=== PATIENT | male | born 1955 | race Two or more races ===

== ENCOUNTER 2020-01-13 11:11 | Inpatient (IN) | payer MEDICARE, MEDICAID ==
[~2020-01-13] VITALS: Ht 165.1 cm; Wt 39.0 kg
[2020-01-13 11:18] VITALS: BP 110/84
--- NOTE | 2020-01-13 11:18 | NUR ---
ED Nurse Note: Pt wheeled in to ED c/o loss of appetite, weakness, uncontrolled urination. Per son, pt is a liver transplant pt and had a minor heart attact x2 months ago. Denies CP/ SOB. On room air, breathing even and unlabored. Pt placed on media monitor. ERMD at bedside.
--- NOTE | 2020-01-13 11:50 | NUR ---
ED Nurse Note: IV line established. Blood specimen sent to lab.
--- NOTE | 2020-01-13 12:00 | NUR ---
EMERGENCY CONTACT: Alberto (son): [phone]
--- NOTE | 2020-01-13 12:10 | NUR ---
ED Nurse Note: Urine sent to lab.
[2020-01-13 12:21] LABS: HEMATOCRIT 34.9 % (42.0-52.0); HEMOGLOBIN 11.4 G/DL (14.2-18.0); MEAN CORPUSCULAR VOLUME 103 FL (80-99); PLATELET COUNT 278 K/UL (150-450); RED BLOOD COUNT 3.37 M/UL (4.70-6.10); RED CELL DISTRIBUTION WIDTH 12.9 % (11.6-14.8); WHITE BLOOD COUNT 11.9 K/UL (4.8-10.8)
[2020-01-13 12:26] LABS: APPEARANCE,URINE CLEAR; BILIRUBIN, URINE NEGATIVE (NEGATIVE); GLUCOSE, URINE (UA) 2+ (NEGATIVE); KETONES,URINE 1+ (NEGATIVE); LEUKOCYTE ESTERASE ,URINE NEGATIVE (NEGATIVE); NITRITE,URINE NEGATIVE (NEGATIVE); PH,URINE 6.5 (4.5-8.0); PROTEIN,URINE 2+ (NEGATIVE); UROBILINOGEN,URINE NORMAL MG/DL (0.0-1.0)
[2020-01-13 12:31] LABS: INR 0.9 (0.9-1.1)
[2020-01-13 12:31] LABS: COLOR,URINE YELLOW
[2020-01-13 12:33] LABS: CALCIUM 8.6 MG/DL (8.5-10.1)
[2020-01-13 12:46] LABS: ALBUMIN 2.5 G/DL (3.4-5.0); ALBUMIN/GLOBULIN RATIO 0.7 (1.0-2.7); BILIRUBIN,TOTAL 1.2 MG/DL (0.2-1.0); CKMB 10.1 NG/ML (0.0-3.6)
[2020-01-13 13:10] VITALS: BP 117/86
[2020-01-13] MEDS ORDERED: [UNRECOGNIZED DRUG - REMARK] (14:19)
--- NOTE | 2020-01-13 14:24 | History and Physical ---
History of Present Illness General Date patient seen: Jan 13, 2020 Time patient seen: 12:30 Reason for Hospitalization: weakness Present Illness HPI 64 y/o M with PMHx of liver transplantation in 2007, chronically on Cellcept and Prograft, who reportedly had a heart attack, possibly NSTEMI 2 months ago and had medical evaluation at [facility]. He comes to the Hospital today with increasing weakness and poor appetite. His troponin was noted to be elevated at 0.395 and EKG with NSR and he denies chest pain at this time and admission is requested. He denies fever, chills, cough, sputum production. He reports living with his family and does not know the doses of his medications. COVID-19 Screening Contact w/high risk pt: No Experienced COVID-19 symptoms?: No Patient History Healthcare decision maker Resuscitation status Advanced Directive on File Review of Systems All Other Systems: negative except mentioned in HPI Physical Exam General Appearance: WD/WN Lines, tubes and drains: peripheral HEENT: normocephalic, atraumatic Neck: non-tender Respiratory/Chest: lungs clear Cardiovascular/Chest: normal peripheral pulses Abdomen: non tender Extremities: non-tender Skin Exam: warm/dry Neurologic: guest relations agent II-XII grossly normal Last 24 Hour Vital Signs Date Time Temp Pulse Resp B/P (MAP) Pulse Ox O2 Delivery O2 Flow Rate FiO2 01/13/20 11:18 91 16 01/13/20 11:18 97.7 91 17 110/84 100 01/13/20 11:14 97.7 47 17 125/80 (95) 100 Laboratory Tests Test 01/13/20 11:50 01/13/20 12:10 White Blood Count 11.9 K/UL (4.8-10.8) H Red Blood Count 3.37 M/UL (4.70-6.10) L Hemoglobin 11.4 G/DL (14.2-18.0) L Hematocrit 34.9 % (42.0-52.0) L Mean Corpuscular Volume 103 FL (80-99) H Mean Corpuscular Hemoglobin 33.9 PG (27.0-31.0) H Mean Corpuscular Hemoglobin Concent 32.8 G/DL (32.0-36.0) Red Cell Distribution Width 12.9 % (11.6-14.8) Platelet Count 278 K/UL (150-450) Mean Platelet Volume 6.9 FL (6.5-10.1) Neutrophils (%) (Auto) % (45.0-75.0) Lymphocytes (%) (Auto) % (20.0-45.0) Monocytes (%) (Auto) % (1.0-10.0) Eosinophils (%) (Auto) % (0.0-3.0) Basophils (%) (Auto) % (0.0-2.0) Differential Total Cells Counted 100 Neutrophils % (Manual) 91 % (45-75) H Lymphocytes % (Manual) 4 % (20-45) L Monocytes % (Manual) 5 % (1-10) Eosinophils % (Manual) 0 % (0-3) Basophils % (Manual) 0 % (0-2) Band Neutrophils 0 % (0-8) Platelet Estimate Adequate Platelet Morphology Normal Macrocytosis 1+ Prothrombin Time 10.5 SEC (9.30-11.50) Prothromb Time International Ratio 0.9 (0.9-1.1) Activated Partial Thromboplast Time 27 SEC (23-33) Sodium Level 135 MMOL/L (136-145) L Potassium Level 3.0 MMOL/L (3.5-5.1) L Chloride Level 97 MMOL/L (98-107) L Carbon Dioxide Level 25 MMOL/L (21-32) Anion Gap 13 mmol/L (5-15) Blood Urea Nitrogen 47 mg/dL (7-18) H Creatinine 2.0 MG/DL (0.55-1.30) H Estimat Glomerular Filtration Rate 33.6 mL/min (>60) Glucose Level 195 MG/DL (74-106) H Lactic Acid Level 1.80 mmol/L (0.4-2.0) Calcium Level 8.6 MG/DL (8.5-10.1) Magnesium Level 1.7 MG/DL (1.8-2.4) L Total Bilirubin 1.2 MG/DL (0.2-1.0) H Direct Bilirubin 1.0 MG/DL (0.0-0.3) H Aspartate Amino Transf (AST/SGOT) 73 U/L (15-37) H Alanine Aminotransferase (ALT/SGPT) 82 U/L (12-78) H Alkaline Phosphatase 420 U/L (46-116) H Total Creatine Kinase 39 U/L (26-308) Creatine Kinase MB 10.1 NG/ML (0.0-3.6) H Creatine Kinase MB Relative Index 25.8 Troponin I 0.395 ng/mL (0.000-0.056) Total Protein 6.0 G/DL (6.4-8.2) L Albumin 2.5 G/DL (3.4-5.0) L Globulin 3.5 g/dL Albumin/Globulin Ratio 0.7 (1.0-2.7) L Urine Color Yellow Urine Appearance Clear Urine pH 6.5 (4.5-8.0) Urine Specific [place] 1.010 (1.005-1.035) Urine Protein 2+ (NEGATIVE) H Urine Glucose (UA) 2+ (NEGATIVE) H Urine Ketones 1+ (NEGATIVE) H Urine Blood Negative (NEGATIVE) Urine Nitrite Negative (NEGATIVE) Urine Bilirubin Negative (NEGATIVE) Urine Urobilinogen Normal MG/DL (0.0-1.0) Urine Leukocyte Esterase Negative (NEGATIVE) Urine RBC 0 /HPF (0 - 0) Urine WBC 0-2 /HPF (0 - 0) Urine Squamous Epithelial Cells Occasional /LPF Urine Bacteria Occasional /HPF (NONE) Height (Feet): 5 Height (Inches): 8.00 Weight (Pounds): 98 Objective Narrative EKG: NSR at [address] changes or conduction defects. Assessment/Plan Status: stable Assessment/Plan: 64 y/o M admitted to the Hospital with: # Generalized weakness Etiology include failure to thrive, vs poor nutritional status vs underlying cardiac etiology based on history of recent [place] 2 months ago Weight loss 6 lbs in the past month # Elevated troponin Serial troponin Telemetry TTE to assess EF and WMA Cardiology will be consulted Dr. Villanueva Lipid panel Asa 81 mg will be started # CKD stage 3 Trend creatinine Monitor renal function # Hypokalemia Replete and monitor # Hypomagnesemia Replete and monitor # History of liver transplant Resume prograft and cellcept Monitor clinical markers as needed # Generalized weakness PT evaluation for baseline and need of therapy to be determined. DVT ppx with Enoxaparin GI ppx with PPI FULL CODE Piyush Cruz MD Jan 13, 2020 14:24
[2020-01-13] MEDS ORDERED: LORazepam 1mg tab ORAL PRN (14:30)
[2020-01-13] MEDS ORDERED: Morphine Sulfate 2mg/ml Inj(IV/IM USE ONLY) IVP PRN (14:30)
[2020-01-13] MEDS ORDERED: Nitroglycerin Subl 0.4mg tab SL PRN (14:30)
[2020-01-13] MEDS ORDERED: Morphine Sulfate 4mg/ml Inj (IV USE ONLY) IVP PRN (14:30)
--- NOTE | 2020-01-13 14:54 | Cardiac Electrophysiology PN ---
Subjective Subjective [id number] Objective Last 24 Hour Vital Signs Date Time Temp Pulse Resp B/P (MAP) Pulse Ox O2 Delivery O2 Flow Rate FiO2 01/13/20 13:10 97.7 91 16 117/86 97 01/13/20 11:18 91 16 01/13/20 11:18 97.7 91 17 110/84 100 01/13/20 11:14 97.7 47 17 125/80 (95) 100 Laboratory Tests Test 01/13/20 11:50 01/13/20 12:10 White Blood Count 11.9 K/UL (4.8-10.8) H Red Blood Count 3.37 M/UL (4.70-6.10) L Hemoglobin 11.4 G/DL (14.2-18.0) L Hematocrit 34.9 % (42.0-52.0) L Mean Corpuscular Volume 103 FL (80-99) H Mean Corpuscular Hemoglobin 33.9 PG (27.0-31.0) H Mean Corpuscular Hemoglobin Concent 32.8 G/DL (32.0-36.0) Red Cell Distribution Width 12.9 % (11.6-14.8) Platelet Count 278 K/UL (150-450) Mean Platelet Volume 6.9 FL (6.5-10.1) Neutrophils (%) (Auto) % (45.0-75.0) Lymphocytes (%) (Auto) % (20.0-45.0) Monocytes (%) (Auto) % (1.0-10.0) Eosinophils (%) (Auto) % (0.0-3.0) Basophils (%) (Auto) % (0.0-2.0) Differential Total Cells Counted 100 Neutrophils % (Manual) 91 % (45-75) H Lymphocytes % (Manual) 4 % (20-45) L Monocytes % (Manual) 5 % (1-10) Eosinophils % (Manual) 0 % (0-3) Basophils % (Manual) 0 % (0-2) Band Neutrophils 0 % (0-8) Platelet Estimate Adequate Platelet Morphology Normal Macrocytosis 1+ Prothrombin Time 10.5 SEC (9.30-11.50) Prothromb Time International Ratio 0.9 (0.9-1.1) Activated Partial Thromboplast Time 27 SEC (23-33) Sodium Level 135 MMOL/L (136-145) L Potassium Level 3.0 MMOL/L (3.5-5.1) L Chloride Level 97 MMOL/L (98-107) L Carbon Dioxide Level 25 MMOL/L (21-32) Anion Gap 13 mmol/L (5-15) Blood Urea Nitrogen 47 mg/dL (7-18) H Creatinine 2.0 MG/DL (0.55-1.30) H Estimat Glomerular Filtration Rate 33.6 mL/min (>60) Glucose Level 195 MG/DL (74-106) H Lactic Acid Level 1.80 mmol/L (0.4-2.0) Calcium Level 8.6 MG/DL (8.5-10.1) Magnesium Level 1.7 MG/DL (1.8-2.4) L Total Bilirubin 1.2 MG/DL (0.2-1.0) H Direct Bilirubin 1.0 MG/DL (0.0-0.3) H Aspartate Amino Transf (AST/SGOT) 73 U/L (15-37) H Alanine Aminotransferase (ALT/SGPT) 82 U/L (12-78) H Alkaline Phosphatase 420 U/L (46-116) H Total Creatine Kinase 39 U/L (26-308) Creatine Kinase MB 10.1 NG/ML (0.0-3.6) H Creatine Kinase MB Relative Index 25.8 Troponin I 0.395 ng/mL (0.000-0.056) Total Protein 6.0 G/DL (6.4-8.2) L Albumin 2.5 G/DL (3.4-5.0) L Globulin 3.5 g/dL Albumin/Globulin Ratio 0.7 (1.0-2.7) L Urine Color Yellow Urine Appearance Clear Urine pH 6.5 (4.5-8.0) Urine Specific [place] 1.010 (1.005-1.035) Urine Protein 2+ (NEGATIVE) H Urine Glucose (UA) 2+ (NEGATIVE) H Urine Ketones 1+ (NEGATIVE) H Urine Blood Negative (NEGATIVE) Urine Nitrite Negative (NEGATIVE) Urine Bilirubin Negative (NEGATIVE) Urine Urobilinogen Normal MG/DL (0.0-1.0) Urine Leukocyte Esterase Negative (NEGATIVE) Urine RBC 0 /HPF (0 - 0) Urine WBC 0-2 /HPF (0 - 0) Urine Squamous Epithelial Cells Occasional /LPF Urine Bacteria Occasional /HPF (NONE) Greg Villanueva MD Jan 13, 2020 14:54
--- NOTE | 2020-01-13 15:00 | NUR ---
ED Nurse Note: Dr. Cruz at bedside.
--- NOTE | 2020-01-13 15:06 | NUR ---
ED Nurse Note: 2D echo done at bedside.
[2020-01-13] MEDS ORDERED: Aspirin Baby 81mg ORAL ONE (15:15)
--- NOTE | 2020-01-13 15:25 | NUR ---
ED Nurse Note: Report given to Greta HANSEN.
--- NOTE | 2020-01-13 15:35 | NUR ---
TRANSFER TO FLOOR: Patient transferred to Telemetry. Reprot given to Greta HANSEN. Pt AAOx4, verbally responsive. Ambulatory. Iv line on right forearm 20g patent and intact. No skin issues. Med recon done. All belongings sent with the patient. Family aware of the transfer.
--- NOTE | 2020-01-13 15:41 | Emergency Room Report ---
History of Present Illness General Chief Complaint: General Complaint Source: Patient Present Illness HPI Disclaimer: Please note that this report is being documented using [employer] technology. This can lead to erroneous entry secondary to incorrect interpretation by the dictating instrument. HPI: 64-year old male presents from home due to generalized weakness and difficulty with his activities of daily living. He has a history of a liver transplant, has a history of hypertension. According to the son patient has had poor p.o. intake, generally weak with weight loss for the past couple of months. Apparently he was recently admitted to an hospital in [place] "was told I have a heart attack" but echocardiogram nd was normal. Patient denies any chest pain or shortness of breath at this time. He denies any abdominal pain. Liver transplant was completed at [facility] Allergies: Coded Allergies: No Known Allergies (Unverified , 01/13/20) COVID-19 Screening Contact w/high risk pt: No Experienced COVID-19 symptoms?: No COVID-19 Testing performed RESEARCH HOME ECONOMIST: No Patient History Reviewed Nursing Documentation: PMH: Agreed; PSxH: Agreed Nursing Documentation-PM Past Medical History: No History, Except For Hx Hypertension: Yes Review of Systems All Other Systems: negative except mentioned in HPI Physical Exam Vital Signs Date Time Temp Pulse Resp B/P (MAP) Pulse Ox O2 Delivery O2 Flow Rate FiO2 01/13/20 11:14 97.7 47 17 125/80 (95) 100 Sp02 EP Interpretation: reviewed, normal General Appearance: no apparent distress, cachetic Head: normocephalic, atraumatic Eyes: bilateral eye PERRL, bilateral eye EOMI ENT: hearing grossly normal, moist mucus membranes Neck: full range of motion, supple Respiratory: lungs clear, normal breath sounds, no rhonchi, no respiratory distress, no retraction, no wheezing Cardiovascular #1: normal peripheral pulses, regular rate, rhythm, no murmur Gastrointestinal: non tender, soft, non-distended, no guarding Neurologic: alert, oriented x3, no focal defects Skin: normal color, warm/dry Medical Decision Making Diagnostic Impression: Primary Impression: NSTEMI (non-ST elevated myocardial infarction) ER Course MDM: Differential included but not limited to failure to thrive, dehydration, deconditioning, non-ST elevation myocardial infarction to name a few Clinical course-laboratory studies were sent on the patient. EKG completed without any ischemic changes. Troponin was elevated to 0.3. It is unclear if he has baseline troponin elevation. He denied any chest pain. His vital signs were stable. Due to his troponin elevation with generalized weakness and difficulty with ADLs will admit to the hospital under Dr. Cruz. Cardiology was consulted. Aspirin was given in the ER. Labs - Laboratory Tests Test 01/13/20 11:50 01/13/20 12:10 White Blood Count 11.9 K/UL (4.8-10.8) H Red Blood Count 3.37 M/UL (4.70-6.10) L Hemoglobin 11.4 G/DL (14.2-18.0) L Hematocrit 34.9 % (42.0-52.0) L Mean Corpuscular Volume 103 FL (80-99) H Mean Corpuscular Hemoglobin 33.9 PG (27.0-31.0) H Mean Corpuscular Hemoglobin Concent 32.8 G/DL (32.0-36.0) Red Cell Distribution Width 12.9 % (11.6-14.8) Platelet Count 278 K/UL (150-450) Mean Platelet Volume 6.9 FL (6.5-10.1) Neutrophils (%) (Auto) % (45.0-75.0) Lymphocytes (%) (Auto) % (20.0-45.0) Monocytes (%) (Auto) % (1.0-10.0) Eosinophils (%) (Auto) % (0.0-3.0) Basophils (%) (Auto) % (0.0-2.0) Differential Total Cells Counted 100 Neutrophils % (Manual) 91 % (45-75) H Lymphocytes % (Manual) 4 % (20-45) L Monocytes % (Manual) 5 % (1-10) Eosinophils % (Manual) 0 % (0-3) Basophils % (Manual) 0 % (0-2) Band Neutrophils 0 % (0-8) Platelet Estimate Adequate Platelet Morphology Normal Macrocytosis 1+ Prothrombin Time 10.5 SEC (9.30-11.50) Prothrombin Time INR 0.9 (0.9-1.1) Activated Partial Thromboplast Time 27 SEC (23-33) Sodium Level 135 MMOL/L (136-145) L Potassium Level 3.0 MMOL/L (3.5-5.1) L Chloride Level 97 MMOL/L (98-107) L Carbon Dioxide Level 25 MMOL/L (21-32) Anion Gap 13 mmol/L (5-15) Blood Urea Nitrogen 47 mg/dL (7-18) H Creatinine 2.0 MG/DL (0.55-1.30) H Estimated Glomerular Filtration Rate 33.6 mL/min (>60) Glucose Level 195 MG/DL (74-106) H Lactic Acid Level 1.80 mmol/L (0.4-2.0) Calcium Level 8.6 MG/DL (8.5-10.1) Magnesium Level 1.7 MG/DL (1.8-2.4) L Total Bilirubin 1.2 MG/DL (0.2-1.0) H Direct Bilirubin 1.0 MG/DL (0.0-0.3) H Aspartate Amino Transferase (AST) 73 U/L (15-37) H Alanine Aminotransferase (ALT) 82 U/L (12-78) H Alkaline Phosphatase 420 U/L (46-116) H Total Creatine Kinase 39 U/L (26-308) Creatine Kinase MB 10.1 NG/ML (0.0-3.6) H Creatine Kinase MB Relative Index 25.8 Troponin I 0.395 ng/mL (0.000-0.056) Total Protein 6.0 G/DL (6.4-8.2) L Albumin 2.5 G/DL (3.4-5.0) L Globulin 3.5 g/dL Albumin/Globulin Ratio 0.7 (1.0-2.7) L Urine Color Yellow Urine Appearance Clear Urine pH 6.5 (4.5-8.0) Urine Specific [place] 1.010 (1.005-1.035) Urine Protein 2+ (NEGATIVE) H Urine Glucose (UA) 2+ (NEGATIVE) H Urine Ketones 1+ (NEGATIVE) H Urine Blood Negative (NEGATIVE) Urine Nitrite Negative (NEGATIVE) Urine Bilirubin Negative (NEGATIVE) Urine Urobilinogen Normal MG/DL (0.0-1.0) Urine Leukocyte Esterase Negative (NEGATIVE) Urine RBC 0 /HPF (0 - 0) Urine WBC 0-2 /HPF (0 - 0) Urine Squamous Epithelial Cells Occasional /LPF Urine Bacteria Occasional /HPF (NONE) On reevaluation: Patient in no acute distress Plan-patient to the telemetry floor under Dr. Cruz EKG Diagnostic Results Rate: normal Rhythm: NSR ST Segments: no acute changes Other Impression Right atrial enlargement, left axis deviation, nonspecific EKG ASA given to the pt in ED: Yes Chest X-Ray Diagnostic Results Chest X-Ray Diagnostic Results : Chest X-Ray Ordered: Yes # of Views/Limited/Complete: 1 View Indication: Other Interpretation: no consolidation, no effusion, no pneumothorax, other - Hyperinflation Impression: No acute disease Last Vital Signs Date Time Temp Pulse Resp B/P (MAP) Pulse Ox O2 Delivery O2 Flow Rate FiO2 01/13/20 13:10 97.7 91 16 117/86 97 Disposition: ADMITTED INPATIENT Condition: Serious Referrals: [facility],REFERR[facility] (PCP) aH Smith M.D. Jan 13, 2020 15:41
--- NOTE | 2020-01-13 15:59 | Diagnostic Imaging Report ---
Indication: Shortness of breath Technique: One view of the chest Comparison: none Findings: Multiple nodules are seen in both lungs. The largest of these is at the left lung base and measures 3 cm in diameter. At least 2 of these in the left upper lung demonstrate possible small central cavities. Lungs appear slightly hyperinflated. No focal airspace consolidation. Numerous surgical clips are seen in the epigastric region. The pleural spaces are clear. The heart size is normal Impression: Bilateral lung nodules. These are worrisome for metastatic deposits. Septic emboli also a possibility. Correlate with clinical history and findings Mild hyperinflation, likely COPD.
--- NOTE | 2020-01-13 17:43 | NUR ---
NURSE NOTES: New admission. Pt arrived to the unit at 1600, Dx NTEMI, Admitting Dr Cruz, Pt was placed on cardiac cath lab radiology technologist showing SR, VSS, pt is on room air with no sign of sob or resp distress. Skin is intact, +3 pitting edema noted on bilat foots, feet elevated on pillow. Pt has right FA 22g that is c/d/i and locked. Belongings were reviewed with ER nurse. Pt has esposito on him over $600 in esposito that he is refusing to place in safe, he insists on keeping it on him. Bed in lowest locked position, call light within reach, will continue with plan of care
[2020-01-13] MEDS: Mycophenolate 250mg cap ORAL SCH (18:06)
--- NOTE | 2020-01-13 18:20 | NUR ---
NURSE NOTES: Notified Dr Villanueva of trop 0.413
--- NOTE | 2020-01-13 18:30 | Consultation ---
DATE OF CONSULTATION: 01/13/2020 CARDIOLOGY CONSULTATION REFERRING PHYSICIAN: Piyush Cruz MD REASON FOR CONSULTATION: [id number] myocardial infarction. HISTORY OF PRESENT ILLNESS: The patient is a 64-year-old gentleman with history of liver transplantation in 2005 at [facility], who was on CellCept and Prograf, who apparently had a heart attack about a couple of months ago. He was evaluated at the [facility] and was treated medically. He never had a stent placement. The patient was brought to the emergency room for generalized weakness and poor appetite and noted to have elevated troponin of 0.395. EKG shows sinus rhythm, but no acute ST-T wave abnormality. The patient denies any chest pain. At the time of my evaluation, the patient is still in the emergency room and denies any shortness of breath, cough, or fever. REVIEW OF SYSTEMS: Negative other than what is mentioned in history of present illness. PAST MEDICAL HISTORY: As mentioned above. FAMILY HISTORY: Noncontributory. SOCIAL HISTORY: He lives at home. Does not smoke or drink alcohol. PHYSICAL EXAMINATION: VITAL SIGNS: Blood pressure of 110/84, pulse is 90, respirations 17, temperature 97.7. HEAD AND NECK: Showed no JVD. LUNGS: Clear. CARDIOVASCULAR: Shows regular S1 and S2 with no gallop. ABDOMEN: Soft and nontender and scar of liver surgery in the right upper abdomen for liver transplant. EXTREMITIES: No pitting edema. LABORATORY DATA: Labs show white count of 11.9, hemoglobin 11.4, hematocrit of 35, and platelet count of 278,000. Sodium 135, potassium 3.0, BUN of 47, creatinine of 2.0, and glucose of 195. Troponin is 0.395. ASSESSMENT AND PLAN: 1. Troponin elevation. This may be due to renal failure as his creatinine is 2. The patient does not have any chest pain. EKG does not show any acute ST-T wave abnormalities. We will repeat cardiac enzymes and get a repeat EKG and echocardiogram for further evaluation. In the meantime, I will start the patient on aspirin, beta-awa, and low-dose statin. 2. Status post liver transplant. The patient is already on Prograf and CellCept. 3. Generalized weakness. 4. Elevated white count of 12,000. 5. Hypokalemia. Potassium of 3. 6. Chronic kidney disease with BUN of 47 and creatinine of 2.0. Thank you very much, Dr. Cruz, for allowing me to participate in the care of this patient. Please do not hesitate to contact me if you have any questions regarding my evaluation. Greg Villanueva M.D. DR: AMADA JOB#: [id number] CC:
--- NOTE | 2020-01-13 19:15 | NUR ---
NURSE HAND-OFF REPORT: Important Events on Shift:no chest pain,trending troponin, dr baird aware Patient Status: stable Diet: EVANGELINA Pending Orders: Pending Results/Labs: Pending MD notification: Latest Vital Signs: Temperature 97.7 , Pulse 87 , B/P 117 /86 , Respiratory Rate 19 , O2 SAT 98 , Room Air, O2 Flow Rate . Vital Sign Comment: EKG Rhythm: SR w/ PVC Rhythm change?: N MD Notified?: - MD Response: Latest Padron Fall Score: 35 Fall Risk: Medium Risk Safety Measures: Call light Within Reach, Bed Alarm Zone 2, Side Rails Side Rails x2, Bed position . Fall Precautions: Patient Fall Education Report given to Jaja HANSEN.
[2020-01-13 20:00] VITALS: BP 138/83
--- NOTE | 2020-01-13 20:04 | NUR ---
NURSE NOTES: Received patient report from JADE Hernandes. Patient is AO x4 awake and able to make needs known. He shows no signs of distress or pain. Patient is on room air and shows no signs of respiratory distress. IV is intact and patent. There are no signs of erythema, infiltration, or bleeding. Bed is in the lowest position, call light is within reach, side rails up x2. Will continue plan of care.
[2020-01-13] MEDS: Docusate 100mg cap ORAL SCH (21:00)
[2020-01-13] MEDS: Heparin 5000 units/ml inj SUBQ SCH (21:20)
[2020-01-14] VITALS: BP 111/69
[2020-01-14 04:00] VITALS: BP 105/60
[2020-01-14 07:09] LABS: EOSINOPHILS % (AUTO) 0.4 % (0.0-3.0); HEMATOCRIT 35.4 % (42.0-52.0); HEMOGLOBIN 11.7 G/DL (14.2-18.0); LYMPHOCYTES % (AUTO) 4.5 % (20.0-45.0); MEAN CORPUSCULAR VOLUME 103 FL (80-99); MONOCYTES % (AUTO) 10.3 % (1.0-10.0); NEUTROPHILS % (AUTO) 83.8 % (45.0-75.0); PLATELET COUNT 285 K/UL (150-450); RED BLOOD COUNT 3.44 M/UL (4.70-6.10); RED CELL DISTRIBUTION WIDTH 12.7 % (11.6-14.8); WHITE BLOOD COUNT 8.3 K/UL (4.8-10.8)
--- NOTE | 2020-01-14 07:36 | NUR ---
NURSE HAND-OFF REPORT: Important Events on Shift:[NA] Patient Status: [Full code] Diet: [renal ] Pending Orders: [NA] Pending Results/Labs:NA[] Pending MD notification:[NA] Latest Vital Signs: Temperature 97.6 , Pulse 77 , B/P 105 /60 , Respiratory Rate 18 , O2 SAT 95 , Room Air, O2 Flow Rate . Vital Sign Comment: [] EKG Rhythm: SR w/ PVC Rhythm change?: N MD Notified?: - MD Response: Latest Padron Fall Score: 35 Fall Risk: Medium Risk Safety Measures: Call light Within Reach, Bed Alarm Zone 2, Side Rails Side Rails x2, Bed position Low and Locked. Fall Precautions: Patient Fall Education Report given to [JADE Erazo].
--- NOTE | 2020-01-14 07:37 | NUR ---
NURSE NOTES: Received report from Jaja/RN, Observed patient awake, eating breakfast in bed. On room air, no acute distress/SOB noted. Able to make needs known, Denies pain at this time. Bed is in lowest position and locked, Call light within reach, Encouraged to use call light when needed. Will continue plan of care.
[2020-01-14 08:00] VITALS: BP 135/90
[2020-01-14] MEDS ORDERED: Aspirin Baby 81mg ORAL SCH (09:00)
--- NOTE | 2020-01-14 09:15 | NUR ---
PT EVALUATION NOTE Patient seen for initial evaluation and treatment initiated. Patient presents with generalized weakness and decreased balance which impairs patient's ability to perform mobility tasks safely. Patient requires SBA for transfers without AD. Patient able to ambulate 50 ft with CGA, unsteady gait and limited activity tolerance due to c/o fatigue. Patient will benefit from skilled inpatient PT intervention to increase strength and postural stability for improved level of functional mobility and activity tolerance. Recommend discharge to short term SNF for continued rehab vs home with home PT follow-up. Addendum: 01/14/20 at 1257 by SABINE GOVEA PT Amended: Links added.
[2020-01-14] MEDS: Docusate 100mg cap ORAL SCH ×2 (09:21→21:00)
[2020-01-14 09:22] LABS: ANION GAP 14 mmol/L (5-15); BLOOD UREA NITROGEN 38 mg/dL (7-18); CALCIUM 8.8 MG/DL (8.5-10.1); CARBON DIOXIDE 24 MMOL/L (21-32); CHLORIDE 101 MMOL/L (98-107); CHOLESTEROL 235 MG/DL (< 200); CREATININE 1.7 MG/DL (0.55-1.30); HDL CHOLESTEROL 56 MG/DL (40-60); SODIUM 139 MMOL/L (136-145); TRIGLYCERIDES 111 MG/DL (30-150)
[2020-01-14] MEDS: Aspirin Baby 81mg ORAL SCH (09:22)
[2020-01-14 09:23] LABS: POTASSIUM 2.6 MMOL/L (3.5-5.1)
[2020-01-14] MEDS: Mycophenolate 250mg cap ORAL SCH ×2 (09:23→17:20)
[2020-01-14] MEDS: Heparin 5000 units/ml inj SUBQ SCH ×2 (09:30→21:32)
[2020-01-14] MEDS ORDERED: URSODIOL300 MG ORAL (11:04)
[2020-01-14] MEDS ORDERED: TACROLIMUS1 MG PO (11:04)
[2020-01-14] MEDS ORDERED: MEGESTROL400 MG/11 PO (11:04)
[2020-01-14 12:00] VITALS: BP 135/90
--- NOTE | 2020-01-14 12:08 | Cardiac Electrophysiology PN ---
Assessment/Plan Assessment/Plan 1. Troponin elevation. All levels are low level and similar at 0.4 Likely due to renal failure as his creatinine is 2. The patient does not have any chest pain. EKG does not show any acute ST-T wave abnormalities. Continue aspirin, beta-awa, and low-dose statin. Echo Nl EF 2. Status post liver transplant. Already on Prograf and CellCept. 3. Generalized weakness. 4. Elevated white count of 12,000. 5. Hypokalemia. Potassium of 3. 6. Chronic kidney disease with BUN of 47 and creatinine of 2.0. Subjective Subjective No CP or SOB EF 55% Objective Last 24 Hour Vital Signs Date Time Temp Pulse Resp B/P (MAP) Pulse Ox O2 Delivery O2 Flow Rate FiO2 01/14/20 09:21 87 135/90 01/14/20 08:00 98.2 87 20 135/90 (105) 96 01/14/20 04:00 97.6 70 18 105/60 (75) 95 01/14/20 04:00 77 01/14/20 00:00 73 01/14/20 00:00 97.7 75 20 111/69 (83) 100 01/13/20 21:18 82 138/83 01/13/20 21:00 Room Air 01/13/20 20:00 97.7 82 20 138/83 (101) 100 01/13/20 16:00 87 01/13/20 15:35 97.7 75 19 117/86 98 Room Air 01/13/20 13:10 97.7 91 16 117/86 97 Intake and Output 01/13/20 01/14/20 19:00 07:00 Intake Total 120 ml Balance 120 ml Intake Oral 120 ml # Voids 2 1 Laboratory Tests Test 01/13/20 12:10 01/13/20 17:40 01/14/20 00:15 01/14/20 06:15 Urine Color Yellow Urine Appearance Clear Urine pH 6.5 (4.5-8.0) Urine Specific [place] 1.010 (1.005-1.035) Urine Protein 2+ (NEGATIVE) H Urine Glucose (UA) 2+ (NEGATIVE) H Urine Ketones 1+ (NEGATIVE) H Urine Blood Negative (NEGATIVE) Urine Nitrite Negative (NEGATIVE) Urine Bilirubin Negative (NEGATIVE) Urine Urobilinogen Normal MG/DL (0.0-1.0) Urine Leukocyte Esterase Negative (NEGATIVE) Urine RBC 0 /HPF (0 - 0) Urine WBC 0-2 /HPF (0 - 0) Urine Squamous Epithelial Cells Occasional /LPF Urine Bacteria Occasional /HPF (NONE) Troponin I 0.413 ng/mL (0.000-0.056) 0.407 ng/mL (0.000-0.056) 0.384 ng/mL (0.000-0.056) White Blood Count 8.3 K/UL (4.8-10.8) Red Blood Count 3.44 M/UL (4.70-6.10) L Hemoglobin 11.7 G/DL (14.2-18.0) L Hematocrit 35.4 % (42.0-52.0) L Mean Corpuscular Volume 103 FL (80-99) H Mean Corpuscular Hemoglobin 34.0 PG (27.0-31.0) H Mean Corpuscular Hemoglobin Concent 33.0 G/DL (32.0-36.0) Red Cell Distribution Width 12.7 % (11.6-14.8) Platelet Count 285 K/UL (150-450) Mean Platelet Volume 5.8 FL (6.5-10.1) L Neutrophils (%) (Auto) 83.8 % (45.0-75.0) H Lymphocytes (%) (Auto) 4.5 % (20.0-45.0) L Monocytes (%) (Auto) 10.3 % (1.0-10.0) H Eosinophils (%) (Auto) 0.4 % (0.0-3.0) Basophils (%) (Auto) 1.0 % (0.0-2.0) Sodium Level 139 MMOL/L (136-145) Potassium Level 2.6 MMOL/L (3.5-5.1) *L Chloride Level 101 MMOL/L (98-107) Carbon Dioxide Level 24 MMOL/L (21-32) Anion Gap 14 mmol/L (5-15) Blood Urea Nitrogen 38 mg/dL (7-18) H Creatinine 1.7 MG/DL (0.55-1.30) H Estimat Glomerular Filtration Rate 40.5 mL/min (>60) Glucose Level 98 MG/DL (74-106) Hemoglobin A1c 5.5 % (4.3-6.0) Calcium Level 8.8 MG/DL (8.5-10.1) Pro-B-Type Natriuretic Peptide 45434 pg/mL (0-125) H Triglycerides Level 111 MG/DL (30-150) Cholesterol Level 235 MG/DL (< 200) H LDL Cholesterol 140 mg/dL (<100) H HDL Cholesterol 56 MG/DL (40-60) Cholesterol/HDL Ratio 4.2 (3.3-4.4) Thyroid Stimulating Hormone (TSH) 2.010 uiU/mL (0.358-3.740) Free Thyroxine 1.38 NG/DL (0.76-1.46) Objective HEAD AND NECK: Showed no JVD. LUNGS: Clear. CARDIOVASCULAR: Shows regular S1 and S2 with no gallop. ABDOMEN: Soft and nontender and scar of liver surgery in the right upper abdomen for liver transplant. EXTREMITIES: No pitting edema. Greg Villanueva MD Jan 14, 2020 12:08
--- NOTE | 2020-01-14 14:14 | General Progress Note ---
Subjective Date patient seen: Jan 14, 2020 Time patient seen: 13:00 ROS Limited/Unobtainable: No Allergies: Coded Allergies: No Known Allergies (Unverified , 01/13/20) All Systems: reviewed and negative except above Subjective Feels better today, denies chest pain or shortness of breath. Objective Last 24 Hour Vital Signs Date Time Temp Pulse Resp B/P (MAP) Pulse Ox O2 Delivery O2 Flow Rate FiO2 01/14/20 12:00 88 01/14/20 12:00 98.2 88 20 135/90 (105) 96 01/14/20 09:21 87 135/90 01/14/20 09:00 Room Air 01/14/20 08:00 91 01/14/20 08:00 98.2 87 20 135/90 (105) 96 01/14/20 04:00 97.6 70 18 105/60 (75) 95 01/14/20 04:00 77 01/14/20 00:00 73 01/14/20 00:00 97.7 75 20 111/69 (83) 100 01/13/20 21:18 82 138/83 01/13/20 21:00 Room Air 01/13/20 20:00 97.7 82 20 138/83 (101) 100 01/13/20 16:00 87 01/13/20 15:35 97.7 75 19 117/86 98 Room Air Intake and Output 01/13/20 01/14/20 19:00 07:00 Intake Total 120 ml Balance 120 ml Intake Oral 120 ml # Voids 2 1 Laboratory Tests 01/13/20 17:40: Troponin I 0.413H 01/14/20 00:15: Troponin I 0.407H 01/14/20 06:15: Troponin I 0.384H, White Blood Count 8.3, Red Blood Count 3.44L, Hemoglobin 11.7L, Hematocrit 35.4L, Mean Corpuscular Volume 103H, Mean Corpuscular Hemoglobin 34.0H, Mean Corpuscular Hemoglobin Concent 33.0, Red Cell Distribution Width 12.7, Platelet Count 285, Mean Platelet Volume 5.8L, Neutrophils (%) (Auto) 83.8H, Lymphocytes (%) (Auto) 4.5L, Monocytes (%) (Auto) 10.3H, Eosinophils (%) (Auto) 0.4, Basophils (%) (Auto) 1.0, Sodium Level 139, Potassium Level 2.6*L, Chloride Level 101, Carbon Dioxide Level 24, Anion Gap 14, Blood Urea Nitrogen 38H, Creatinine 1.7H, Estimat Glomerular Filtration Rate 40.5, Glucose Level 98, Hemoglobin A1c 5.5, Calcium Level 8.8, Pro-B-Type Natriuretic Peptide 03335O, Triglycerides Level 111, Cholesterol Level 235H, LDL Cholesterol 140H, HDL Cholesterol 56, Cholesterol/HDL Ratio 4.2, Thyroid Stimulating Hormone (TSH) 2.010, Free Thyroxine 1.38 Height (Feet): 5 Height (Inches): 5.00 Weight (Pounds): 130 General Appearance: WD/WN EENT: PERRL/EOMI Neck: supple Cardiovascular: normal rate Respiratory/Chest: lungs clear Abdomen: non tender 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 Villanueva, no new recommendations. Lipid panel Asa 81 mg daily # CKD stage 3 Trend creatinine Monitor renal function # Hypokalemia Replete and monitor # Hypomagnesemia Replete and monitor # History of liver transplant Resume prograft and cellcept Monitor clinical markers as needed # Generalized weakness PT evaluation for baseline recommends SNF for short term rehab. Request placed. DVT ppx with Enoxaparin GI ppx with PPI FULL CODE Piyush Cruz MD Jan 14, 2020 14:14
[2020-01-14 16:00] VITALS: BP 134/83
--- NOTE | 2020-01-14 16:09 | NUR ---
CASE MANAGEMENT:REVIEW 64 YR OLD MALE PRESENTED TO ER FROM HOME CC; WEAKNESS, LOSS OF APPETITE PMH: LIVER TRANSPLANT. HEART ATTACK SI: NSTEMI 97.7 47 17 125/80 100% ON RA WBC+11.9 K-3.0 TROPONIN(+) 0.395 IS: ASA PO X1 BLOOD CX CHEST XRAY : TO TELEMETRY UNIT
--- NOTE | 2020-01-14 19:11 | NUR ---
NURSE HAND-OFF REPORT: Important Events on Shift: NA Patient Status: Stable Diet: Renal Pending Orders: NA Pending Results/Labs:Morning labs Pending MD notification:NA Latest Vital Signs: Temperature 98.1 , Pulse 82 , B/P 134 /83 , Respiratory Rate 20 , O2 SAT 100 , Room Air, O2 Flow Rate . Vital Sign Comment: Stable EKG Rhythm: Sinus Rhythm Rhythm change?: N MD Notified?: Yanira Cortez MD Response: Message left await call Latest Padron Fall Score: 45 Fall Risk: High Risk Safety Measures: Call light Within Reach, Bed Alarm Zone 1, Side Rails Side Rails x2, Bed position Low and Locked. Fall Precautions: Door Sign Patient Fall Education Report given to Jaja/RN.
[2020-01-14 20:00] VITALS: BP 137/88
--- NOTE | 2020-01-14 20:21 | NUR ---
NURSE NOTES: Received patient report from JADE Erazo. Patient is AO x4 Icelandic speaking and able to make needs known. Patient shows no signs of distress or pain at the time. IV is intact and patent. There are no signs of erythema, infiltration, or bleeding. Patient able to walk but reports feeling weak. Instructed to call if he wants to get up. Bed is in the lowest position, call light is within reach, side rails up x3, bed alarm on. Will continue to monitor.
[2020-01-15] VITALS: BP 130/72
[2020-01-15 04:00] VITALS: BP 120/71
--- NOTE | 2020-01-15 04:10 | Cardiology Report ---
APPROVED REPORT EKG Measurement Heart [id number] <Conclusion> Sinus rhythm with fusion complexes Right atrial enlargement Left axis deviation Abnormal ECG
--- NOTE | 2020-01-15 04:15 | Cardiology Report ---
APPROVED REPORT EKG Measurement Heart [id number] <Conclusion> Normal sinus rhythm Right atrial enlargement Left axis deviation Pulmonary disease pattern Abnormal ECG
[2020-01-15 07:17] LABS: BASOPHILS % (AUTO) 0.9 % (0.0-2.0); EOSINOPHILS % (AUTO) 0.7 % (0.0-3.0); HEMATOCRIT 30.9 % (42.0-52.0); LYMPHOCYTES % (AUTO) 10.9 % (20.0-45.0); MEAN CORPUSCULAR VOLUME 104 FL (80-99); MONOCYTES % (AUTO) 9.2 % (1.0-10.0); NEUTROPHILS % (AUTO) 78.2 % (45.0-75.0); PLATELET COUNT 318 K/UL (150-450); RED BLOOD COUNT 2.97 M/UL (4.70-6.10); RED CELL DISTRIBUTION WIDTH 12.6 % (11.6-14.8); WHITE BLOOD COUNT 7.1 K/UL (4.8-10.8)
[2020-01-15 07:25] LABS: CALCIUM 8.2 MG/DL (8.5-10.1); CREATININE 1.7 MG/DL (0.55-1.30); POTASSIUM 2.9 MMOL/L (3.5-5.1)
--- NOTE | 2020-01-15 07:27 | NUR ---
NURSE HAND-OFF REPORT: Important Events on Shift:[NA] Patient Status: [Full code] Diet: [renal ] Pending Orders: [] Pending Results/Labs:[] Pending MD notification:[] Latest Vital Signs: Temperature 97.9 , Pulse 74 , B/P 120 /71 , Respiratory Rate 18 , O2 SAT 100 , Room Air, O2 Flow Rate . Vital Sign Comment: [] EKG Rhythm: Sinus Rhythm Rhythm change?: N MD Notified?: Yanira Cortez MD Response: Message left await call Latest Padron Fall Score: 35 Fall Risk: Medium Risk Safety Measures: Call light Within Reach, Bed Alarm Zone 2, Side Rails Side Rails x2, Bed position Low and Locked. Fall Precautions: Patient Fall Education Report given to [JADE Baca].
--- NOTE | 2020-01-15 07:30 | NUR ---
NURSE NOTES: Received pt from JADE Wilkinson, pt is awake and confused, pt is in RA, no SOB or acute respiratory distress noted. pt is on continues umana monitoring. pt has intact iv access RFA 22G SL. Pt is eating breakfast by observation, no complain of pain at this moment. All needs attended, bed is locked and is in the lowest position, call light within easy reach. will continue to monitor.
[2020-01-15 08:00] VITALS: BP 109/65
--- NOTE | 2020-01-15 08:04 | NUR ---
NURSE NOTES: Dr Cruz is aware about K 2.9, waiting to call back.
[2020-01-15] MEDS: Docusate 100mg cap ORAL SCH ×2 (09:08→21:09)
[2020-01-15] MEDS: Aspirin Baby 81mg ORAL SCH (09:08)
[2020-01-15] MEDS: Mycophenolate 250mg cap ORAL SCH ×2 (09:09→17:37)
[2020-01-15] MEDS: Heparin 5000 units/ml inj SUBQ SCH ×2 (09:10→21:09)
--- NOTE | 2020-01-15 10:18 | NUR ---
PT NOTE Afsoon RN requesting to defer PT treatment today due to low potassium, will follow.
[2020-01-15 12:00] VITALS: BP 109/72
--- NOTE | 2020-01-15 12:00 | NUR ---
NURSE NOTES: Dr Villanueva visited pt and is aware about K 2.9 and pt already took KCL 60meq, ordered KCL 40meq po once at 1700, noted and carried out. will continue to monitor.
--- NOTE | 2020-01-15 15:14 | NUR ---
*-*DISCHARGE PLANNING*-* PATIENT HAS BEEN ACCEPTED TO: [facility] P: [phone] ROOM# 107.A S/W [facility] P:[phone]
[2020-01-15 16:00] VITALS: BP 116/72
--- NOTE | 2020-01-15 16:01 | Cardiac Electrophysiology PN ---
Assessment/Plan Assessment/Plan 1. Troponin elevation. All levels are low level and similar at 0.4 due to renal failure The patient does not have any chest pain. EKG does not show any acute ST-T wave abnormalities. Continue aspirin, beta-awa, and low-dose statin. Echo Nl EF 55% Schedule for stress test in am 2. Status post liver transplant. Already on Prograf and CellCept. 3. Generalized weakness. 4. Elevated white count of 12,000. 5. Hypokalemia. Potassium of 3. 6. Chronic kidney disease with BUN of 47 and creatinine of 2.0. Subjective Subjective No CP or SOB EF 55% Objective Last 24 Hour Vital Signs Date Time Temp Pulse Resp B/P (MAP) Pulse Ox O2 Delivery O2 Flow Rate FiO2 01/15/20 12:00 97.2 82 19 109/72 (84) 97 01/15/20 11:31 73 01/15/20 09:08 79 109/65 01/15/20 09:00 Room Air 01/15/20 08:00 98.3 79 20 109/65 (80) 97 01/15/20 07:41 82 01/15/20 04:00 67 01/15/20 04:00 97.9 74 18 120/71 (87) 100 01/15/20 00:00 71 01/15/20 00:00 97.9 75 18 130/72 (91) 98 01/14/20 21:32 77 137/88 01/14/20 21:00 Room Air 01/14/20 20:00 97.9 77 18 137/88 (104) 99 01/14/20 20:00 76 01/14/20 16:00 98.1 96 20 134/83 (100) 100 01/14/20 16:00 82 Intake and Output 01/14/20 01/15/20 19:00 07:00 Intake Total 450 ml 200 ml Output Total 225 ml 50 ml Balance 225 ml 150 ml Intake Oral 450 ml 200 ml Output Urine Total 225 ml 50 ml Laboratory Tests Test 01/15/20 06:26 White Blood Count 7.1 K/UL (4.8-10.8) Red Blood Count 2.97 M/UL (4.70-6.10) L Hemoglobin 10.0 G/DL (14.2-18.0) L Hematocrit 30.9 % (42.0-52.0) L Mean Corpuscular Volume 104 FL (80-99) H Mean Corpuscular Hemoglobin 33.6 PG (27.0-31.0) H Mean Corpuscular Hemoglobin Concent 32.3 G/DL (32.0-36.0) Red Cell Distribution Width 12.6 % (11.6-14.8) Platelet Count 318 K/UL (150-450) Mean Platelet Volume 5.5 FL (6.5-10.1) L Neutrophils (%) (Auto) 78.2 % (45.0-75.0) H Lymphocytes (%) (Auto) 10.9 % (20.0-45.0) L Monocytes (%) (Auto) 9.2 % (1.0-10.0) Eosinophils (%) (Auto) 0.7 % (0.0-3.0) Basophils (%) (Auto) 0.9 % (0.0-2.0) Sodium Level 139 MMOL/L (136-145) Potassium Level 2.9 MMOL/L (3.5-5.1) L Chloride Level 103 MMOL/L (98-107) Carbon Dioxide Level 24 MMOL/L (21-32) Anion Gap 12 mmol/L (5-15) Blood Urea Nitrogen 36 mg/dL (7-18) H Creatinine 1.7 MG/DL (0.55-1.30) H Estimat Glomerular Filtration Rate 40.5 mL/min (>60) Glucose Level 84 MG/DL (74-106) Calcium Level 8.2 MG/DL (8.5-10.1) L Magnesium Level 1.8 MG/DL (1.8-2.4) Objective HEAD AND NECK: Showed no JVD. LUNGS: Clear. CARDIOVASCULAR: Shows regular S1 and S2 with no gallop. ABDOMEN: Soft and nontender and scar of liver surgery in the right upper abdomen for liver transplant. EXTREMITIES: No pitting edema. Greg Villanueva MD Jan 15, 2020 16:01
--- NOTE | 2020-01-15 16:03 | General Progress Note ---
Subjective Date patient seen: Jan 15, 2020 Time patient seen: 15:00 ROS Limited/Unobtainable: No Allergies: Coded Allergies: No Known Allergies (Unverified , 01/13/20) All Systems: reviewed and negative except above Subjective Feels better today, denies chest pain or shortness of breath. Objective Last 24 Hour Vital Signs Date Time Temp Pulse Resp B/P (MAP) Pulse Ox O2 Delivery O2 Flow Rate FiO2 01/15/20 12:00 97.2 82 19 109/72 (84) 97 01/15/20 11:31 73 01/15/20 09:08 79 109/65 01/15/20 09:00 Room Air 01/15/20 08:00 98.3 79 20 109/65 (80) 97 01/15/20 07:41 82 01/15/20 04:00 67 01/15/20 04:00 97.9 74 18 120/71 (87) 100 01/15/20 00:00 71 01/15/20 00:00 97.9 75 18 130/72 (91) 98 01/14/20 21:32 77 137/88 01/14/20 21:00 Room Air 01/14/20 20:00 97.9 77 18 137/88 (104) 99 01/14/20 20:00 76 Intake and Output 01/14/20 01/15/20 19:00 07:00 Intake Total 450 ml 200 ml Output Total 225 ml 50 ml Balance 225 ml 150 ml Intake Oral 450 ml 200 ml Output Urine Total 225 ml 50 ml Laboratory Tests 01/15/20 06:26: White Blood Count 7.1, Red Blood Count 2.97L, Hemoglobin 10.0L, Hematocrit 30.9L , Mean Corpuscular Volume 104H, Mean Corpuscular Hemoglobin 33.6H, Mean Corpuscular Hemoglobin Concent 32.3, Red Cell Distribution Width 12.6, Platelet Count 318, Mean Platelet Volume 5.5L, Neutrophils (%) (Auto) 78.2H, Lymphocytes (%) (Auto) 10.9L, Monocytes (%) (Auto) 9.2, Eosinophils (%) (Auto) 0.7, Basophils (%) (Auto) 0.9, Sodium Level 139, Potassium Level 2.9L, Chloride Level 103, Carbon Dioxide Level 24, Anion Gap 12, Blood Urea Nitrogen 36H, Creatinine 1.7H, Estimat Glomerular Filtration Rate 40.5, Glucose Level 84, Calcium Level 8.2L, Magnesium Level 1.8 Height (Feet): 5 Height (Inches): 5.00 Weight (Pounds): 130 General Appearance: WD/WN EENT: PERRL/EOMI Neck: non-tender Cardiovascular: normal rate Respiratory/Chest: lungs clear Abdomen: non tender Extremities: normal range of motion 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 RD support and monitoring. # Elevated troponin Serial troponin noted to be stable Telemetry with some bigeminy noted and is stable TTE with normal EF Cardiology consulted Dr. Villanueva, no new recommendations. Lipid panel reviewed. Asa 81 mg daily # CKD stage 3 Trend creatinine Monitor renal function # Hypokalemia Replete and monitor I asked Dr. Cintron to provide renal consultation and input. # Hypomagnesemia Replete and monitor # History of liver transplant Resume prograft and cellcept Monitor clinical markers as needed # Generalized weakness PT evaluation for baseline recommends SNF for short term rehab. Request placed. When medically stable will dc to SNF DVT ppx with Enoxaparin GI ppx with PPI FULL CODE Piyush Cruz MD Jan 15, 2020 16:03
[2020-01-15] MEDS ORDERED: Lexiscan 0.4mg/5ml syringe IV PRN (16:15)
--- NOTE | 2020-01-15 17:16 | Consultation ---
Consult Note Consult Note I am asked to evaluate the patient at the request of Dr. Cruz for persistent hypokalemia and elevated serum creatinine HPI: 64-year old male presents from home due to generalized weakness and dif ficulty with his activities of daily living. He has a history of a liver transplant, has a history of hypertension. According to the son patient has had poor p.o. intake, generally weak with weight loss for the past couple of months. Apparently he was recently admitted to an hospital in [place] "was told I have a heart attack" but echocardiogram nd was normal. Patient denies any chest pain or shortness of breath at this time. He denies any abdominal pain. 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 HEAD AND NECK: Showed no JVD. LUNGS: Clear. CARDIOVASCULAR: Shows regular S1 and S2 with no gallop. ABDOMEN: Soft and nontender and scar of liver surgery in the right upper abdomen for liver transplant. EXTREMITIES: No pitting edema. LABORATORY DATA: Labs show white count of 11.9, hemoglobin 11.4, hematocrit of 35, and platelet count of 278,000. Sodium 135, potassium 3.0, BUN of 47, creatinine of 2.0, and glucose of 195. Troponin is 0.395. . Assessment/Plan Persistent hypokalemia, etiology unclear. No report of diarrhea. Renal failure with serum creatinine of 1.7, most likely chronic Elevated troponin Anemia Hypoalbuminemia Status post liver transplant. On Prograf and CellCept Leukocytosis COPD EjFx 55% Potassium supplement p.o. and IV Urine spot sodium Urine spot potassium Kidney ultrasound 2D echocardiogram EjFx 55% Monitor renal parameters Impression: Bilateral lung nodules. These are worrisome for metastatic deposits. Septic emboli also a possibility. Mild hyperinflation, likely COPD. Marvin Martinez MD Jan 15, 2020 17:16
--- NOTE | 2020-01-15 19:32 | NUR ---
NURSE HAND-OFF REPORT: Important Events on Shift: Patient Status: Diet: Pending Orders: Pending Results/Labs: Pending MD notification: Latest Vital Signs: Temperature 97.3 , Pulse 76 , B/P 116 /72 , Respiratory Rate 20 , O2 SAT 97 , Room Air, O2 Flow Rate . Vital Sign Comment: EKG Rhythm: Sinus Rhythm Rhythm change?: N MD Notified?: Y -Dr. Diego GUERRERO Response: Message left await call Latest Padron Fall Score: 50 Fall Risk: High Risk Safety Measures: Call light Within Reach, Bed Alarm Zone 2, Side Rails Side Rails x2, Bed position Low and Locked. Fall Precautions: Patient Fall Education Report given to . Pt is awake and stable, no stress noted. Endorsed plan of care. Endorsed to keep pt NPO from mid night due to stress test. and F/U labs for K.
--- NOTE | 2020-01-15 19:42 | NUR ---
Pt received from JADE Baca. Pt is sleeping in bed and shows no signs of pain. Pt is A/Ox3 and requires assistance when ambulating to restroom for bowel movement. Pt is on cardiac monitoring SR w MD Anjel aware and pt asymptomatic. Pt is breathing unlabored on RA and asymptomatic. Pt has Bilateral Pedal Edema and denies pain. Pt is NPO after midnight for Cardiac Stress test tomorrow. Pt has RH 22G SL patent with skin dry and intact. Bed is locked in lowest position with call light within reach. Will continue to monitor.
[2020-01-15 20:00] VITALS: BP 129/87
[2020-01-16] VITALS: BP 130/88
[2020-01-16 04:00] VITALS: BP 134/85
--- NOTE | 2020-01-16 06:55 | NUR ---
NURSE HAND-OFF REPORT: Important Events on Shift:Pt prepped for cardiac stress test. NPO since midnight. Urine sodium and potassium labs resulted Patient Status: Stable Diet: Renal Diet Pending Orders: Pending Results/Labs:AM Labs Pending notification: Latest Vital Signs: Temperature 97.7 , Pulse 70 , B/P 134 /85 , Respiratory Rate 18 , O2 SAT 98 , Room Air, O2 Flow Rate . Vital Sign Comment: VSS EKG Rhythm: Sinus Rhythm Rhythm change?: N MD Notified?: Yanira Cortez MD Response: Message left await call Latest Padron Fall Score: 50 Fall Risk: High Risk Safety Measures: Call light Within Reach, Bed Alarm Zone 2, Side Rails Side Rails x2, Bed position Low and Locked. Fall Precautions: Patient Fall Education Report given to JADE Godinze.
--- NOTE | 2020-01-16 07:25 | NUR ---
NURSE NOTES: Received patient in bed. Awake, A/O x3. On room air, respirations unlabored. Patient denies pain. IV in the Right hand. Patient is a high fall risk d/t Padron fall score of 50. Patient placed close to the nurse's station for safety and close monitoring. Yellow socks on, yellow gown on, bed at the lowest position, bed locked, bed alarm on high sensitivity, side rails up x2, call light within reach with return demonstration. CN and TAX INVESTIGATOR made aware.
[2020-01-16 07:31] LABS: HEMOGLOBIN 7.4 G/DL (14.2-18.0); MEAN CORPUSCULAR VOLUME 107 FL (80-99); PLATELET COUNT 344 K/UL (150-450); RED BLOOD COUNT 2.16 M/UL (4.70-6.10); WHITE BLOOD COUNT 7.9 K/UL (4.8-10.8)
[2020-01-16 07:35] LABS: GAMMA GLUTAMYL TRANSPEPTIDASE 479 U/L (5-85)
[2020-01-16 07:39] LABS: % IRON SATURATION 41 % (15-50); IRON 71 ug/dL (50-175); TOTAL IRON BINDING CAPACITY 175 ug/dL (250-450)
[2020-01-16 07:47] LABS: ALBUMIN 2.1 G/DL (3.4-5.0); ALBUMIN/GLOBULIN RATIO 0.7 (1.0-2.7); BILIRUBIN,TOTAL 0.9 MG/DL (0.2-1.0); CALCIUM 8.3 MG/DL (8.5-10.1); CREATININE 1.6 MG/DL (0.55-1.30); PHOSPHORUS 2.1 MG/DL (2.5-4.9); POTASSIUM 4.3 MMOL/L (3.5-5.1)
[2020-01-16 08:00] VITALS: BP 122/83
[2020-01-16] MEDS: Docusate 100mg cap ORAL SCH ×2 (09:10→21:30)
[2020-01-16] MEDS: Mycophenolate 250mg cap ORAL SCH ×2 (09:10→17:07)
[2020-01-16] MEDS: Aspirin Baby 81mg ORAL SCH (09:10)
[2020-01-16] MEDS: Heparin 5000 units/ml inj SUBQ SCH ×2 (09:15→21:34)
[2020-01-16] MEDS ORDERED: Sodium Phosphate 15 MM in NS 275 ML IVPB ONE (09:30)
--- NOTE | 2020-01-16 09:44 | NUR ---
NURSE NOTES: PO metoprolol held d/t stress test today.
--- NOTE | 2020-01-16 10:40 | NUR ---
NURSE NOTES: STAT CBC order received from Dr. Martinez for recheck of hemoglobin level.
[2020-01-16 11:23] LABS: BASOPHILS % (AUTO) 0.9 % (0.0-2.0); EOSINOPHILS % (AUTO) 0.8 % (0.0-3.0); HEMATOCRIT 32.5 % (42.0-52.0); HEMOGLOBIN 10.6 G/DL (14.2-18.0); LYMPHOCYTES % (AUTO) 8.6 % (20.0-45.0); MEAN CORPUSCULAR VOLUME 105 FL (80-99); MONOCYTES % (AUTO) 9.4 % (1.0-10.0); NEUTROPHILS % (AUTO) 80.3 % (45.0-75.0); PLATELET COUNT 263 K/UL (150-450); RED BLOOD COUNT 3.09 M/UL (4.70-6.10); WHITE BLOOD COUNT 5.9 K/UL (4.8-10.8)
[2020-01-16 12:00] VITALS: BP 129/80
--- NOTE | 2020-01-16 12:50 | Nephrology Progress Note ---
Assessment/Plan Problem List: (1) Hypokalemia (2) Renal failure (ARF), acute on chronic (3) Elevated troponin (4) Anemia Assessment Persistent hypokalemia, etiology unclear. No report of diarrhea. Renal failure with serum creatinine of 1.7, most likely chronic Elevated troponin Anemia Hypoalbuminemia Status post liver transplant. On Prograf and CellCept Leukocytosis COPD EjFx 55% Plan Potassium supplement p.o. and IV Urine spot sodium Urine spot potassium Kidney ultrasound, pending 2D echocardiogram EjFx 55% Monitor renal parameters Will order CT of the chest with no contrast Chest x-ray impression: Bilateral lung nodules. These are worrisome for metastatic deposits. Septic emboli also a possibility. Mild hyperinflation, likely COPD. Objective Objective Last 24 Hour Vital Signs Date Time Temp Pulse Resp B/P (MAP) Pulse Ox O2 Delivery O2 Flow Rate FiO2 01/16/20 09:00 Room Air 01/16/20 08:00 96.7 67 21 122/83 (96) 98 01/16/20 08:00 67 01/16/20 04:00 97.7 65 18 134/85 (101) 98 01/16/20 04:00 70 01/16/20 00:00 73 01/16/20 00:00 97.9 80 18 130/88 (102) 100 01/15/20 21:00 73 129/87 01/15/20 21:00 Room Air 01/15/20 20:00 69 01/15/20 20:00 98.2 73 18 129/87 (101) 99 01/15/20 16:00 97.3 76 20 116/72 (87) 97 01/15/20 15:13 69 Intake and Output 01/15/20 01/16/20 19:00 07:00 Intake Total 580 ml Output Total 100 ml Balance 580 ml -100 ml Intake Oral 480 ml IV Total 100 ml Output Urine Total 100 ml # Voids 3 Laboratory Tests 01/16/20 03:00: Urine Random Sodium 26, Urine Potassium Timed 75H 01/16/20 06:49: White Blood Count 7.9, Red Blood Count 2.16L, Hemoglobin 7.4L, Hematocrit 23.0L, Mean Corpuscular Volume 107H, Mean Corpuscular Hemoglobin 34.3H, Mean Corpuscular Hemoglobin Concent 32.2, Red Cell Distribution Width 13.0, Platelet Count 344, Mean Platelet Volume 5.4L, Neutrophils (%) (Auto) , Lymphocytes (%) (Auto) , Monocytes (%) (Auto) , Eosinophils (%) (Auto) , Basophils (%) (Auto) , Differential Total Cells Counted 100, Neutrophils % (Manual) 83H, Lymphocytes % (Manual) 10L, Monocytes % (Manual) 6, Eosinophils % (Manual) 1, Basophils % (Manual) 0, Band Neutrophils 0, Platelet Estimate Adequate, Platelet Morphology Normal, Macrocytosis 1+, Sodium Level 138, Potassium Level 4.3, Chloride Level 106, Carbon Dioxide Level 25, Anion Gap 7, Blood Urea Nitrogen 34H, Creatinine 1.6H, Estimat Glomerular Filtration Rate 43.5, Glucose Level 99, Uric Acid 6.0, Calcium Level 8.3L, Phosphorus Level 2.1L, Magnesium Level 1.7L, Iron Level 71, Total Iron Binding Capacity 175L, Percent Iron Saturation 41, Unsaturated Iron Binding 104L, Ferritin 933H, Total Bilirubin 0.9, Gamma Glutamyl Transpeptidase 479H, Aspartate Amino Transf (AST/SGOT) 53H, Alanine Aminotransferase (ALT/SGPT) 57, Alkaline Phosphatase 396H, Total Protein 4.9L, Albumin 2.1L, Globulin 2.8, Albumin/Globulin Ratio 0.7L, Vitamin B12 Level 1013H, Folate 10.6 01/16/20 10:55: White Blood Count 5.9, Red Blood Count 3.09L, Hemoglobin 10.6#L, Hematocrit 32.5#L, Mean Corpuscular Volume 105H, Mean Corpuscular Hemoglobin 34.3H, Mean Corpuscular Hemoglobin Concent 32.6, Red Cell Distribution Width 13.0, Platelet Count 263, Mean Platelet Volume 5.7L, Neutrophils (%) (Auto) 80.3H, Lymphocytes (%) (Auto) 8.6L, Monocytes (%) (Auto) 9.4, Eosinophils (%) (Auto) 0.8, Basophils (%) (Auto) 0.9 Height (Feet): 5 Height (Inches): 5.00 Weight (Pounds): 130 Marvin Martinez MD Jan 16, 2020 12:50
--- NOTE | 2020-01-16 15:04 | General Progress Note ---
Subjective Date patient seen: Jan 16, 2020 Time patient seen: 14:50 Allergies: Coded Allergies: No Known Allergies (Unverified , 01/13/20) All Systems: reviewed and negative except above Subjective Feels better today, denies chest pain or shortness of breath. He is feeling depressed and tired. Reports good PO intake and good sleep. He is willing to keep on fighting by my discussion today. CT chest and stress test were done. Objective Last 24 Hour Vital Signs Date Time Temp Pulse Resp B/P (MAP) Pulse Ox O2 Delivery O2 Flow Rate FiO2 01/16/20 12:00 98.2 66 18 129/80 (96) 97 01/16/20 12:00 86 01/16/20 09:00 Room Air 01/16/20 08:00 96.7 67 21 122/83 (96) 98 01/16/20 08:00 67 01/16/20 04:00 97.7 65 18 134/85 (101) 98 01/16/20 04:00 70 01/16/20 00:00 73 01/16/20 00:00 97.9 80 18 130/88 (102) 100 01/15/20 21:00 73 129/87 01/15/20 21:00 Room Air 01/15/20 20:00 69 01/15/20 20:00 98.2 73 18 129/87 (101) 99 01/15/20 16:00 97.3 76 20 116/72 (87) 97 01/15/20 15:13 69 Intake and Output 0 01/15/20 01/16/20 19:00 07:00 Intake Total 580 ml Output Total 100 ml Balance 580 ml -100 ml Intake Oral 480 ml IV Total 100 ml Output Urine Total 100 ml # Voids 3 Laboratory Tests 01/16/20 03:00: Urine Random Sodium 26, Urine Potassium Timed 75H 01/16/20 06:49: White Blood Count 7.9, Red Blood Count 2.16L, Hemoglobin 7.4L, Hematocrit 23.0L, Mean Corpuscular Volume 107H, Mean Corpuscular Hemoglobin 34.3H, Mean Corpuscular Hemoglobin Concent 32.2, Red Cell Distribution Width 13.0, Platelet Count 344, Mean Platelet Volume 5.4L, Neutrophils (%) (Auto) , Lymphocytes (%) (Auto) , Monocytes (%) (Auto) , Eosinophils (%) (Auto) , Basophils (%) (Auto) , Differential Total Cells Counted 100, Neutrophils % (Manual) 83H, Lymphocytes % (Manual) 10L, Monocytes % (Manual) 6, Eosinophils % (Manual) 1, Basophils % (Manual) 0, Band Neutrophils 0, Platelet Estimate Adequate, Platelet Morphology Normal, Macrocytosis 1+, Sodium Level 138, Potassium Level 4.3, Chloride Level 106, Carbon Dioxide Level 25, Anion Gap 7, Blood Urea Nitrogen 34H, Creatinine 1.6H, Estimat Glomerular Filtration Rate 43.5, Glucose Level 99, Uric Acid 6.0, Calcium Level 8.3L, Phosphorus Level 2.1L, Magnesium Level 1.7L, Iron Level 71, Total Iron Binding Capacity 175L, Percent Iron Saturation 41, Unsaturated Iron Binding 104L, Ferritin 933H, Total Bilirubin 0.9, Gamma Glutamyl Transpeptidase 479H, Aspartate Amino Transf (AST/SGOT) 53H, Alanine Aminotransferase (ALT/SGPT) 57, Alkaline Phosphatase 396H, Total Protein 4.9L, Albumin 2.1L, Globulin 2.8, Albumin/Globulin Ratio 0.7L, Vitamin B12 Level 1013H, Folate 10.6 01/16/20 10:55: White Blood Count 5.9, Red Blood Count 3.09L, Hemoglobin 10.6#L, Hematocrit 32.5#L, Mean Corpuscular Volume 105H, Mean Corpuscular Hemoglobin 34.3H, Mean Corpuscular Hemoglobin Concent 32.6, Red Cell Distribution Width 13.0, Platelet Count 263, Mean Platelet Volume 5.7L, Neutrophils (%) (Auto) 80.3H, Lymphocytes (%) (Auto) 8.6L, Monocytes (%) (Auto) 9.4, Eosinophils (%) (Auto) 0.8, Basophils (%) (Auto) 0.9 Height (Feet): 5 Height (Inches): 5.00 Weight (Pounds): 130 General Appearance: WD/WN EENT: PERRL/EOMI Neck: non-tender Cardiovascular: normal rate Respiratory/Chest: lungs clear Abdomen: non tender Extremities: non-tender 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 RD support and monitoring. # Elevated troponin Serial troponin noted to be stable Telemetry with some bigeminy noted and is stable TTE with normal EF Cardiology consulted Dr. Villanueva. Stress test Nuclear pending result. Lipid panel reviewed. Asa 81 mg daily # CKD stage 3 Trend creatinine Monitor renal function # Hypokalemia Replete and monitor I asked Dr. Cintron to provide renal consultation appreciated. # Hypomagnesemia Replete and monitor # History of liver transplant Resume prograft and cellcept Monitor clinical markers as needed # Abnormal CXR with nodularity seen. CT Chest today. Patient is Ex- smoker. No hypoxia noted at this time. # Generalized weakness PT evaluation for baseline recommends SNF for short term rehab. Request placed. When medically stable will dc to SNF when medically stable. DVT ppx with Enoxaparin GI ppx with PPI FULL CODE Piyush Cruz MD Jan 16, 2020 15:04
[2020-01-16 16:00] VITALS: BP 116/80
--- NOTE | 2020-01-16 16:06 | Diagnostic Imaging Report ---
Indications: Chest pain, elevated troponin Technique: Single day single isotope protocol utilized. Initially, resting images obtained using IV administration 10.8 millicuries 99M technetium Myoview. Subsequently, patient underwent lexiscan stress testing. See cardiology report for details. During Lexiscan infusion, IV administration 31.4 mCi 99 M technetium Myoview. SPECT and planar images obtained. SPECT images gated to 8 phases of the cardiac cycle were also obtained, and reformatted into cine images for evaluation of ejection fraction. Comparison: none Findings: Per cardiology report, patient experienced no symptoms during infusion. Per cardiology report, resting EKG demonstrates normal sinus rhythm with left axis deviation. No ST changes during infusion. . Imaging demonstrates a post stress perfusion defect in the anteroseptal wall which is slightly smaller on the resting images. Calculated post stress ejection fraction 47%. There is slightly decreased wall motion in the septum Impression: Nonischemic clinical response to pharmacologic stress, per cardiology report Nonischemic electrocardiographic response to pharmacologic stress, per cardiology report Partially fixed partially reversible anteroseptal perfusion defect, likely infarct with femi-infarct ischemia Calculated post stress ejection fraction 47%
--- NOTE | 2020-01-16 16:26 | Diagnostic Imaging Report ---
Clinical Indication: Cough, evaluation of abnormalities on recent chest radiograph Technique: Spiral acquisitions obtained through the chest. No IV contrast utilized, reason not stated. Multiplanar reconstructions generated. Total dose length product 116 mGycm. CTDIvol(s) 2 mGy. Dose reduction achieved using automated exposure control Comparison: none Findings: Multiple masses are seen in the left upper lobe. The largest of these is complex in shape, abuts the anterior mediastinum and anterior chest wall, measures 4.5 x 3.2 cm orthogonal axial dimensions, by 4.6 cm craniocaudad. This demonstrates multiple central cavities, and extends posteromedially along the bronchovascular bundle. At least 5 other lesions are seen in the left upper lobe, largest of which contain central cavities. No left lower lobe lesions are demonstrated. A 12 mm mass is seen in the right upper lobe, and several subcentimeter lesions are noted. An irregular 3.3 x 1.9 cm mass is seen in the right lower lobe, and at least one other is seen at the right lung base. No definite infiltrates. There is equivocally trace pleural fluid on the left. There is generalized mild hyperinflation, and a bulla is seen in the anteromedial right upper lobe. Azygos lobe and fissure are incidentally noted. The heart size is normal. There is no pericardial effusion. No mediastinal or hilar mass or adenopathy. The ascending thoracic aorta is mildly ectatic but not aneurysmal. There is mild edema of the mediastinal fat. The thyroid is unremarkable. No axillary or chest wall mass or adenopathy demonstrated. Numerous surgical clips are seen in the right upper quadrant. Pattern of the clips suggests liver transplant. The stomach is mildly distended with food. The bones are unremarkable. Impression: Multiple bilateral pulmonary masses/nodules the largest of these demonstrate central cavitation. Main differential considerations are infectious inflammatory lesions such as septic emboli, tuberculosis, other mycobacterial infections; noninfectious processes such as rheumatoid, granulomatosis with polyangiitis; metastatic carcinoma, most likely squamous cell carcinoma, gastrointestinal adenocarcinoma, transitional cell bladder carcinoma Mild hyperinflation. Single right upper lobe bulla Postsurgical changes of the liver suggests prior liver transplant. Correlate with surgical history The CT scanner at [facility] is accredited by the [employer] and the scans are performed using protocols designed to limit radiation exposure to as low as reasonably achievable to attain images of sufficient resolution adequate for diagnostic evaluation.
--- NOTE | 2020-01-16 16:31 | Diagnostic Imaging Report ---
Indication: Chronic renal failure, abnormal liver function tests Technique: Grayscale and duplex images of the kidneys, retroperitoneum, and bladder were obtained. Comparison: none Findings: Right kidney measures 8.4 cm in length. Left kidney measures 9.3 cm in length. Both kidneys demonstrate normal echogenicity. No hydronephrosis. There are bilateral cysts. There is trace perinephric fluid on the left. Normal inferior vena cava. Bladder is normal. Impression: Trace left perinephric fluid, nonspecific Bilateral renal cysts. Negative for hydronephrosis.
--- NOTE | 2020-01-16 18:30 | Cardiac Electrophysiology PN ---
Assessment/Plan Assessment/Plan 1. Troponin elevation. All levels are low level and similar at 0.4 due to renal failure The patient does not have any chest pain. EKG does not show any acute ST-T wave abnormalities. Continue aspirin, beta-awa, and low-dose statin. Echo Nl EF 55% Stress test showed "Partially fixed partially reversible anteroseptal perfusion defect, likely infarct with femi-infarct ischemia". Treat medically specially no chest pain and renal failure and cardiac cath put him at risk of HD 2. Status post liver transplant. Already on Prograf and CellCept. 3. Generalized weakness. 4. Elevated white count of 12,000. 5. Hypokalemia. Potassium of 3. 6. Chronic kidney disease with BUN of 47 and creatinine of 2.0. Subjective Subjective No CP or SOB EF 55%. Stress test today showed "Partially fixed partially reversible anteroseptal perfusion defect, likely infarct with femi-infarct ischemia " Objective Last 24 Hour Vital Signs Date Time Temp Pulse Resp B/P (MAP) Pulse Ox O2 Delivery O2 Flow Rate FiO2 01/16/20 16:00 70 01/16/20 16:00 97.9 77 21 116/80 (92) 96 01/16/20 12:00 98.2 66 18 129/80 (96) 97 01/16/20 12:00 86 01/16/20 09:00 Room Air 01/16/20 08:00 96.7 67 21 122/83 (96) 98 01/16/20 08:00 67 01/16/20 04:00 97.7 65 18 134/85 (101) 98 01/16/20 04:00 70 01/16/20 00:00 73 01/16/20 00:00 97.9 80 18 130/88 (102) 100 01/15/20 21:00 73 129/87 01/15/20 21:00 Room Air 01/15/20 20:00 69 01/15/20 20:00 98.2 73 18 129/87 (101) 99 Intake and Output 01/15/20 01/16/20 19:00 07:00 Intake Total 580 ml Output Total 100 ml Balance 580 ml -100 ml Intake Oral 480 ml IV Total 100 ml Output Urine Total 100 ml # Voids 3 Laboratory Tests Test 01/16/20 03:00 01/16/20 06:49 01/16/20 10:55 Urine Random Sodium 26 mmol/L (20-110) Urine Potassium Timed 75 mmol/L (12-62) H White Blood Count 7.9 K/UL (4.8-10.8) 5.9 K/UL (4.8-10.8) Red Blood Count 2.16 M/UL (4.70-6.10) L 3.09 M/UL (4.70-6.10) L Hemoglobin 7.4 G/DL (14.2-18.0) L 10.6 G/DL (14.2-18.0) #L Hematocrit 23.0 % (42.0-52.0) L 32.5 % (42.0-52.0) #L Mean Corpuscular Volume 107 FL (80-99) H 105 FL (80-99) H Mean Corpuscular Hemoglobin 34.3 PG (27.0-31.0) H 34.3 PG (27.0-31.0) H Mean Corpuscular Hemoglobin Concent 32.2 G/DL (32.0-36.0) 32.6 G/DL (32.0-36.0) Red Cell Distribution Width 13.0 % (11.6-14.8) 13.0 % (11.6-14.8) Platelet Count 344 K/UL (150-450) 263 K/UL (150-450) Mean Platelet Volume 5.4 FL (6.5-10.1) L 5.7 FL (6.5-10.1) L Neutrophils (%) (Auto) % (45.0-75.0) 80.3 % (45.0-75.0) H Lymphocytes (%) (Auto) % (20.0-45.0) 8.6 % (20.0-45.0) L Monocytes (%) (Auto) % (1.0-10.0) 9.4 % (1.0-10.0) Eosinophils (%) (Auto) % (0.0-3.0) 0.8 % (0.0-3.0) Basophils (%) (Auto) % (0.0-2.0) 0.9 % (0.0-2.0) Differential Total Cells Counted 100 Neutrophils % (Manual) 83 % (45-75) H Lymphocytes % (Manual) 10 % (20-45) L Monocytes % (Manual) 6 % (1-10) Eosinophils % (Manual) 1 % (0-3) Basophils % (Manual) 0 % (0-2) Band Neutrophils 0 % (0-8) Platelet Estimate Adequate Platelet Morphology Normal Macrocytosis 1+ Sodium Level 138 MMOL/L (136-145) Potassium Level 4.3 MMOL/L (3.5-5.1) Chloride Level 106 MMOL/L (98-107) Carbon Dioxide Level 25 MMOL/L (21-32) Anion Gap 7 mmol/L (5-15) Blood Urea Nitrogen 34 mg/dL (7-18) H Creatinine 1.6 MG/DL (0.55-1.30) H Estimat Glomerular Filtration Rate 43.5 mL/min (>60) Glucose Level 99 MG/DL (74-106) Uric Acid 6.0 MG/DL (2.6-7.2) Calcium Level 8.3 MG/DL (8.5-10.1) L Phosphorus Level 2.1 MG/DL (2.5-4.9) L Magnesium Level 1.7 MG/DL (1.8-2.4) L Iron Level 71 ug/dL (50-175) Total Iron Binding Capacity 175 ug/dL (250-450) L Percent Iron Saturation 41 % (15-50) Unsaturated Iron Binding 104 ug/dL (112-346) L Ferritin 933 NG/ML (8-388) H Total Bilirubin 0.9 MG/DL (0.2-1.0) Gamma Glutamyl Transpeptidase 479 U/L (5-85) H Aspartate Amino Transf (AST/SGOT) 53 U/L (15-37) H Alanine Aminotransferase (ALT/SGPT) 57 U/L (12-78) Alkaline Phosphatase 396 U/L (46-116) H Total Protein 4.9 G/DL (6.4-8.2) L Albumin 2.1 G/DL (3.4-5.0) L Globulin 2.8 g/dL Albumin/Globulin Ratio 0.7 (1.0-2.7) L Vitamin B12 Level 1013 PG/ML (193-986) H Folate 10.6 NG/ML (8.6-58.9) Objective HEAD AND NECK: Showed no JVD. LUNGS: Clear. CARDIOVASCULAR: Shows regular S1 and S2 with no gallop. ABDOMEN: Soft and nontender and scar of liver surgery in the right upper abdomen for liver transplant. EXTREMITIES: No pitting edema. Greg Villanueva MD Jan 16, 2020 18:30
--- NOTE | 2020-01-16 19:14 | NUR ---
NURSE HAND-OFF REPORT: Important Events on Shift:[stress test, CT chest, renal US, Mag x2 bags, sodium phos x1 bag] Patient Status: [FULL CODE] Diet: [renal] Pending Orders: [] Pending Results/Labs:[] Pending MD notification:[] Latest Vital Signs: Temperature 97.9 , Pulse 70 , B/P 116 /80 , Respiratory Rate 21 , O2 SAT 96 , Room Air, O2 Flow Rate . Vital Sign Comment: [] EKG Rhythm: Sinus Rhythm Rhythm change?: N MD Notified?: Yanira -Dr. Diego GUERRERO Response: Message left await call Latest Padron Fall Score: 50 Fall Risk: High Risk Safety Measures: Call light Within Reach, Bed Alarm Zone 1, Side Rails Side Rails x2, Bed position Low and Locked. Fall Precautions: Patient Fall Education Report given to [Peter RN].
--- NOTE | 2020-01-16 19:20 | NUR ---
NURSE NOTES: The patient is alert and oriented x3 and was calm and cooperative with his care with Resp even and unlabored. The patient is on bedrest but can ambulate to the bathroom with minimal assistance needed. The is no evidence of SOB or acute distress noted at this time. He has a Right hand 22g that is patent and asymptomatic. The patient refused to acknowledge feeling any pain at this time. The bed in low and locked level and the call light within easy reach, siderails up x2.Will continue to monitor as indicated.
[2020-01-16 20:00] VITALS: BP 128/86
[2020-01-17] VITALS (8 sets, daily range): BP systolic 116–141; BP diastolic 61–92
[2020-01-17 06:26] LABS: EOSINOPHILS % (AUTO) 1.5 % (0.0-3.0); HEMATOCRIT 35.8 % (42.0-52.0); HEMOGLOBIN 11.5 G/DL (14.2-18.0); LYMPHOCYTES % (AUTO) 6.5 % (20.0-45.0); MEAN CORPUSCULAR VOLUME 105 FL (80-99); MONOCYTES % (AUTO) 7.3 % (1.0-10.0); NEUTROPHILS % (AUTO) 83.7 % (45.0-75.0); PLATELET COUNT 291 K/UL (150-450); RED CELL DISTRIBUTION WIDTH 13.2 % (11.6-14.8); WHITE BLOOD COUNT 7.2 K/UL (4.8-10.8)
[2020-01-17 06:45] LABS: CALCIUM 8.8 MG/DL (8.5-10.1); CREATININE 1.5 MG/DL (0.55-1.30); POTASSIUM 4.2 MMOL/L (3.5-5.1)
--- NOTE | 2020-01-17 07:10 | NUR ---
NURSE HAND-OFF REPORT: Important Events on Shift:Slept all night was able to ambulate to bathroom Patient Status: Diet: Pending Orders: Pending Results/Labs: Pending MD notification: Latest Vital Signs: Temperature 97.4 , Pulse 68 , B/P 119 /73 , Respiratory Rate 17 , O2 SAT 100 , Room Air, O2 Flow Rate . Vital Sign Comment: EKG Rhythm: PSVT Rhythm change?: N MD Notified?: Yanira Hayes MD Response: Message left await call Latest Padron Fall Score: 50 Fall Risk: High Risk Safety Measures: Call light Within Reach, Bed Alarm Zone 2, Side Rails Side Rails x2, Bed position Low and Locked. Fall Precautions: Yellow Socks Yellow Gown Door Sign Patient Fall Education Report given to .
--- NOTE | 2020-01-17 07:23 | NUR ---
NURSE NOTES: Received patient in bed. Awake, A/O x3. On room air, respirations unlabored. Patient denies pain. IV in the Right hand, site intact. Patient is a high fall risk d/t Padron fall score of 50. Patient placed close to the nurse's station for safety and close monitoring. Yellow socks on, yellow gown on, bed at the lowest position, bed locked, bed alarm on high sensitivity, side rails up x2, call light within reach with return demonstration. CN and FIRE BOAT ENGINEER made aware.
[2020-01-17] MEDS: Mycophenolate 250mg cap ORAL SCH ×2 (09:14→17:36)
[2020-01-17] MEDS: Docusate 100mg cap ORAL SCH ×2 (09:14→20:39)
[2020-01-17] MEDS: Aspirin Baby 81mg ORAL SCH (09:14)
[2020-01-17] MEDS: Heparin 5000 units/ml inj SUBQ SCH ×2 (09:22→20:40)
[2020-01-17 09:27] LABS: PHOSPHORUS 3.2 MG/DL (2.5-4.9)
--- NOTE | 2020-01-17 11:44 | Nephrology Progress Note ---
Assessment/Plan Problem List: (1) Hypokalemia (2) Renal failure (ARF), acute on chronic (3) Elevated troponin (4) Anemia Assessment Persistent hypokalemia, etiology unclear. No report of diarrhea. Renal failure with serum creatinine of 1.7, most likely chronic Elevated troponin Anemia Hypoalbuminemia Status post liver transplant. On Prograf and CellCept Leukocytosis COPD EjFx 55% Plan January 16: Serum creatinine lowering from 2 on admission to 1.[address] scan of the chest noted. Will discuss with Dr. Cruz regarding the pulmonary evaluation. Continue current management. Previously: Potassium supplement p.o. and IV Urine spot sodium Urine spot potassium Kidney ultrasound, pending 2D echocardiogram EjFx 55% Monitor renal parameters Will order CT of the chest with no contrast Chest x-ray impression: Bilateral lung nodules. These are worrisome for metastatic deposits. Septic emboli also a possibility. Mild hyperinflation, likely COPD. Subjective ROS Limited/Unobtainable: No Constitutional: Reports: malaise Objective Objective Last 24 Hour Vital Signs Date Time Temp Pulse Resp B/P (MAP) Pulse Ox O2 Delivery O2 Flow Rate FiO2 01/17/20 09:14 70 116/76 01/17/20 08:20 Room Air 01/17/20 08:00 97.9 70 17 116/76 (89) 99 01/17/20 08:00 68 01/17/20 06:00 97.4 68 17 119/73 (88) 100 01/17/20 04:00 97.4 73 17 119/73 (88) 100 01/17/20 04:00 75 01/17/20 00:00 97.4 73 18 121/61 (81) 97 01/17/20 00:00 74 01/16/20 21:35 124 01/16/20 21:31 75 124/79 01/16/20 21:00 Room Air 01/16/20 20:00 97.6 78 22 128/86 (100) 97 01/16/20 20:00 76 01/16/20 16:00 70 01/16/20 16:00 97.9 77 21 116/80 (92) 96 01/16/20 12:00 98.2 66 18 129/80 (96) 97 01/16/20 12:00 86 Intake and Output 01/16/20 01/17/20 19:00 07:00 Intake Total 140 ml 220 ml Output Total 1200 ml 800 ml Balance -1060 ml -580 ml Intake Oral 140 ml 220 ml Output Urine Total 1200 ml 800 ml # Voids 3 Current Medications Medications (Trade) Dose Ordered Sig/Quynh Route PRN Reason Start Time Stop Time Status Last Admin Dose Admin Acetaminophen (Tylenol) 650 mg Q4H PRN ORAL Mild Pain (Pain Scale 1-3) 01/13/20 14:30 02/12/20 14:29 Aspirin (ASA) 81 mg DAILY ORAL 01/14/20 09:00 02/28/20 08:59 01/17/20 09:14 Dextrose (Dextrose 50%) 25 ml Q30M PRN IV Hypoglycemia 01/13/20 14:30 04/12/20 14:29 Dextrose (Dextrose 50%) 50 ml Q30M PRN IV Hypoglycemia 01/13/20 14:30 04/12/20 14:29 Docusate Sodium (Colace) 100 mg EVERY 12 HOURS ORAL 01/13/20 21:00 02/12/20 20:59 01/17/20 09:14 Heparin Sodium (Porcine) (Heparin 5000 units/ml) 5,000 units EVERY 12 HOURS SUBQ 01/13/20 21:00 02/27/20 20:59 01/17/20 09:22 Lorazepam (Ativan) 1 mg Q4H PRN ORAL For Anxiety 01/13/20 14:30 01/20/20 14:29 Metoprolol Tartrate (Lopressor) 25 mg EVERY 12 HOURS ORAL 01/13/20 21:00 04/12/20 20:59 01/17/20 09:14 Morphine Sulfate (Morphine Sulfate) 2 mg Q3H PRN IVP Moderate Pain (Pain Scale 4-6) 01/13/20 14:30 01/20/20 14:29 Morphine Sulfate (Morphine Sulfate) 4 mg Q3H PRN IVP Severe Pain (Pain Scale 7-10) 01/13/20 14:30 01/20/20 14:29 Mycophenolate Mofetil (Cellcept) 1,000 mg TWICE A DAY ORAL 01/13/20 18:00 04/12/20 17:59 01/17/20 09:14 Nitroglycerin (Ntg) 0.4 mg Q5M PRN SL Prn Chest Pain 01/13/20 14:30 02/12/20 14:29 Ondansetron HCl (Zofran) 4 mg Q6H PRN IVP Nausea & Vomiting 01/13/20 14:30 02/12/20 14:29 Pantoprazole (Protonix) 40 mg BID ORAL 01/15/20 18:00 02/13/20 08:59 01/17/20 09:14 Regadenoson (Lexiscan) 0.4 mg ONCE PRN IV spinneret person to cardiology 01/15/20 16:15 01/17/20 16:14 01/16/20 11:39 Tacrolimus (Prograf) 1 mg EVERY 12 HOURS ORAL 01/13/20 21:00 04/12/20 20:59 01/17/20 09:14 Laboratory Tests 01/17/20 06:13: White Blood Count 7.2, Red Blood Count 3.40L, Hemoglobin 11.5L, Hematocrit 35.8L , Mean Corpuscular Volume 105H, Mean Corpuscular Hemoglobin 33.8H, Mean Corpuscular Hemoglobin Concent 32.1, Red Cell Distribution Width 13.2, Platelet Count 291, Mean Platelet Volume 5.7L, Neutrophils (%) (Auto) 83.7H, Lymphocytes (%) (Auto) 6.5L, Monocytes (%) (Auto) 7.3, Eosinophils (%) (Auto) 1.5, Basophils (%) (Auto) 1.0, Sodium Level 140, Potassium Level 4.2, Chloride Level 106, Carbon Dioxide Level 24, Anion Gap 10, Blood Urea Nitrogen 27H, Creatinine 1.5H, Estimat Glomerular Filtration Rate 46.8, Glucose Level 96, Calcium Level 8.8, Phosphorus Level 3.2, Magnesium Level 2.0 Height (Feet): 5 Height (Inches): 5.00 Weight (Pounds): 130 General Appearance: no apparent distress Cardiovascular: normal rate Respiratory/Chest: decreased breath sounds Abdomen: soft Marvin Martinez MD Jan 17, 2020 11:44
--- NOTE | 2020-01-17 12:51 | Cardiac Electrophysiology PN ---
Assessment/Plan Assessment/Plan 1. Troponin elevation. All levels are low level and similar at 0.4 due to renal failure The patient does not have any chest pain. EKG does not show any acute ST-T wave abnormalities. Continue aspirin, beta-awa, and low-dose statin. Echo Nl EF 55% Stress test showed "Partially fixed partially reversible anteroseptal perfusion defect, likely infarct with femi-infarct ischemia". Treat medically specially no chest pain and renal failure and cardiac cath put him at risk of HD 2. Status post liver transplant. Already on Prograf and CellCept. 3. Generalized weakness. 4. Elevated white count of 12,000. 5. Hypokalemia. Potassium of 3. 6. Chronic kidney disease with BUN of 47 and creatinine of 2.0. DW RN Subjective Subjective No CP or SOB EF 55%. Stress test showed "Partially fixed partially reversible anteroseptal perfusion defect, likely infarct with femi-infarct ischemia Objective Last 24 Hour Vital Signs Date Time Temp Pulse Resp B/P (MAP) Pulse Ox O2 Delivery O2 Flow Rate FiO2 01/17/20 12:00 96.6 71 16 141/92 (108) 100 01/17/20 09:14 70 116/76 01/17/20 08:20 Room Air 01/17/20 08:00 97.9 70 17 116/76 (89) 99 01/17/20 08:00 68 01/17/20 06:00 97.4 68 17 119/73 (88) 100 01/17/20 04:00 97.4 73 17 119/73 (88) 100 01/17/20 04:00 75 01/17/20 00:00 97.4 73 18 121/61 (81) 97 01/17/20 00:00 74 01/16/20 21:35 124 01/16/20 21:31 75 124/79 01/16/20 21:00 Room Air 01/16/20 20:00 97.6 78 22 128/86 (100) 97 01/16/20 20:00 76 01/16/20 16:00 70 01/16/20 16:00 97.9 77 21 116/80 (92) 96 Intake and Output 01/16/20 01/17/20 19:00 07:00 Intake Total 140 ml 220 ml Output Total 1200 ml 800 ml Balance -1060 ml -580 ml Intake Oral 140 ml 220 ml Output Urine Total 1200 ml 800 ml # Voids 3 Laboratory Tests Test 01/17/20 06:13 White Blood Count 7.2 K/UL (4.8-10.8) Red Blood Count 3.40 M/UL (4.70-6.10) L Hemoglobin 11.5 G/DL (14.2-18.0) L Hematocrit 35.8 % (42.0-52.0) L Mean Corpuscular Volume 105 FL (80-99) H Mean Corpuscular Hemoglobin 33.8 PG (27.0-31.0) H Mean Corpuscular Hemoglobin Concent 32.1 G/DL (32.0-36.0) Red Cell Distribution Width 13.2 % (11.6-14.8) Platelet Count 291 K/UL (150-450) Mean Platelet Volume 5.7 FL (6.5-10.1) L Neutrophils (%) (Auto) 83.7 % (45.0-75.0) H Lymphocytes (%) (Auto) 6.5 % (20.0-45.0) L Monocytes (%) (Auto) 7.3 % (1.0-10.0) Eosinophils (%) (Auto) 1.5 % (0.0-3.0) Basophils (%) (Auto) 1.0 % (0.0-2.0) Sodium Level 140 MMOL/L (136-145) Potassium Level 4.2 MMOL/L (3.5-5.1) Chloride Level 106 MMOL/L (98-107) Carbon Dioxide Level 24 MMOL/L (21-32) Anion Gap 10 mmol/L (5-15) Blood Urea Nitrogen 27 mg/dL (7-18) H Creatinine 1.5 MG/DL (0.55-1.30) H Estimat Glomerular Filtration Rate 46.8 mL/min (>60) Glucose Level 96 MG/DL (74-106) Calcium Level 8.8 MG/DL (8.5-10.1) Phosphorus Level 3.2 MG/DL (2.5-4.9) Magnesium Level 2.0 MG/DL (1.8-2.4) Objective HEAD AND NECK: Showed no JVD. LUNGS: Clear. CARDIOVASCULAR: Shows regular S1 and S2 with no gallop. ABDOMEN: Soft and nontender and scar of liver surgery in the right upper abdomen for liver transplant. EXTREMITIES: No pitting edema. Greg Villanueva MD Jan 17, 2020 12:51
--- NOTE | 2020-01-17 12:57 | NUR ---
RD ASSESSMENT & RECOMMENDATIONS SEE CARE ACTIVITY FOR COMPLETE ASSESSMENT DAILY ESTIMATED NEEDS: Needs based on Underweight/ 45.5kg 30-35 kcals/kg 6027-1058 total kcals 1-1.5 g protein/kg 46-68 g total protein 25-30 mL/kg 1517-2495 total fluid mLs NUTRITION DIAGNOSIS: Increased kcal/prot needs R/T underweight status w/ suspected wt loss as evidenced by pt @ 70% IBW w/ low BMI per guidelines, wt loss of 6lbs (possibly >5.7%, significant) in the past month per MD. CURRENT DIET:RENAL PO DIET RECOMMENDATIONS: LOW NA/ texture as tolerated + Ensure Enlive BID w/ meals ADDITIONAL RECOMMENDATIONS: * Daily standing wt as able * Rec liberalized diet of LOW NA as above- renal diet unnecessary creat improving (2.0 -> 1.5), many episodes of low K, phos, mag * MVI x 1 * Snacks BID in b/w meals * Ensure BID w/ meals (350kcal/20g prot each) * Monitor for continued fair-good PO intake
--- NOTE | 2020-01-17 14:53 | General Progress Note ---
Subjective Date patient seen: Jan 17, 2020 Time patient seen: 14:00 ROS Limited/Unobtainable: No Allergies: Coded Allergies: No Known Allergies (Unverified , 01/13/20) Subjective Feels better today, denies chest pain or shortness of breath. He is feeling de pressed and tired. Reports good PO intake and good sleep. He is willing to keep on fighting by my discussion today. CT chest and stress test were done. Objective Last 24 Hour Vital Signs Date Time Temp Pulse Resp B/P (MAP) Pulse Ox O2 Delivery O2 Flow Rate FiO2 01/17/20 12:00 66 01/17/20 12:00 96.6 71 16 141/92 (108) 100 01/17/20 09:14 70 116/76 01/17/20 08:20 Room Air 01/17/20 08:00 97.9 70 17 116/76 (89) 99 01/17/20 08:00 68 01/17/20 06:00 97.4 68 17 119/73 (88) 100 01/17/20 04:00 97.4 73 17 119/73 (88) 100 01/17/20 04:00 75 01/17/20 00:00 97.4 73 18 121/61 (81) 97 01/17/20 00:00 74 01/16/20 21:35 124 01/16/20 21:31 75 124/79 01/16/20 21:00 Room Air 01/16/20 20:00 97.6 78 22 128/86 (100) 97 01/16/20 20:00 76 01/16/20 16:00 70 01/16/20 16:00 97.9 77 21 116/80 (92) 96 Intake and Output 01/16/20 01/17/20 19:00 07:00 Intake Total 140 ml 220 ml Output Total 1200 ml 800 ml Balance -1060 ml -580 ml Intake Oral 140 ml 220 ml Output Urine Total 1200 ml 800 ml # Voids 3 Laboratory Tests 01/17/20 06:13: White Blood Count 7.2, Red Blood Count 3.40L, Hemoglobin 11.5L, Hematocrit 35.8L , Mean Corpuscular Volume 105H, Mean Corpuscular Hemoglobin 33.8H, Mean Corpuscular Hemoglobin Concent 32.1, Red Cell Distribution Width 13.2, Platelet Count 291, Mean Platelet Volume 5.7L, Neutrophils (%) (Auto) 83.7H, Lymphocytes (%) (Auto) 6.5L, Monocytes (%) (Auto) 7.3, Eosinophils (%) (Auto) 1.5, Basophils (%) (Auto) 1.0, Sodium Level 140, Potassium Level 4.2, Chloride Level 106, Carbon Dioxide Level 24, Anion Gap 10, Blood Urea Nitrogen 27H, Creatinine 1.5H, Estimat Glomerular Filtration Rate 46.8, Glucose Level 96, Calcium Level 8.8, Phosphorus Level 3.2, Magnesium Level 2.0 Height (Feet): 5 Height (Inches): 5.00 Weight (Pounds): 130 General Appearance: WD/WN EENT: PERRL/EOMI Neck: non-tender Cardiovascular: normal rate Respiratory/Chest: lungs clear Abdomen: non tender Extremities: normal range of motion 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 Initially, resting images obtained using IV administration 10.8 millicuries 99M technetium Myoview. Subsequently, patient underwent lexiscan stress testing. See cardiology report for details. During Lexiscan infusion, IV administration 31.4 mCi 99 M technetium Myoview. SPECT and planar images obtained. SPECT images gated to 8 phases of the cardiac cycle were also obtained, and reformatted into cine images for evaluation of ejection fraction. Comparison: none Findings: Per cardiology report, patient experienced no symptoms during infusion. Per cardiology report, resting EKG demonstrates normal sinus rhythm with left axis deviation. No ST changes during infusion. . Imaging demonstrates a post stress perfusion defect in the anteroseptal wall which is slightly smaller on the resting images. Calculated post stress ejection fraction 47%. There is slightly decreased wall motion in the septum Impression: Nonischemic clinical response to pharmacologic stress, per cardiology report Nonischemic electrocardiographic response to pharmacologic stress, per cardiology report Partially fixed partially reversible anteroseptal perfusion defect, likely infarct with femi-infarct ischemia Calculated post stress ejection fraction 47% Procedure: CT Chest no Contrast Clinical Indication: Cough, evaluation of abnormalities on recent chest radiograph Technique: Spiral acquisitions obtained through the chest. No IV contrast utilized, reason not stated. Multiplanar reconstructions generated. Total dose length product 116 mGycm. CTDIvol(s) 2 mGy. Dose reduction achieved using automated exposure control Comparison: none Findings: Multiple masses are seen in the left upper lobe. The largest of these is complex in shape, abuts the anterior mediastinum and anterior chest wall, measures 4.5 x 3.2 cm orthogonal axial dimensions, by 4.6 cm craniocaudad. This demonstrates multiple central cavities, and extends posteromedially along the bronchovascular bundle. At least 5 other lesions are seen in the left upper lobe, largest of which contain central cavities. No left lower lobe lesions are demonstrated. A 12 mm mass is seen in the right upper lobe, and several subcentimeter lesions are noted. An irregular 3.3 x 1.9 cm mass is seen in the right lower lobe, and at least one other is seen at the right lung base. No definite infiltrates. There is equivocally trace pleural fluid on the left. There is generalized mild hyperinflation, and a bulla is seen in the anteromedial right upper lobe. Azygos lobe and fissure are incidentally noted. The heart size is normal. There is no pericardial effusion. No mediastinal or hilar mass or adenopathy. The ascending thoracic aorta is mildly ectatic but not aneurysmal. There is mild edema of the mediastinal fat. The thyroid is unremarkable. No axillary or chest wall mass or adenopathy demonstrated. Numerous surgical clips are seen in the right upper quadrant. Pattern of the clips suggests liver transplant. The stomach is mildly distended with food. The bones are unremarkable. Impression: Multiple bilateral pulmonary masses/nodules the largest of these demonstrate central cavitation. Main differential considerations are infectious inflammatory lesions such as septic emboli, tuberculosis, other mycobacterial infections; noninfectious processes such as rheumatoid, granulomatosis with polyangiitis; metastatic carcinoma, most likely squamous cell carcinoma, gastrointestinal adenocarcinoma, transitional cell bladder carcinoma Mild hyperinflation. Single right upper lobe bulla Postsurgical changes of the liver suggests prior liver transplant. Correlate with surgical history The CT scanner at [facility] is accredited by the [employer] and the scans are performed using protocols designed to limit radiation exposure to as low as reasonably achievable to attain images of sufficient resolution adequate for diagnostic evaluation. Assessment/Plan Status: stable Assessment/Plan: 64 y/o M admitted to the Hospital with: # Generalized weakness Etiology include failure to thrive, vs poor nutritional status vs underlying cardiac etiology based on history of recent IN 2 months ago Weight loss 6 lbs in the past month # Moderate protein caloric malnutrition. RD support and monitoring. # Elevated troponin Serial troponin noted to be stable Telemetry with some bigeminy noted and is stable TTE with normal EF Cardiology consulted Dr. Villanueva. Stress test Nuclear without ischemia noted. Lipid panel reviewed. Asa 81 mg daily # CKD stage 3 Trend creatinine Monitor renal function # Hypokalemia Replete and monitor I asked Dr. Cintron to provide renal consultation appreciated. # Hypomagnesemia Replete and monitor # History of liver transplant Resume prograft and cellcept Monitor clinical markers as needed # Abnormal CXR with nodularity seen. Patient is Ex- smoker. No hypoxia noted at this time. CT CHEST WITH Multiple bilateral pulmonary masses/nodules the largest of these demonstrate central cavitation. Main differential considerations are infectious inflammatory lesions such as septic emboli, tuberculosis, other mycobacterial infections; noninfectious processes such as rheumatoid, granulomatosis with polyangiitis; metastatic carcinoma, most likely squamous cell carcinoma, gastrointestinal adenocarcinoma, transitional cell bladder carcinoma Pulmonary consultation and infectious disease consultation requested today with Dr. Hill and Greta Add tumor markers, PSA, AFP, CEA # Generalized weakness PT evaluation for baseline recommends SNF for short term rehab. Request placed. When medically stable will dc to SNF when medically stable. DVT ppx with Enoxaparin GI ppx with PPI FULL CODE Son Alberto was updated by me today. Piyush Cruz MD Jan 17, 2020 14:53
--- NOTE | 2020-01-17 15:38 | NUR ---
CASE MANAGEMENT:REVIEW 01/17/20 SI: NSTEMI. COPD. EFFIE LUNG NODULES CT(+) MULTIPLE MASSES IN [place]. 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
--- NOTE | 2020-01-17 16:04 | Consultation ---
History of Present Illness General Date patient seen: Jan 17, 2020 Chief Complaint: General Complaint Present Illness HPI 64 y/o M with hx of HTN, COPD, CKD, ?recent NSTEMI, Liver transplant (at [facility]) 2005 on prograf and cellcept presented to ED on 01/13/20 with generalized weakness, poor PO intake, and wt loss for the past couple of months. Denied CP, SOB, abd pain Allergies: Coded Allergies: No Known Allergies (Unverified , 01/13/20) Medication History Scheduled Megestrol Acetate (Megestrol Acetate), 400 MG PO DAILY, (Reported) Tacrolimus (Tacrolimus), 1 MG PO TID, (Reported) Ursodiol (Ursodiol*), 300 MG ORAL THREE TIMES A DAY, (Reported) Miscellaneous Medications [Liver Transplan], (Reported) Patient History Healthcare decision maker Resuscitation status Advanced Directive on File Patient History Narrative Pmhx: as above Shx: He lives at home. Does not smoke or drink alcohol. Fhx: no contributory Review of Systems All Other Systems: negative except mentioned in HPI Physical Exam Physical Exam Narrative General Appearance: WD/WN Lines, tubes and drains: peripheral HEENT: normocephalic, atraumatic Neck: non-tender Respiratory/Chest: lungs clear Cardiovascular/Chest: normal peripheral pulses Abdomen: non tender Extremities: non-tender Skin Exam: warm/dry Neurologic: acting section chief II-XII grossly normal Last 24 Hour Vital Signs Date Time Temp Pulse Resp B/P (MAP) Pulse Ox O2 Delivery O2 Flow Rate FiO2 01/17/20 12:00 66 01/17/20 12:00 96.6 71 16 141/92 (108) 100 01/17/20 09:14 70 116/76 01/17/20 08:20 Room Air 01/17/20 08:00 97.9 70 17 116/76 (89) 99 01/17/20 08:00 68 01/17/20 06:00 97.4 68 17 119/73 (88) 100 01/17/20 04:00 97.4 73 17 119/73 (88) 100 01/17/20 04:00 75 01/17/20 00:00 97.4 73 18 121/61 (81) 97 01/17/20 00:00 74 01/16/20 21:35 124 01/16/20 21:31 75 124/79 11/5/20 21:00 Room Air 01/16/20 20:00 97.6 78 22 128/86 (100) 97 01/16/20 20:00 76 01/16/20 16:00 70 01/16/20 16:00 97.9 77 21 116/80 (92) 96 Intake and Output 01/16/20 01/17/20 19:00 07:00 Intake Total 140 ml 220 ml Output Total 1200 ml 800 ml Balance -1060 ml -580 ml Intake Oral 140 ml 220 ml Output Urine Total 1200 ml 800 ml # Voids 3 Laboratory Tests Test 01/17/20 06:13 01/17/20 06:30 White Blood Count 7.2 K/UL (4.8-10.8) Red Blood Count 3.40 M/UL (4.70-6.10) L Hemoglobin 11.5 G/DL (14.2-18.0) L Hematocrit 35.8 % (42.0-52.0) L Mean Corpuscular Volume 105 FL (80-99) H Mean Corpuscular Hemoglobin 33.8 PG (27.0-31.0) H Mean Corpuscular Hemoglobin Concent 32.1 G/DL (32.0-36.0) Red Cell Distribution Width 13.2 % (11.6-14.8) Platelet Count 291 K/UL (150-450) Mean Platelet Volume 5.7 FL (6.5-10.1) L Neutrophils (%) (Auto) 83.7 % (45.0-75.0) H Lymphocytes (%) (Auto) 6.5 % (20.0-45.0) L Monocytes (%) (Auto) 7.3 % (1.0-10.0) Eosinophils (%) (Auto) 1.5 % (0.0-3.0) Basophils (%) (Auto) 1.0 % (0.0-2.0) Sodium Level 140 MMOL/L (136-145) Potassium Level 4.2 MMOL/L (3.5-5.1) Chloride Level 106 MMOL/L (98-107) Carbon Dioxide Level 24 MMOL/L (21-32) Anion Gap 10 mmol/L (5-15) Blood Urea Nitrogen 27 mg/dL (7-18) H Creatinine 1.5 MG/DL (0.55-1.30) H Estimat Glomerular Filtration Rate 46.8 mL/min (>60) Glucose Level 96 MG/DL (74-106) Calcium Level 8.8 MG/DL (8.5-10.1) Phosphorus Level 3.2 MG/DL (2.5-4.9) Magnesium Level 2.0 MG/DL (1.8-2.4) Alpha Fetoprotein Pending Carcinoembryonic Antigen Pending Prostate Specific Antigen Pending Free Prostate Specific Antigen Pending Percent Free Prostate Specific Ag Pending Prostate Specific Antigen Total Pending Height (Feet): 5 Height (Inches): 5.00 Weight (Pounds): 130 Medications Current Medications Medications (Trade) Dose Ordered Sig/Quynh Route PRN Reason Start Time Stop Time Status Last Admin Dose Admin Acetaminophen (Tylenol) 650 mg Q4H PRN ORAL Mild Pain (Pain Scale 1-3) 01/13/20 14:30 02/12/20 14:29 Aspirin (ASA) 81 mg DAILY ORAL 01/14/20 09:00 02/28/20 08:59 01/17/20 09:14 Dextrose (Dextrose 50%) 25 ml Q30M PRN IV Hypoglycemia 01/13/20 14:30 04/12/20 14:29 Dextrose (Dextrose 50%) 50 ml Q30M PRN IV Hypoglycemia 01/13/20 14:30 04/12/20 14:29 Docusate Sodium (Colace) 100 mg EVERY 12 HOURS ORAL 01/13/20 21:00 02/12/20 20:59 01/17/20 09:14 Heparin Sodium (Porcine) (Heparin 5000 units/ml) 5,000 units EVERY 12 HOURS SUBQ 01/13/20 21:00 02/27/20 20:59 01/17/20 09:22 Lorazepam (Ativan) 1 mg Q4H PRN ORAL For Anxiety 01/13/20 14:30 01/20/20 14:29 Metoprolol Tartrate (Lopressor) 25 mg EVERY 12 HOURS ORAL 01/13/20 21:00 04/12/20 20:59 01/17/20 09:14 Morphine Sulfate (Morphine Sulfate) 2 mg Q3H PRN IVP Moderate Pain (Pain Scale 4-6) 01/13/20 14:30 01/20/20 14:29 Morphine Sulfate (Morphine Sulfate) 4 mg Q3H PRN IVP Severe Pain (Pain Scale 7-10) 01/13/20 14:30 01/20/20 14:29 Mycophenolate Mofetil (Cellcept) 1,000 mg TWICE A DAY ORAL 01/13/20 18:00 04/12/20 17:59 01/17/20 09:14 Nitroglycerin (Ntg) 0.4 mg Q5M PRN SL Prn Chest Pain 01/13/20 14:30 02/12/20 14:29 Ondansetron HCl (Zofran) 4 mg Q6H PRN IVP Nausea & Vomiting 01/13/20 14:30 02/12/20 14:29 Pantoprazole (Protonix) 40 mg BID ORAL 01/15/20 18:00 02/13/20 08:59 01/17/20 09:14 Regadenoson (Lexiscan) 0.4 mg ONCE PRN IV allied health professional to cardiology 01/15/20 16:15 01/17/20 16:14 01/16/20 11:39 Tacrolimus (Prograf) 1 mg EVERY 12 HOURS ORAL 01/13/20 21:00 04/12/20 20:59 01/17/20 09:14 Assessment/Plan Assessment/Plan: Abx: None Assessment: Pulmonary nodules- r/o malignancy vs infectious (TB, fungal), septic emboli -CT chest wo: Multiple bilateral pulmonary masses/nodules the largest of these demonstrate central cavitation. Main differential considerations are infectious inflammatory lesions such as septic emboli, tuberculosis, other mycobacterial infections; noninfectious processes such as rheumatoid, granulomatosis with polyangiitis; metastatic carcinoma, most likely squamous cell carcinoma, gastrointestinal adenocarcinoma, transitional cell bladder carcinoma. Mild hyperinflation. Single right upper lobe bulla, Postsurgical changes of the liver suggests prior liver transplant. Correlate with surgical history -CXR: Bilateral lung nodules. These are worrisome for metastatic deposits. Septic emboli also a possibility. Correlate with clinical history and findings. Mild hyperinflation, likely COPD. -2d echo: no vegetations Afebrile No leukocytosis -u/a neg -Bcx NTD JOAN on CKD, improving -Renal US: Trace left perinephric fluid, nonspecific. Bilateral renal cysts. Negative for hydronephrosis. Liver transplant (at [facility]) 2006 on prograf and cellcept HTN COPD ?recent NSTEMI Plan: -Start empiric ZYvox, Cefepime and Azithromycin -f/u cx -Monitor CBC/C MP, temperatures -airborne isolation: AFB sp cx x3, MTB PCR -COVID PCR, histo, blasto, cocci, CrAg, legionella ag urine, sp cx -May need bronch if not able to expectorate sputum - if bacteremic, may need LORENA Thank you for consulting [facility]. Will continue to follow along with you. Discussed with RN and Alie Thompson M.D. Jan 17, 2020 16:04
[2020-01-17] MEDS: Azithromycin 250mg tab ORAL SCH (16:26)
--- NOTE | 2020-01-17 16:54 | NUR ---
NURSE NOTES: Sputum sample, urine sample, and COVID swab collected and sent down to lab.
[2020-01-17] MEDS: Cefepime HCl 1 GM in D5W 55 ML IVPB SCH (17:37)
--- NOTE | 2020-01-17 19:06 | NUR ---
NURSE NOTES: Patient transferred to [facility]/[address] room 417-2. Report given to Audi HANSEN. Belongings list verified.
--- NOTE | 2020-01-17 19:10 | NUR ---
NURSE NOTES: Patient received from telemetry. Belongings verified with $360 esposito, per patient, son took the other $300-will confirm. All other belongings accounted for. Patient refuses to wear hospital gown, despite education. Oriented to room and unit, call light and urinal provided at bedside. Instructed to call for assistance, verbalized understanding. Bed alarm on. Will continue with plan of care.
--- NOTE | 2020-01-17 19:24 | NUR ---
NURSE NOTES: Spoke to son Alberto regarding $300 missing, Alberto states he took it with him. Gabriela currently has $360 on person. Alberto notified of transfer to [facility].
--- NOTE | 2020-01-17 20:30 | Consultation ---
DATE OF CONSULTATION: 01/17/2020 CONSULTING PHYSICIAN: Corona Hernandez MD. REFERRING PHYSICIAN: Piyush Cruz MD. REASON FOR CONSULTATION: Evaluation of elevated PSA. HISTORY OF PRESENT ILLNESS: This is a 64-year-old male. He was admitted to the hospital because of weakness. There is also a history of questionable AL with elevated troponins. The patient was noted to have elevation of his creatinine and he was also noted to have elevation of his serum PSA. Urology evaluation is requested. There is no known history of prostate cancer. The patient denies previous prostate biopsy. He is voiding fair. He has some mild lower urinary tract symptoms. PAST MEDICAL HISTORY: Significant for history of liver transplantation, history of hypertension, and COPD. There is a chronic kidney disease. PAST SURGICAL HISTORY: He has a liver transplant. MEDICATIONS: Current medication list was reviewed. The patient is on cefepime, Zithromax, Zyvox, Protonix, aspirin, Lopressor, Prograf, Colace, Ativan, morphine, nitroglycerin. ALLERGIES: No known drug allergies. SOCIAL HISTORY: The patient is currently a nonsmoker. REVIEW OF SYSTEMS: As above. The patient has had some weight loss. FAMILY HISTORY: Noncontributory. PHYSICAL EXAMINATION: GENERAL: An elderly male, very cachectic. VITAL SIGNS: Temperature is 98.6, blood pressure 120/89, pulse 66, respirations 18. HEENT: Normocephalic. NECK: Supple. ABDOMEN: Soft. GENITOURINARY: Reveals smooth prostate about 40 to 50 g. No palpable nodules. LABORATORY DATA: UA showed 2+ protein, otherwise negative. White count is 7.2, hemoglobin 11.5, and platelets 291,000. BUN is 27, creatinine 1.5. He did have a creatinine of 2.0 on admission. His INR is 0.9. His serum PSA is 7.05. DIAGNOSTIC IMAGING STUDIES: The patient had a renal ultrasound, which showed bilateral renal cysts. No hydronephrosis. IMPRESSION: 1. Elevated serum PSA. 2. BPH. 3. Mild lower urinary tract symptoms. 4. Rule out neurogenic bladder. 5. Renal insufficiency, acute on chronic. 6. Proteinuria. 7. Renal cyst. PLAN AND DISCUSSION: Again, the patient does have some elevation of the serum PSA. This could be secondary to prostatitis or BPH, but also prostatic carcinoma needs to be ruled out. At some point, the patient may need to have a prostate biopsy. He did have pulmonary metastases noted on chest CT and probably nodule. I am not sure if this would be related to his prostate as the prostate cancer does not metastasize to the lung. I will follow him and his renal function will be monitored. We will consider adding Flomax. Thank you, Dr. Cruz for asking me to see this patient in consultation. Corona Hernandez M.D. DR: CODI JOB#: [id number] CC:
[2020-01-18 04:00] VITALS: BP 117/61
--- NOTE | 2020-01-18 07:30 | NUR ---
NURSE HAND-OFF: Important Events on Shift:[forgetful about not getting out of bed, bed alarm activated] Patient Status: [stable] Diet: [Renal] Pending Orders: [] Pending Results/Labs:[multiple AM labs; AFB and sputum culture; urine legionella] Pending MD notification:[] Latest Vital Signs: Temperature 97.3 , Pulse 72 , B/P 117 /61 , Respiratory Rate 18 , O2 SAT 94 , Room Air, O2 Flow Rate . Vital Sign Comment: [] Latest Padron Fall Score: 50 Fall Risk: High Risk Safety Measures: Call light Within Reach, Bed Alarm Zone 1, Side Rails Side Rails x2, Bed position Low and Locked. Fall Precautions: Yellow Socks Yellow Gown Door Sign Patient Fall Education Report given to [Alan Martinez RN].
[2020-01-18 08:00] VITALS: BP 129/88
[2020-01-18 08:14] LABS: BASOPHILS % (AUTO) 0.5 % (0.0-2.0); EOSINOPHILS % (AUTO) 1.1 % (0.0-3.0); HEMATOCRIT 34.3 % (42.0-52.0); HEMOGLOBIN 11.3 G/DL (14.2-18.0); LYMPHOCYTES % (AUTO) 9.4 % (20.0-45.0); MEAN CORPUSCULAR VOLUME 106 FL (80-99); MONOCYTES % (AUTO) 7.4 % (1.0-10.0); NEUTROPHILS % (AUTO) 81.6 % (45.0-75.0); PLATELET COUNT 256 K/UL (150-450); RED BLOOD COUNT 3.25 M/UL (4.70-6.10); RED CELL DISTRIBUTION WIDTH 12.7 % (11.6-14.8); WHITE BLOOD COUNT 5.3 K/UL (4.8-10.8)
[2020-01-18 08:31] LABS: CALCIUM 8.7 MG/DL (8.5-10.1); CREATININE 1.5 MG/DL (0.55-1.30); POTASSIUM 3.9 MMOL/L (3.5-5.1)
[2020-01-18] MEDS: Docusate 100mg cap ORAL SCH ×2 (08:59→20:31)
[2020-01-18] MEDS: Azithromycin 250mg tab ORAL SCH (08:59)
[2020-01-18] MEDS: Aspirin Baby 81mg ORAL SCH (08:59)
[2020-01-18] MEDS: Mycophenolate 250mg cap ORAL SCH ×2 (09:00→17:23)
[2020-01-18] MEDS: Heparin 5000 units/ml inj SUBQ SCH ×2 (09:04→20:30)
--- NOTE | 2020-01-18 10:16 | Urology Progress Note ---
Assessment/Plan Status: stable Assessment/Plan: 1. Elevated serum PSA. 2. BPH. 3. Mild lower urinary tract symptoms. 4. Rule out neurogenic bladder. 5. Renal insufficiency, acute on chronic. 6. Proteinuria. 7. Renal cyst. monitor clinically consider adding flomax check PVR prostate MRI and/or biopsy at some point f/u on blood cx on abx lung mets, will need w/u monitor renal fxn Subjective Allergies: Coded Allergies: No Known Allergies (Unverified , 01/13/20) Subjective all noted, feels fair Objective Last 24 Hour Vital Signs Date Time Temp Pulse Resp B/P (MAP) Pulse Ox O2 Delivery O2 Flow Rate FiO2 01/18/20 09:00 Room Air 01/18/20 09:00 72 129/88 01/18/20 08:00 97.1 72 20 129/88 (102) 99 01/18/20 04:00 97.3 72 18 117/61 (79) 94 01/17/20 23:42 98.7 81 18 130/78 (95) 94 01/17/20 21:00 Room Air 01/17/20 20:39 78 125/76 01/17/20 20:00 98.6 76 20 125/81 (96) 94 01/17/20 16:00 98.6 66 18 120/89 (99) 98 01/17/20 16:00 66 01/17/20 12:00 66 01/17/20 12:00 96.6 71 16 141/92 (108) 100 Intake and Output 01/17/20 01/18/20 19:00 07:00 Intake Total 500 ml 300 ml Output Total 500 ml Balance 500 ml -200 ml Intake Oral 500 ml 300 ml Output Urine Total 500 ml # Voids 3 5 Microbiology Date/Time Source Procedure Growth Status 01/17/20 16:30 Nasopharynx SARS-CoV-2 RdRp Gene Assay - Final Complete 01/13/20 11:50 Blood Blood Culture - Preliminary NO GROWTH AFTER 4 DAYS Resulted Current Medications Medications (Trade) Dose Ordered Sig/Quynh Route PRN Reason Start Time Stop Time Status Last Admin Dose Admin Acetaminophen (Tylenol) 650 mg Q4H PRN ORAL Mild Pain (Pain Scale 1-3) 01/13/20 14:30 02/12/20 14:29 Aspirin (ASA) 81 mg DAILY ORAL 01/14/20 09:00 02/28/20 08:59 01/18/20 08:59 Azithromycin (Zithromax) 500 mg DAILY ORAL 01/17/20 16:00 01/24/20 15:59 01/18/20 08:59 Cefepime HCl 1 gm/ Dextrose 55 ml @ 110 mls/hr Q24H IVPB 01/17/20 18:00 01/24/20 17:59 01/17/20 17:37 Dextrose (Dextrose 50%) 25 ml Q30M PRN IV Hypoglycemia 01/13/20 14:30 04/12/20 14:29 Dextrose (Dextrose 50%) 50 ml Q30M PRN IV Hypoglycemia 01/13/20 14:30 04/12/20 14:29 Docusate Sodium (Colace) 100 mg EVERY 12 HOURS ORAL 01/13/20 21:00 02/12/20 20:59 01/18/20 08:59 Heparin Sodium (Porcine) (Heparin 5000 units/ml) 5,000 units EVERY 12 HOURS SUBQ 01/13/20 21:00 02/27/20 20:59 01/18/20 09:04 Linezolid (Zyvox) 600 mg EVERY 12 HOURS ORAL 01/17/20 16:00 01/22/20 15:59 01/18/20 09:00 Lorazepam (Ativan) 1 mg Q4H PRN ORAL For Anxiety 01/13/20 14:30 01/20/20 14:29 Metoprolol Tartrate (Lopressor) 25 mg EVERY 12 HOURS ORAL 01/13/20 21:00 04/12/20 20:59 01/18/20 09:00 Morphine Sulfate (Morphine Sulfate) 2 mg Q3H PRN IVP Moderate Pain (Pain Scale 4-6) 01/13/20 14:30 01/20/20 14:29 Morphine Sulfate (Morphine Sulfate) 4 mg Q3H PRN IVP Severe Pain (Pain Scale 7-10) 01/13/20 14:30 01/20/20 14:29 Mycophenolate Mofetil (Cellcept) 1,000 mg TWICE A DAY ORAL 01/13/20 18:00 04/12/20 17:59 01/18/20 09:00 Nitroglycerin (Ntg) 0.4 mg Q5M PRN SL Prn Chest Pain 01/13/20 14:30 02/12/20 14:29 Ondansetron HCl (Zofran) 4 mg Q6H PRN IVP Nausea & Vomiting 01/13/20 14:30 02/12/20 14:29 Pantoprazole (Protonix) 40 mg BID ORAL 01/15/20 18:00 02/13/20 08:59 01/18/20 08:59 Tacrolimus (Prograf) 1 mg EVERY 12 HOURS ORAL 01/13/20 21:00 04/12/20 20:59 01/18/20 08:59 Laboratory Tests 01/17/20 16:30: Histoplasma Antigen [Pending], Urine Legionella Antigen [Pending], M. tuberculosis Complex DNA (PCR) [Pending] 01/18/20 07:30: White Blood Count 5.3, Red Blood Count 3.25L, Hemoglobin 11.3L, Hematocrit 34.3L , Mean Corpuscular Volume 106H, Mean Corpuscular Hemoglobin 34.8H, Mean Corpuscular Hemoglobin Concent 33.0, Red Cell Distribution Width 12.7, Platelet Count 256, Mean Platelet Volume 5.7L, Neutrophils (%) (Auto) 81.6H, Lymphocytes (%) (Auto) 9.4L, Monocytes (%) (Auto) 7.4, Eosinophils (%) (Auto) 1.1, Basophils (%) (Auto) 0.5, Erythrocyte Sedimentation Rate 78H, Sodium Level 136, Potassium Level 3.9, Chloride Level 105, Carbon Dioxide Level 23, Anion Gap 8, Blood Urea Nitrogen 30H, Creatinine 1.5H, Estimat Glomerular Filtration Rate 46.8, Glucose Level 138H, Calcium Level 8.7, C-Reactive Protein, Quantitative 4.1H, Anti- Nuclear Antibody Screen [Pending], c-ANCA Titer [Pending], p-ANCA Titer [Pending], Anti-Double Strand DNA Antibody [Pending], Blastomyces Ab Immunodiffusion [Pending], Coccidioides Antibody (Comp Fix) [Pending], Cryptococcus Antigen [Pending], Histoplasma Mycelial Antibody [Pending], Histoplasma Antibody w Mycelial Ag [Pending], Histoplasma Antibody with Yeast Ag [Pending], HIV (1&2) Antibody Rapid Negative, Mycoplasma pneumoniae IgM Ab Titer [Pending] Height (Feet): 5 Height (Inches): 5.00 Weight (Pounds): 130 Objective exam stable Corona Hernandez MD Jan 18, 2020 10:16
[2020-01-18] MEDS ORDERED: Lidocaine 1% Plain 30 ml INJ SCH (10:30)
--- NOTE | 2020-01-18 10:31 | General Progress Note ---
Subjective Date patient seen: Jan 18, 2020 Time patient seen: 10:00 ROS Limited/Unobtainable: No Allergies: Coded Allergies: No Known Allergies (Unverified , 01/13/20) All Systems: reviewed and negative except above Subjective Feels the same today, denies chest pain or shortness of breath. He is feeling depressed and tired. Reports good PO intake and good sleep. He was seen by urology, ID, pulmonary consultants. Objective Last 24 Hour Vital Signs Date Time Temp Pulse Resp B/P (MAP) Pulse Ox O2 Delivery O2 Flow Rate FiO2 01/18/20 09:00 Room Air 01/18/20 09:00 72 129/88 01/18/20 08:00 97.1 72 20 129/88 (102) 99 01/18/20 04:00 97.3 72 18 117/61 (79) 94 01/17/20 23:42 98.7 81 18 130/78 (95) 94 01/17/20 21:00 Room Air 01/17/20 20:39 78 125/76 01/17/20 20:00 98.6 76 20 125/81 (96) 94 01/17/20 16:00 98.6 66 18 120/89 (99) 98 01/17/20 16:00 66 01/17/20 12:00 66 01/17/20 12:00 96.6 71 16 141/92 (108) 100 Intake and Output 01/17/20 01/18/20 19:00 07:00 Intake Total 500 ml 300 ml Output Total 500 ml Balance 500 ml -200 ml Intake Oral 500 ml 300 ml Output Urine Total 500 ml # Voids 3 5 Laboratory Tests 01/17/20 16:30: Histoplasma Antigen [Pending], Urine Legionella Antigen [Pending], M. tuberculosis Complex DNA (PCR) [Pending] 01/18/20 07:30: White Blood Count 5.3, Red Blood Count 3.25L, Hemoglobin 11.3L, Hematocrit 34.3L , Mean Corpuscular Volume 106H, Mean Corpuscular Hemoglobin 34.8H, Mean Corpuscular Hemoglobin Concent 33.0, Red Cell Distribution Width 12.7, Platelet Count 256, Mean Platelet Volume 5.7L, Neutrophils (%) (Auto) 81.6H, Lymphocytes (%) (Auto) 9.4L, Monocytes (%) (Auto) 7.4, Eosinophils (%) (Auto) 1.1, Basophils (%) (Auto) 0.5, Erythrocyte Sedimentation Rate 78H, Sodium Level 136, Potassium Level 3.9, Chloride Level 105, Carbon Dioxide Level 23, Anion Gap 8, Blood Urea Nitrogen 30H, Creatinine 1.5H, Estimat Glomerular Filtration Rate 46.8, Glucose Level 138H, Calcium Level 8.7, C-Reactive Protein, Quantitative 4.1H, Anti- Nuclear Antibody Screen [Pending], c-ANCA Titer [Pending], p-ANCA Titer [Pending], Anti-Double Strand DNA Antibody [Pending], Blastomyces Ab Immunodiffusion [Pending], Coccidioides Antibody (Comp Fix) [Pending], Cry ptococcus Antigen [Pending], Histoplasma Mycelial Antibody [Pending], Histoplasma Antibody w Mycelial Ag [Pending], Histoplasma Antibody with Yeast Ag [Pending], HIV (1&2) Antibody Rapid Negative, Mycoplasma pneumoniae IgM Ab Titer [Pending] Height (Feet): 5 Height (Inches): 5.00 Weight (Pounds): 130 General Appearance: WD/WN EENT: PERRL/EOMI Neck: non-tender Cardiovascular: normal rate Respiratory/Chest: lungs clear Abdomen: non tender Extremities: normal range of motion 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 Initially, resting images obtained using IV administration 10.8 millicuries 99M technetium Myoview. Subsequently, patient underwent lexiscan stress testing. See cardiology report for details. During Lexiscan infusion, IV administration 31.4 mCi 99 M technetium Myoview. SPECT and planar images obtained. SPECT images gated to 8 phases of the cardiac cycle were also obtained, and reformatted into cine images for evaluation of ejection fraction. Comparison: none Findings: Per cardiology report, patient experienced no symptoms during infusion. Per cardiology report, resting EKG demonstrates normal sinus rhythm with left axis deviation. No ST changes during infusion. . Imaging demonstrates a post stress perfusion defect in the anteroseptal wall which is slightly smaller on the resting images. Calculated post stress ejection fraction 47%. There is slightly decreased wall motion in the septum Impression: Nonischemic clinical response to pharmacologic stress, per cardiology report Nonischemic electrocardiographic response to pharmacologic stress, per cardiology report Partially fixed partially reversible anteroseptal perfusion defect, likely infarct with femi-infarct ischemia Calculated post stress ejection fraction 47% Procedure: CT Chest no Contrast Clinical Indication: Cough, evaluation of abnormalities on recent chest radiograph Technique: Spiral acquisitions obtained through the chest. No IV contrast utilized, reason not stated. Multiplanar reconstructions generated. Total dose length product 116 mGycm. CTDIvol(s) 2 mGy. Dose reduction achieved using automated exposure control Comparison: none Findings: Multiple masses are seen in the left upper lobe. The largest of these is complex in shape, abuts the anterior mediastinum and anterior chest wall, measures 4.5 x 3.2 cm orthogonal axial dimensions, by 4.6 cm craniocaudad. This demonstrates multiple central cavities, and extends posteromedially along the bronchovascular bundle. At least 5 other lesions are seen in the left upper lobe, largest of which contain central cavities. No left lower lobe lesions are demonstrated. A 12 mm mass is seen in the right upper lobe, and several subcentimeter lesions are noted. An irregular 3.3 x 1.9 cm mass is seen in the right lower lobe, and at least one other is seen at the right lung base. No definite infiltrates. There is equivocally trace pleural fluid on the left. There is generalized mild hyperinflation, and a bulla is seen in the anteromedial right upper lobe. Azygos lobe and fissure are incidentally noted. The heart size is normal. There is no pericardial effusion. No mediastinal or hilar mass or adenopathy. The ascending thoracic aorta is mildly ectatic but not aneurysmal. There is mild edema of the mediastinal fat. The thyroid is unremarkable. No axillary or chest wall mass or adenopathy demonstrated. Numerous surgical clips are seen in the right upper quadrant. Pattern of the clips suggests liver transplant. The stomach is mildly distended with food. The bones are unremarkable. Impression: Multiple bilateral pulmonary masses/nodules the largest of these demonstrate central cavitation. Main differential considerations are infectious inflammatory lesions such as septic emboli, tuberculosis, other mycobacterial infections; noninfectious processes such as rheumatoid, granulomatosis with polyangiitis; metastatic carcinoma, most likely squamous cell carcinoma, gastrointestinal adenocarcinoma, transitional cell bladder carcinoma Mild hyperinflation. Single right upper lobe bulla Postsurgical changes of the liver suggests prior liver transplant. Correlate with surgical history The CT scanner at [facility] is accredited by the [employer] and the scans are performed using protocols designed to limit radiation exposure to as low as reasonably achievable to attain images of sufficient resolution adequate for diagnostic evaluation. Assessment/Plan Status: stable Assessment/Plan: 64 y/o M admitted to the Hospital with: # Generalized weakness Etiology include failure to thrive, vs poor nutritional status vs underlying cardiac etiology based on history of recent OR 2 months ago Weight loss 6 lbs in the past month # Moderate protein caloric malnutrition. RD support and monitoring. # Elevated troponin Serial troponin noted to be stable Telemetry with some bigeminy noted and is stable TTE with normal EF Cardiology consulted Dr. Villanueva. Stress test Nuclear without ischemia noted. Lipid panel reviewed. Asa 81 mg daily # CKD stage 3 Trend creatinine Monitor renal function # Hypokalemia Replete and monitor I asked Dr. Cintron to provide renal consultation appreciated. # Hypomagnesemia Replete and monitor # History of liver transplant Resume prograft and cellcept Monitor clinical markers as needed # Abnormal CXR with nodularity seen. Patient is Ex- smoker. No hypoxia noted at this time. CT CHEST WITH Multiple bilateral pulmonary masses/nodules the largest of these demonstrate central cavitation. Main differential considerations are infectious inflammatory lesions such as septic emboli, tuberculosis, other mycobacterial infections; noninfectious processes such as rheumatoid, granulomatosis with polyangiitis; metastatic carcinoma, most likely squamous cell carcinoma, gastrointestinal adenocarcinoma, transitional cell bladder carcinoma Pulmonary consultation and infectious disease consultation requested today with Dr. Hill and Greta Add tumor markers, PSA, AFP, CEA Per Dr. Hernandes empiric ZYvox, Cefepime and Azithromycin started 01/17/20 -f/u cx -Monitor CBC/C MP, temperatures -airborne isolation: AFB sp cx x3, MTB PCR -COVID PCR, histo, blasto, cocci, CrAg, legionella ag urine, sp cx -May need bronch if not able to expectorate sputum - if bacteremic, may need LORENA I spoke with Dr. Hill and CT guided BIOPSY will be coordinated for Monday. Patient was updated in his curyung language. # Generalized weakness PT evaluation for baseline recommends SNF for short term rehab. Request placed. When medically stable will dc to SNF when medically stable. DVT ppx with Enoxaparin GI ppx with PPI FULL CODE Thee Dominguez was updated by me today. Piyush Cruz MD Jan 18, 2020 10:31
[2020-01-18 12:00] VITALS: BP 119/72
--- NOTE | 2020-01-18 12:02 | Nephrology Progress Note ---
Assessment/Plan Problem List: (1) Hypokalemia (2) Renal failure (ARF), acute on chronic (3) Elevated troponin (4) Anemia Assessment Persistent hypokalemia, etiology unclear. No report of diarrhea. Renal failure with serum creatinine of 1.7, most likely chronic Elevated troponin Anemia Hypoalbuminemia Status post liver transplant. On Prograf and CellCept Leukocytosis COPD EjFx 55% Plan January 17: Renal parameters stable. Continue per current management. Work-up of bilateral cavitary pulmonary nodules in process January 16: Serum creatinine lowering from 2 on admission to 1.[address] scan of the chest noted. Will discuss with Dr. Cruz regarding the pulmonary evaluation. Continue current management. Previously: Potassium supplement p.o. and IV Urine spot sodium Urine spot potassium Kidney ultrasound, pending 2D echocardiogram EjFx 55% Monitor renal parameters Will order CT of the chest with no contrast Chest x-ray impression: Bilateral lung nodules. These are worrisome for metastatic deposits. Septic emboli also a possibility. Mild hyperinflation, likely COPD. Subjective ROS Limited/Unobtainable: No Constitutional: Reports: malaise Objective Objective Last 24 Hour Vital Signs Date Time Temp Pulse Resp B/P (MAP) Pulse Ox O2 Delivery O2 Flow Rate FiO2 01/18/20 09:00 Room Air 01/18/20 09:00 72 129/88 01/18/20 08:00 97.1 72 20 129/88 (102) 99 01/18/20 04:00 97.3 72 18 117/61 (79) 94 01/17/20 23:42 98.7 81 18 130/78 (95) 94 01/17/20 21:00 Room Air 01/17/20 20:39 78 125/76 01/17/20 20:00 98.6 76 20 125/81 (96) 94 01/17/20 16:00 98.6 66 18 120/89 (99) 98 01/17/20 16:00 66 Intake and Output 01/17/20 01/18/20 19:00 07:00 Intake Total 500 ml 300 ml Output Total 500 ml Balance 500 ml -200 ml Intake Oral 500 ml 300 ml Output Urine Total 500 ml # Voids 3 5 Current Medications Medications (Trade) Dose Ordered Sig/Quynh Route PRN Reason Start Time Stop Time Status Last Admin Dose Admin Acetaminophen (Tylenol) 650 mg Q4H PRN ORAL Mild Pain (Pain Scale 1-3) 01/13/20 14:30 02/12/20 14:29 Aspirin (ASA) 81 mg DAILY ORAL 01/14/20 09:00 02/28/20 08:59 01/18/20 08:59 Azithromycin (Zithromax) 500 mg DAILY ORAL 01/17/20 16:00 01/24/20 15:59 01/18/20 08:59 Cefepime HCl 1 gm/ Dextrose 55 ml @ 110 mls/hr Q24H IVPB 01/17/20 18:00 01/24/20 17:59 01/17/20 17:37 Dextrose (Dextrose 50%) 25 ml Q30M PRN IV Hypoglycemia 01/13/20 14:30 04/12/20 14:29 Dextrose (Dextrose 50%) 50 ml Q30M PRN IV Hypoglycemia 01/13/20 14:30 04/12/20 14:29 Docusate Sodium (Colace) 100 mg EVERY 12 HOURS ORAL 01/13/20 21:00 02/12/20 20:59 01/18/20 08:59 Heparin Sodium (Porcine) (Heparin 5000 units/ml) 5,000 units EVERY 12 HOURS SUBQ 01/13/20 21:00 02/27/20 20:59 01/18/20 09:04 Linezolid (Zyvox) 600 mg EVERY 12 HOURS ORAL 01/17/20 16:00 01/22/20 15:59 01/18/20 09:00 Lorazepam (Ativan) 1 mg Q4H PRN ORAL For Anxiety 01/13/20 14:30 01/20/20 14:29 Metoprolol Tartrate (Lopressor) 25 mg EVERY 12 HOURS ORAL 01/13/20 21:00 04/12/20 20:59 01/18/20 09:00 Morphine Sulfate (Morphine Sulfate) 2 mg Q3H PRN IVP Moderate Pain (Pain Scale 4-6) 01/13/20 14:30 01/20/20 14:29 Morphine Sulfate (Morphine Sulfate) 4 mg Q3H PRN IVP Severe Pain (Pain Scale 7-10) 01/13/20 14:30 01/20/20 14:29 Mycophenolate Mofetil (Cellcept) 1,000 mg TWICE A DAY ORAL 01/13/20 18:00 04/12/20 17:59 01/18/20 09:00 Nitroglycerin (Ntg) 0.4 mg Q5M PRN SL Prn Chest Pain 01/13/20 14:30 02/12/20 14:29 Ondansetron HCl (Zofran) 4 mg Q6H PRN IVP Nausea & Vomiting 01/13/20 14:30 02/12/20 14:29 Pantoprazole (Protonix) 40 mg BID ORAL 01/15/20 18:00 02/13/20 08:59 01/18/20 08:59 Tacrolimus (Prograf) 1 mg EVERY 12 HOURS ORAL 01/13/20 21:00 04/12/20 20:59 01/18/20 08:59 Laboratory Tests 01/17/20 16:30: Histoplasma Antigen [Pending], Urine Legionella Antigen [Pending], M. tuberculosis Complex DNA (PCR) [Pending] 01/18/20 07:30: White Blood Count 5.3, Red Blood Count 3.25L, Hemoglobin 11.3L, Hematocrit 34.3L , Mean Corpuscular Volume 106H, Mean Corpuscular Hemoglobin 34.8H, Mean Corpuscular Hemoglobin Concent 33.0, Red Cell Distribution Width 12.7, Platelet Count 256, Mean Platelet Volume 5.7L, Neutrophils (%) (Auto) 81.6H, Lymphocytes (%) (Auto) 9.4L, Monocytes (%) (Auto) 7.4, Eosinophils (%) (Auto) 1.1, Basophils (%) (Auto) 0.5, Erythrocyte Sedimentation Rate 78H, Sodium Level 136, Potassium Level 3.9, Chloride Level 105, Carbon Dioxide Level 23, Anion Gap 8, Blood Urea Nitrogen 30H, Creatinine 1.5H, Estimat Glomerular Filtration Rate 46.8, Glucose Level 138H, Calcium Level 8.7, C-Reactive Protein, Quantitative 4.1H, Anti- Nuclear Antibody Screen [Pending], c-ANCA Titer [Pending], p-ANCA Titer [Pending], Anti-Double Strand DNA Antibody [Pending], Blastomyces Ab Immunodiffusion [Pending], Coccidioides Antibody (Comp Fix) [Pending], Cryptococcus Antigen [Pending], Histoplasma Mycelial Antibody [Pending], Histoplasma Antibody w Mycelial Ag [Pending], Histoplasma Antibody with Yeast Ag [Pending], HIV (1&2) Antibody Rapid Negative, Mycoplasma pneumoniae IgM Ab Titer [Pending] Height (Feet): 5 Height (Inches): 5.00 Weight (Pounds): 130 General Appearance: no apparent distress Cardiovascular: normal rate Respiratory/Chest: decreased breath sounds Abdomen: soft Objective No change Marvin Martinez MD Jan 18, 2020 12:02
--- NOTE | 2020-01-18 12:40 | NUR ---
NURSE NOTES: patient Mamie placed an order for patient to get bladder scanned once a day for six days. first one today 01/17
--- NOTE | 2020-01-18 14:11 | Cardiac Electrophysiology PN ---
Assessment/Plan Assessment/Plan 1. Troponin elevation. All levels are low level and similar at 0.4 due to renal failure The patient does not have any chest pain. EKG does not show any acute ST-T wave abnormalities. Continue aspirin, beta-awa, and low-dose statin. Echo Nl EF 55% Stress test showed "Partially fixed partially reversible anteroseptal perfusion defect, likely infarct with femi-infarct ischemia". Treat medically specially no chest pain and renal failure and cardiac cath put him at risk of HD 2. Status post liver transplant. Already on Prograf and CellCept. 3. Generalized weakness. 4. Elevated white count of 12,000. 5. Hypokalemia. Potassium of 3. 6. Chronic kidney disease with BUN of 47 and creatinine of 2.0. DW RN Subjective Subjective No CP or SOB EF 55%. Stress test showed "Partially fixed partially reversible anteroseptal perfusion defect, likely infarct with femi-infarct ischemia DC pending Objective Last 24 Hour Vital Signs Date Time Temp Pulse Resp B/P (MAP) Pulse Ox O2 Delivery O2 Flow Rate FiO2 01/18/20 12:00 98.0 70 20 119/72 (88) 99 01/18/20 09:00 Room Air 01/18/20 09:00 72 129/88 01/18/20 08:00 97.1 72 20 129/88 (102) 99 01/18/20 04:00 97.3 72 18 117/61 (79) 94 01/17/20 23:42 98.7 81 18 130/78 (95) 94 01/17/20 21:00 Room Air 01/17/20 20:39 78 125/76 01/17/20 20:00 98.6 76 20 125/81 (96) 94 01/17/20 16:00 98.6 66 18 120/89 (99) 98 01/17/20 16:00 66 Intake and Output 01/17/20 01/18/20 19:00 07:00 Intake Total 500 ml 300 ml Output Total 500 ml Balance 500 ml -200 ml Intake Oral 500 ml 300 ml Output Urine Total 500 ml # Voids 3 5 Laboratory Tests Test 01/17/20 16:30 01/18/20 07:30 Histoplasma Antigen Pending Urine Legionella Antigen Pending M. tuberculosis Complex DNA (PCR) Pending White Blood Count 5.3 K/UL (4.8-10.8) Red Blood Count 3.25 M/UL (4.70-6.10) L Hemoglobin 11.3 G/DL (14.2-18.0) L Hematocrit 34.3 % (42.0-52.0) L Mean Corpuscular Volume 106 FL (80-99) H Mean Corpuscular Hemoglobin 34.8 PG (27.0-31.0) H Mean Corpuscular Hemoglobin Concent 33.0 G/DL (32.0-36.0) Red Cell Distribution Width 12.7 % (11.6-14.8) Platelet Count 256 K/UL (150-450) Mean Platelet Volume 5.7 FL (6.5-10.1) L Neutrophils (%) (Auto) 81.6 % (45.0-75.0) H Lymphocytes (%) (Auto) 9.4 % (20.0-45.0) L Monocytes (%) (Auto) 7.4 % (1.0-10.0) Eosinophils (%) (Auto) 1.1 % (0.0-3.0) Basophils (%) (Auto) 0.5 % (0.0-2.0) Erythrocyte Sedimentation Rate 78 MM/HR (0-20) H Sodium Level 136 MMOL/L (136-145) Potassium Level 3.9 MMOL/L (3.5-5.1) Chloride Level 105 MMOL/L (98-107) Carbon Dioxide Level 23 MMOL/L (21-32) Anion Gap 8 mmol/L (5-15) Blood Urea Nitrogen 30 mg/dL (7-18) H Creatinine 1.5 MG/DL (0.55-1.30) H Estimat Glomerular Filtration Rate 46.8 mL/min (>60) Glucose Level 138 MG/DL (74-106) H Calcium Level 8.7 MG/DL (8.5-10.1) C-Reactive Protein, Quantitative 4.1 mg/dL (0.00-0.90) H Anti-Nuclear Antibody Screen Pending c-ANCA Titer Pending p-ANCA Titer Pending Anti-Double Strand DNA Antibody Pending Blastomyces Ab Immunodiffusion Pending Coccidioides Antibody (Comp Fix) Pending Cryptococcus Antigen Pending Histoplasma Mycelial Antibody Pending Histoplasma Antibody w Mycelial Ag Pending Histoplasma Antibody with Yeast Ag Pending HIV (1&2) Antibody Rapid Negative (NEGATIVE) Mycoplasma pneumoniae IgM Ab Titer Pending Microbiology Date/Time Source Procedure Growth Status 01/17/20 16:30 Nasopharynx SARS-CoV-2 RdRp Gene Assay - Final Complete Objective HEAD AND NECK: Showed no JVD. LUNGS: Clear. CARDIOVASCULAR: Shows regular S1 and S2 with no gallop. ABDOMEN: Soft and nontender and scar of liver surgery in the right upper abdomen for liver transplant. EXTREMITIES: No pitting edema. Greg Villanueva MD Jan 18, 2020 14:11
[2020-01-18 16:00] VITALS: BP 116/70
--- NOTE | 2020-01-18 16:15 | Consultation ---
DATE OF CONSULTATION: 01/18/2020 PULMONARY CONSULTATION CONSULTING PHYSICIAN: Bong Hill M.D. HISTORY OF PRESENT ILLNESS: This is a 64-year-old male with a history of liver transplantation in 2007, chronically on anticoagulation. He is also known to have CAD. He came into the hospital with generalized weakness and poor appetite. He reports weight loss. He was found to have elevated troponin. He was seen and worked up and a full evaluation performed. Imaging studies have shown a fixed partially reversible anteroseptal defect with normal EF on myocardial stress test. A chest CT has been obtained, which shows bilateral pulmonary nodules, most notably in the retrosternal area at the level of brittaney as well as left mid lung area. There appeared to be central cavitation. Remainder of his workup has been negative so far with negative HIV test. At this time, he states he is feeling well. Denies any cough or shortness of breath. Denies weight loss. REVIEW OF SYSTEMS: Denies any headache, hematemesis, melena, hematochezia, or weight loss. Blood culture negative. COVID test negative. PAST MEDICAL HISTORY: Liver transplant, CAD. CURRENT MEDICATIONS: Broad-spectrum antibiotics with azithromycin and cefepime. He is also on subcu DVT prophylaxis, Zyvox, Lopressor, morphine, CellCept, Protonix, and Prograf. PHYSICAL EXAMINATION: GENERAL: A thin-appearing male. VITAL SIGNS: Blood pressure at this time is 120/80, heart rate 74, respirations 18, O2 sat is 99% on room air. CHEST: Clear breath sounds bilaterally. There is an appreciable chest wall tenderness. ABDOMEN: Unremarkable. There is a midline laparotomy scar. EXTREMITIES: There is no edema. LABORATORY DATA: Lab testing discussed above. Imaging discussed above. IMPRESSION: 1. Bilateral cavitary pulmonary nodules. 2. History of liver transplant, on immunosuppressives. 3. CAD. DISCUSSION: Discussed with Dr. Cruz. He will benefit from a CT-guided lung biopsy. Consider bronchoscopy. Await cultures and serology. We will follow. Bong Hill M.D. DR: JAQUELINE/HORTENCIA JOB#: [id number] CC:
--- NOTE | 2020-01-18 16:32 | Infectious Diseases Prog Note ---
Assessment/Plan Assessment: Pulmonary nodules- r/o malignancy vs infectious (TB, fungal), septic emboli -CT chest wo: Multiple bilateral pulmonary masses/nodules the largest of these demonstrate central cavitation. Main differential considerations are infectious inflammatory lesions such as septic emboli, tuberculosis, other mycobacterial infections; noninfectious processes such as rheumatoid, granulomatosis with polyangiitis; metastatic carcinoma, most likely squamous cell carcinoma, gastrointestinal adenocarcinoma, transitional cell bladder carcinoma. Mild hyperinflation. Single right upper lobe bulla, Postsurgical changes of the liver suggests prior liver transplant. Correlate with surgical history -CXR: Bilateral lung nodules. These are worrisome for metastatic deposits. Septic emboli also a possibility. Correlate with clinical history and findings. Mild hyperinflation, likely COPD. -2d echo: no vegetations -HIV ab screen neg, rapid COVID PCR neg Afebrile No leukocytosis -u/a neg -Bcx NTD JOAN on CKD, improving -Renal US: Trace left perinephric fluid, nonspecific. Bilateral renal cysts. Negative for hydronephrosis. Liver transplant (at [facility]) 2006 on prograf and cellcept HTN COPD ?recent NSTEMI Plan: -Cont empiric ZYvox, Cefepime and Azithromycin #2 -f/u cx -Monitor CBC/C MP, temperatures -airborne isolation: AFB sp cx x3, MTB PCR -f/u histo, blasto, cocci, CrAg, legionella ag urine, sp cx -May need bronch if not able to expectorate sputum - if bacteremic, may need LORENA Thank you for consulting [facility]. Will continue to follow along with you. Discussed with RN and Dr Cruz Subjective Allergies: Coded Allergies: No Known Allergies (Unverified , 01/13/20) afebrile at RA no leukocytosis cr improving Objective Last 24 Hour Vital Signs Date Time Temp Pulse Resp B/P (MAP) Pulse Ox O2 Delivery O2 Flow Rate FiO2 01/18/20 12:00 98.0 70 20 119/72 (88) 99 01/18/20 09:00 Room Air 01/18/20 09:00 72 129/88 01/18/20 08:00 97.1 72 20 129/88 (102) 99 01/18/20 04:00 97.3 72 18 117/61 (79) 94 01/17/20 23:42 98.7 81 18 130/78 (95) 94 01/17/20 21:00 Room Air 01/17/20 20:39 78 125/76 01/17/20 20:00 98.6 76 20 125/81 (96) 94 Height (Feet): 5 Height (Inches): 5.00 Weight (Pounds): 130 Musculoskeletal: no effusion General Appearance: WD/WN Lines, tubes and drains: peripheral HEENT: normocephalic, atraumatic Neck: non-tender Respiratory/Chest: lungs clear Cardiovascular/Chest: normal peripheral pulses Abdomen: non tender Microbiology Date/Time Source Procedure Growth Status 01/17/20 16:30 Nasopharynx SARS-CoV-2 RdRp Gene Assay - Final Complete Laboratory Tests Test 01/17/20 16:30 01/18/20 07:30 Histoplasma Antigen Pending Urine Legionella Antigen Pending M. tuberculosis Complex DNA (PCR) Pending White Blood Count 5.3 K/UL (4.8-10.8) Red Blood Count 3.25 M/UL (4.70-6.10) L Hemoglobin 11.3 G/DL (14.2-18.0) L Hematocrit 34.3 % (42.0-52.0) L Mean Corpuscular Volume 106 FL (80-99) H Mean Corpuscular Hemoglobin 34.8 PG (27.0-31.0) H Mean Corpuscular Hemoglobin Concent 33.0 G/DL (32.0-36.0) Red Cell Distribution Width 12.7 % (11.6-14.8) Platelet Count 256 K/UL (150-450) Mean Platelet Volume 5.7 FL (6.5-10.1) L Neutrophils (%) (Auto) 81.6 % (45.0-75.0) H Lymphocytes (%) (Auto) 9.4 % (20.0-45.0) L Monocytes (%) (Auto) 7.4 % (1.0-10.0) Eosinophils (%) (Auto) 1.1 % (0.0-3.0) Basophils (%) (Auto) 0.5 % (0.0-2.0) Erythrocyte Sedimentation Rate 78 MM/HR (0-20) H Sodium Level 136 MMOL/L (136-145) Potassium Level 3.9 MMOL/L (3.5-5.1) Chloride Level 105 MMOL/L (98-107) Carbon Dioxide Level 23 MMOL/L (21-32) Anion Gap 8 mmol/L (5-15) Blood Urea Nitrogen 30 mg/dL (7-18) H Creatinine 1.5 MG/DL (0.55-1.30) H Estimat Glomerular Filtration Rate 46.8 mL/min (>60) Glucose Level 138 MG/DL (74-106) H Calcium Level 8.7 MG/DL (8.5-10.1) C-Reactive Protein, Quantitative 4.1 mg/dL (0.00-0.90) H Anti-Nuclear Antibody Screen Pending c-ANCA Titer Pending p-ANCA Titer Pending Anti-Double Strand DNA Antibody Pending Blastomyces Ab Immunodiffusion Pending Coccidioides Antibody (Comp Fix) Pending Cryptococcus Antigen Pending Histoplasma Mycelial Antibody Pending Histoplasma Antibody w Mycelial Ag Pending Histoplasma Antibody with Yeast Ag Pending HIV (1&2) Antibody Rapid Negative (NEGATIVE) Mycoplasma pneumoniae IgM Ab Titer Pending Current Medications Medications (Trade) Dose Ordered Sig/Quynh Route PRN Reason Start Time Stop Time Status Last Admin Dose Admin Acetaminophen (Tylenol) 650 mg Q4H PRN ORAL Mild Pain (Pain Scale 1-3) 01/13/20 14:30 02/12/20 14:29 Aspirin (ASA) 81 mg DAILY ORAL 01/14/20 09:00 02/28/20 08:59 01/18/20 08:59 Azithromycin (Zithromax) 500 mg DAILY ORAL 01/17/20 16:00 01/24/20 15:59 01/18/20 08:59 Cefepime HCl 1 gm/ Dextrose 55 ml @ 110 mls/hr Q24H IVPB 01/17/20 18:00 01/24/20 17:59 01/17/20 17:37 Dextrose (Dextrose 50%) 25 ml Q30M PRN IV Hypoglycemia 01/13/20 14:30 04/12/20 14:29 Dextrose (Dextrose 50%) 50 ml Q30M PRN IV Hypoglycemia 01/13/20 14:30 04/12/20 14:29 Docusate Sodium (Colace) 100 mg EVERY 12 HOURS ORAL 01/13/20 21:00 02/12/20 20:59 01/18/20 08:59 Heparin Sodium (Porcine) (Heparin 5000 units/ml) 5,000 units EVERY 12 HOURS SUBQ 01/13/20 21:00 02/27/20 20:59 01/18/20 09:04 Linezolid (Zyvox) 600 mg EVERY 12 HOURS ORAL 01/17/20 16:00 01/22/20 15:59 01/18/20 09:00 Lorazepam (Ativan) 1 mg Q4H PRN ORAL For Anxiety 01/13/20 14:30 01/20/20 14:29 Metoprolol Tartrate (Lopressor) 25 mg EVERY 12 HOURS ORAL 01/13/20 21:00 04/12/20 20:59 01/18/20 09:00 Morphine Sulfate (Morphine Sulfate) 2 mg Q3H PRN IVP Moderate Pain (Pain Scale 4-6) 01/13/20 14:30 01/20/20 14:29 Morphine Sulfate (Morphine Sulfate) 4 mg Q3H PRN IVP Severe Pain (Pain Scale 7-10) 01/13/20 14:30 01/20/20 14:29 Mycophenolate Mofetil (Cellcept) 1,000 mg TWICE A DAY ORAL 01/13/20 18:00 04/12/20 17:59 01/18/20 09:00 Nitroglycerin (Ntg) 0.4 mg Q5M PRN SL Prn Chest Pain 01/13/20 14:30 02/12/20 14:29 Ondansetron HCl (Zofran) 4 mg Q6H PRN IVP Nausea & Vomiting 01/13/20 14:30 02/12/20 14:29 Pantoprazole (Protonix) 40 mg BID ORAL 01/15/20 18:00 02/13/20 08:59 01/18/20 08:59 Tacrolimus (Prograf) 1 mg EVERY 12 HOURS ORAL 01/13/20 21:00 04/12/20 20:59 01/18/20 08:59 Alie Hernandes M.D. Jan 18, 2020 16:32
[2020-01-18] MEDS: Cefepime HCl 1 GM in D5W 55 ML IVPB SCH (17:23)
--- NOTE | 2020-01-18 19:20 | NUR ---
NURSE NOTES: Received report from jalen duran. patient on bed,awake and verbally responsive. on room air. no sob. denies any pain or discomfort. with iv line on the RFA, saline lock. uses urinal. . per roger, " he has pending ct biopsy lung procedure that will be done on monday, signed consent".reiterated to call and ask for assistance to prevent fall or injury. call light and light button within easy reach. bed locked and in lowest position. will strictly follow isolation as ordered. will continue plan of care.
--- NOTE | 2020-01-18 19:35 | NUR ---
NURSE HAND-OFF: Important Events on Shift:n/a Patient Status: stable Diet: renal Pending Orders: Pending Results/Labs: Pending MD notification: Latest Vital Signs: Temperature 97.1 , Pulse 69 , B/P 116 /70 , Respiratory Rate 19 , O2 SAT 97 , Room Air, O2 Flow Rate . Vital Sign Comment: Latest Padron Fall Score: 50 Fall Risk: High Risk Safety Measures: Call light Within Reach, Bed Alarm Zone 1, Side Rails Side Rails x2, Bed position Low and Locked. Fall Precautions: Yellow Socks Yellow Gown Door Sign Patient Fall Education Report given to JADE adams.
[2020-01-18 20:00] VITALS: BP 128/80
[2020-01-19] VITALS: BP 130/78
[2020-01-19 04:00] VITALS: BP 126/78
--- NOTE | 2020-01-19 06:44 | NUR ---
NURSE HAND-OFF: Important Events on Shift: NONE Patient Status: STABLE Diet: RENAl diet Pending Orders: ct biopsy lung 01/19 Pending Results/Labs:pending mtb pcr and histoplasma antigen results Pending MD notification: Latest Vital Signs: Temperature 97.2 , Pulse 66 , B/P 126 /78 , Respiratory Rate 19 , O2 SAT 98 , Room Air, O2 Flow Rate . Vital Sign Comment: Latest Padron Fall Score: 50 Fall Risk: High Risk Safety Measures: Call light Within Reach, Bed Alarm Zone 1, Side Rails Side Rails x2, Bed position Low and Locked. Fall Precautions: Yellow Socks Yellow Gown Door Sign Patient Fall Education
--- NOTE | 2020-01-19 07:47 | NUR ---
NURSE NOTES: Received report from JADE Maldonado. Patient seen in bed, AAOx4, on room air and saturating well with no SOB noted at this time. Patient denies any pain at this time. Patient noted to have bilateral foot pitting edema. RN instructed patient to elevate feet to help with swelling. RN instructed patient to use call light for assistance and to not ambulate without RN. Bed is locked and placed in lowest position with bed alarm on. WIll continue to monitor
--- NOTE | 2020-01-19 07:50 | NUR ---
HAND-OFF: Report given to jalen byrnes.
[2020-01-19 08:00] VITALS: BP 110/70
[2020-01-19] MEDS: Heparin 5000 units/ml inj SUBQ SCH ×2 (08:45→22:00)
[2020-01-19] MEDS: Azithromycin 250mg tab ORAL SCH (08:47)
[2020-01-19] MEDS: Aspirin Baby 81mg ORAL SCH (08:47)
[2020-01-19] MEDS: Docusate 100mg cap ORAL SCH (08:47)
--- NOTE | 2020-01-19 09:02 | Urology Progress Note ---
Assessment/Plan Status: stable Assessment/Plan: 1. Elevated serum PSA. 2. BPH. 3. Mild lower urinary tract symptoms. 4. Rule out neurogenic bladder. 5. Renal insufficiency, acute on chronic. 6. Proteinuria. 7. Renal cyst. monitor clinically consider adding flomax f/u on PVR prostate MRI and/or biopsy at some point on abx lung mets, will need w/u, plan for CT-guided bx monitor renal fxn Subjective Allergies: Coded Allergies: No Known Allergies (Unverified , 01/13/20) Subjective all noted, feels fair voiding, PVR ? Objective Last 24 Hour Vital Signs Date Time Temp Pulse Resp B/P (MAP) Pulse Ox O2 Delivery O2 Flow Rate FiO2 01/19/20 08:47 72 110/70 01/19/20 08:00 97.1 72 19 110/70 (83) 98 01/19/20 04:00 97.2 66 19 126/78 (94) 98 01/19/20 00:00 97.0 66 19 130/78 (95) 99 01/18/20 21:00 Room Air 01/18/20 20:30 69 128/80 01/18/20 20:00 97.7 69 19 128/80 (96) 100 01/18/20 16:00 97.1 69 19 116/70 (85) 97 69 01/18/20 12:00 98.0 70 20 119/72 (88) 99 Intake and Output 01/18/20 01/19/20 19:00 07:00 Intake Total 960 ml Output Total 0 ml 100 ml Balance 960 ml -100 ml Intake Oral 960 ml Output Urine Total 100 ml Post Void Residual 0 ml Bladder Scan Volume Amount <10 ml # Voids 1 Microbiology Date/Time Source Procedure Growth Status 01/17/20 16:30 Nasopharynx SARS-CoV-2 RdRp Gene Assay - Final Complete 01/13/20 11:50 Blood Blood Culture - Final NO GROWTH AFTER 5 DAYS Complete Current Medications Medications (Trade) Dose Ordered Sig/Quynh Route PRN Reason Start Time Stop Time Status Last Admin Dose Admin Acetaminophen (Tylenol) 650 mg Q4H PRN ORAL Mild Pain (Pain Scale 1-3) 01/13/20 14:30 02/12/20 14:29 Aspirin (ASA) 81 mg DAILY ORAL 01/14/20 09:00 02/28/20 08:59 01/19/20 08:47 Azithromycin (Zithromax) 500 mg DAILY ORAL 01/17/20 16:00 01/24/20 15:59 01/19/20 08:47 Cefepime HCl 1 gm/ Dextrose 55 ml @ 110 mls/hr Q24H IVPB 01/17/20 18:00 01/24/20 17:59 01/18/20 17:23 Dextrose (Dextrose 50%) 25 ml Q30M PRN IV Hypoglycemia 01/13/20 14:30 04/12/20 14:29 Dextrose (Dextrose 50%) 50 ml Q30M PRN IV Hypoglycemia 01/13/20 14:30 04/12/20 14:29 Docusate Sodium (Colace) 100 mg EVERY 12 HOURS ORAL 01/13/20 21:00 02/12/20 20:59 01/19/20 08:47 Heparin Sodium (Porcine) (Heparin 5000 units/ml) 5,000 units EVERY 12 HOURS SUBQ 01/13/20 21:00 02/27/20 20:59 01/19/20 08:45 Linezolid (Zyvox) 600 mg EVERY 12 HOURS ORAL 01/17/20 16:00 01/22/20 15:59 01/19/20 08:47 Lorazepam (Ativan) 1 mg Q4H PRN ORAL For Anxiety 01/13/20 14:30 01/20/20 14:29 Metoprolol Tartrate (Lopressor) 25 mg EVERY 12 HOURS ORAL 01/13/20 21:00 04/12/20 20:59 01/19/20 08:47 Morphine Sulfate (Morphine Sulfate) 2 mg Q3H PRN IVP Moderate Pain (Pain Scale 4-6) 01/13/20 14:30 01/20/20 14:29 Morphine Sulfate (Morphine Sulfate) 4 mg Q3H PRN IVP Severe Pain (Pain Scale 7-10) 01/13/20 14:30 01/20/20 14:29 Mycophenolate Mofetil (Cellcept) 1,000 mg TWICE A DAY ORAL 01/13/20 18:00 04/12/20 17:59 01/18/20 17:23 Nitroglycerin (Ntg) 0.4 mg Q5M PRN SL Prn Chest Pain 01/13/20 14:30 02/12/20 14:29 Ondansetron HCl (Zofran) 4 mg Q6H PRN IVP Nausea & Vomiting 01/13/20 14:30 02/12/20 14:29 Pantoprazole (Protonix) 40 mg BID ORAL 01/15/20 18:00 02/13/20 08:59 01/19/20 08:47 Tacrolimus (Prograf) 1 mg EVERY 12 HOURS ORAL 01/13/20 21:00 04/12/20 20:59 01/19/20 08:47 Height (Feet): 5 Height (Inches): 5.00 Weight (Pounds): 130 Objective exam stable Corona Hernandez MD Jan 19, 2020 09:02
--- NOTE | 2020-01-19 09:06 | General Progress Note ---
Subjective Date patient seen: Jan 19, 2020 Time patient seen: 09:00 ROS Limited/Unobtainable: Yes Allergies: Coded Allergies: No Known Allergies (Unverified , 01/13/20) All Systems: reviewed and negative except above Subjective Feels the same today, denies chest pain or shortness of breath. He is feeling depressed and tired. Reports good PO intake and good sleep. Objective Last 24 Hour Vital Signs Date Time Temp Pulse Resp B/P (MAP) Pulse Ox O2 Delivery O2 Flow Rate FiO2 01/19/20 08:47 72 110/70 01/19/20 08:00 97.1 72 19 110/70 (83) 98 01/19/20 04:00 97.2 66 19 126/78 (94) 98 01/19/20 00:00 97.0 66 19 130/78 (95) 99 01/18/20 21:00 Room Air 01/18/20 20:30 69 128/80 01/18/20 20:00 97.7 69 19 128/80 (96) 100 01/18/20 16:00 97.1 69 19 116/70 (85) 97 69 01/18/20 12:00 98.0 70 20 119/72 (88) 99 Intake and Output 01/18/20 01/19/20 19:00 07:00 Intake Total 960 ml Output Total 0 ml 100 ml Balance 960 ml -100 ml Intake Oral 960 ml Output Urine Total 100 ml Post Void Residual 0 ml Bladder Scan Volume Amount <10 ml # Voids 1 Height (Feet): 5 Height (Inches): 5.00 Weight (Pounds): 130 General Appearance: WD/WN, thin EENT: PERRL/EOMI Neck: non-tender Cardiovascular: normal rate Respiratory/Chest: lungs clear Abdomen: non tender Neurologic: practice coordinator II-XII grossly normal Objective Procedure: NM Myocard Perf w/ Eject Frac Indications: Chest pain, elevated troponin Technique: Single day single isotope protocol utilized. Initially, resting images obtained using IV administration 10.8 millicuries 99M technetium Myoview. Subsequently, patient underwent lexiscan stress testing. See cardiology report for details. During Lexiscan infusion, IV administration 31.4 mCi 99 M technetium Myoview. SPECT and planar images obtained. SPECT images gated to 8 phases of the cardiac cycle were also obtained, and reformatted into cine images for evaluation of ejection fraction. Comparison: none Findings: Per cardiology report, patient experienced no symptoms during infusion. Per cardiology report, resting EKG demonstrates normal sinus rhythm with left axis deviation. No ST changes during infusion. . Imaging demonstrates a post stress perfusion defect in the anteroseptal wall which is slightly smaller on the resting images. Calculated post stress ejection fraction 47%. There is slightly decreased wall motion in the septum Impression: Nonischemic clinical response to pharmacologic stress, per cardiology report Nonischemic electrocardiographic response to pharmacologic stress, per car diology report Partially fixed partially reversible anteroseptal perfusion defect, likely infarct with femi-infarct ischemia Calculated post stress ejection fraction 47% Procedure: CT Chest no Contrast Clinical Indication: Cough, evaluation of abnormalities on recent chest radiograph Technique: Spiral acquisitions obtained through the chest. No IV contrast utilized, reason not stated. Multiplanar reconstructions generated. Total dose length product 116 mGycm. CTDIvol(s) 2 mGy. Dose reduction achieved using automated exposure control Comparison: none Findings: Multiple masses are seen in the left upper lobe. The largest of these is complex in shape, abuts the anterior mediastinum and anterior chest wall, measures 4.5 x 3.2 cm orthogonal axial dimensions, by 4.6 cm craniocaudad. This demonstrates multiple central cavities, and extends posteromedially along the bronchovascular bundle. At least 5 other lesions are seen in the left upper lobe, largest of which contain central cavities. No left lower lobe lesions are demonstrated. A 12 mm mass is seen in the right upper lobe, and several subcentimeter lesions are noted. An irregular 3.3 x 1.9 cm mass is seen in the right lower lobe, and at least one other is seen at the right lung base. No definite infiltrates. There is equivocally trace pleural fluid on the left. There is generalized mild hyperinflation, and a bulla is seen in the anteromedial right upper lobe. Azygos lobe and fissure are incidentally noted. The heart size is normal. There is no pericardial effusion. No mediastinal or hilar mass or adenopathy. The ascending thoracic aorta is mildly ectatic but not aneurysmal. There is mild edema of the mediastinal fat. The thyroid is unremarkable. No axillary or chest wall mass or adenopathy demonstrated. Numerous surgical clips are seen in the right upper quadrant. Pattern of the clips suggests liver transplant. The stomach is mildly distended with food. The bones are unremarkable. Impression: Multiple bilateral pulmonary masses/nodules the largest of these demonstrate central cavitation. Main differential considerations are infectious inflammatory lesions such as septic emboli, tuberculosis, other mycobacterial infections; noninfectious processes such as rheumatoid, granulomatosis with polyangiitis; metastatic carcinoma, most likely squamous cell carcinoma, gastrointestinal adenocarcinoma, transitional cell bladder carcinoma Mild hyperinflation. Single right upper lobe bulla Postsurgical changes of the liver suggests prior liver transplant. Correlate with surgical history The CT scanner at [facility] is accredited by the [employer] and the scans are performed using protocols designed to limit radiation exposure to as low as reasonably achievable to attain images of sufficient resolution adequate for diagnostic evaluation. Assessment/Plan Status: stable Assessment/Plan: 64 y/o M admitted to the Hospital with: # Generalized weakness Etiology include failure to thrive, vs poor nutritional status vs underlying cardiac etiology based on history of recent [place] 2 months ago Weight loss 6 lbs in the past month # Moderate protein caloric malnutrition. RD support and monitoring. # Elevated troponin Serial troponin noted to be stable Telemetry with some bigeminy noted and is stable TTE with normal EF Cardiology consulted Dr. Villanueva. Stress test Nuclear without ischemia noted. Lipid panel reviewed. Asa 81 mg daily # CKD stage 3 Trend creatinine Monitor renal function # Hypokalemia Replete and monitor I asked Dr. Cintron to provide renal consultation appreciated. # Hypomagnesemia Replete and monitor # History of liver transplant Resume prograft and cellcept Monitor clinical markers as needed # Abnormal CXR with nodularity seen. Patient is Ex- smoker. No hypoxia noted at this time. CT CHEST WITH Multiple bilateral pulmonary masses/nodules the largest of these demonstrate central cavitation. Main differential considerations are infectious inflammatory lesions such as septic emboli, tuberculosis, other mycobacterial infections; noninfectious processes such as rheumatoid, granulomatosis with polyangiitis; metastatic carcinoma, most likely squamous cell carcinoma, gastrointestinal adenocarcinoma, transitional cell bladder carcinoma Pulmonary consultation and infectious disease consultation requested today with Dr. Hill and Greta Add tumor markers, PSA, AFP, CEA Per Dr. Hernandes empiric ZYvox, Cefepime and Azithromycin started 01/17/20 DAY 3 -f/u cx -Monitor CBC/C MP, temperatures -airborne isolation: AFB sp cx x3, MTB PCR -COVID PCR, histo, blasto, cocci, CrAg, legionella ag urine, sp cx -May need bronch if not able to expectorate sputum - if bacteremic, may need LORENA I spoke with Dr. Hill and CT guided BIOPSY will be coordinated for Friday 01/19. Patient was updated in his augustine language. # Generalized weakness PT evaluation for baseline recommends SNF for short term rehab. Request placed. When medically stable will dc to SNF when medically stable. DVT ppx with Enoxaparin GI ppx with PPI FULL CODE Son Alberto was updated by me today. Piyush Cruz MD Jan 19, 2020 09:06
[2020-01-19] MEDS: Mycophenolate 250mg cap ORAL SCH ×2 (09:11→17:18)
[2020-01-19 10:01] LABS: BASOPHILS % (AUTO) 0.9 % (0.0-2.0); EOSINOPHILS % (AUTO) 0.9 % (0.0-3.0); HEMATOCRIT 34.3 % (42.0-52.0); HEMOGLOBIN 10.9 G/DL (14.2-18.0); LYMPHOCYTES % (AUTO) 9.7 % (20.0-45.0); MEAN CORPUSCULAR VOLUME 105 FL (80-99); MONOCYTES % (AUTO) 7.7 % (1.0-10.0); NEUTROPHILS % (AUTO) 80.8 % (45.0-75.0); PLATELET COUNT 224 K/UL (150-450); RED BLOOD COUNT 3.26 M/UL (4.70-6.10); RED CELL DISTRIBUTION WIDTH 13.2 % (11.6-14.8); WHITE BLOOD COUNT 5.9 K/UL (4.8-10.8)
[2020-01-19 10:09] LABS: CALCIUM 8.5 MG/DL (8.5-10.1); CREATININE 1.6 MG/DL (0.55-1.30); POTASSIUM 3.3 MMOL/L (3.5-5.1)
--- NOTE | 2020-01-19 11:30 | Pulmonology Progress Note ---
Subjective ROS Limited/Unobtainable: Yes Interval Events: Awaiting CT chest/biopsy Constitutional: Reports: no symptoms HEENT: Repors: no symptoms Respiratory: Reports: no symptoms Cardiovascular: Reports: no symptoms Gastrointestinal/Abdominal: Reports: no symptoms Allergies: Coded Allergies: No Known Allergies (Unverified , 01/13/20) All Systems: reviewed and negative except above Objective Last 24 Hour Vital Signs Date Time Temp Pulse Resp B/P (MAP) Pulse Ox O2 Delivery O2 Flow Rate FiO2 01/19/20 09:00 Room Air 01/19/20 08:47 72 110/70 01/19/20 08:00 97.1 72 19 110/70 (83) 98 01/19/20 04:00 97.2 66 19 126/78 (94) 98 01/19/20 00:00 97.0 66 19 130/78 (95) 99 01/18/20 21:00 Room Air 01/18/20 20:30 69 128/80 01/18/20 20:00 97.7 69 19 128/80 (96) 100 01/18/20 16:00 97.1 69 19 116/70 (85) 97 69 01/18/20 12:00 98.0 70 20 119/72 (88) 99 Intake and Output 01/18/20 01/19/20 19:00 07:00 Intake Total 960 ml Output Total 0 ml 100 ml Balance 960 ml -100 ml Intake Oral 960 ml Output Urine Total 100 ml Post Void Residual 0 ml Bladder Scan Volume Amount <10 ml # Voids 1 General Appearance: no acute distress HEENT: normocephalic Respiratory: chest wall non-tender, lungs clear Cardiovascular: normal peripheral pulses, normal rate Abdomen: normal bowel sounds Microbiology Date/Time Source Procedure Growth Status 01/17/20 16:30 Nasopharynx SARS-CoV-2 RdRp Gene Assay - Final Complete Laboratory Tests 01/19/20 09:35: White Blood Count 5.9, Red Blood Count 3.26L, Hemoglobin 10.9L, Hematocrit 34.3L , Mean Corpuscular Volume 105H, Mean Corpuscular Hemoglobin 33.3H, Mean Corpuscular Hemoglobin Concent 31.7L, Red Cell Distribution Width 13.2, Platelet Count 224, Mean Platelet Volume 5.5L, Neutrophils (%) (Auto) 80.8H, Lymphocytes (%) (Auto) 9.7L, Monocytes (%) (Auto) 7.7, Eosinophils (%) (Auto) 0.9, Basophils (%) (Auto) 0.9, Sodium Level 135L, Potassium Level 3.3L, Chloride Level 105, Carbon Dioxide Level 23, Anion Gap 7, Blood Urea Nitrogen 26H, Creatinine 1.6H, Estimat Glomerular Filtration Rate 43.5, Glucose Level 118H, Calcium Level 8.5 Current Medications Medications (Trade) Dose Ordered Sig/Uqynh Route PRN Reason Start Time Stop Time Status Last Admin Dose Admin Acetaminophen (Tylenol) 650 mg Q4H PRN ORAL Mild Pain (Pain Scale 1-3) 01/13/20 14:30 02/12/20 14:29 Aspirin (ASA) 81 mg DAILY ORAL 01/14/20 09:00 02/28/20 08:59 01/19/20 08:47 Azithromycin (Zithromax) 500 mg DAILY ORAL 01/17/20 16:00 01/24/20 15:59 01/19/20 08:47 Cefepime HCl 1 gm/ Dextrose 55 ml @ 110 mls/hr Q24H IVPB 01/17/20 18:00 01/24/20 17:59 01/18/20 17:23 Dextrose (Dextrose 50%) 25 ml Q30M PRN IV Hypoglycemia 01/13/20 14:30 04/12/20 14:29 Dextrose (Dextrose 50%) 50 ml Q30M PRN IV Hypoglycemia 01/13/20 14:30 04/12/20 14:29 Docusate Sodium (Colace) 100 mg EVERY 12 HOURS ORAL 01/13/20 21:00 02/12/20 20:59 01/19/20 08:47 Heparin Sodium (Porcine) (Heparin 5000 units/ml) 5,000 units EVERY 12 HOURS SUBQ 01/13/20 21:00 02/27/20 20:59 01/19/20 08:45 Linezolid (Zyvox) 600 mg EVERY 12 HOURS ORAL 01/17/20 16:00 01/22/20 15:59 01/19/20 08:47 Lorazepam (Ativan) 1 mg Q4H PRN ORAL For Anxiety 01/13/20 14:30 01/20/20 14:29 Metoprolol Tartrate (Lopressor) 25 mg EVERY 12 HOURS ORAL 01/13/20 21:00 04/12/20 20:59 01/19/20 08:47 Morphine Sulfate (Morphine Sulfate) 2 mg Q3H PRN IVP Moderate Pain (Pain Scale 4-6) 01/13/20 14:30 01/20/20 14:29 Morphine Sulfate (Morphine Sulfate) 4 mg Q3H PRN IVP Severe Pain (Pain Scale 7-10) 01/13/20 14:30 01/20/20 14:29 Mycophenolate Mofetil (Cellcept) 1,000 mg TWICE A DAY ORAL 01/13/20 18:00 04/12/20 17:59 01/19/20 09:11 Nitroglycerin (Ntg) 0.4 mg Q5M PRN SL Prn Chest Pain 01/13/20 14:30 02/12/20 14:29 Ondansetron HCl (Zofran) 4 mg Q6H PRN IVP Nausea & Vomiting 01/13/20 14:30 02/12/20 14:29 Pantoprazole (Protonix) 40 mg BID ORAL 01/15/20 18:00 02/13/20 08:59 01/19/20 08:47 Tacrolimus (Prograf) 1 mg EVERY 12 HOURS ORAL 01/13/20 21:00 04/12/20 20:59 01/19/20 08:47 Assessment/Plan Assessment/Plan IMPRESSION: 1. Bilateral cavitary pulmonary nodules. 2. History of liver transplant, on immunosuppressives. 3. CAD. DISCUSSION: Discussed with Dr. Cruz. Await CT-guided lung biopsy. Consider bronchoscopy. Await cultures and serology. I will follow. Reinier Leo Omar Syed MD Jan 19, 2020 11:30
[2020-01-19 12:00] VITALS: BP 103/57
--- NOTE | 2020-01-19 12:17 | Nephrology Progress Note ---
Assessment/Plan Problem List: (1) Hypokalemia (2) Renal failure (ARF), acute on chronic (3) Elevated troponin (4) Anemia Assessment Persistent hypokalemia, etiology unclear. No report of diarrhea. Renal failure with serum creatinine of 1.7, most likely chronic Elevated troponin Anemia Hypoalbuminemia Status post liver transplant. On Prograf and CellCept Leukocytosis COPD EjFx 55% Plan January 18: Labs reviewed. Low potassium replaced. Continue to monitor electrolytes and renal parameters. Serum creatinine 1.6. January 17: Renal parameters stable. Continue per current management. Work-up of bilateral cavitary pulmonary nodules in process January 16: Serum creatinine lowering from 2 on admission to 1.[address] scan of the chest noted. Will discuss with Dr. Cruz regarding the pulmonary evaluation. Continue current management. Previously: Potassium supplement p.o. and IV Urine spot sodium Urine spot potassium Kidney ultrasound, pending 2D echocardiogram EjFx 55% Monitor renal parameters Will order CT of the chest with no contrast Chest x-ray impression: Bilateral lung nodules. These are worrisome for metastatic deposits. Septic emboli also a possibility. Mild hyperinflation, likely COPD. Subjective ROS Limited/Unobtainable: No Objective Objective Last 24 Hour Vital Signs Date Time Temp Pulse Resp B/P (MAP) Pulse Ox O2 Delivery O2 Flow Rate FiO2 01/19/20 12:00 98.1 60 20 103/57 (72) 95 01/19/20 09:00 Room Air 01/19/20 08:47 72 110/70 01/19/20 08:00 97.1 72 19 110/70 (83) 98 01/19/20 04:00 97.2 66 19 126/78 (94) 98 01/19/20 00:00 97.0 66 19 130/78 (95) 99 01/18/20 21:00 Room Air 01/18/20 20:30 69 128/80 01/18/20 20:00 97.7 69 19 128/80 (96) 100 01/18/20 16:00 97.1 69 19 116/70 (85) 97 69 Intake and Output 01/18/20 01/19/20 19:00 07:00 Intake Total 960 ml Output Total 0 ml 100 ml Balance 960 ml -100 ml Intake Oral 960 ml Output Urine Total 100 ml Post Void Residual 0 ml Bladder Scan Volume Amount <10 ml # Voids 1 Current Medications Medications (Trade) Dose Ordered Sig/Quynh Route PRN Reason Start Time Stop Time Status Last Admin Dose Admin Acetaminophen (Tylenol) 650 mg Q4H PRN ORAL Mild Pain (Pain Scale 1-3) 01/13/20 14:30 02/12/20 14:29 Aspirin (ASA) 81 mg DAILY ORAL 01/14/20 09:00 02/28/20 08:59 01/19/20 08:47 Azithromycin (Zithromax) 500 mg DAILY ORAL 01/17/20 16:00 01/24/20 15:59 01/19/20 08:47 Cefepime HCl 1 gm/ Dextrose 55 ml @ 110 mls/hr Q24H IVPB 01/17/20 18:00 01/24/20 17:59 01/18/20 17:23 Dextrose (Dextrose 50%) 25 ml Q30M PRN IV Hypoglycemia 01/13/20 14:30 04/12/20 14:29 Dextrose (Dextrose 50%) 50 ml Q30M PRN IV Hypoglycemia 01/13/20 14:30 04/12/20 14:29 Docusate Sodium (Colace) 100 mg EVERY 12 HOURS ORAL 01/13/20 21:00 02/12/20 20:59 01/19/20 08:47 Heparin Sodium (Porcine) (Heparin 5000 units/ml) 5,000 units EVERY 12 HOURS SUBQ 01/13/20 21:00 02/27/20 20:59 01/19/20 08:45 Linezolid (Zyvox) 600 mg EVERY 12 HOURS ORAL 01/17/20 16:00 01/22/20 15:59 01/19/20 08:47 Lorazepam (Ativan) 1 mg Q4H PRN ORAL For Anxiety 01/13/20 14:30 01/20/20 14:29 Metoprolol Tartrate (Lopressor) 25 mg EVERY 12 HOURS ORAL 01/13/20 21:00 04/12/20 20:59 01/19/20 08:47 Morphine Sulfate (Morphine Sulfate) 2 mg Q3H PRN IVP Moderate Pain (Pain Scale 4-6) 01/13/20 14:30 01/20/20 14:29 Morphine Sulfate (Morphine Sulfate) 4 mg Q3H PRN IVP Severe Pain (Pain Scale 7-10) 01/13/20 14:30 01/20/20 14:29 Mycophenolate Mofetil (Cellcept) 1,000 mg TWICE A DAY ORAL 01/13/20 18:00 04/12/20 17:59 01/19/20 09:11 Nitroglycerin (Ntg) 0.4 mg Q5M PRN SL Prn Chest Pain 01/13/20 14:30 02/12/20 14:29 Ondansetron HCl (Zofran) 4 mg Q6H PRN IVP Nausea & Vomiting 01/13/20 14:30 02/12/20 14:29 Pantoprazole (Protonix) 40 mg BID ORAL 01/15/20 18:00 02/13/20 08:59 01/19/20 08:47 Potassium Chloride 100 ml @ 50 mls/hr ONCE ONCE IVPB 01/19/20 12:15 01/19/20 14:14 UNV Tacrolimus (Prograf) 1 mg EVERY 12 HOURS ORAL 01/13/20 21:00 04/12/20 20:59 01/19/20 08:47 Laboratory Tests 01/19/20 09:35: White Blood Count 5.9, Red Blood Count 3.26L, Hemoglobin 10.9L, Hematocrit 34.3L , Mean Corpuscular Volume 105H, Mean Corpuscular Hemoglobin 33.3H, Mean Corpuscular Hemoglobin Concent 31.7L, Red Cell Distribution Width 13.2, Platelet Count 224, Mean Platelet Volume 5.5L, Neutrophils (%) (Auto) 80.8H, Lymphocytes (%) (Auto) 9.7L, Monocytes (%) (Auto) 7.7, Eosinophils (%) (Auto) 0.9, Basophils (%) (Auto) 0.9, Sodium Level 135L, Potassium Level 3.3L, Chloride Level 105, Carbon Dioxide Level 23, Anion Gap 7, Blood Urea Nitrogen 26H, Creatinine 1.6H, Estimat Glomerular Filtration Rate 43.5, Glucose Level 118H, Calcium Level 8.5 Height (Feet): 5 Height (Inches): 5.00 Weight (Pounds): 130 General Appearance: no apparent distress Cardiovascular: normal rate Respiratory/Chest: decreased breath sounds Abdomen: soft Objective No change Marvin Martinez MD Jan 19, 2020 12:17
[2020-01-19 16:00] VITALS: BP 109/71
--- NOTE | 2020-01-19 17:03 | Cardiac Electrophysiology PN ---
Assessment/Plan Assessment/Plan 1. Troponin elevation. All levels are low level and similar at 0.4 due to renal failure The patient does not have any chest pain. EKG does not show any acute ST-T wave abnormalities. Continue aspirin, beta-awa, and low-dose statin. Echo Nl EF 55% Stress test showed "Partially fixed partially reversible anteroseptal perfusion defect, likely infarct with femi-infarct ischemia". Treat medically specially no chest pain and renal failure and cardiac cath put him at risk of HD 2. Status post liver transplant. Already on Prograf and CellCept. 3. Generalized weakness. 4. Elevated white count of 12,000. 5. Hypokalemia. Potassium of 3. 6. Chronic kidney disease with BUN of 47 and creatinine of 2.0. 7. Bilateral cavitary pulmonary nodules. Await CT-guided lung biopsy. Consider bronchoscopy. FU Dr Liz LIN RN Subjective Subjective No CP or SOB EF 55%. Stress test showed "Partially fixed partially reversible anteroseptal perfusion defect, likely infarct with femi-infarct ischemia Scheduled for lung biopsy Objective Last 24 Hour Vital Signs Date Time Temp Pulse Resp B/P (MAP) Pulse Ox O2 Delivery O2 Flow Rate FiO2 01/19/20 16:00 98.2 72 20 109/71 (84) 99 01/19/20 12:00 98.1 60 20 103/57 (72) 95 01/19/20 09:00 Room Air 01/19/20 08:47 72 110/70 01/19/20 08:00 97.1 72 19 110/70 (83) 98 01/19/20 04:00 97.2 66 19 126/78 (94) 98 01/19/20 00:00 97.0 66 19 130/78 (95) 99 01/18/20 21:00 Room Air 01/18/20 20:30 69 128/80 01/18/20 20:00 97.7 69 19 128/80 (96) 100 Intake and Output 01/18/20 01/19/20 19:00 07:00 Intake Total 960 ml Output Total 0 ml 100 ml Balance 960 ml -100 ml Intake Oral 960 ml Output Urine Total 100 ml Post Void Residual 0 ml Bladder Scan Volume Amount <10 ml # Voids 1 Laboratory Tests Test 01/19/20 09:35 White Blood Count 5.9 K/UL (4.8-10.8) Red Blood Count 3.26 M/UL (4.70-6.10) L Hemoglobin 10.9 G/DL (14.2-18.0) L Hematocrit 34.3 % (42.0-52.0) L Mean Corpuscular Volume 105 FL (80-99) H Mean Corpuscular Hemoglobin 33.3 PG (27.0-31.0) H Mean Corpuscular Hemoglobin Concent 31.7 G/DL (32.0-36.0) L Red Cell Distribution Width 13.2 % (11.6-14.8) Platelet Count 224 K/UL (150-450) Mean Platelet Volume 5.5 FL (6.5-10.1) L Neutrophils (%) (Auto) 80.8 % (45.0-75.0) H Lymphocytes (%) (Auto) 9.7 % (20.0-45.0) L Monocytes (%) (Auto) 7.7 % (1.0-10.0) Eosinophils (%) (Auto) 0.9 % (0.0-3.0) Basophils (%) (Auto) 0.9 % (0.0-2.0) Sodium Level 135 MMOL/L (136-145) L Potassium Level 3.3 MMOL/L (3.5-5.1) L Chloride Level 105 MMOL/L (98-107) Carbon Dioxide Level 23 MMOL/L (21-32) Anion Gap 7 mmol/L (5-15) Blood Urea Nitrogen 26 mg/dL (7-18) H Creatinine 1.6 MG/DL (0.55-1.30) H Estimat Glomerular Filtration Rate 43.5 mL/min (>60) Glucose Level 118 MG/DL (74-106) H Calcium Level 8.5 MG/DL (8.5-10.1) Microbiology Date/Time Source Procedure Growth Status 01/17/20 16:30 Nasopharynx SARS-CoV-2 RdRp Gene Assay - Final Complete Objective HEAD AND NECK: Showed no JVD. LUNGS: Clear. CARDIOVASCULAR: Shows regular S1 and S2 with no gallop. ABDOMEN: Soft and nontender and scar of liver surgery in the right upper abdomen for liver transplant. EXTREMITIES: No pitting edema. Greg Villanueva MD Jan 19, 2020 17:03
[2020-01-19] MEDS: Cefepime HCl 1 GM in D5W 55 ML IVPB SCH (17:18)
--- NOTE | 2020-01-19 19:39 | NUR ---
NURSE HAND-OFF: Important Events on Shift:NPO @ midnight , CT biopsy for tomorrow Patient Status: stable Diet: renal Pending Orders: n/a Pending Results/Labs:n/a Pending MD notification:n/a Latest Vital Signs: Temperature 98.2 , Pulse 72 , B/P 109 /71 , Respiratory Rate 20 , O2 SAT 99 , Room Air, O2 Flow Rate . Vital Sign Comment: stable Latest Padron Fall Score: 35 Fall Risk: Medium Risk Safety Measures: Call light Within Reach, Bed Alarm Zone 1, Side Rails Side Rails x2, Bed position Low and Locked. Fall Precautions: Yellow Socks Yellow Gown Door Sign Patient Fall Education Report given to JADE Yusuf.
--- NOTE | 2020-01-19 19:40 | NUR ---
NURSE NOTES: Received report from JADE Chang. Patient seen lying in bed, AAOx4, on room air and saturating well. Patient denies any pain at this time. Patient noted to have marked bilateral pitting pedal edema. RN instructed patient to elevate feet to reduce swelling, will reinforce. RN instructed patient to use call light for assistance and to not ambulate without RN. Bed is locked and placed in lowest position with bed alarm on. Will continue to monitor
[2020-01-19 20:00] VITALS: BP 103/58
[2020-01-20] VITALS (12 sets, daily range): BP systolic 110–144; BP diastolic 68–90
[2020-01-20] MEDS: Docusate 100mg cap ORAL SCH ×3 (00:55→22:04)
[2020-01-20 07:30] LABS: BASOPHILS % (AUTO) 0.8 % (0.0-2.0); EOSINOPHILS % (AUTO) 1.4 % (0.0-3.0); HEMATOCRIT 31.9 % (42.0-52.0); HEMOGLOBIN 10.3 G/DL (14.2-18.0); LYMPHOCYTES % (AUTO) 10.5 % (20.0-45.0); MEAN CORPUSCULAR VOLUME 103 FL (80-99); MONOCYTES % (AUTO) 7.3 % (1.0-10.0); NEUTROPHILS % (AUTO) 79.9 % (45.0-75.0); PLATELET COUNT 223 K/UL (150-450); RED CELL DISTRIBUTION WIDTH 13.3 % (11.6-14.8); WHITE BLOOD COUNT 5.3 K/UL (4.8-10.8)
[2020-01-20 07:51] LABS: ALBUMIN 2.1 G/DL (3.4-5.0); ALBUMIN/GLOBULIN RATIO 0.7 (1.0-2.7); BILIRUBIN,TOTAL 0.9 MG/DL (0.2-1.0); CALCIUM 8.2 MG/DL (8.5-10.1); CREATININE 1.5 MG/DL (0.55-1.30); PHOSPHORUS 2.8 MG/DL (2.5-4.9); POTASSIUM 4.1 MMOL/L (3.5-5.1)
--- NOTE | 2020-01-20 08:05 | NUR ---
NURSE HAND-OFF: Important Events on Shift: NONE Patient Status: STABLE Diet: Is NPO now till procedure to take place after 1 pm, to be NPO until then for lung biopsy, verified with radiology Pending Orders: ct biopsy lung 01/19 afternoon Pending Results/Labs:pending mtb pcr and histoplasma antigen results Pending MD notification: Latest Vital Signs: Temperature 97.2 , Pulse 66 , B/P 126 /78 , Respiratory Rate 19 , O2 SAT 98 , Room Air, O2 Flow Rate . Vital Sign Comment: Latest Padron Fall Score: 50 Fall Risk: High Risk Safety Measures: Call light Within Reach, Bed Alarm Zone 1, Side Rails Side Rails x2, Bed position Low and Locked. Fall Precautions: Yellow Socks Yellow Gown Door Sign Patient Fall Education Report given to Bernardo
--- NOTE | 2020-01-20 08:09 | NUR ---
NURSE NOTES: Received report from JADE Yusuf. Patient seen in bed, AAOx4, on room air and saturating well with no SOB noted at this time. Patient denies any pain at this time. Patient noted to have bilateral foot pitting edema. RN instructed patient to elevate feet to help with swelling. patient is scheduled for a lung biopsy today after 1300, patient has been put on NPO for procedure. Patient currently has no IV site, will try to gain IV access later. RN instructed patient to use call light for assistance and to not ambulate without RN. Bed is locked and placed in lowest position with bed alarm on. WIll continue to monitor
--- NOTE | 2020-01-20 08:43 | Urology Progress Note ---
Assessment/Plan Status: stable Assessment/Plan: 1. Elevated serum PSA. 2. BPH. 3. Mild lower urinary tract symptoms. 4. Rule out neurogenic bladder. 5. Renal insufficiency, acute on chronic. 6. Proteinuria. 7. Renal cyst. monitor clinically consider adding flomax f/u on PVR prostate MRI and/or biopsy at some point on abx lung mets, will need w/u, plan for CT-guided bx monitor renal fxn Subjective Allergies: Coded Allergies: No Known Allergies (Unverified , 01/13/20) Subjective all noted, feels fair voiding, PVR ? for lung bx today Objective Last 24 Hour Vital Signs Date Time Temp Pulse Resp B/P (MAP) Pulse Ox O2 Delivery O2 Flow Rate FiO2 01/20/20 08:00 97.9 75 18 144/90 (108) 100 01/20/20 04:00 96.8 72 19 110/71 (84) 95 01/20/20 00:00 96.4 60 18 136/80 (98) 96 01/19/20 21:01 Room Air 01/19/20 21:00 Room Air 01/19/20 21:00 60 105/53 01/19/20 20:00 96.8 62 18 103/58 (73) 95 01/19/20 16:00 98.2 72 20 109/71 (84) 99 01/19/20 12:00 98.1 60 20 103/57 (72) 95 01/19/20 09:00 Room Air 01/19/20 08:47 72 110/70 Intake and Output 01/19/20 01/20/20 19:00 07:00 Intake Total 960 ml Output Total 0 ml 600 ml Balance 960 ml -600 ml Intake Oral 960 ml Output Urine Total 600 ml Post Void Residual 0 ml Bladder Scan Volume Amount <10 ml # Voids 1 Microbiology Date/Time Source Procedure Growth Status 01/17/20 16:30 Nasopharynx SARS-CoV-2 RdRp Gene Assay - Final Complete 01/13/20 11:50 Blood Blood Culture - Final NO GROWTH AFTER 5 DAYS Complete Current Medications Medications (Trade) Dose Ordered Sig/Quynh Route PRN Reason Start Time Stop Time Status Last Admin Dose Admin Acetaminophen (Tylenol) 650 mg Q4H PRN ORAL Mild Pain (Pain Scale 1-3) 01/13/20 14:30 02/12/20 14:29 Aspirin (ASA) 81 mg DAILY ORAL 01/14/20 09:00 02/28/20 08:59 01/19/20 08:47 Azithromycin (Zithromax) 500 mg DAILY ORAL 01/17/20 16:00 01/24/20 15:59 01/19/20 08:47 Cefepime HCl 1 gm/ Dextrose 55 ml @ 110 mls/hr Q24H IVPB 01/17/20 18:00 01/24/20 17:59 01/19/20 17:18 Dextrose (Dextrose 50%) 25 ml Q30M PRN IV Hypoglycemia 01/13/20 14:30 04/12/20 14:29 Dextrose (Dextrose 50%) 50 ml Q30M PRN IV Hypoglycemia 01/13/20 14:30 04/12/20 14:29 Docusate Sodium (Colace) 100 mg EVERY 12 HOURS ORAL 01/13/20 21:00 02/12/20 20:59 01/20/20 00:55 Heparin Sodium (Porcine) (Heparin 5000 units/ml) 5,000 units EVERY 12 HOURS SUBQ 01/13/20 21:00 02/27/20 20:59 01/19/20 22:00 Linezolid (Zyvox) 600 mg EVERY 12 HOURS ORAL 01/17/20 16:00 01/22/20 15:59 01/20/20 00:55 Lorazepam (Ativan) 1 mg Q4H PRN ORAL For Anxiety 01/13/20 14:30 01/20/20 14:29 Metoprolol Tartrate (Lopressor) 25 mg EVERY 12 HOURS ORAL 01/13/20 21:00 04/12/20 20:59 01/19/20 08:47 Morphine Sulfate (Morphine Sulfate) 2 mg Q3H PRN IVP Moderate Pain (Pain Scale 4-6) 01/13/20 14:30 01/20/20 14:29 Morphine Sulfate (Morphine Sulfate) 4 mg Q3H PRN IVP Severe Pain (Pain Scale 7-10) 01/13/20 14:30 01/20/20 14:29 Mycophenolate Mofetil (Cellcept) 1,000 mg TWICE A DAY ORAL 01/13/20 18:00 04/12/20 17:59 01/19/20 17:18 Nitroglycerin (Ntg) 0.4 mg Q5M PRN SL Prn Chest Pain 01/13/20 14:30 02/12/20 14:29 Ondansetron HCl (Zofran) 4 mg Q6H PRN IVP Nausea & Vomiting 01/13/20 14:30 02/12/20 14:29 Pantoprazole (Protonix) 40 mg BID ORAL 01/15/20 18:00 02/13/20 08:59 01/19/20 17:18 Potassium Chloride (K-Dur) 40 meq DAILY ORAL 01/20/20 09:00 04/19/20 08:59 Tacrolimus (Prograf) 1 mg EVERY 12 HOURS ORAL 01/13/20 21:00 04/12/20 20:59 01/20/20 00:55 Laboratory Tests 01/19/20 09:35: White Blood Count 5.9, Red Blood Count 3.26L, Hemoglobin 10.9L, Hematocrit 34.3L , Mean Corpuscular Volume 105H, Mean Corpuscular Hemoglobin 33.3H, Mean Corpuscular Hemoglobin Concent 31.7L, Red Cell Distribution Width 13.2, Platelet Count 224, Mean Platelet Volume 5.5L, Neutrophils (%) (Auto) 80.8H, Lymphocytes (%) (Auto) 9.7L, Monocytes (%) (Auto) 7.7, Eosinophils (%) (Auto) 0.9, Basophils (%) (Auto) 0.9, Sodium Level 135L, Potassium Level 3.3L, Chloride Level 105, Carbon Dioxide Level 23, Anion Gap 7, Blood Urea Nitrogen 26H, Creatinine 1.6H, Estimat Glomerular Filtration Rate 43.5, Glucose Level 118H, Calcium Level 8.5 01/20/20 06:45: White Blood Count 5.3, Red Blood Count 3.10L, Hemoglobin 10.3L, Hematocrit 31.9L , Mean Corpuscular Volume 103H, Mean Corpuscular Hemoglobin 33.2H, Mean Corpuscular Hemoglobin Concent 32.3, Red Cell Distribution Width 13.3, Platelet Count 223, Mean Platelet Volume 5.3L, Neutrophils (%) (Auto) 79.9H, Lymphocytes (%) (Auto) 10.5L, Monocytes (%) (Auto) 7.3, Eosinophils (%) (Auto) 1.4, Basophils (%) (Auto) 0.8, Sodium Level 137, Potassium Level 4.1, Chloride Level 108H, Carbon Dioxide Level 18L, Anion Gap 11, Blood Urea Nitrogen 24H, Creatinine 1.5H, Estimat Glomerular Filtration Rate 46.8, Glucose Level 103, Calcium Level 8.2L, Uric Acid 6.1, Phosphorus Level 2.8, Magnesium Level 1.6L, Total Bilirubin 0.9, Aspartate Amino Transf (AST/SGOT) 50H, Alanine Aminotransferase (ALT/SGPT) 47, Alkaline Phosphatase 399H, C-Reactive Protein, Quantitative 2.7H, Total Protein 5.2L, Albumin 2.1L, Globulin 3.1, Albumin/Globulin Ratio 0.7L, TB Test (T-Spot) [Pending], TB Test Nil Control (T- Spot) [Pending], TB Test Panel A (T-Spot) [Pending], TB Test Panel B (T-Spot) [Pending], TB Test Positive Control (T-Spot) [Pending] Height (Feet): 5 Height (Inches): 5.00 Weight (Pounds): 85 Objective exam stable Corona Hernandez MD Jan 20, 2020 08:43
[2020-01-20] MEDS: Azithromycin 250mg tab ORAL SCH (08:45)
[2020-01-20] MEDS: Mycophenolate 250mg cap ORAL SCH ×2 (08:45→17:40)
[2020-01-20] MEDS: Aspirin Baby 81mg ORAL SCH (08:46)
[2020-01-20] MEDS: Heparin 5000 units/ml inj SUBQ SCH ×2 (08:46→22:09)
--- NOTE | 2020-01-20 09:19 | General Progress Note ---
Subjective Date patient seen: Jan 20, 2020 ROS Limited/Unobtainable: No Allergies: Coded Allergies: No Known Allergies (Unverified , 01/13/20) All Systems: reviewed and negative except above Subjective Feels the same today, denies chest pain or shortness of breath. Reports good PO intake and good sleep. Objective Last 24 Hour Vital Signs Date Time Temp Pulse Resp B/P (MAP) Pulse Ox O2 Delivery O2 Flow Rate FiO2 01/20/20 08:46 75 144/90 01/20/20 08:00 97.9 75 18 144/90 (108) 100 01/20/20 04:00 96.8 72 19 110/71 (84) 95 01/20/20 00:00 96.4 60 18 136/80 (98) 96 01/19/20 21:01 Room Air 01/19/20 21:00 Room Air 01/19/20 21:00 60 105/53 01/19/20 20:00 96.8 62 18 103/58 (73) 95 01/19/20 16:00 98.2 72 20 109/71 (84) 99 01/19/20 12:00 98.1 60 20 103/57 (72) 95 Intake and Output 01/19/20 01/20/20 19:00 07:00 Intake Total 960 ml Output Total 0 ml 600 ml Balance 960 ml -600 ml Intake Oral 960 ml Output Urine Total 600 ml Post Void Residual 0 ml Bladder Scan Volume Amount <10 ml # Voids 1 Laboratory Tests 01/19/20 09:35: White Blood Count 5.9, Red Blood Count 3.26L, Hemoglobin 10.9L, Hematocrit 34.3L , Mean Corpuscular Volume 105H, Mean Corpuscular Hemoglobin 33.3H, Mean Corpuscular Hemoglobin Concent 31.7L, Red Cell Distribution Width 13.2, Platelet Count 224, Mean Platelet Volume 5.5L, Neutrophils (%) (Auto) 80.8H, Lymphocytes (%) (Auto) 9.7L, Monocytes (%) (Auto) 7.7, Eosinophils (%) (Auto) 0.9, Basophils (%) (Auto) 0.9, Sodium Level 135L, Potassium Level 3.3L, Chloride Level 105, Carbon Dioxide Level 23, Anion Gap 7, Blood Urea Nitrogen 26H, Creatinine 1.6H, Estimat Glomerular Filtration Rate 43.5, Glucose Level 118H, Calcium Level 8.5 01/20/20 06:45: White Blood Count 5.3, Red Blood Count 3.10L, Hemoglobin 10.3L, Hematocrit 31.9L , Mean Corpuscular Volume 103H, Mean Corpuscular Hemoglobin 33.2H, Mean C orpuscular Hemoglobin Concent 32.3, Red Cell Distribution Width 13.3, Platelet Count 223, Mean Platelet Volume 5.3L, Neutrophils (%) (Auto) 79.9H, Lymphocytes (%) (Auto) 10.5L, Monocytes (%) (Auto) 7.3, Eosinophils (%) (Auto) 1.4, Basophils (%) (Auto) 0.8, Sodium Level 137, Potassium Level 4.1, Chloride Level 108H, Carbon Dioxide Level 18L, Anion Gap 11, Blood Urea Nitrogen 24H, Creatinine 1.5H, Estimat Glomerular Filtration Rate 46.8, Glucose Level 103, Calcium Level 8.2L, Uric Acid 6.1, Phosphorus Level 2.8, Magnesium Level 1.6L, Total Bilirubin 0.9, Aspartate Amino Transf (AST/SGOT) 50H, Alanine Aminotransferase (ALT/SGPT) 47, Alkaline Phosphatase 399H, C-Reactive Protein, Quantitative 2.7H, Total Protein 5.2L, Albumin 2.1L, Globulin 3.1, Albumin/Globulin Ratio 0.7L, TB Test (T-Spot) [Pending], TB Test Nil Control (T-Spot) [Pending], TB Test Panel A (T-Spot) [Pending], TB Test Panel B (T-Spot) [Pending], TB Test Positive Control (T-Spot) [Pending] Height (Feet): 5 Height (Inches): 5.00 Weight (Pounds): 85 General Appearance: WD/WN EENT: PERRL/EOMI Neck: normal alignment Cardiovascular: normal rate Respiratory/Chest: lungs clear Abdomen: non tender Edema: trace edema 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 Initially, resting images obtained using IV administration 10.8 millicuries 99M technetium Myoview. Subsequently, patient underwent lexiscan stress testing. See cardiology report for details. During Lexiscan infusion, IV administration 31.4 mCi 99 M technetium Myoview. SPECT and planar images obtained. SPECT images gated to 8 phases of the cardiac cycle were also obtained, and reformatted into cine images for evaluation of ejection fraction. Comparison: none Findings: Per cardiology report, patient experienced no symptoms during infusion. Per cardiology report, resting EKG demonstrates normal sinus rhythm with left axis deviation. No ST changes during infusion. . Imaging demonstrates a post stress perfusion defect in the anteroseptal wall which is slightly smaller on the resting images. Calculated post stress ejection fraction 47%. There is slightly decreased wall motion in the septum Impression: Nonischemic clinical response to pharmacologic stress, per cardiology report Nonischemic electrocardiographic response to pharmacologic stress, per cardiology report Partially fixed partially reversible anteroseptal perfusion defect, likely infarct with femi-infarct ischemia Calculated post stress ejection fraction 47% Procedure: CT Chest no Contrast Clinical Indication: Cough, evaluation of abnormalities on recent chest radiograph Technique: Spiral acquisitions obtained through the chest. No IV contrast utilized, reason not stated. Multiplanar reconstructions generated. Total dose length product 116 mGycm. CTDIvol(s) 2 mGy. Dose reduction achieved using automated exposure control Comparison: none Findings: Multiple masses are seen in the left upper lobe. The largest of these is complex in shape, abuts the anterior mediastinum and anterior chest wall, measures 4.5 x 3.2 cm orthogonal axial dimensions, by 4.6 cm craniocaudad. This demonstrates multiple central cavities, and extends posteromedially along the bronchovascular bundle. At least 5 other lesions are seen in the left upper lobe, largest of which contain central cavities. No left lower lobe lesions are demonstrated. A 12 mm mass is seen in the right upper lobe, and several subcentimeter lesions are noted. An irregular 3.3 x 1.9 cm mass is seen in the right lower lobe, and at least one other is seen at the right lung base. No definite infiltrates. There is equivocally trace pleural fluid on the left. There is generalized mild hyperinflation, and a bulla is seen in the anteromedial right upper lobe. Azygos lobe and fissure are incidentally noted. The heart size is normal. There is no pericardial effusion. No mediastinal or hilar mass or adenopathy. The ascending thoracic aorta is mildly ectatic but not aneurysmal. There is mild edema of the mediastinal fat. The thyroid is unremarkable. No axillary or chest wall mass or adenopathy demonstrated. Numerous surgical clips are seen in the right upper quadrant. Pattern of the clips suggests liver transplant. The stomach is mildly distended with food. The bones are unremarkable. Impression: Multiple bilateral pulmonary masses/nodules the largest of these demonstrate central cavitation. Main differential considerations are infectious inflammatory lesions such as septic emboli, tuberculosis, other mycobacterial infections; noninfectious processes such as rheumatoid, granulomatosis with polyangiitis; metastatic carcinoma, most likely squamous cell carcinoma, gastrointestinal adenocarcinoma, transitional cell bladder carcinoma Mild hyperinflation. Single right upper lobe bulla Postsurgical changes of the liver suggests prior liver transplant. Correlate with surgical history The CT scanner at [facility] is accredited by the [employer] and the scans are performed using protocols designed to limit radiation exposure to as low as reasonably achievable to attain images of sufficient resolution adequate for diagnostic evaluation. Assessment/Plan Status: stable Assessment/Plan: 64 y/o M admitted to the Hospital with: # Generalized weakness Etiology include failure to thrive, vs poor nutritional status vs underlying cardiac etiology based on history of recent [place] 2 months ago Weight loss 6 lbs in the past month # Moderate protein caloric malnutrition. RD support and monitoring. # Elevated troponin Serial troponin noted to be stable Telemetry with some bigeminy noted and is stable TTE with normal EF Cardiology consulted Dr. Villanueva. Stress test Nuclear without active ischemia noted. Old infarct area noted. No intervention recommended at this time. Lipid panel reviewed. Asa 81 mg daily # CKD stage 3 Trend creatinine Monitor renal function # Hypokalemia Replete and monitor Dr. Cintron renal consultation appreciated. # Hypomagnesemia Replete and monitor # History of liver transplant Resume prograft and cellcept Monitor clinical markers as needed # Abnormal CXR with nodularity seen. Patient is Ex- smoker. No hypoxia noted at this time. CT CHEST WITH Multiple bilateral pulmonary masses/nodules the largest of these demonstrate central cavitation. Main differential considerations are infectious inflammatory lesions such as septic emboli, tuberculosis, other mycobacterial infections; noninfectious processes such as rheumatoid, granulomatosis with polyangiitis; metastatic carcinoma, most likely squamous cell carcinoma, gastrointestinal adenocarcinoma, transitional cell bladder carcinoma Pulmonary consultation and infectious disease consultation requested today with Dr. Hill and Greta Add tumor markers, PSA, AFP, CEA Per Dr. Hernandes empiric ZYvox, Cefepime and Azithromycin started 01/17/20 DAY 4 -f/u cx -Monitor CBC/C MP, temperatures -airborne isolation: AFB sp cx x3, MTB PCR -COVID PCR, histo, blasto, cocci, CrAg, legionella ag urine, sp cx I spoke with Dr. Hill and CT guided BIOPSY today by IR. Follow up pathology. # Generalized weakness PT evaluation for baseline recommends SNF for short term rehab. Request placed. When medically stable will dc to SNF when medically stable. DVT ppx with Enoxaparin GI ppx with PPI FULL CODE Piyush Cruz MD Jan 20, 2020 09:19
--- NOTE | 2020-01-20 10:00 | Pulmonology Progress Note ---
Subjective ROS Limited/Unobtainable: No Interval Events: Awaiting CT chest/biopsy Constitutional: Reports: no symptoms HEENT: Repors: no symptoms Respiratory: Reports: no symptoms Cardiovascular: Reports: no symptoms Gastrointestinal/Abdominal: Reports: no symptoms Allergies: Coded Allergies: No Known Allergies (Unverified , 01/13/20) All Systems: reviewed and negative except above Objective Last 24 Hour Vital Signs Date Time Temp Pulse Resp B/P (MAP) Pulse Ox O2 Delivery O2 Flow Rate FiO2 01/20/20 09:00 Room Air 01/20/20 08:46 75 144/90 01/20/20 08:00 97.9 75 18 144/90 (108) 100 01/20/20 04:00 96.8 72 19 110/71 (84) 95 01/20/20 00:00 96.4 60 18 136/80 (98) 96 01/19/20 21:01 Room Air 01/19/20 21:00 Room Air 01/19/20 21:00 60 105/53 01/19/20 20:00 96.8 62 18 103/58 (73) 95 01/19/20 16:00 98.2 72 20 109/71 (84) 99 01/19/20 12:00 98.1 60 20 103/57 (72) 95 Intake and Output 01/19/20 01/20/20 19:00 07:00 Intake Total 960 ml Output Total 0 ml 600 ml Balance 960 ml -600 ml Intake Oral 960 ml Output Urine Total 600 ml Post Void Residual 0 ml Bladder Scan Volume Amount <10 ml # Voids 1 General Appearance: no acute distress HEENT: normocephalic Respiratory: chest wall non-tender, lungs clear Cardiovascular: normal peripheral pulses, normal rate Abdomen: normal bowel sounds Microbiology Date/Time Source Procedure Growth Status 01/17/20 16:30 Nasopharynx SARS-CoV-2 RdRp Gene Assay - Final Complete Laboratory Tests 01/20/20 06:45: White Blood Count 5.3, Red Blood Count 3.10L, Hemoglobin 10.3L, Hematocrit 31.9L , Mean Corpuscular Volume 103H, Mean Corpuscular Hemoglobin 33.2H, Mean Corpuscular Hemoglobin Concent 32.3, Red Cell Distribution Width 13.3, Platelet Count 223, Mean Platelet Volume 5.3L, Neutrophils (%) (Auto) 79.9H, Lymphocytes (%) (Auto) 10.5L, Monocytes (%) (Auto) 7.3, Eosinophils (%) (Auto) 1.4, Basophils (%) (Auto) 0.8, Sodium Level 137, Potassium Level 4.1, Chloride Level 108H, Carbon Dioxide Level 18L, Anion Gap 11, Blood Urea Nitrogen 24H, Creatinine 1.5H, Estimat Glomerular Filtration Rate 46.8, Glucose Level 103, Uric Acid 6.1, Calcium Level 8.2L, Phosphorus Level 2.8, Magnesium Level 1.6L, Total Bilirubin 0.9, Aspartate Amino Transf (AST/SGOT) 50H, Alanine Aminotransferase (ALT/SGPT) 47, Alkaline Phosphatase 399H, C-Reactive Protein, Quantitative 2.7H, Total Protein 5.2L, Albumin 2.1L, Globulin 3.1, Albumin/Globulin Ratio 0.7L, TB Test (T-Spot) [Pending], TB Test Nil Control (T- Spot) [Pending], TB Test Panel A (T-Spot) [Pending], TB Test Panel B (T-Spot) [Pending], TB Test Positive Control (T-Spot) [Pending] Current Medications Medications (Trade) Dose Ordered Sig/Quynh Route PRN Reason Start Time Stop Time Status Last Admin Dose Admin Acetaminophen (Tylenol) 650 mg Q4H PRN ORAL Mild Pain (Pain Scale 1-3) 01/13/20 14:30 02/12/20 14:29 Aspirin (ASA) 81 mg DAILY ORAL 01/14/20 09:00 02/28/20 08:59 01/19/20 08:47 Azithromycin (Zithromax) 500 mg DAILY ORAL 01/17/20 16:00 01/24/20 15:59 01/20/20 08:45 Cefepime HCl 1 gm/ Dextrose 55 ml @ 110 mls/hr Q24H IVPB 01/17/20 18:00 01/24/20 17:59 01/19/20 17:18 Dextrose (Dextrose 50%) 25 ml Q30M PRN IV Hypoglycemia 01/13/20 14:30 04/12/20 14:29 Dextrose (Dextrose 50%) 50 ml Q30M PRN IV Hypoglycemia 01/13/20 14:30 04/12/20 14:29 Docusate Sodium (Colace) 100 mg EVERY 12 HOURS ORAL 01/13/20 21:00 02/12/20 20:59 01/20/20 08:45 Heparin Sodium (Porcine) (Heparin 5000 units/ml) 5,000 units EVERY 12 HOURS SUBQ 01/13/20 21:00 02/27/20 20:59 01/19/20 22:00 Linezolid (Zyvox) 600 mg EVERY 12 HOURS ORAL 01/17/20 16:00 01/22/20 15:59 01/20/20 08:45 Lorazepam (Ativan) 1 mg Q4H PRN ORAL For Anxiety 01/13/20 14:30 01/20/20 14:29 Metoprolol Tartrate (Lopressor) 25 mg EVERY 12 HOURS ORAL 01/13/20 21:00 04/12/20 20:59 01/20/20 08:46 Morphine Sulfate (Morphine Sulfate) 2 mg Q3H PRN IVP Moderate Pain (Pain Scale 4-6) 01/13/20 14:30 01/20/20 14:29 Morphine Sulfate (Morphine Sulfate) 4 mg Q3H PRN IVP Severe Pain (Pain Scale 7-10) 01/13/20 14:30 01/20/20 14:29 Mycophenolate Mofetil (Cellcept) 1,000 mg TWICE A DAY ORAL 01/13/20 18:00 04/12/20 17:59 01/20/20 08:45 Nitroglycerin (Ntg) 0.4 mg Q5M PRN SL Prn Chest Pain 01/13/20 14:30 02/12/20 14:29 Ondansetron HCl (Zofran) 4 mg Q6H PRN IVP Nausea & Vomiting 01/13/20 14:30 02/12/20 14:29 Pantoprazole (Protonix) 40 mg BID ORAL 01/15/20 18:00 02/13/20 08:59 01/20/20 08:45 Potassium Chloride (K-Dur) 40 meq DAILY ORAL 01/20/20 09:00 04/19/20 08:59 01/20/20 08:46 Tacrolimus (Prograf) 1 mg EVERY 12 HOURS ORAL 01/13/20 21:00 04/12/20 20:59 01/20/20 08:45 Assessment/Plan Assessment/Plan IMPRESSION: 1. Bilateral cavitary pulmonary nodules. 2. History of liver transplant, on immunosuppressives. 3. CAD. DISCUSSION: Discussed with Dr. Cruz. Await CT-guided lung biopsy. Consider bronchoscopy. Await cultures and serology. I will follow. Reinier Leo Omar Syed MD Jan 20, 2020 10:00
--- NOTE | 2020-01-20 10:23 | Nephrology Progress Note ---
Assessment/Plan Problem List: (1) Hypokalemia (2) Renal failure (ARF), acute on chronic (3) Elevated troponin (4) Anemia Assessment Persistent hypokalemia, etiology unclear. No report of diarrhea. Renal failure with serum creatinine of 1.7, most likely chronic Elevated troponin Anemia Hypoalbuminemia Status post liver transplant. On Prograf and CellCept Leukocytosis COPD EjFx 55% Plan January 19: Labs reviewed. Magnesium replaced. Other electrolyte abnormalities addressed. Serum creatinine down to 1.5. January 18: Labs reviewed. Low potassium replaced. Continue to monitor electrolytes and renal parameters. Serum creatinine 1.6. January 17: Renal parameters stable. Continue per current management. Work-up of bilateral cavitary pulmonary nodules in process January 16: Serum creatinine lowering from 2 on admission to 1.[address] scan of the chest noted. Will discuss with Dr. Cruz regarding the pulmonary evaluation. Continue current management. Previously: Potassium supplement p.o. and IV Urine spot sodium Urine spot potassium Kidney ultrasound, pending 2D echocardiogram EjFx 55% Monitor renal parameters Will order CT of the chest with no contrast Chest x-ray impression: Bilateral lung nodules. These are worrisome for metastatic deposits. Septic emboli also a possibility. Mild hyperinflation, likely COPD. Subjective ROS Limited/Unobtainable: No Constitutional: Reports: malaise Objective Objective Last 24 Hour Vital Signs Date Time Temp Pulse Resp B/P (MAP) Pulse Ox O2 Delivery O2 Flow Rate FiO2 01/20/20 09:00 Room Air 01/20/20 08:46 75 144/90 01/20/20 08:00 97.9 75 18 144/90 (108) 100 01/20/20 04:00 96.8 72 19 110/71 (84) 95 01/20/20 00:00 96.4 60 18 136/80 (98) 96 01/19/20 21:01 Room Air 01/19/20 21:00 Room Air 01/19/20 21:00 60 105/53 01/19/20 20:00 96.8 62 18 103/58 (73) 95 01/19/20 16:00 98.2 72 20 109/71 (84) 99 01/19/20 12:00 98.1 60 20 103/57 (72) 95 Intake and Output 01/19/20 01/20/20 19:00 07:00 Intake Total 960 ml Output Total 0 ml 600 ml Balance 960 ml -600 ml Intake Oral 960 ml Output Urine Total 600 ml Post Void Residual 0 ml Bladder Scan Volume Amount <10 ml # Voids 1 Current Medications Medications (Trade) Dose Ordered Sig/Quynh Route PRN Reason Start Time Stop Time Status Last Admin Dose Admin Acetaminophen (Tylenol) 650 mg Q4H PRN ORAL Mild Pain (Pain Scale 1-3) 01/13/20 14:30 02/12/20 14:29 Aspirin (ASA) 81 mg DAILY ORAL 01/14/20 09:00 02/28/20 08:59 01/19/20 08:47 Azithromycin (Zithromax) 500 mg DAILY ORAL 01/17/20 16:00 01/24/20 15:59 01/20/20 08:45 Cefepime HCl 1 gm/ Dextrose 55 ml @ 110 mls/hr Q24H IVPB 01/17/20 18:00 01/24/20 17:59 01/19/20 17:18 Dextrose (Dextrose 50%) 25 ml Q30M PRN IV Hypoglycemia 01/13/20 14:30 04/12/20 14:29 Dextrose (Dextrose 50%) 50 ml Q30M PRN IV Hypoglycemia 01/13/20 14:30 04/12/20 14:29 Docusate Sodium (Colace) 100 mg EVERY 12 HOURS ORAL 01/13/20 21:00 02/12/20 20:59 01/20/20 08:45 Heparin Sodium (Porcine) (Heparin 5000 units/ml) 5,000 units EVERY 12 HOURS SUBQ 01/13/20 21:00 02/27/20 20:59 01/19/20 22:00 Linezolid (Zyvox) 600 mg EVERY 12 HOURS ORAL 01/17/20 16:00 01/22/20 15:59 01/20/20 08:45 Lorazepam (Ativan) 1 mg Q4H PRN ORAL For Anxiety 01/13/20 14:30 01/20/20 14:29 Metoprolol Tartrate (Lopressor) 25 mg EVERY 12 HOURS ORAL 01/13/20 21:00 04/12/20 20:59 01/20/20 08:46 Morphine Sulfate (Morphine Sulfate) 2 mg Q3H PRN IVP Moderate Pain (Pain Scale 4-6) 01/13/20 14:30 01/20/20 14:29 Morphine Sulfate (Morphine Sulfate) 4 mg Q3H PRN IVP Severe Pain (Pain Scale 7-10) 01/13/20 14:30 01/20/20 14:29 Mycophenolate Mofetil (Cellcept) 1,000 mg TWICE A DAY ORAL 01/13/20 18:00 04/12/20 17:59 01/20/20 08:45 Nitroglycerin (Ntg) 0.4 mg Q5M PRN SL Prn Chest Pain 01/13/20 14:30 02/12/20 14:29 Ondansetron HCl (Zofran) 4 mg Q6H PRN IVP Nausea & Vomiting 01/13/20 14:30 02/12/20 14:29 Pantoprazole (Protonix) 40 mg BID ORAL 01/15/20 18:00 02/13/20 08:59 01/20/20 08:45 Potassium Chloride (K-Dur) 40 meq DAILY ORAL 01/20/20 09:00 04/19/20 08:59 01/20/20 08:46 Tacrolimus (Prograf) 1 mg EVERY 12 HOURS ORAL 01/13/20 21:00 04/12/20 20:59 01/20/20 08:45 Laboratory Tests 01/20/20 06:45: White Blood Count 5.3, Red Blood Count 3.10L, Hemoglobin 10.3L, Hematocrit 31.9L , Mean Corpuscular Volume 103H, Mean Corpuscular Hemoglobin 33.2H, Mean Corpuscular Hemoglobin Concent 32.3, Red Cell Distribution Width 13.3, Platelet Count 223, Mean Platelet Volume 5.3L, Neutrophils (%) (Auto) 79.9H, Lymphocytes (%) (Auto) 10.5L, Monocytes (%) (Auto) 7.3, Eosinophils (%) (Auto) 1.4, Basophils (%) (Auto) 0.8, Sodium Level 137, Potassium Level 4.1, Chloride Level 108H, Carbon Dioxide Level 18L, Anion Gap 11, Blood Urea Nitrogen 24H, Crea tinine 1.5H, Estimat Glomerular Filtration Rate 46.8, Glucose Level 103, Uric Acid 6.1, Calcium Level 8.2L, Phosphorus Level 2.8, Magnesium Level 1.6L, Total Bilirubin 0.9, Aspartate Amino Transf (AST/SGOT) 50H, Alanine Aminotransferase (ALT/SGPT) 47, Alkaline Phosphatase 399H, C-Reactive Protein, Quantitative 2.7H, Total Protein 5.2L, Albumin 2.1L, Globulin 3.1, Albumin/Globulin Ratio 0.7L, TB Test (T-Spot) [Pending], TB Test Nil Control (T-Spot) [Pending], TB Test Panel A (T-Spot) [Pending], TB Test Panel B (T-Spot) [Pending], TB Test Positive Control (T-Spot) [Pending] Height (Feet): 5 Height (Inches): 5.00 Weight (Pounds): 85 General Appearance: no apparent distress Objective No change Marvin Martinez MD Jan 20, 2020 10:23
--- NOTE | 2020-01-20 11:00 | NUR ---
PT NOTE Attempted to see patient for PT treatment. Patient declining to participate with PT, is scheduled for lung biopsy later today, states that he has been performing LE exercises in bed. Bernardo HANSEN notified, will follow.
--- NOTE | 2020-01-20 11:29 | Infectious Diseases Prog Note ---
Assessment/Plan Assessment: Pulmonary nodules- r/o malignancy vs infectious (TB, fungal), septic emboli -CT chest wo: Multiple bilateral pulmonary masses/nodules the largest of these demonstrate central cavitation. Main differential considerations are infectious inflammatory lesions such as septic emboli, tuberculosis, other mycobacterial infections; noninfectious processes such as rheumatoid, granulomatosis with polyangiitis; metastatic carcinoma, most likely squamous cell carcinoma, gastrointestinal adenocarcinoma, transitional cell bladder carcinoma. Mild hyperinflation. Single right upper lobe bulla, Postsurgical changes of the liver suggests prior liver transplant. Correlate with surgical history -CXR: Bilateral lung nodules. These are worrisome for metastatic deposits. Septic emboli also a possibility. Correlate with clinical history and findings. Mild hyperinflation, likely COPD. -2d echo: no vegetations -HIV ab screen neg, rapid COVID PCR neg Afebrile No leukocytosis -u/a neg -Bcx NTD JOAN on CKD, improving -Renal US: Trace left perinephric fluid, nonspecific. Bilateral renal cysts. Negative for hydronephrosis. Liver transplant (at [facility]) 2006 on prograf and cellcept HTN COPD ?recent NSTEMI Plan: -Cont empiric ZYvox, Cefepime and Azithromycin #4 -f/u cx -Monitor CBC/C MP, temperatures -airborne isolation: AFB sp cx x3, MTB PCR -f/u histo, blasto, cocci, CrAg, legionella ag urine, sp cx -May need bronch if not able to expectorate sputum - if bacteremic, may need LORENA -for CT guided lung biopsy today Thank you for consulting [facility]. Will continue to follow along with you. Discussed with RN and Dr Cruz Subjective Allergies: Coded Allergies: No Known Allergies (Unverified , 01/13/20) afebrile at RA no leukocytosis cr improving for CT guided biopsy today Objective Last 24 Hour Vital Signs Date Time Temp Pulse Resp B/P (MAP) Pulse Ox O2 Delivery O2 Flow Rate FiO2 01/20/20 09:00 Room Air 01/20/20 08:46 75 144/90 01/20/20 08:00 97.9 75 18 144/90 (108) 100 01/20/20 04:00 96.8 72 19 110/71 (84) 95 01/20/20 00:00 96.4 60 18 136/80 (98) 96 01/19/20 21:01 Room Air 01/19/20 21:00 Room Air 01/19/20 21:00 60 105/53 01/19/20 20:00 96.8 62 18 103/58 (73) 95 01/19/20 16:00 98.2 72 20 109/71 (84) 99 01/19/20 12:00 98.1 60 20 103/57 (72) 95 Height (Feet): 5 Height (Inches): 5.00 Weight (Pounds): 85 General Appearance: WD/WN Lines, tubes and drains: peripheral HEENT: normocephalic, atraumatic Neck: non-tender Respiratory/Chest: lungs clear Cardiovascular/Chest: normal peripheral pulses Abdomen: non tender Microbiology Date/Time Source Procedure Growth Status 01/17/20 16:30 Nasopharynx SARS-CoV-2 RdRp Gene Assay - Final Complete Laboratory Tests Test 01/20/20 06:45 White Blood Count 5.3 K/UL (4.8-10.8) Red Blood Count 3.10 M/UL (4.70-6.10) L Hemoglobin 10.3 G/DL (14.2-18.0) L Hematocrit 31.9 % (42.0-52.0) L Mean Corpuscular Volume 103 FL (80-99) H Mean Corpuscular Hemoglobin 33.2 PG (27.0-31.0) H Mean Corpuscular Hemoglobin Concent 32.3 G/DL (32.0-36.0) Red Cell Distribution Width 13.3 % (11.6-14.8) Platelet Count 223 K/UL (150-450) Mean Platelet Volume 5.3 FL (6.5-10.1) L Neutrophils (%) (Auto) 79.9 % (45.0-75.0) H Lymphocytes (%) (Auto) 10.5 % (20.0-45.0) L Monocytes (%) (Auto) 7.3 % (1.0-10.0) Eosinophils (%) (Auto) 1.4 % (0.0-3.0) Basophils (%) (Auto) 0.8 % (0.0-2.0) Sodium Level 137 MMOL/L (136-145) Potassium Level 4.1 MMOL/L (3.5-5.1) Chloride Level 108 MMOL/L (98-107) H Carbon Dioxide Level 18 MMOL/L (21-32) L Anion Gap 11 mmol/L (5-15) Blood Urea Nitrogen 24 mg/dL (7-18) H Creatinine 1.5 MG/DL (0.55-1.30) H Estimat Glomerular Filtration Rate 46.8 mL/min (>60) Glucose Level 103 MG/DL (74-106) Uric Acid 6.1 MG/DL (2.6-7.2) Calcium Level 8.2 MG/DL (8.5-10.1) L Phosphorus Level 2.8 MG/DL (2.5-4.9) Magnesium Level 1.6 MG/DL (1.8-2.4) L Total Bilirubin 0.9 MG/DL (0.2-1.0) Aspartate Amino Transf (AST/SGOT) 50 U/L (15-37) H Alanine Aminotransferase (ALT/SGPT) 47 U/L (12-78) Alkaline Phosphatase 399 U/L (46-116) H C-Reactive Protein, Quantitative 2.7 mg/dL (0.00-0.90) H Total Protein 5.2 G/DL (6.4-8.2) L Albumin 2.1 G/DL (3.4-5.0) L Globulin 3.1 g/dL Albumin/Globulin Ratio 0.7 (1.0-2.7) L TB Test (T-Spot) Pending TB Test Nil Control (T-Spot) Pending TB Test Panel A (T-Spot) Pending TB Test Panel B (T-Spot) Pending TB Test Positive Control (T-Spot) Pending Current Medications Medications (Trade) Dose Ordered Sig/Quynh Route PRN Reason Start Time Stop Time Status Last Admin Dose Admin Acetaminophen (Tylenol) 650 mg Q4H PRN ORAL Mild Pain (Pain Scale 1-3) 01/13/20 14:30 02/12/20 14:29 Aspirin (ASA) 81 mg DAILY ORAL 01/14/20 09:00 02/28/20 08:59 01/19/20 08:47 Azithromycin (Zithromax) 500 mg DAILY ORAL 01/17/20 16:00 01/24/20 15:59 01/20/20 08:45 Cefepime HCl 1 gm/ Dextrose 55 ml @ 110 mls/hr Q24H IVPB 01/17/20 18:00 01/24/20 17:59 01/19/20 17:18 Dextrose (Dextrose 50%) 25 ml Q30M PRN IV Hypoglycemia 01/13/20 14:30 04/12/20 14:29 Dextrose (Dextrose 50%) 50 ml Q30M PRN IV Hypoglycemia 01/13/20 14:30 04/12/20 14:29 Docusate Sodium (Colace) 100 mg EVERY 12 HOURS ORAL 01/13/20 21:00 02/12/20 20:59 01/20/20 08:45 Heparin Sodium (Porcine) (Heparin 5000 units/ml) 5,000 units EVERY 12 HOURS SUBQ 01/13/20 21:00 02/27/20 20:59 01/19/20 22:00 Linezolid (Zyvox) 600 mg EVERY 12 HOURS ORAL 01/17/20 16:00 01/22/20 15:59 01/20/20 08:45 Lorazepam (Ativan) 1 mg Q4H PRN ORAL For Anxiety 01/13/20 14:30 01/20/20 14:29 Magnesium Sulfate 100 ml @ 100 mls/hr Q1H IVPB 01/20/20 11:00 01/20/20 12:59 01/20/20 10:53 Metoprolol Tartrate (Lopressor) 25 mg EVERY 12 HOURS ORAL 01/13/20 21:00 04/12/20 20:59 01/20/20 08:46 Morphine Sulfate (Morphine Sulfate) 2 mg Q3H PRN IVP Moderate Pain (Pain Scale 4-6) 01/13/20 14:30 01/20/20 14:29 Morphine Sulfate (Morphine Sulfate) 4 mg Q3H PRN IVP Severe Pain (Pain Scale 7-10) 01/13/20 14:30 01/20/20 14:29 Mycophenolate Mofetil (Cellcept) 1,000 mg TWICE A DAY ORAL 01/13/20 18:00 04/12/20 17:59 01/20/20 08:45 Nitroglycerin (Ntg) 0.4 mg Q5M PRN SL Prn Chest Pain 01/13/20 14:30 02/12/20 14:29 Ondansetron HCl (Zofran) 4 mg Q6H PRN IVP Nausea & Vomiting 01/13/20 14:30 02/12/20 14:29 Pantoprazole (Protonix) 40 mg BID ORAL 01/15/20 18:00 02/13/20 08:59 01/20/20 08:45 Tacrolimus (Prograf) 1 mg EVERY 12 HOURS ORAL 01/13/20 21:00 04/12/20 20:59 01/20/20 08:45 Alie Hernandes M.D. Jan 20, 2020 11:29
--- NOTE | 2020-01-20 13:30 | NUR ---
NURSE NOTES: RN called Yonatan from radiology regarding patient scheduled for left lung biopsy. Radiology was not able to give a specific time, but confirmed that patient is in their schedule today
--- NOTE | 2020-01-20 15:10 | Cardiac Electrophysiology PN ---
Assessment/Plan Assessment/Plan 1. Troponin elevation. All levels are low level and similar at 0.4 due to renal failure The patient does not have any chest pain. EKG does not show any acute ST-T wave abnormalities. Continue aspirin, beta-awa, and low-dose statin. Echo Nl EF 55% Stress test showed "Partially fixed partially reversible anteroseptal perfusion defect, likely infarct with femi-infarct ischemia". Treat medically specially no chest pain and renal failure and cardiac cath put him at risk of HD 2. Status post liver transplant. Already on Prograf and CellCept. 3. Generalized weakness. 4. Elevated white count of 12,000. 5. Hypokalemia. Potassium of 3. 6. Chronic kidney disease with BUN of 47 and creatinine of 2.0. 7. Bilateral cavitary pulmonary nodules. Await CT-guided lung biopsy. Consider bronchoscopy. FU Dr Liz LIN RN Subjective Subjective No CP or SOB EF 55%. Stress test showed "Partially fixed partially reversible anteroseptal perfusion defect, likely infarct with femi-infarct ischemia Lung biopsy pending Objective Last 24 Hour Vital Signs Date Time Temp Pulse Resp B/P (MAP) Pulse Ox O2 Delivery O2 Flow Rate FiO2 01/20/20 12:00 98.4 73 17 131/80 (97) 100 01/20/20 09:00 Room Air 01/20/20 08:46 75 144/90 01/20/20 08:00 97.9 75 18 144/90 (108) 100 01/20/20 04:00 96.8 72 19 110/71 (84) 95 01/20/20 00:00 96.4 60 18 136/80 (98) 96 01/19/20 21:01 Room Air 01/19/20 21:00 Room Air 01/19/20 21:00 60 105/53 01/19/20 20:00 96.8 62 18 103/58 (73) 95 01/19/20 16:00 98.2 72 20 109/71 (84) 99 Intake and Output 01/19/20 01/20/20 19:00 07:00 Intake Total 960 ml Output Total 0 ml 600 ml Balance 960 ml -600 ml Intake Oral 960 ml Output Urine Total 600 ml Post Void Residual 0 ml Bladder Scan Volume Amount <10 ml # Voids 1 Laboratory Tests Test 01/20/20 06:45 White Blood Count 5.3 K/UL (4.8-10.8) Red Blood Count 3.10 M/UL (4.70-6.10) L Hemoglobin 10.3 G/DL (14.2-18.0) L Hematocrit 31.9 % (42.0-52.0) L Mean Corpuscular Volume 103 FL (80-99) H Mean Corpuscular Hemoglobin 33.2 PG (27.0-31.0) H Mean Corpuscular Hemoglobin Concent 32.3 G/DL (32.0-36.0) Red Cell Distribution Width 13.3 % (11.6-14.8) Platelet Count 223 K/UL (150-450) Mean Platelet Volume 5.3 FL (6.5-10.1) L Neutrophils (%) (Auto) 79.9 % (45.0-75.0) H Lymphocytes (%) (Auto) 10.5 % (20.0-45.0) L Monocytes (%) (Auto) 7.3 % (1.0-10.0) Eosinophils (%) (Auto) 1.4 % (0.0-3.0) Basophils (%) (Auto) 0.8 % (0.0-2.0) Sodium Level 137 MMOL/L (136-145) Potassium Level 4.1 MMOL/L (3.5-5.1) Chloride Level 108 MMOL/L (98-107) H Carbon Dioxide Level 18 MMOL/L (21-32) L Anion Gap 11 mmol/L (5-15) Blood Urea Nitrogen 24 mg/dL (7-18) H Creatinine 1.5 MG/DL (0.55-1.30) H Estimat Glomerular Filtration Rate 46.8 mL/min (>60) Glucose Level 103 MG/DL (74-106) Uric Acid 6.1 MG/DL (2.6-7.2) Calcium Level 8.2 MG/DL (8.5-10.1) L Phosphorus Level 2.8 MG/DL (2.5-4.9) Magnesium Level 1.6 MG/DL (1.8-2.4) L Total Bilirubin 0.9 MG/DL (0.2-1.0) Aspartate Amino Transf (AST/SGOT) 50 U/L (15-37) H Alanine Aminotransferase (ALT/SGPT) 47 U/L (12-78) Alkaline Phosphatase 399 U/L (46-116) H C-Reactive Protein, Quantitative 2.7 mg/dL (0.00-0.90) H Total Protein 5.2 G/DL (6.4-8.2) L Albumin 2.1 G/DL (3.4-5.0) L Globulin 3.1 g/dL Albumin/Globulin Ratio 0.7 (1.0-2.7) L TB Test (T-Spot) Pending TB Test Nil Control (T-Spot) Pending TB Test Panel A (T-Spot) Pending TB Test Panel B (T-Spot) Pending TB Test Positive Control (T-Spot) Pending Microbiology Date/Time Source Procedure Growth Status 01/17/20 16:30 Nasopharynx SARS-CoV-2 RdRp Gene Assay - Final Complete Objective HEAD AND NECK: Showed no JVD. LUNGS: Clear. CARDIOVASCULAR: Shows regular S1 and S2 with no gallop. ABDOMEN: Soft and nontender and scar of liver surgery in the right upper abdomen for liver transplant. EXTREMITIES: No pitting edema. Greg Villanueva MD Jan 20, 2020 15:10
--- NOTE | 2020-01-20 15:28 | Pre-Procedure Note/Attestation ---
Pre-Procedure Note/Attestation Complete Prior to Procedure Planned Procedure: not applicable Procedure Narrative: lung biopsy Indications for Procedure Pre-Operative Diagnosis: lung mass Attestation I attest that I discussed the nature of the procedure; its benefits; risks and complications; and alternatives (and the risks and benefits of such alternatives), prior to the procedure, with the patient (or the patient's legal paper sales representative). I attest that, if there was a reasonable possibility of needing a blood tra nsfusion, the patient (or the patient's legal paper sales representative) was given the [facility] standardized written summary, pursuant to the [place] Blood Safety Act ([place] Health and Safety Code # 1645, as amended). I attest that I re-evaluated the patient just prior to the surgery and that there has been no change in the patient's H&P, except as documented below: Raymundo Carrizales MD Jan 20, 2020 15:28
--- NOTE | 2020-01-20 15:29 | Brief Operative Note ---
Immediate Post Operative Note Operative Note Pre-op Diagnosis: lung mass Procedure: lung biopsy Post-op Diagnosis: same as pre-op Surgeon: Shari Pate Anesthesia: local Specimen: yes - 4 18-G cores Complications: none Condition: stable Fluids: none Implant(s) used?: No Raymundo Pate MD Jan 20, 2020 15:28
--- NOTE | 2020-01-20 16:48 | Diagnostic Imaging Report ---
Indication: Reason For Exam: S/P LUNG BX Technique: One view of the chest Comparison: 01/13/2012 Findings: Multiple lung masses are again demonstrated. No pneumothorax is visible. No infiltrates or effusions. The heart size is normal. Impression: No evidence of postbiopsy pneumothorax
--- NOTE | 2020-01-20 17:00 | NUR ---
CASE MANAGEMENT:REVIEW SI: NSTEMI. COPD. EFFIE LUNG NODULES CT(+) MULTIPLE MASSES IN [place]. H/O LIVER TRANSPLANT 96.9 57 19 136/80 98% ON RA BUN 24 CR 1.5 MAG 1.6 AST 50 ALP 399 CRP 2.7 ALB 2.1 IS;CEFEPIME IV Q24 ZYVOX PO Q12 ZITHROMAX PO QD ASA PO QS PROGRAF PO Q12 HEPARIN SUBQ Q12 CELLCEPT PO BID MED SURG STATUS DCP;[facility]
[2020-01-20] MEDS: Cefepime HCl 1 GM in D5W 55 ML IVPB SCH (17:41)
--- NOTE | 2020-01-20 17:54 | Diagnostic Imaging Report ---
Indication: Multiple lung masses Technique: Prior imaging studies reviewed. Informed consent obtained prior to commencement of the procedure. Sagittal timeout performed. Localizing CT slices obtained. It was decided to biopsy an anterior medial left lung mass. Intended puncture site sterilely prepped and draped. Local anesthesia with 1% lidocaine. Under CT guidance, a 17-gauge guide needle was directed into the anterior periphery of the target lesion. Total of 4 needle passes were then made using automated biopsy gun. 2 specimens were sent for histological analysis, and 2 specimen sent for microbial analysis. Follow-up CT scan performed, demonstrating a very tiny local pneumothorax and a very small amount of parenchymal opacity, presumed blood, adjacent to the biopsied lesion. Patient otherwise tolerated procedure well, without immediate complication. Comparison: Reference made to chest CT 01/16/2020 Findings: Intraprocedural images document by needle at the periphery of the target mass. Impression: Biopsy of the largest multiple left lung masses, as described. Pathology and microbial analysis pending
[2020-01-20] MEDS ORDERED: PPD Tuberculin Skin Test 5TU IDERMAL ONE (18:00)
--- NOTE | 2020-01-20 19:35 | NUR ---
NURSE HAND-OFF: Important Events on Shift:PPD done, CT biopsy of lung Patient Status: stable Diet: renal Pending Orders: n/a Pending Results/Labs:multiple TB labs Pending MD notification:n/a Latest Vital Signs: Temperature 96.9 , Pulse 70 , B/P 133 /73 , Respiratory Rate 18 , O2 SAT 98 , Room Air, O2 Flow Rate . Vital Sign Comment: stable Latest Padron Fall Score: 35 Fall Risk: Medium Risk Safety Measures: Call light Within Reach, Bed Alarm Zone 1, Side Rails Side Rails x2, Bed position Low and Locked. Fall Precautions: Yellow Socks Yellow Gown Door Sign Patient Fall Education Report given to JADE Everett.
--- NOTE | 2020-01-20 19:36 | NUR ---
NURSE NOTES: Received a pt on the bed awake,A&ox4, and verbal. Pt has no sob,fever,cough and pain at the moment. Pt iv is intact and asymptomatic. pt is on airborne isolation to r/o TB. Bed is in the lowest position,locked, and call light within reach. We will keep monitoring the pt.
[2020-01-21] VITALS: BP 129/72
[2020-01-21 04:00] VITALS: BP 132/74
--- NOTE | 2020-01-21 08:54 | Urology Progress Note ---
Assessment/Plan Status: stable Assessment/Plan: 1. Elevated serum PSA. 2. BPH. 3. Mild lower urinary tract symptoms. 4. Rule out neurogenic bladder. 5. Renal insufficiency, acute on chronic. 6. Proteinuria. 7. Renal cyst. monitor clinically consider adding flomax f/u on PVR prostate MRI and/or biopsy at some point on abx lung mets, s/p bx, f/u on path monitor renal fxn Subjective Allergies: Coded Allergies: No Known Allergies (Unverified , 01/13/20) Subjective all noted, feels fair voiding, PVR ? s/p lung bx 01/19 Objective Last 24 Hour Vital Signs Date Time Temp Pulse Resp B/P (MAP) Pulse Ox O2 Delivery O2 Flow Rate FiO2 01/21/20 04:00 97.5 72 18 132/74 (93) 96 01/21/20 00:00 98.2 69 18 129/72 (91) 98 01/20/20 22:03 73 135/75 01/20/20 21:30 Room Air 01/20/20 20:00 97.8 68 19 135/78 (97) 97 01/20/20 16:00 96.9 70 18 133/73 (93) 98 01/20/20 15:45 97.4 66 17 126/78 (94) 99 01/20/20 15:30 97.8 72 18 134/70 (91) 98 01/20/20 15:15 97.3 68 19 128/68 (88) 100 01/20/20 15:10 57 18 130/70 (90) 100 01/20/20 15:05 58 18 136/80 (98) 100 01/20/20 14:46 58 18 01/20/20 12:00 98.4 73 17 131/80 (97) 100 01/20/20 09:00 Room Air Intake and Output 01/20/20 01/21/20 19:00 07:00 Intake Total 700 ml Output Total 10 ml 500 ml Balance 690 ml -500 ml Other 700 ml Output Urine Total 500 ml Post Void Residual 10 ml Bladder Scan Volume Amount 11-30 ml Microbiology Date/Time Source Procedure Growth Status 01/17/20 16:30 Nasopharynx SARS-CoV-2 RdRp Gene Assay - Final Complete 01/13/20 11:50 Blood Blood Culture - Final NO GROWTH AFTER 5 DAYS Complete Current Medications Medications (Trade) Dose Ordered Sig/Quynh Route PRN Reason Start Time Stop Time Status Last Admin Dose Admin Acetaminophen (Tylenol) 650 mg Q4H PRN ORAL Mild Pain (Pain Scale 1-3) 01/13/20 14:30 02/12/20 14:29 Aspirin (ASA) 81 mg DAILY ORAL 01/14/20 09:00 02/28/20 08:59 01/19/20 08:47 Azithromycin (Zithromax) 500 mg DAILY ORAL 01/17/20 16:00 01/24/20 15:59 01/20/20 08:45 Cefepime HCl 1 gm/ Dextrose 55 ml @ 110 mls/hr Q24H IVPB 01/17/20 18:00 01/24/20 17:59 01/20/20 17:41 Dextrose (Dextrose 50%) 25 ml Q30M PRN IV Hypoglycemia 01/13/20 14:30 04/12/20 14:29 Dextrose (Dextrose 50%) 50 ml Q30M PRN IV Hypoglycemia 01/13/20 14:30 04/12/20 14:29 Docusate Sodium (Colace) 100 mg EVERY 12 HOURS ORAL 01/13/20 21:00 02/12/20 20:59 01/20/20 22:04 Heparin Sodium (Porcine) (Heparin 5000 units/ml) 5,000 units EVERY 12 HOURS SUBQ 01/13/20 21:00 02/27/20 20:59 01/20/20 22:09 Linezolid (Zyvox) 600 mg EVERY 12 HOURS ORAL 01/17/20 16:00 01/22/20 15:59 01/20/20 22:04 Metoprolol Tartrate (Lopressor) 25 mg EVERY 12 HOURS ORAL 01/13/20 21:00 04/12/20 20:59 01/20/20 22:03 Mycophenolate Mofetil (Cellcept) 1,000 mg TWICE A DAY ORAL 01/13/20 18:00 04/12/20 17:59 01/20/20 17:40 Nitroglycerin (Ntg) 0.4 mg Q5M PRN SL Prn Chest Pain 01/13/20 14:30 02/12/20 14:29 Ondansetron HCl (Zofran) 4 mg Q6H PRN IVP Nausea & Vomiting 01/13/20 14:30 02/12/20 14:29 Pantoprazole (Protonix) 40 mg BID ORAL 01/15/20 18:00 02/13/20 08:59 01/20/20 17:40 Tacrolimus (Prograf) 1 mg EVERY 12 HOURS ORAL 01/13/20 21:00 04/12/20 20:59 01/20/20 22:03 Height (Feet): 5 Height (Inches): 5.00 Weight (Pounds): 85 Objective exam stable Corona Hernandez MD Jan 21, 2020 08:54
[2020-01-21 09:00] VITALS: BP 121/88
[2020-01-21] MEDS: Azithromycin 250mg tab ORAL SCH (09:10)
[2020-01-21] MEDS: Mycophenolate 250mg cap ORAL SCH ×2 (09:10→17:34)
[2020-01-21] MEDS: Docusate 100mg cap ORAL SCH ×2 (09:10→20:45)
[2020-01-21] MEDS: Aspirin Baby 81mg ORAL SCH (09:10)
[2020-01-21] MEDS: Heparin 5000 units/ml inj SUBQ SCH ×2 (09:12→20:46)
--- NOTE | 2020-01-21 09:40 | Pulmonology Progress Note ---
Subjective ROS Limited/Unobtainable: No Interval Events: S/p CT chest/biopsy Constitutional: Reports: no symptoms HEENT: Repors: no symptoms Respiratory: Reports: no symptoms Cardiovascular: Reports: no symptoms Gastrointestinal/Abdominal: Reports: no symptoms Allergies: Coded Allergies: No Known Allergies (Unverified , 01/13/20) All Systems: reviewed and negative except above Objective Last 24 Hour Vital Signs Date Time Temp Pulse Resp B/P (MAP) Pulse Ox O2 Delivery O2 Flow Rate FiO2 01/21/20 09:11 91 121/88 01/21/20 04:00 97.5 72 18 132/74 (93) 96 01/21/20 00:00 98.2 69 18 129/72 (91) 98 01/20/20 22:03 73 135/75 01/20/20 21:30 Room Air 01/20/20 20:00 97.8 68 19 135/78 (97) 97 01/20/20 16:00 96.9 70 18 133/73 (93) 98 01/20/20 15:45 97.4 66 17 126/78 (94) 99 01/20/20 15:30 97.8 72 18 134/70 (91) 98 01/20/20 15:15 97.3 68 19 128/68 (88) 100 01/20/20 15:10 57 18 130/70 (90) 100 01/20/20 15:05 58 18 136/80 (98) 100 01/20/20 14:46 58 18 01/20/20 12:00 98.4 73 17 131/80 (97) 100 Intake and Output 01/20/20 01/21/20 18:59 06:59 Intake Total 700 ml Output Total 610 ml 500 ml Balance 90 ml -500 ml Other 700 ml Output Urine Total 600 ml 500 ml Post Void Residual 10 ml Bladder Scan Volume Amount 11-30 ml # Voids 1 General Appearance: no acute distress HEENT: normocephalic Respiratory: chest wall non-tender, lungs clear Cardiovascular: normal peripheral pulses, normal rate Abdomen: normal bowel sounds Current Medications Medications (Trade) Dose Ordered Sig/Quynh Route PRN Reason Start Time Stop Time Status Last Admin Dose Admin Acetaminophen (Tylenol) 650 mg Q4H PRN ORAL Mild Pain (Pain Scale 1-3) 01/13/20 14:30 02/12/20 14:29 Aspirin (ASA) 81 mg DAILY ORAL 01/14/20 09:00 02/28/20 08:59 01/21/20 09:10 Azithromycin (Zithromax) 500 mg DAILY ORAL 01/17/20 16:00 01/24/20 15:59 01/21/20 09:10 Cefepime HCl 1 gm/ Dextrose 55 ml @ 110 mls/hr Q24H IVPB 01/17/20 18:00 01/24/20 17:59 01/20/20 17:41 Dextrose (Dextrose 50%) 25 ml Q30M PRN IV Hypoglycemia 01/13/20 14:30 04/12/20 14:29 Dextrose (Dextrose 50%) 50 ml Q30M PRN IV Hypoglycemia 01/13/20 14:30 04/12/20 14:29 Docusate Sodium (Colace) 100 mg EVERY 12 HOURS ORAL 01/13/20 21:00 02/12/20 20:59 01/21/20 09:10 Heparin Sodium (Porcine) (Heparin 5000 units/ml) 5,000 units EVERY 12 HOURS SUBQ 01/13/20 21:00 02/27/20 20:59 01/21/20 09:12 Linezolid (Zyvox) 600 mg EVERY 12 HOURS ORAL 01/17/20 16:00 01/22/20 15:59 01/21/20 09:10 Metoprolol Tartrate (Lopressor) 25 mg EVERY 12 HOURS ORAL 01/13/20 21:00 04/12/20 20:59 01/21/20 09:11 Mycophenolate Mofetil (Cellcept) 1,000 mg TWICE A DAY ORAL 01/13/20 18:00 04/12/20 17:59 01/21/20 09:10 Nitroglycerin (Ntg) 0.4 mg Q5M PRN SL Prn Chest Pain 01/13/20 14:30 02/12/20 14:29 Ondansetron HCl (Zofran) 4 mg Q6H PRN IVP Nausea & Vomiting 01/13/20 14:30 02/12/20 14:29 Pantoprazole (Protonix) 40 mg BID ORAL 01/15/20 18:00 02/13/20 08:59 01/21/20 09:10 Tacrolimus (Prograf) 1 mg EVERY 12 HOURS ORAL 01/13/20:00 04/12/20 20:59 01/21/20 09:10 Assessment/Plan Assessment/Plan IMPRESSION: 1. Bilateral cavitary pulmonary nodules. 2. History of liver transplant, on immunosuppressives. 3. CAD. DISCUSSION: Discussed with Dr. Cruz. S/p CT-guided lung biopsy. May need bronchoscopy if CT biopsy is non-diagnostic OK to dc home/SNF . Await cultures and serology. I will follow. Reinier Leo Omar Syed MD Jan 21, 2020 09:40
--- NOTE | 2020-01-21 10:23 | Nephrology Progress Note ---
Assessment/Plan Problem List: (1) Hypokalemia (2) Renal failure (ARF), acute on chronic (3) Elevated troponin (4) Anemia Assessment Persistent hypokalemia, etiology unclear. No report of diarrhea. Renal failure with serum creatinine of 1.7, most likely chronic Elevated troponin Anemia Hypoalbuminemia Status post liver transplant. On Prograf and CellCept Leukocytosis COPD EjFx 55% Plan January 20: No blood drawn today. Continue per consultants. Check labs tomorrow. January 19: Labs reviewed. Magnesium replaced. Other electrolyte abnormalities addressed. Serum creatinine down to 1.5. January 18: Labs reviewed. Low potassium replaced. Continue to monitor electrolytes and renal parameters. Serum creatinine 1.6. January 17: Renal parameters stable. Continue per current management. Work-up of bilateral cavitary pulmonary nodules in process January 16: Serum creatinine lowering from 2 on admission to 1.[address] scan of the chest noted. Will discuss with Dr. Cruz regarding the pulmonary evaluation. Continue current management. Previously: Potassium supplement p.o. and IV Urine spot sodium Urine spot potassium Kidney ultrasound, pending 2D echocardiogram EjFx 55% Monitor renal parameters Will order CT of the chest with no contrast Chest x-ray impression: Bilateral lung nodules. These are worrisome for metastatic deposits. Septic emboli also a possibility. Mild hyperinflation, likely COPD. Subjective ROS Limited/Unobtainable: No Objective Objective Last 24 Hour Vital Signs Date Time Temp Pulse Resp B/P (MAP) Pulse Ox O2 Delivery O2 Flow Rate FiO2 01/21/20 09:11 91 121/88 01/21/20 09:00 Room Air 01/21/20 09:00 97.9 72 18 121/88 (99) 96 01/21/20 04:00 97.5 72 18 132/74 (93) 96 01/21/20 00:00 98.2 69 18 129/72 (91) 98 01/20/20 22:03 73 135/75 01/20/20 21:30 Room Air 01/20/20 20:00 97.8 68 19 135/78 (97) 97 01/20/20 16:00 96.9 70 18 133/73 (93) 98 01/20/20 15:45 97.4 66 17 126/78 (94) 99 01/20/20 15:30 97.8 72 18 134/70 (91) 98 01/20/20 15:15 97.3 68 19 128/68 (88) 100 01/20/20 15:10 57 18 130/70 (90) 100 01/20/20 15:05 58 18 136/80 (98) 100 01/20/20 14:46 58 18 01/20/20 12:00 98.4 73 17 131/80 (97) 100 Intake and Output 01/20/20 01/21/20 19:00 07:00 Intake Total 700 ml Output Total 10 ml 500 ml Balance 690 ml -500 ml Other 700 ml Output Urine Total 500 ml Post Void Residual 10 ml Bladder Scan Volume Amount 11-30 ml No blood drawn today Height (Feet): 5 Height (Inches): 5.00 Weight (Pounds): 85 General Appearance: no apparent distress Objective No change Marvin Martinez MD Jan 21, 2020 10:23
--- NOTE | 2020-01-21 11:24 | NUR ---
RD ASSESSMENT & RECOMMENDATIONS SEE CARE ACTIVITY FOR COMPLETE ASSESSMENT DAILY ESTIMATED NEEDS: Needs based on Underweight/ 45.5kg 30-35 kcals/kg 8733-8977 total kcals 1-1.5 g protein/kg 46-68 g total protein 25-30 mL/kg 9756-3484 total fluid mLs NUTRITION DIAGNOSIS: Increased kcal/prot needs R/T underweight status w/ suspected wt loss, wound healing as evidenced by pt @ 70% IBW w/ low BMI per guidelines, wt loss of 6lbs (possibly >5.7%, significant) in the past month per MD, pt w/ possible DTI @ R buttock pending eval. CURRENT DIET:RENAL PO DIET RECOMMENDATIONS: LOW NA/ texture as tolerated + Ensure Enlive BID w/ meals ADDITIONAL RECOMMENDATIONS: * Daily standing wt as able * Rec liberalized diet of LOW NA as above- renal diet unncessary creat improving (2.0 -> 1.5), many episodes of low K, phos, mag * Skin integrity: add MVI x 1, Vit C 250mg QD/ f/up w/ WC eval * Snacks BID in b/w meals * Ensure BID w/ meals (350kcal/20g prot each) * Monitor for continued good PO intake
--- NOTE | 2020-01-21 11:26 | General Progress Note ---
Subjective Date patient seen: Jan 21, 2020 Time patient seen: 11:00 Allergies: Coded Allergies: No Known Allergies (Unverified , 01/13/20) All Systems: reviewed and negative except above Subjective Feels the same today, denies chest pain or shortness of breath. Good PO intake and good sleep. Objective Last 24 Hour Vital Signs Date Time Temp Pulse Resp B/P (MAP) Pulse Ox O2 Delivery O2 Flow Rate FiO2 01/21/20 09:11 91 121/88 01/21/20 09:00 Room Air 01/21/20 09:00 97.9 72 18 121/88 (99) 96 01/21/20 04:00 97.5 72 18 132/74 (93) 96 01/21/20 00:00 98.2 69 18 129/72 (91) 98 01/20/20 22:03 73 135/75 01/20/20 21:30 Room Air 01/20/20 20:00 97.8 68 19 135/78 (97) 97 01/20/20 16:00 96.9 70 18 133/73 (93) 98 01/20/20 15:45 97.4 66 17 126/78 (94) 99 01/20/20 15:30 97.8 72 18 134/70 (91) 98 01/20/20 15:15 97.3 68 19 128/68 (88) 100 01/20/20 15:10 57 18 130/70 (90) 100 01/20/20 15:05 58 18 136/80 (98) 100 01/20/20 14:46 58 18 01/20/20 12:00 98.4 73 17 131/80 (97) 100 Intake and Output 01/20/20 01/21/20 19:00 07:00 Intake Total 700 ml Output Total 10 ml 500 ml Balance 690 ml -500 ml Other 700 ml Output Urine Total 500 ml Post Void Residual 10 ml Bladder Scan Volume Amount 11-30 ml Height (Feet): 5 Height (Inches): 5.00 Weight (Pounds): 85 General Appearance: WD/WN EENT: PERRL/EOMI Cardiovascular: normal rate Respiratory/Chest: lungs clear 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 Initially, resting images obtained using IV administration 10.8 millicuries 99M technetium Myoview. Subsequently, patient underwent lexiscan stress testing. See cardiology report for details. During Lexiscan infusion, IV administration 31.4 mCi 99 M technetium Myoview. SPECT and planar images obtained. SPECT images gated to 8 phases of the cardiac cycle were also obtained, and reformatted into cine images for evaluation of ejection fraction. Comparison: none Findings: Per cardiology report, patient experienced no symptoms during infusion. Per cardiology report, resting EKG demonstrates normal sinus rhythm with left axis deviation. No ST changes during infusion. . Imaging demonstrates a post stress perfusion defect in the anteroseptal wall which is slightly smaller on the resting images. Calculated post stress ejection fraction 47%. There is slightly decreased wall motion in the septum Impression: Nonischemic clinical response to pharmacologic stress, per cardiology report Nonischemic electrocardiographic response to pharmacologic stress, per cardiology report Partially fixed partially reversible anteroseptal perfusion defect, likely infarct with femi-infarct ischemia Calculated post stress ejection fraction 47% Procedure: CT Chest no Contrast Clinical Indication: Cough, evaluation of abnormalities on recent chest ra diograph Technique: Spiral acquisitions obtained through the chest. No IV contrast utilized, reason not stated. Multiplanar reconstructions generated. Total dose length product 116 mGycm. CTDIvol(s) 2 mGy. Dose reduction achieved using automated exposure control Comparison: none Findings: Multiple masses are seen in the left upper lobe. The largest of these is complex in shape, abuts the anterior mediastinum and anterior chest wall, measures 4.5 x 3.2 cm orthogonal axial dimensions, by 4.6 cm craniocaudad. This demonstrates multiple central cavities, and extends posteromedially along the bronchovascular bundle. At least 5 other lesions are seen in the left upper lobe, largest of which contain central cavities. No left lower lobe lesions are demonstrated. A 12 mm mass is seen in the right upper lobe, and several subcentimeter lesions are noted. An irregular 3.3 x 1.9 cm mass is seen in the right lower lobe, and at least one other is seen at the right lung base. No definite infiltrates. There is equivocally trace pleural fluid on the left. There is generalized mild hyperinflation, and a bulla is seen in the anteromedial right upper lobe. Azygos lobe and fissure are incidentally noted. The heart size is normal. There is no pericardial effusion. No mediastinal or hilar mass or adenopathy. The ascending thoracic aorta is mildly ectatic but not aneurysmal. There is mild edema of the mediastinal fat. The thyroid is unremarkable. No axillary or chest wall mass or adenopathy demonstrated. Numerous surgical clips are seen in the right upper quadrant. Pattern of the clips suggests liver transplant. The stomach is mildly distended with food. The bones are unremarkable. Impression: Multiple bilateral pulmonary masses/nodules the largest of these demonstrate central cavitation. Main differential considerations are infectious inflammatory lesions such as septic emboli, tuberculosis, other mycobacterial infections; noninfectious processes such as rheumatoid, granulomatosis with polyangiitis; metastatic carcinoma, most likely squamous cell carcinoma, gastrointestinal adenocarcinoma, transitional cell bladder carcinoma Mild hyperinflation. Single right upper lobe bulla Postsurgical changes of the liver suggests prior liver transplant. Correlate with surgical history The CT scanner at [facility] is accredited by the [employer] and the scans are performed using protocols designed to limit radiation exposure to as low as reasonably achievable to attain images of sufficient resolution adequate for diagnostic evaluation. Assessment/Plan Status: stable Assessment/Plan: 64 y/o M admitted to the Hospital with: # Generalized weakness Etiology include failure to thrive, vs poor nutritional status vs underlying cardiac etiology based on history of recent NM 2 months ago vs underlying infection vs malignancy. Weight loss 6 lbs in the past month # Moderate protein caloric malnutrition. RD support and monitoring. # Elevated troponin Serial troponin noted to be stable Telemetry with some bigeminy noted and is stable TTE with normal EF Cardiology consulted Dr. Villanueva. Stress test Nuclear without active ischemia noted. Old infarct area noted. No intervention recommended at this time. Lipid panel reviewed. Asa 81 mg daily # CKD stage 3 Trend creatinine Monitor renal function # Hypokalemia Replete and monitor Dr. Cintron renal consultation appreciated. # Hypomagnesemia Replete and monitor # History of liver transplant Resume prograft and cellcept Monitor clinical markers as needed # Abnormal CXR with MULTIPLE NODULES. Patient is Ex- smoker. No hypoxia noted at this time. CT CHEST WITH Multiple bilateral pulmonary masses/nodules the largest of these demonstrate central cavitation. Main differential considerations are infectious inflammatory lesions such as septic emboli, tuberculosis, other mycobacterial infections; noninfectious processes such as rheumatoid, granulomatosis with polyangiitis; metastatic carcinoma, most likely squamous cell carcinoma, gastrointestinal adenocarcinoma, transitional cell bladder carcinoma Pulmonary consultation and infectious disease consultation with Dr. Hill and Greta tumor markers, PSA, AFP, CEA Per Dr. Hernandes empiric ZYvox, Cefepime and Azithromycin started 01/17/20 DAY 4 -f/u cx -Monitor CBC/C MP, temperatures -airborne isolation: AFB sp cx x3, MTB PCR -COVID PCR, histo, blasto, cocci, CrAg, legionella ag urine, sp cx IR CT GUIDED LUNG BIOPSY 01/19 Follow up pathology. PENDING. # Generalized weakness PT evaluation for baseline recommends SNF for short term rehab. Request placed. When medically stable will dc to SNF when medically stable. DVT ppx with Enoxaparin GI ppx with PPI FULL CODE Piyush Cruz MD Jan 21, 2020 11:25
--- NOTE | 2020-01-21 11:55 | Cardiac Electrophysiology PN ---
Assessment/Plan Assessment/Plan 1. Troponin elevation. All levels are low level and similar at 0.4 due to renal failure The patient does not have any chest pain. EKG does not show any acute ST-T wave abnormalities. Continue aspirin, beta-awa, and low-dose statin. Echo Nl EF 55% Stress test showed "Partially fixed partially reversible anteroseptal perfusion defect, likely infarct with femi-infarct ischemia". Treat medically specially no chest pain and renal failure and cardiac cath put him at risk of HD 2. Status post liver transplant. Already on Prograf and CellCept. 3. Generalized weakness. 4. Elevated white count of 12,000. 5. Hypokalemia. Potassium of 3. 6. Chronic kidney disease with BUN of 47 and creatinine of 2.0. 7. Bilateral cavitary pulmonary nodules. S/P CT-guided lung biopsy. Results pending. May need bronchoscopy. FU Dr Liz LIN RN and Dr Cruz Subjective Subjective No CP or SOB EF 55%. Stress test showed "Partially fixed partially reversible anteroseptal perfusion defect, likely infarct with femi-infarct ischemia S/P Lung biopsy yesterday. Results pending Objective Last 24 Hour Vital Signs Date Time Temp Pulse Resp B/P (MAP) Pulse Ox O2 Delivery O2 Flow Rate FiO2 01/21/20 09:11 91 121/88 01/21/20 09:00 Room Air 01/21/20 09:00 97.9 72 18 121/88 (99) 96 01/21/20 04:00 97.5 72 18 132/74 (93) 96 01/21/20 00:00 98.2 69 18 129/72 (91) 98 01/20/20 22:03 73 135/75 01/20/20 21:30 Room Air 01/20/20 20:00 97.8 68 19 135/78 (97) 97 01/20/20 16:00 96.9 70 18 133/73 (93) 98 01/20/20 15:45 97.4 66 17 126/78 (94) 99 01/20/20 15:30 97.8 72 18 134/70 (91) 98 01/20/20 15:15 97.3 68 19 128/68 (88) 100 01/20/20 15:10 57 18 130/70 (90) 100 01/20/20 15:05 58 18 136/80 (98) 100 01/20/20 14:46 58 18 01/20/20 12:00 98.4 73 17 131/80 (97) 100 Intake and Output 01/20/20 01/21/20 19:00 07:00 Intake Total 700 ml Output Total 10 ml 500 ml Balance 690 ml -500 ml Other 700 ml Output Urine Total 500 ml Post Void Residual 10 ml Bladder Scan Volume Amount 11-30 ml Objective HEAD AND NECK: Showed no JVD. LUNGS: Clear. CARDIOVASCULAR: Shows regular S1 and S2 with no gallop. ABDOMEN: Soft and nontender and scar of liver surgery in the right upper abdomen for liver transplant. EXTREMITIES: No pitting edema. Greg Villanueva MD Jan 21, 2020 11:55
[2020-01-21 12:00] VITALS: BP 130/70
--- NOTE | 2020-01-21 12:02 | Infectious Diseases Prog Note ---
Assessment/Plan Assessment: Pulmonary nodules- r/o malignancy vs infectious (TB, fungal), septic emboli -01/[address] guided biopsy -CT chest wo: Multiple bilateral pulmonary masses/nodules the largest of these demonstrate central cavitation. Main differential considerations are infectious inflammatory lesions such as septic emboli, tuberculosis, other mycobacterial infections; noninfectious processes such as rheumatoid, granulomatosis with polyangiitis; metastatic carcinoma, most likely squamous cell carcinoma, gastrointestinal adenocarcinoma, transitional cell bladder carcinoma. Mild hyperinflation. Single right upper lobe bulla, Postsurgical changes of the liver suggests prior liver transplant. Correlate with surgical history -CXR: Bilateral lung nodules. These are worrisome for metastatic deposits. Septic emboli also a possibility. Correlate with clinical history and findings. Mild hyperinflation, likely COPD. -2d echo: no vegetations -HIV ab screen neg, rapid COVID PCR, urine legionella ag, M. pna IgM neg Afebrile No leukocytosis -u/a neg -Bcx NTD JOAN on CKD, improving -Renal US: Trace left perinephric fluid, nonspecific. Bilateral renal cysts. Negative for hydronephrosis. Liver transplant (at [facility]) 2006 on prograf and cellcept HTN COPD ?recent NSTEMI Plan: -Cont empiric ZYvox, Cefepime and Azithromycin #5 -f/u cx -Monitor CBC/C MP, temperatures -airborne isolation: AFB sp cx x3, MTB PCR -f/u histo, blasto, cocci, CrAg, sp cx -May need bronch if not able to expectorate sputum - if bacteremic, may need LORENA -f/u biopsy results Thank you for consulting [facility]. Will continue to follow along with you. Discussed with RN and infection control Subjective Allergies: Coded Allergies: No Known Allergies (Unverified , 01/13/20) afebrile at [facility] no leukocytosis sp CT guided lung biopsy yesterday Objective Last 24 Hour Vital Signs Date Time Temp Pulse Resp B/P (MAP) Pulse Ox O2 Delivery O2 Flow Rate FiO2 01/21/20 09:11 91 121/88 01/21/20 09:00 Room Air 01/21/20 09:00 97.9 72 18 121/88 (99) 96 01/21/20 04:00 97.5 72 18 132/74 (93) 96 11/10/20 00:00 98.2 69 18 129/72 (91) 98 01/20/20 22:03 73 135/75 01/20/20 21:30 Room Air 01/20/20 20:00 97.8 68 19 135/78 (97) 97 01/20/20 16:00 96.9 70 18 133/73 (93) 98 01/20/20 15:45 97.4 66 17 126/78 (94) 99 01/20/20 15:30 97.8 72 18 134/70 (91) 98 01/20/20 15:15 97.3 68 19 128/68 (88) 100 01/20/20 15:10 57 18 130/70 (90) 100 01/20/20 15:05 58 18 136/80 (98) 100 01/20/20 14:46 58 18 01/20/20 12:00 98.4 73 17 131/80 (97) 100 Height (Feet): 5 Height (Inches): 5.00 Weight (Pounds): 85 General Appearance: WD/WN Lines, tubes and drains: peripheral HEENT: normocephalic, atraumatic Neck: non-tender Respiratory/Chest: lungs clear Cardiovascular/Chest: normal peripheral pulses Abdomen: non tender Current Medications Medications (Trade) Dose Ordered Sig/Quynh Route PRN Reason Start Time Stop Time Status Last Admin Dose Admin Acetaminophen (Tylenol) 650 mg Q4H PRN ORAL Mild Pain (Pain Scale 1-3) 01/13/20 14:30 02/12/20 14:29 Aspirin (ASA) 81 mg DAILY ORAL 01/14/20 09:00 02/28/20 08:59 01/21/20 09:10 Azithromycin (Zithromax) 500 mg DAILY ORAL 01/17/20 16:00 01/24/20 15:59 01/21/20 09:10 Cefepime HCl 1 gm/ Dextrose 55 ml @ 110 mls/hr Q24H IVPB 01/17/20 18:00 01/24/20 17:59 01/20/20 17:41 Dextrose (Dextrose 50%) 25 ml Q30M PRN IV Hypoglycemia 01/13/20 14:30 04/12/20 14:29 Dextrose (Dextrose 50%) 50 ml Q30M PRN IV Hypoglycemia 01/13/20 14:30 04/12/20 14:29 Docusate Sodium (Colace) 100 mg EVERY 12 HOURS ORAL 01/13/20 21:00 02/12/20 20:59 01/21/20 09:10 Heparin Sodium (Porcine) (Heparin 5000 units/ml) 5,000 units EVERY 12 HOURS SUBQ 01/13/20 21:00 02/27/20 20:59 01/21/20 09:12 Linezolid (Zyvox) 600 mg EVERY 12 HOURS ORAL 01/17/20 16:00 01/22/20 15:59 01/21/20 09:10 Metoprolol Tartrate (Lopressor) 25 mg EVERY 12 HOURS ORAL 01/13/20 21:00 04/12/20 20:59 01/21/20 09:11 Mycophenolate Mofetil (Cellcept) 1,000 mg TWICE A DAY ORAL 01/13/20 18:00 04/12/20 17:59 01/21/20 09:10 Nitroglycerin (Ntg) 0.4 mg Q5M PRN SL Prn Chest Pain 01/13/20 14:30 02/12/20 14:29 Ondansetron HCl (Zofran) 4 mg Q6H PRN IVP Nausea & Vomiting 01/13/20 14:30 02/12/20 14:29 Pantoprazole (Protonix) 40 mg BID ORAL 01/15/20 18:00 02/13/20 08:59 01/21/20 09:10 Tacrolimus (Prograf) 1 mg EVERY 12 HOURS ORAL 01/13/20 21:00 04/12/20 20:59 01/21/20 09:10 Alie Hernandes M.D. Jan 21, 2020 12:02
--- NOTE | 2020-01-21 14:02 | NUR ---
PT WEEKLY PROGRESS NOTE Patient being seen by PT for therapeutic exercises, bed mobility and transfer training and gait training. Patient able to perform bed mobility with supervision and to transfer with supervision/SBA and no assistive device. Patient able to ambulate 100 ft with SBA, no assistive device. Patient will benefit from continued skilled inpatient PT intervention to increase strength and postural stability for improved level of functional mobility and for safety.
[2020-01-21 16:00] VITALS: BP 126/78
[2020-01-21] MEDS: Cefepime HCl 1 GM in D5W 55 ML IVPB SCH (17:34)
--- NOTE | 2020-01-21 19:20 | NUR ---
NURSE NOTES: received report from jalen combs. patient on bed awake and verbally responsive. on room air. no sob. ambulates. denies any pain or discomfort. per garret, " still needs to collect specimen for acid fast smear and for culture". went to the room with garret. patient has collected specimen on the cup. per patient, "i have no phlegm but i tried to collect it.", will send to the lab. reiterated to call and ask for assistance. call light and light button within easy reach. will continue plan of care.
--- NOTE | 2020-01-21 19:28 | NUR ---
HAND-OFF: Report given to JADE Maldonado.
[2020-01-21 20:00] VITALS: BP 126/80
--- NOTE | 2020-01-21 21:00 | NUR ---
NURSE NOTES: specimen sent to the lab. charge nurse made aware
[2020-01-22] VITALS: BP 125/75
[2020-01-22 04:00] VITALS: BP 130/82
[2020-01-22 05:43] LABS: EOSINOPHILS % (AUTO) 1.7 % (0.0-3.0); HEMATOCRIT 32.7 % (42.0-52.0); HEMOGLOBIN 10.4 G/DL (14.2-18.0); LYMPHOCYTES % (AUTO) 12.4 % (20.0-45.0); MEAN CORPUSCULAR VOLUME 106 FL (80-99); MONOCYTES % (AUTO) 6.7 % (1.0-10.0); NEUTROPHILS % (AUTO) 78.1 % (45.0-75.0); PLATELET COUNT 227 K/UL (150-450); RED BLOOD COUNT 3.09 M/UL (4.70-6.10); WHITE BLOOD COUNT 5.4 K/UL (4.8-10.8)
--- NOTE | 2020-01-22 06:25 | NUR ---
NURSE HAND-OFF: Important Events on Shift: SPUTUM SPECIMEN COLLECTED X 1; SAFETY Patient Status: STABLE Diet: REGULAR Pending Orders: ACID FAST SMEAR; CX CSF Pending Results/Labs: Pending MD notification: Latest Vital Signs: Temperature 97.5 , Pulse 69 , B/P 130 /82 , Respiratory Rate 19 , O2 SAT 97 , Room Air, O2 Flow Rate . Vital Sign Comment: Latest Padron Fall Score: 35 Fall Risk: Medium Risk Safety Measures: Call light Within Reach, Bed Alarm Zone 1, Side Rails Side Rails x2, Bed position Low and Locked. Fall Precautions: Yellow Socks Yellow Gown Door Sign Patient Fall Education
[2020-01-22 06:26] LABS: ALBUMIN 2.3 G/DL (3.4-5.0); ALBUMIN/GLOBULIN RATIO 0.7 (1.0-2.7); BILIRUBIN,TOTAL 0.8 MG/DL (0.2-1.0); CALCIUM 8.6 MG/DL (8.5-10.1); CREATININE 1.7 MG/DL (0.55-1.30); PHOSPHORUS 3.1 MG/DL (2.5-4.9); POTASSIUM 3.9 MMOL/L (3.5-5.1)
--- NOTE | 2020-01-22 07:20 | NUR ---
NURSE NOTES: Report received from JADE Maldonado. Patient awake in bed, alert and oriented x 4, no SOB, bed in lowest position with breaks engaged and alarm on, denies any pain or discomfort at this time, IV line on left FA noted. On airborne precautions. Will continue to monitor and proceed with plan of care. Call light within reach.
--- NOTE | 2020-01-22 07:20 | NUR ---
HAND-OFF: Report given to jalen combs.
[2020-01-22 08:00] VITALS: BP 112/65
[2020-01-22] MEDS: Mycophenolate 250mg cap ORAL SCH ×2 (08:10→17:16)
[2020-01-22] MEDS: Aspirin Baby 81mg ORAL SCH (08:10)
[2020-01-22] MEDS: Docusate 100mg cap ORAL SCH ×2 (08:10→20:50)
[2020-01-22] MEDS: Azithromycin 250mg tab ORAL SCH (08:11)
[2020-01-22] MEDS: Heparin 5000 units/ml inj SUBQ SCH ×2 (08:12→20:52)
--- NOTE | 2020-01-22 08:52 | Urology Progress Note ---
Assessment/Plan Status: stable Assessment/Plan: 1. Elevated serum PSA. 2. BPH. 3. Mild lower urinary tract symptoms. 4. Rule out neurogenic bladder. 5. Renal insufficiency, acute on chronic. 6. Proteinuria. 7. Renal cyst. monitor clinically consider adding flomax f/u on PVR prostate MRI and/or biopsy at some point on abx lung mets, s/p bx, f/u on path monitor renal fxn Subjective Allergies: Coded Allergies: No Known Allergies (Unverified , 01/13/20) Subjective all noted, feels fair voiding, PVR ? s/p lung bx 01/19 Objective Last 24 Hour Vital Signs Date Time Temp Pulse Resp B/P (MAP) Pulse Ox O2 Delivery O2 Flow Rate FiO2 01/22/20 08:10 69 130/82 01/22/20 04:00 97.5 69 19 130/82 (98) 97 01/22/20 00:00 96.8 66 18 125/75 (92) 98 01/21/20 21:00 Room Air 01/21/20 20:45 66 126/80 01/21/20 20:00 97.5 66 18 126/80 (95) 96 01/21/20 16:00 97.4 75 17 126/78 (94) 99 01/21/20 12:00 98.8 60 19 130/70 (90) 100 01/21/20 09:11 91 121/88 01/21/20 09:00 Room Air 01/21/20 09:00 97.9 72 18 121/88 (99) 96 Intake and Output 01/21/20 01/22/20 19:00 07:00 Intake Total 500 ml 180 ml Balance 500 ml 180 ml Intake Oral 180 ml Other 500 ml Bladder Scan Volume Amount <10 ml # Voids 3 Microbiology Date/Time Source Procedure Growth Status 01/17/20 16:30 Nasopharynx SARS-CoV-2 RdRp Gene Assay - Final Complete 01/13/20 11:50 Blood Blood Culture - Final NO GROWTH AFTER 5 DAYS Complete Current Medications Medications (Trade) Dose Ordered Sig/Quynh Route PRN Reason Start Time Stop Time Status Last Admin Dose Admin Acetaminophen (Tylenol) 650 mg Q4H PRN ORAL Mild Pain (Pain Scale 1-3) 01/13/20 14:30 02/12/20 14:29 Aspirin (ASA) 81 mg DAILY ORAL 01/14/20 09:00 02/28/20 08:59 01/22/20 08:10 Azithromycin (Zithromax) 500 mg DAILY ORAL 01/17/20 16:00 01/24/20 15:59 01/22/20 08:11 Cefepime HCl 1 gm/ Dextrose 55 ml @ 110 mls/hr Q24H IVPB 01/17/20 18:00 01/24/20 17:59 01/21/20 17:34 Dextrose (Dextrose 50%) 25 ml Q30M PRN IV Hypoglycemia 01/13/20 14:30 04/12/20 14:29 Dextrose (Dextrose 50%) 50 ml Q30M PRN IV Hypoglycemia 01/13/20 14:30 04/12/20 14:29 Docusate Sodium (Colace) 100 mg EVERY 12 HOURS ORAL 01/13/20 21:00 02/12/20 20:59 01/22/20 08:10 Heparin Sodium (Porcine) (Heparin 5000 units/ml) 5,000 units EVERY 12 HOURS SUBQ 01/13/20 21:00 02/27/20 20:59 01/22/20 08:12 Linezolid (Zyvox) 600 mg EVERY 12 HOURS ORAL 01/17/20 16:00 01/26/20 23:59 01/22/20 08:10 Metoprolol Tartrate (Lopressor) 25 mg EVERY 12 HOURS ORAL 01/13/20 21:00 04/12/20 20:59 01/22/20 08:10 Mycophenolate Mofetil (Cellcept) 1,000 mg TWICE A DAY ORAL 01/13/20 18:00 04/12/20 17:59 01/22/20 08:10 Nitroglycerin (Ntg) 0.4 mg Q5M PRN SL Prn Chest Pain 01/13/20 14:30 02/12/20 14:29 Ondansetron HCl (Zofran) 4 mg Q6H PRN IVP Nausea & Vomiting 01/13/20 14:30 02/12/20 14:29 Pantoprazole (Protonix) 40 mg BID ORAL 01/15/20 18:00 02/13/20 08:59 01/22/20 08:10 Tacrolimus (Prograf) 1 mg EVERY 12 HOURS ORAL 01/13/20 21:00 04/12/20 20:59 01/22/20 08:11 Laboratory Tests 01/22/20 04:54: White Blood Count 5.4, Red Blood Count 3.09L, Hemoglobin 10.4L, Hematocrit 32.7L , Mean Corpuscular Volume 106H, Mean Corpuscular Hemoglobin 33.5H, Mean Corpuscular Hemoglobin Concent 31.6L, Red Cell Distribution Width 14.0, Platelet Count 227, Mean Platelet Volume 6.1L, Neutrophils (%) (Auto) 78.1H, Lymphocytes (%) (Auto) 12.4L, Monocytes (%) (Auto) 6.7, Eosinophils (%) (Auto) 1.7, Basophils (%) (Auto) 1.0, Sodium Level 137, Potassium Level 3.9, Chloride Level 106, Carbon Dioxide Level 23, Anion Gap 8, Blood Urea Nitrogen 26H, Creatinine 1.7H, Estimat Glomerular Filtration Rate 40.5, Glucose Level 83, Uric Acid 6.2, Calcium Level 8.6, Phosphorus Level 3.1, Magnesium Level 2.0, Total Bilirubin 0.8, Aspartate Amino Transf (AST/SGOT) 70H, Alanine Aminotransferase (ALT/SGPT) 60, Alkaline Phosphatase 499H, C-Reactive Protein, Quantitative 2.0H, Total Protein 5.5L, Albumin 2.3L, Globulin 3.2, Albumin/Globulin Ratio 0.7L Height (Feet): 5 Height (Inches): 5.00 Weight (Pounds): 85 Objective exam stable Corona Hernandez MD Jan 22, 2020 08:52
--- NOTE | 2020-01-22 09:43 | Pulmonology Progress Note ---
Subjective ROS Limited/Unobtainable: No Interval Events: S/p CT chest/biopsy Constitutional: Reports: no symptoms HEENT: Repors: no symptoms Respiratory: Reports: no symptoms Cardiovascular: Reports: no symptoms Gastrointestinal/Abdominal: Reports: no symptoms Allergies: Coded Allergies: No Known Allergies (Unverified , 01/13/20) All Systems: reviewed and negative except above Objective Last 24 Hour Vital Signs Date Time Temp Pulse Resp B/P (MAP) Pulse Ox O2 Delivery O2 Flow Rate FiO2 01/22/20 08:10 69 130/82 01/22/20 04:00 97.5 69 19 130/82 (98) 97 01/22/20 00:00 96.8 66 18 125/75 (92) 98 01/21/20 21:00 Room Air 01/21/20 20:45 66 126/80 01/21/20 20:00 97.5 66 18 126/80 (95) 96 01/21/20 16:00 97.4 75 17 126/78 (94) 99 01/21/20 12:00 98.8 60 19 130/70 (90) 100 Intake and Output 01/21/20 01/22/20 19:00 07:00 Intake Total 500 ml 180 ml Balance 500 ml 180 ml Intake Oral 180 ml Other 500 ml Bladder Scan Volume Amount <10 ml # Voids 3 General Appearance: no acute distress HEENT: normocephalic Respiratory: chest wall non-tender, lungs clear Cardiovascular: normal peripheral pulses, normal rate Abdomen: normal bowel sounds Laboratory Tests 01/22/20 04:54: White Blood Count 5.4, Red Blood Count 3.09L, Hemoglobin 10.4L, Hematocrit 32.7L , Mean Corpuscular Volume 106H, Mean Corpuscular Hemoglobin 33.5H, Mean Corpuscular Hemoglobin Concent 31.6L, Red Cell Distribution Width 14.0, Platelet Count 227, Mean Platelet Volume 6.1L, Neutrophils (%) (Auto) 78.1H, Lymphocytes (%) (Auto) 12.4L, Monocytes (%) (Auto) 6.7, Eosinophils (%) (Auto) 1.7, Basophils (%) (Auto) 1.0, Sodium Level 137, Potassium Level 3.9, Chloride Level 106, Carbon Dioxide Level 23, Anion Gap 8, Blood Urea Nitrogen 26H, Creatinine 1.7H, Estimat Glomerular Filtration Rate 40.5, Glucose Level 83, Uric Acid 6.2, Calcium Level 8.6, Phosphorus Level 3.1, Magnesium Level 2.0, Total Bilirubin 0.8, Aspartate Amino Transf (AST/SGOT) 70H, Alanine Aminotransferase (ALT/SGPT) 60, Alkaline Phosphatase 499H, C-Reactive Protein, Quantitative 2.0H, Total Protein 5.5L, Albumin 2.3L, Globulin 3.2, Albumin/Globulin Ratio 0.7L Current Medications Medications (Trade) Dose Ordered Sig/Quynh Route PRN Reason Start Time Stop Time Status Last Admin Dose Admin Acetaminophen (Tylenol) 650 mg Q4H PRN ORAL Mild Pain (Pain Scale 1-3) 01/13/20 14:30 02/12/20 14:29 Aspirin (ASA) 81 mg DAILY ORAL 01/14/20 09:00 02/28/20 08:59 01/22/20 08:10 Azithromycin (Zithromax) 500 mg DAILY ORAL 01/17/20 16:00 01/24/20 15:59 01/22/20 08:11 Cefepime HCl 1 gm/ Dextrose 55 ml @ 110 mls/hr Q24H IVPB 01/17/20 18:00 01/24/20 17:59 01/21/20 17:34 Dextrose (Dextrose 50%) 25 ml Q30M PRN IV Hypoglycemia 01/13/20 14:30 04/12/20 14:29 Dextrose (Dextrose 50%) 50 ml Q30M PRN IV Hypoglycemia 01/13/20 14:30 04/12/20 14:29 Docusate Sodium (Colace) 100 mg EVERY 12 HOURS ORAL 01/13/20 21:00 02/12/20 20:59 01/22/20 08:10 Heparin Sodium (Porcine) (Heparin 5000 units/ml) 5,000 units EVERY 12 HOURS SUBQ 01/13/20 21:00 02/27/20 20:59 01/22/20 08:12 Linezolid (Zyvox) 600 mg EVERY 12 HOURS ORAL 01/17/20 16:00 01/26/20 23:59 01/22/20 08:10 Metoprolol Tartrate (Lopressor) 25 mg EVERY 12 HOURS ORAL 01/13/20 21:00 04/12/20 20:59 01/22/20 08:10 Mycophenolate Mofetil (Cellcept) 1,000 mg TWICE A DAY ORAL 01/13/20 18:00 04/12/20 17:59 01/22/20 08:10 Nitroglycerin (Ntg) 0.4 mg Q5M PRN SL Prn Chest Pain 01/13/20 14:30 02/12/20 14:29 Ondansetron HCl (Zofran) 4 mg Q6H PRN IVP Nausea & Vomiting 01/13/20 14:30 02/12/20 14:29 Pantoprazole (Protonix) 40 mg BID ORAL 01/15/20 18:00 02/13/20 08:59 01/22/20 08:10 Tacrolimus (Prograf) 1 mg EVERY 12 HOURS ORAL 01/13/20 21:00 04/12/20 20:59 01/22/20 08:11 Assessment/Plan Assessment/Plan IMPRESSION: 1. Bilateral cavitary pulmonary nodules. 2. History of liver transplant, on immunosuppressives. 3. CAD. DISCUSSION: Discussed with Dr. Cruz. S/p CT-guided lung biopsy. May need bronchoscopy if CT biopsy is non-diagnostic OK to dc home/SNF . Await cultures and serology. I will follow. Reinier Leo Omar Syed MD Jan 22, 2020 09:43
--- NOTE | 2020-01-22 10:50 | Nephrology Progress Note ---
Assessment/Plan Problem List: (1) Hypokalemia (2) Renal failure (ARF), acute on chronic (3) Elevated troponin (4) Anemia Assessment Persistent hypokalemia, etiology unclear. No report of diarrhea. Renal failure with serum creatinine of 1.7, most likely chronic Elevated troponin Anemia Hypoalbuminemia Status post liver transplant. On Prograf and CellCept Leukocytosis COPD EjFx 55% Plan January 21: Serum creatinine up to 1.7. Continue per consultants. Continue to monitor renal parameters. January 20: No blood drawn today. Continue per consultants. Check labs tomorrow. January 19: Labs reviewed. Magnesium replaced. Other electrolyte abnormalities addressed. Serum creatinine down to 1.5. January 18: Labs reviewed. Low potassium replaced. Continue to monitor electrolytes and renal parameters. Serum creatinine 1.6. January 17: Renal parameters stable. Continue per current management. Work-up of bilateral cavitary pulmonary nodules in process January 16: Serum creatinine lowering from 2 on admission to 1.[address] scan of the chest noted. Will discuss with Dr. Cruz regarding the pulmonary evaluation. Continue current management. Previously: Potassium supplement p.o. and IV Urine spot sodium Urine spot potassium Kidney ultrasound, pending 2D echocardiogram EjFx 55% Monitor renal parameters Will order CT of the chest with no contrast Chest x-ray impression: Bilateral lung nodules. These are worrisome for metastatic deposits. Septic emboli also a possibility. Mild hyperinflation, likely COPD. Subjective ROS Limited/Unobtainable: No Constitutional: Reports: malaise Objective Objective Last 24 Hour Vital Signs Date Time Temp Pulse Resp B/P (MAP) Pulse Ox O2 Delivery O2 Flow Rate FiO2 01/22/20 09:00 Room Air 01/22/20 08:10 69 130/82 01/22/20 08:00 96.4 60 19 112/65 (81) 100 01/22/20 04:00 97.5 69 19 130/82 (98) 97 01/22/20 00:00 96.8 66 18 125/75 (92) 98 01/21/20 21:00 Room Air 01/21/20 20:45 66 126/80 01/21/20 20:00 97.5 66 18 126/80 (95) 96 01/21/20 16:00 97.4 75 17 126/78 (94) 99 01/21/20 12:00 98.8 60 19 130/70 (90) 100 Intake and Output 01/21/20 01/22/20 19:00 07:00 Intake Total 500 ml 180 ml Balance 500 ml 180 ml Intake Oral 180 ml Other 500 ml Bladder Scan Volume Amount <10 ml # Voids 3 Current Medications Medications (Trade) Dose Ordered Sig/Quynh Route PRN Reason Start Time Stop Time Status Last Admin Dose Admin Acetaminophen (Tylenol) 650 mg Q4H PRN ORAL Mild Pain (Pain Scale 1-3) 01/13/20 14:30 02/12/20 14:29 Aspirin (ASA) 81 mg DAILY ORAL 01/14/20 09:00 02/28/20 08:59 01/22/20 08:10 Azithromycin (Zithromax) 500 mg DAILY ORAL 01/17/20 16:00 01/24/20 15:59 01/22/20 08:11 Cefepime HCl 1 gm/ Dextrose 55 ml @ 110 mls/hr Q24H IVPB 01/17/20 18:00 01/24/20 17:59 01/21/20 17:34 Dextrose (Dextrose 50%) 25 ml Q30M PRN IV Hypoglycemia 01/13/20 14:30 04/12/20 14:29 Dextrose (Dextrose 50%) 50 ml Q30M PRN IV Hypoglycemia 01/13/20 14:30 04/12/20 14:29 Docusate Sodium (Colace) 100 mg EVERY 12 HOURS ORAL 01/13/20 21:00 02/12/20 20:59 01/22/20 08:10 Heparin Sodium (Porcine) (Heparin 5000 units/ml) 5,000 units EVERY 12 HOURS SUBQ 01/13/20 21:00 02/27/20 20:59 01/22/20 08:12 Linezolid (Zyvox) 600 mg EVERY 12 HOURS ORAL 01/17/20 16:00 01/26/20 23:59 01/22/20 08:10 Metoprolol Tartrate (Lopressor) 25 mg EVERY 12 HOURS ORAL 01/13/20 21:00 04/12/20 20:59 01/22/20 08:10 Mycophenolate Mofetil (Cellcept) 1,000 mg TWICE A DAY ORAL 01/13/20 18:00 04/12/20 17:59 01/22/20 08:10 Nitroglycerin (Ntg) 0.4 mg Q5M PRN SL Prn Chest Pain 01/13/20 14:30 02/12/20 14:29 Ondansetron HCl (Zofran) 4 mg Q6H PRN IVP Nausea & Vomiting 01/13/20 14:30 02/12/20 14:29 Pantoprazole (Protonix) 40 mg BID ORAL 01/15/20 18:00 02/13/20 08:59 01/22/20 08:10 Tacrolimus (Prograf) 1 mg EVERY 12 HOURS ORAL 01/13/20 21:00 04/12/20 20:59 01/22/20 08:11 Laboratory Tests 01/22/20 04:54: White Blood Count 5.4, Red Blood Count 3.09L, Hemoglobin 10.4L, Hematocrit 32.7L , Mean Corpuscular Volume 106H, Mean Corpuscular Hemoglobin 33.5H, Mean Corpuscular Hemoglobin Concent 31.6L, Red Cell Distribution Width 14.0, Platelet Count 227, Mean Platelet Volume 6.1L, Neutrophils (%) (Auto) 78.1H, Lymphocytes (%) (Auto) 12.4L, Monocytes (%) (Auto) 6.7, Eosinophils (%) (Auto) 1.7, Basophils (%) (Auto) 1.0, Sodium Level 137, Potassium Level 3.9, Chloride Level 106, Carbon Dioxide Level 23, Anion Gap 8, Blood Urea Nitrogen 26H, Creatinine 1.7H, Estimat Glomerular Filtration Rate 40.5, Glucose Level 83, Uric Acid 6.2, Calcium Level 8.6, Phosphorus Level 3.1, Magnesium Level 2.0, Total Bilirubin 0.8, Aspartate Amino Transf (AST/SGOT) 70H, Alanine Aminotransferase (ALT/SGPT) 60, Alkaline Phosphatase 499H, C-Reactive Protein, Quantitative 2.0H, Total Protein 5.5L, Albumin 2.3L, Globulin 3.2, Albumin/Globulin Ratio 0.7L Height (Feet): 5 Height (Inches): 5.00 Weight (Pounds): 85 General Appearance: no apparent distress Respiratory/Chest: decreased breath sounds Objective No change Marvin Martinez MD Jan 22, 2020 10:50
--- NOTE | 2020-01-22 11:30 | NUR ---
NURSE NOTES: Sputum sent to lab for AFB #3. Patient expectorated.
--- NOTE | 2020-01-22 11:35 | Infectious Diseases Prog Note ---
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 Main differential considerations are infectious inflammatory lesions such as septic emboli, tuberculosis, other mycobacterial infections; noninfectious processes such as rheumatoid, granulomatosis with polyangiitis; metastatic carcinoma, most likely squamous cell carcinoma, gastrointestinal adenocarcinoma, transitional cell bladder carcinoma. Mild hyperinflation. Single right upper lobe bulla, Postsurgical changes of the liver suggests prior liver transplant. Correlate with surgical history -CXR: Bilateral lung nodules. These are worrisome for metastatic deposits. Septic emboli also a possibility. Correlate with clinical history and findings. Mild hyperinflation, likely COPD. -2d echo: no vegetations -HIV ab screen neg, rapid COVID PCR, urine legionella ag, M. 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 Bilateral renal cysts. Negative for hydronephrosis. 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 Patient had his transplant in [facility]. I discussed with Dr Cruz and Michell from medical case worker to initiate request for transfer -await final path- fungal and AFB stains -f/u cx -Monitor CBC/C MP, temperatures -airborne isolation: AFB sp cx x3, MTB PCR -f/u histo ag urine, cocci, CrAg, sp cx -May need bronch if not able to expectorate sputum - if bacteremic, may need LORENA -f/u biopsy results Thank you for consulting [facility]. Will continue to follow along with bebeto lopze. Discussed with RN, Dr Cruz, pathologist, medical case worker and lab staff. Subjective Allergies: Coded Allergies: No Known Allergies (Unverified , 01/13/20) afebrile prelim lung biopsy necrosis Objective Last 24 Hour Vital Signs Date Time Temp Pulse Resp B/P (MAP) Pulse Ox O2 Delivery O2 Flow Rate FiO2 01/22/20 09:00 Room Air 01/22/20 08:10 69 130/82 01/22/20 08:00 96.4 60 19 112/65 (81) 100 01/22/20 04:00 97.5 69 19 130/82 (98) 97 01/22/20 00:00 96.8 66 18 125/75 (92) 98 01/21/20 21:00 Room Air 01/21/20 20:45 66 126/80 01/21/20 20:00 97.5 66 18 126/80 (95) 96 01/21/20 16:00 97.4 75 17 126/78 (94) 99 01/21/20 12:00 98.8 60 19 130/70 (90) 100 Height (Feet): 5 Height (Inches): 5.00 Weight (Pounds): 85 General Appearance: WD/WN Lines, tubes and drains: peripheral HEENT: normocephalic, atraumatic Neck: non-tender Respiratory/Chest: lungs clear Cardiovascular/Chest: normal peripheral pulses Abdomen: non tender Laboratory Tests Test 01/22/20 04:54 White Blood Count 5.4 K/UL (4.8-10.8) Red Blood Count 3.09 M/UL (4.70-6.10) L Hemoglobin 10.4 G/DL (14.2-18.0) L Hematocrit 32.7 % (42.0-52.0) L Mean Corpuscular Volume 106 FL (80-99) H Mean Corpuscular Hemoglobin 33.5 PG (27.0-31.0) H Mean Corpuscular Hemoglobin Concent 31.6 G/DL (32.0-36.0) L Red Cell Distribution Width 14.0 % (11.6-14.8) Platelet Count 227 K/UL (150-450) Mean Platelet Volume 6.1 FL (6.5-10.1) L Neutrophils (%) (Auto) 78.1 % (45.0-75.0) H Lymphocytes (%) (Auto) 12.4 % (20.0-45.0) L Monocytes (%) (Auto) 6.7 % (1.0-10.0) Eosinophils (%) (Auto) 1.7 % (0.0-3.0) Basophils (%) (Auto) 1.0 % (0.0-2.0) Sodium Level 137 MMOL/L (136-145) Potassium Level 3.9 MMOL/L (3.5-5.1) Chloride Level 106 MMOL/L (98-107) Carbon Dioxide Level 23 MMOL/L (21-32) Anion Gap 8 mmol/L (5-15) Blood Urea Nitrogen 26 mg/dL (7-18) H Creatinine 1.7 MG/DL (0.55-1.30) H Estimat Glomerular Filtration Rate 40.5 mL/min (>60) Glucose Level 83 MG/DL (74-106) Uric Acid 6.2 MG/DL (2.6-7.2) Calcium Level 8.6 MG/DL (8.5-10.1) Phosphorus Level 3.1 MG/DL (2.5-4.9) Magnesium Level 2.0 MG/DL (1.8-2.4) Total Bilirubin 0.8 MG/DL (0.2-1.0) Aspartate Amino Transf (AST/SGOT) 70 U/L (15-37) H Alanine Aminotransferase (ALT/SGPT) 60 U/L (12-78) Alkaline Phosphatase 499 U/L (46-116) H C-Reactive Protein, Quantitative 2.0 mg/dL (0.00-0.90) H Total Protein 5.5 G/DL (6.4-8.2) L Albumin 2.3 G/DL (3.4-5.0) L Globulin 3.2 g/dL Albumin/Globulin Ratio 0.7 (1.0-2.7) L Current Medications Medications (Trade) Dose Ordered Sig/Quynh Route PRN Reason Start Time Stop Time Status Last Admin Dose Admin Acetaminophen (Tylenol) 650 mg Q4H PRN ORAL Mild Pain (Pain Scale 1-3) 01/13/20 14:30 02/12/20 14:29 Aspirin (ASA) 81 mg DAILY ORAL 01/14/20 09:00 02/28/20 08:59 01/22/20 08:10 Azithromycin (Zithromax) 500 mg DAILY ORAL 01/17/20 16:00 01/24/20 15:59 01/22/20 08:11 Cefepime HCl 1 gm/ Dextrose 55 ml @ 110 mls/hr Q24H IVPB 01/17/20 18:00 01/24/20 17:59 01/21/20 17:34 Dextrose (Dextrose 50%) 25 ml Q30M PRN IV Hypoglycemia 01/13/20 14:30 04/12/20 14:29 Dextrose (Dextrose 50%) 50 ml Q30M PRN IV Hypoglycemia 01/13/20 14:30 04/12/20 14:29 Docusate Sodium (Colace) 100 mg EVERY 12 HOURS ORAL 01/13/20 21:00 02/12/20 20:59 01/22/20 08:10 Heparin Sodium (Porcine) (Heparin 5000 units/ml) 5,000 units EVERY 12 HOURS SUBQ 01/13/20 21:00 02/27/20 20:59 01/22/20 08:12 Linezolid (Zyvox) 600 mg EVERY 12 HOURS ORAL 01/17/20 16:00 01/26/20 23:59 01/22/20 08:10 Metoprolol Tartrate (Lopressor) 25 mg EVERY 12 HOURS ORAL 01/13/20 21:00 04/12/20 20:59 01/22/20 08:10 Mycophenolate Mofetil (Cellcept) 1,000 mg TWICE A DAY ORAL 01/13/20 18:00 04/12/20 17:59 01/22/20 08:10 Nitroglycerin (Ntg) 0.4 mg Q5M PRN SL Prn Chest Pain 01/13/20 14:30 02/12/20 14:29 Ondansetron HCl (Zofran) 4 mg Q6H PRN IVP Nausea & Vomiting 01/13/20 14:30 02/12/20 14:29 Pantoprazole (Protonix) 40 mg BID ORAL 01/15/20 18:00 02/13/20 08:59 01/22/20 08:10 Tacrolimus (Prograf) 1 mg EVERY 12 HOURS ORAL 01/13/20 21:00 04/12/20 20:59 01/22/20 08:11 Alie Hernandes M.D. Jan 22, 2020 11:35
[2020-01-22 12:00] VITALS: BP 126/68
--- NOTE | 2020-01-22 12:59 | Cardiac Electrophysiology PN ---
Assessment/Plan Assessment/Plan 1. Troponin elevation. All levels are low level and similar at 0.4 due to renal failure The patient does not have any chest pain. EKG does not show any acute ST-T wave abnormalities. Continue aspirin, beta-awa, and low-dose statin. Echo Nl EF 55% Stress test showed "Partially fixed partially reversible anteroseptal perfusion defect, likely infarct with femi-infarct ischemia". Treat medically specially no chest pain and renal failure and cardiac cath put him at risk of HD 2. Status post liver transplant. Already on Prograf and CellCept. 3. Generalized weakness. 4. Elevated white count of 12,000. 5. Hypokalemia. Potassium of 3. 6. Chronic kidney disease with BUN of 47 and creatinine of 2.0. 7. Bilateral cavitary pulmonary nodules. S/P CT-guided lung biopsy. Results pending. 3rd AFB pending. FU Dr Liz LIN RN and Dr Cruz Subjective Subjective No CP or SOB EF 55%. Stress test showed "Partially fixed partially reversible anteroseptal perfusion defect, likely infarct with femi-infarct ischemia S/P Lung biopsy. Results pending. 3rd AFB pending Objective Last 24 Hour Vital Signs Date Time Temp Pulse Resp B/P (MAP) Pulse Ox O2 Delivery O2 Flow Rate FiO2 01/22/20 09:00 Room Air 01/22/20 08:10 69 130/82 01/22/20 08:00 96.4 60 19 112/65 (81) 100 01/22/20 04:00 97.5 69 19 130/82 (98) 97 01/22/20 00:00 96.8 66 18 125/75 (92) 98 01/21/20 21:00 Room Air 01/21/20 20:45 66 126/80 01/21/20 20:00 97.5 66 18 126/80 (95) 96 01/21/20 16:00 97.4 75 17 126/78 (94) 99 Intake and Output 01/21/20 01/22/20 19:00 07:00 Intake Total 500 ml 180 ml Balance 500 ml 180 ml Intake Oral 180 ml Other 500 ml Bladder Scan Volume Amount <10 ml # Voids 3 Laboratory Tests Test 01/22/20 04:54 White Blood Count 5.4 K/UL (4.8-10.8) Red Blood Count 3.09 M/UL (4.70-6.10) L Hemoglobin 10.4 G/DL (14.2-18.0) L Hematocrit 32.7 % (42.0-52.0) L Mean Corpuscular Volume 106 FL (80-99) H Mean Corpuscular Hemoglobin 33.5 PG (27.0-31.0) H Mean Corpuscular Hemoglobin Concent 31.6 G/DL (32.0-36.0) L Red Cell Distribution Width 14.0 % (11.6-14.8) Platelet Count 227 K/UL (150-450) Mean Platelet Volume 6.1 FL (6.5-10.1) L Neutrophils (%) (Auto) 78.1 % (45.0-75.0) H Lymphocytes (%) (Auto) 12.4 % (20.0-45.0) L Monocytes (%) (Auto) 6.7 % (1.0-10.0) Eosinophils (%) (Auto) 1.7 % (0.0-3.0) Basophils (%) (Auto) 1.0 % (0.0-2.0) Sodium Level 137 MMOL/L (136-145) Potassium Level 3.9 MMOL/L (3.5-5.1) Chloride Level 106 MMOL/L (98-107) Carbon Dioxide Level 23 MMOL/L (21-32) Anion Gap 8 mmol/L (5-15) Blood Urea Nitrogen 26 mg/dL (7-18) H Creatinine 1.7 MG/DL (0.55-1.30) H Estimat Glomerular Filtration Rate 40.5 mL/min (>60) Glucose Level 83 MG/DL (74-106) Uric Acid 6.2 MG/DL (2.6-7.2) Calcium Level 8.6 MG/DL (8.5-10.1) Phosphorus Level 3.1 MG/DL (2.5-4.9) Magnesium Level 2.0 MG/DL (1.8-2.4) Total Bilirubin 0.8 MG/DL (0.2-1.0) Aspartate Amino Transf (AST/SGOT) 70 U/L (15-37) H Alanine Aminotransferase (ALT/SGPT) 60 U/L (12-78) Alkaline Phosphatase 499 U/L (46-116) H C-Reactive Protein, Quantitative 2.0 mg/dL (0.00-0.90) H Total Protein 5.5 G/DL (6.4-8.2) L Albumin 2.3 G/DL (3.4-5.0) L Globulin 3.2 g/dL Albumin/Globulin Ratio 0.7 (1.0-2.7) L Objective HEAD AND NECK: Showed no JVD. LUNGS: Clear. CARDIOVASCULAR: Shows regular S1 and S2 with no gallop. ABDOMEN: Soft and nontender and scar of liver surgery in the right upper abdomen for liver transplant. EXTREMITIES: No pitting edema. Greg Villanueva MD Jan 22, 2020 12:59
--- NOTE | 2020-01-22 13:31 | NUR ---
NURSE NOTES:Skin/Wound assessment All bony prominences skin intact .Patient very thin sacral area Optifoam applied for protection.Patient is alert and oriented and walks around in room.Patient educated on moving side to side when in bed to prevent skin breakdown.
--- NOTE | 2020-01-22 14:18 | General Progress Note ---
Subjective Date patient seen: Jan 22, 2020 Time patient seen: 13:00 ROS Limited/Unobtainable: No Allergies: Coded Allergies: No Known Allergies (Unverified , 01/13/20) Subjective Feels the same today, denies chest pain or shortness of breath. Good PO intake and good sleep. Objective Last 24 Hour Vital Signs Date Time Temp Pulse Resp B/P (MAP) Pulse Ox O2 Delivery O2 Flow Rate FiO2 01/22/20 12:00 97.2 69 18 126/68 (87) 98 01/22/20 09:00 Room Air 01/22/20 08:10 69 130/82 01/22/20 08:00 96.4 60 19 112/65 (81) 100 01/22/20 04:00 97.5 69 19 130/82 (98) 97 01/22/20 00:00 96.8 66 18 125/75 (92) 98 01/21/20 21:00 Room Air 01/21/20 20:45 66 126/80 01/21/20 20:00 97.5 66 18 126/80 (95) 96 01/21/20 16:00 97.4 75 17 126/78 (94) 99 Intake and Output 01/21/20 01/22/20 19:00 07:00 Intake Total 500 ml 180 ml Balance 500 ml 180 ml Intake Oral 180 ml Other 500 ml Bladder Scan Volume Amount <10 ml # Voids 3 Laboratory Tests 01/22/20 04:54: White Blood Count 5.4, Red Blood Count 3.09L, Hemoglobin 10.4L, Hematocrit 32.7L , Mean Corpuscular Volume 106H, Mean Corpuscular Hemoglobin 33.5H, Mean Corpusc ular Hemoglobin Concent 31.6L, Red Cell Distribution Width 14.0, Platelet Count 227, Mean Platelet Volume 6.1L, Neutrophils (%) (Auto) 78.1H, Lymphocytes (%) (Auto) 12.4L, Monocytes (%) (Auto) 6.7, Eosinophils (%) (Auto) 1.7, Basophils (%) (Auto) 1.0, Sodium Level 137, Potassium Level 3.9, Chloride Level 106, Carbon Dioxide Level 23, Anion Gap 8, Blood Urea Nitrogen 26H, Creatinine 1.7H, Estimat Glomerular Filtration Rate 40.5, Glucose Level 83, Uric Acid 6.2, Calcium Level 8.6, Phosphorus Level 3.1, Magnesium Level 2.0, Total Bilirubin 0.8, Aspartate Amino Transf (AST/SGOT) 70H, Alanine Aminotransferase (ALT/SGPT) 60, Alkaline Phosphatase 499H, C-Reactive Protein, Quantitative 2.0H, Total Protein 5.5L, Albumin 2.3L, Globulin 3.2, Albumin/Globulin Ratio 0.7L Height (Feet): 5 Height (Inches): 5.00 Weight (Pounds): 85 General Appearance: WD/WN EENT: PERRL/EOMI Neck: non-tender Cardiovascular: normal rate Respiratory/Chest: lungs clear Abdomen: non tender Neurologic: it field technician II-XII grossly normal Objective Procedure: NM Myocard Perf w/ Eject Frac Indications: Chest pain, elevated troponin Technique: Single day single isotope protocol utilized. Initially, resting images obtained using IV administration 10.8 millicuries 99M technetium Myoview. Subsequently, patient underwent lexiscan stress testing. See cardiology report for details. During Lexiscan infusion, IV administration 31.4 mCi 99 M technetium Myoview. SPECT and planar images obtained. SPECT images gated to 8 phases of the cardiac cycle were also obtained, and reformatted into cine images for evaluation of ejection fraction. Comparison: none Findings: Per cardiology report, patient experienced no symptoms during in fusion. Per cardiology report, resting EKG demonstrates normal sinus rhythm with left axis deviation. No ST changes during infusion. . Imaging demonstrates a post stress perfusion defect in the anteroseptal wall which is slightly smaller on the resting images. Calculated post stress ejection fraction 47%. There is slightly decreased wall motion in the septum Impression: Nonischemic clinical response to pharmacologic stress, per cardiology report Nonischemic electrocardiographic response to pharmacologic stress, per cardiology report Partially fixed partially reversible anteroseptal perfusion defect, likely infarct with femi-infarct ischemia Calculated post stress ejection fraction 47% Procedure: CT Chest no Contrast Clinical Indication: Cough, evaluation of abnormalities on recent chest radiograph Technique: Spiral acquisitions obtained through the chest. No IV contrast utilized, reason not stated. Multiplanar reconstructions generated. Total dose length product 116 mGycm. CTDIvol(s) 2 mGy. Dose reduction achieved using automated exposure control Comparison: none Findings: Multiple masses are seen in the left upper lobe. The largest of these is complex in shape, abuts the anterior mediastinum and anterior chest wall, measures 4.5 x 3.2 cm orthogonal axial dimensions, by 4.6 cm craniocaudad. This demonstrates multiple central cavities, and extends posteromedially along the bronchovascular bundle. At least 5 other lesions are seen in the left upper lobe, largest of whi ch contain central cavities. No left lower lobe lesions are demonstrated. A 12 mm mass is seen in the right upper lobe, and several subcentimeter lesions are noted. An irregular 3.3 x 1.9 cm mass is seen in the right lower lobe, and at least one other is seen at the right lung base. No definite infiltrates. There is equivocally trace pleural fluid on the left. There is generalized mild hyperinflation, and a bulla is seen in the anteromedial right upper lobe. Azygos lobe and fissure are incidentally noted. The heart size is normal. There is no pericardial effusion. No mediastinal or hilar mass or adenopathy. The ascending thoracic aorta is mildly ectatic but not aneurysmal. There is mild edema of the mediastinal fat. The thyroid is unremarkable. No axillary or chest wall mass or adenopathy demonstrated. Numerous surgical clips are seen in the right upper quadrant. Pattern of the c lips suggests liver transplant. The stomach is mildly distended with food. The bones are unremarkable. Impression: Multiple bilateral pulmonary masses/nodules the largest of these demonstrate central cavitation. Main differential considerations are infectious inflammatory lesions such as septic emboli, tuberculosis, other mycobacterial infections; noninfectious processes such as rheumatoid, granulomatosis with polyangiitis; metastatic carcinoma, most likely squamous cell carcinoma, gastrointestinal adenocarcinoma, transitional cell bladder carcinoma Mild hyperinflation. Single right upper lobe bulla Postsurgical changes of the liver suggests prior liver transplant. Correlate with surgical history The CT scanner at [facility] is accredited by the [employer] and the scans are performed using protocols designed to limit radiation exposure to as low as reasonably achievable to attain images of sufficient resolution adequate for diagnostic evaluation. Assessment/Plan Status: stable Assessment/Plan: 64 y/o M admitted to the Hospital with: # Generalized weakness Etiology include failure to thrive, vs poor nutritional status vs underlying cardiac etiology based on history of recent [place] 2 months ago vs underlying infection vs malignancy. Weight loss 6 lbs in the past month # Moderate protein caloric malnutrition. RD support and monitoring. # Elevated troponin Serial troponin noted to be stable Telemetry with some bigeminy noted and is stable TTE with normal EF Cardiology consulted Dr. Villanueva. Stress test Nuclear without active ischemia noted. Old infarct area noted. No intervention recommended at this time. Lipid panel reviewed. Asa 81 mg daily # CKD stage 3 Trend creatinine Monitor renal function # Hypokalemia Replete and monitor Dr. Cintron renal consultation appreciated. # Hypomagnesemia Replete and monitor # History of liver transplant at [facility] Resume prograft and cellcept Monitor clinical markers as needed # Abnormal CXR with MULTIPLE NODULES. Patient is Ex- smoker. No hypoxia noted at this time. CT CHEST WITH Multiple bilateral pulmonary masses/nodules the largest of these demonstrate central cavitation. Main differential considerations are infectious inflammatory lesions such as septic emboli, tuberculosis, other mycobacterial infections; noninfectious processes such as rheumatoid, granulomatosis with polyangiitis; metastatic carcinoma, most likely squamous cell carcinoma, gastrointestinal adenocarcinoma, transitional cell bladder carcinoma Pulmonary consultation and infectious disease consultation with Dr. Hill and Greta tumor markers, PSA, AFP, CEA Per Dr. Hernandes empiric ZYvox, Cefepime and Azithromycin started 01/17/20 DAY 5 -f/u cx -Monitor CBC/C MP, temperatures -airborne isolation: AFB sp cx x3, MTB PCR -COVID PCR, histo, blasto, cocci, CrAg, legionella ag urine, sp cx HISTOPLASMA 1:16 POSITIVE PATIENT WILL BENEFIT FROM ITRACONAZOLE TREATMENT WHICH INTERACTS WITH PROGRAF BEING USED FOR LIVER TRANSPLANT. HE WILL REQUIRE A HIGHER LEVEL OF CARE, IDEALLY, [facility] WHERE HIS TRANSPLANT WAS DONE. IR CT GUIDED LUNG BIOPSY 01/19 Follow up pathology. PENDING. # Generalized weakness PT evaluation for baseline recommends SNF for short term rehab. NEEDS HIGHER LEVEL OF CARE, TRANSPLANT CENTER AND ID MANAGEMENT. DVT ppx with Enoxaparin GI ppx with PPI FULL CODE Piyush Cruz MD Jan 22, 2020 14:18
--- NOTE | 2020-01-22 15:17 | NUR ---
SLOT FLOOR ATTENDANT NOTE CALL MADE TO [facility] [phone]. NO ANSWER AT TIME OF CALL. RECORDED MESSAGE INDICATING TO LEAVE WITH NAME OF PATIENT BEING REFERRED. LEFT WITH CALL BACK NUMBER.
[2020-01-22 16:00] VITALS: BP 121/71
--- NOTE | 2020-01-22 16:57 | NUR ---
CASE MANAGEMENT:REVIEW SI;NSTEMI. COPD. EFFIE LUNG NODULES CT(+) MULTIPLE MASSES IN [place]. H/O LIVER TRANSPLANT. PULMONARY HISTOPLASMOSIS 96.4 69 19 130/82 97% ON RA BUN 26 CR 1.7 AST 70 ALP 499 CRP 2.0 ALB 2.3 IS;CEFEPIME IV ZYVOX O Q12 ASA PO QD LOPRESSOR PO Q12 PROGRAF PO Q12 HEPARIN SUBQ Q12 CELLCEPT PO BID MED SURG STATUS DCP;FROM HOME PLAN; TRANSFER TO [facility] FOR HIGHER LEVEL OF CARE TRANSFER REQUEST INITIATED TO [facility] TRANSFER [place]
[2020-01-22] MEDS: Cefepime HCl 1 GM in D5W 55 ML IVPB SCH (17:18)
--- NOTE | 2020-01-22 19:10 | NUR ---
NURSE NOTES: Received report from Kaitlin HANSEN. Pt. is in bed, awake, alert and verbally responsive. Breathing even and unlabored. No sob noted. Denies any pain at this time. Noted to have clear colored urine in the urinal, moderate in amount. With bed in it's lowest position, with alarm on and locked. Will continue with plan of care.
--- NOTE | 2020-01-22 19:38 | NUR ---
NURSE HAND-OFF: Important Events on Shift:[AFB third swab collected and pending, PPD reading 9 mm, IV ATB, safety and comfort] Patient Status: [stable] Diet: [renal diet] Pending Orders: [] Pending Results/Labs:[] Pending MD notification:[] Latest Vital Signs: Temperature 97.5 , Pulse 63 , B/P 121 /71 , Respiratory Rate 18 , O2 SAT 98 , Room Air, O2 Flow Rate . Vital Sign Comment: [] Latest Padron Fall Score: 35 Fall Risk: Medium Risk Safety Measures: Call light Within Reach, Bed Alarm Zone 1, Side Rails Side Rails x2, Bed position Low and Locked. Fall Precautions: Yellow Socks Yellow Gown Door Sign Patient Fall Education Report given to [Bebo, RN].
[2020-01-22 20:00] VITALS: BP 110/73
[2020-01-23] VITALS: BP 133/73
[2020-01-23 04:00] VITALS: BP 142/82
--- NOTE | 2020-01-23 04:30 | NUR ---
NURSE NOTES: All due meds given. On continued isolation, observed at all times. Vital signs within stable.Slept @ long intervals. Able to ambulate in a slow steady pace. Voiding freely. Will continue with plan of care.
[2020-01-23 06:43] LABS: BASOPHILS % (AUTO) 0.8 % (0.0-2.0); EOSINOPHILS % (AUTO) 1.5 % (0.0-3.0); HEMATOCRIT 35.6 % (42.0-52.0); HEMOGLOBIN 11.3 G/DL (14.2-18.0); LYMPHOCYTES % (AUTO) 13.3 % (20.0-45.0); MEAN CORPUSCULAR VOLUME 106 FL (80-99); MONOCYTES % (AUTO) 5.6 % (1.0-10.0); NEUTROPHILS % (AUTO) 78.8 % (45.0-75.0); PLATELET COUNT 239 K/UL (150-450); RED BLOOD COUNT 3.35 M/UL (4.70-6.10); RED CELL DISTRIBUTION WIDTH 13.5 % (11.6-14.8); WHITE BLOOD COUNT 6.1 K/UL (4.8-10.8)
[2020-01-23 07:08] LABS: CALCIUM 8.9 MG/DL (8.5-10.1); CREATININE 1.6 MG/DL (0.55-1.30); POTASSIUM 3.6 MMOL/L (3.5-5.1)
--- NOTE | 2020-01-23 07:39 | Urology Progress Note ---
Assessment/Plan Status: stable Assessment/Plan: 1. Elevated serum PSA. 2. BPH. 3. Mild lower urinary tract symptoms. 4. Rule out neurogenic bladder. 5. Renal insufficiency, acute on chronic. 6. Proteinuria. 7. Renal cyst. monitor clinically consider adding flomax f/u on PVR prostate MRI and/or biopsy at some point on abx lung mets, s/p bx, f/u on path monitor renal fxn f/u on blood cx Subjective Allergies: Coded Allergies: No Known Allergies (Unverified , 01/13/20) Subjective all noted, feels fair voiding, PVR ? s/p lung bx 01/19 Objective Last 24 Hour Vital Signs Date Time Temp Pulse Resp B/P (MAP) Pulse Ox O2 Delivery O2 Flow Rate FiO2 01/23/20 04:00 97.8 74 19 142/82 (102) 96 01/23/20 00:00 96.9 63 19 133/73 (93) 100 01/22/20 21:00 83 110/73 01/22/20 21:00 Room Air 01/22/20 20:00 97.2 83 19 110/73 (85) 100 01/22/20 16:00 97.5 63 18 121/71 (88) 98 01/22/20 12:00 97.2 69 18 126/68 (87) 98 01/22/20 09:00 Room Air 01/22/20 08:10 69 130/82 01/22/20 08:00 96.4 60 19 112/65 (81) 100 Intake and Output 01/22/20 01/23/20 19:00 07:00 Intake Total 400 ml 500 ml Output Total 100 ml 600 ml Balance 300 ml -100 ml Intake Oral 400 ml 500 ml Output Urine Total 100 ml 600 ml Bladder Scan Volume Amount <10 ml # Voids 4 Microbiology Date/Time Source Procedure Growth Status 01/18/20 07:30 Blood Blood Culture - Preliminary NO GROWTH AFTER 4 DAYS Resulted 01/17/20 16:30 Nasopharynx SARS-CoV-2 RdRp Gene Assay - Final Complete Current Medications Medications (Trade) Dose Ordered Sig/Quynh Route PRN Reason Start Time Stop Time Status Last Admin Dose Admin Acetaminophen (Tylenol) 650 mg Q4H PRN ORAL Mild Pain (Pain Scale 1-3) 01/13/20 14:30 02/12/20 14:29 Aspirin (ASA) 81 mg DAILY ORAL 01/14/20 09:00 02/28/20 08:59 01/22/20 08:10 Cefepime HCl 1 gm/ Dextrose 55 ml @ 110 mls/hr Q24H IVPB 01/17/20 18:00 01/24/20 17:59 01/22/20 17:18 Dextrose (Dextrose 50%) 25 ml Q30M PRN IV Hypoglycemia 01/13/20 14:30 04/12/20 14:29 Dextrose (Dextrose 50%) 50 ml Q30M PRN IV Hypoglycemia 01/13/20 14:30 04/12/20 14:29 Docusate Sodium (Colace) 100 mg EVERY 12 HOURS ORAL 01/13/20 21:00 02/12/20 20:59 01/22/20 20:50 Heparin Sodium (Porcine) (Heparin 5000 units/ml) 5,000 units EVERY 12 HOURS SUBQ 01/13/20 21:00 02/27/20 20:59 01/22/20 20:52 Linezolid (Zyvox) 600 mg EVERY 12 HOURS ORAL 01/17/20 16:00 01/26/20 23:59 01/22/20 20:51 Metoprolol Tartrate (Lopressor) 25 mg EVERY 12 HOURS ORAL 01/13/20 21:00 04/12/20 20:59 01/22/20 08:10 Mycophenolate Mofetil (Cellcept) 1,000 mg TWICE A DAY ORAL 01/13/20 18:00 04/12/20 17:59 01/22/20 17:16 Nitroglycerin (Ntg) 0.4 mg Q5M PRN SL Prn Chest Pain 01/13/20 14:30 02/12/20 14:29 Ondansetron HCl (Zofran) 4 mg Q6H PRN IVP Nausea & Vomiting 01/13/20 14:30 02/12/20 14:29 Pantoprazole (Protonix) 40 mg BID ORAL 01/15/20 18:00 02/13/20 08:59 01/22/20 17:16 Tacrolimus (Prograf) 1 mg EVERY 12 HOURS ORAL 01/13/20 21:00 04/12/20 20:59 01/22/20 20:50 Laboratory Tests 01/23/20 06:15: White Blood Count 6.1, Red Blood Count 3.35L, Hemoglobin 11.3L, Hematocrit 35.6L , Mean Corpuscular Volume 106H, Mean Corpuscular Hemoglobin 33.8H, Mean Corpuscular Hemoglobin Concent 31.8L, Red Cell Distribution Width 13.5, Platelet Count 239, Mean Platelet Volume 5.4L, Neutrophils (%) (Auto) 78.8H, Lymphocytes (%) (Auto) 13.3L, Monocytes (%) (Auto) 5.6, Eosinophils (%) (Auto) 1.5, Basophils (%) (Auto) 0.8, Sodium Level 136, Potassium Level 3.6, Chloride Level 104, Carbon Dioxide Level 19L, Anion Gap 13, Blood Urea Nitrogen 27H, Creatinine 1.6H, Estimat Glomerular Filtration Rate 43.5, Glucose Level 101, Calcium Level 8.9 Height (Feet): 5 Height (Inches): 5.00 Weight (Pounds): 85 Objective exam stable Corona Hernandez MD Jan 23, 2020 07:39
--- NOTE | 2020-01-23 07:44 | NUR ---
NURSE HAND-OFF: Important Events on Shift:on continued isolation Patient Status: Diet: Pending Orders: Pending Results/Labs: Pending MD notification: Latest Vital Signs: Temperature 97.8 , Pulse 74 , B/P 142 /82 , Respiratory Rate 19 , O2 SAT 96 , Room Air, O2 Flow Rate . Vital Sign Comment: Latest Padron Fall Score: 35 Fall Risk: Medium Risk Safety Measures: Call light Within Reach, Bed Alarm Zone 1, Side Rails Side Rails x2, Bed position Low and Locked. Fall Precautions: Yellow Socks Yellow Gown Door Sign Patient Fall Education Report given to Juan HANSEN.
[2020-01-23 08:00] VITALS: BP 130/78
--- NOTE | 2020-01-23 08:05 | NUR ---
NURSE NOTES:pt is in the bed eating breakfast. tolerates meal well. pt is alert and verbally responsive, denies any chest pain. no SOB noted. no coughing episodes noted.no acute distress noted at this time. call light is within reach.
--- NOTE | 2020-01-23 08:50 | Nephrology Progress Note ---
Assessment/Plan Problem List: (1) Hypokalemia (2) Renal failure (ARF), acute on chronic (3) Elevated troponin (4) Anemia Assessment Persistent hypokalemia, etiology unclear. No report of diarrhea. Renal failure with serum creatinine of 1.7, most likely chronic Elevated troponin Anemia Hypoalbuminemia Status post liver transplant. On Prograf and CellCept Leukocytosis COPD EjFx 55% Plan January 22: Serum creatinine down to 1.6. Stable from renal standpoint of view. Continue per consultants. January 21: Serum creatinine up to 1.7. Continue per consultants. Continue to monitor renal parameters. January 20: No blood drawn today. Continue per consultants. Check labs tomorrow. January 19: Labs reviewed. Magnesium replaced. Other electrolyte abnormalities addressed. Serum creatinine down to 1.5. January 18: Labs reviewed. Low potassium replaced. Continue to monitor electrolytes and renal parameters. Serum creatinine 1.6. January 17: Renal parameters stable. Continue per current management. Work-up of bilateral cavitary pulmonary nodules in process January 16: Serum creatinine lowering from 2 on admission to 1.[address] scan of the chest noted. Will discuss with Dr. Cruz regarding the pulmonary evaluation. Continue current management. Previously: Potassium supplement p.o. and IV Urine spot sodium Urine spot potassium Kidney ultrasound, pending 2D echocardiogram EjFx 55% Monitor renal parameters Will order CT of the chest with no contrast Chest x-ray impression: Bilateral lung nodules. These are worrisome for metastatic deposits. Septic emboli also a possibility. Mild hyperinflation, likely COPD. Subjective ROS Limited/Unobtainable: No Objective Objective Last 24 Hour Vital Signs Date Time Temp Pulse Resp B/P (MAP) Pulse Ox O2 Delivery O2 Flow Rate FiO2 01/23/20 04:00 97.8 74 19 142/82 (102) 96 01/23/20 00:00 96.9 63 19 133/73 (93) 100 01/22/20 21:00 83 110/73 01/22/20 21:00 Room Air 01/22/20 20:00 97.2 83 19 110/73 (85) 100 01/22/20 16:00 97.5 63 18 121/71 (88) 98 01/22/20 12:00 97.2 69 18 126/68 (87) 98 01/22/20 09:00 Room Air Intake and Output 01/22/20 01/23/20 19:00 07:00 Intake Total 400 ml 500 ml Output Total 100 ml 600 ml Balance 300 ml -100 ml Intake Oral 400 ml 500 ml Output Urine Total 100 ml 600 ml Bladder Scan Volume Amount <10 ml # Voids 4 Current Medications Medications (Trade) Dose Ordered Sig/Quynh Route PRN Reason Start Time Stop Time Status Last Admin Dose Admin Acetaminophen (Tylenol) 650 mg Q4H PRN ORAL Mild Pain (Pain Scale 1-3) 01/13/20 14:30 02/12/20 14:29 Aspirin (ASA) 81 mg DAILY ORAL 01/14/20 09:00 02/28/20 08:59 01/22/20 08:10 Cefepime HCl 1 gm/ Dextrose 55 ml @ 110 mls/hr Q24H IVPB 01/17/20 18:00 01/24/20 17:59 01/22/20 17:18 Dextrose (Dextrose 50%) 25 ml Q30M PRN IV Hypoglycemia 01/13/20 14:30 04/12/20 14:29 Dextrose (Dextrose 50%) 50 ml Q30M PRN IV Hypoglycemia 01/13/20 14:30 04/12/20 14:29 Docusate Sodium (Colace) 100 mg EVERY 12 HOURS ORAL 01/13/20 21:00 02/12/20 20:59 01/22/20 20:50 Heparin Sodium (Porcine) (Heparin 5000 units/ml) 5,000 units EVERY 12 HOURS SUBQ 01/13/20 21:00 02/27/20 20:59 01/22/20 20:52 Linezolid (Zyvox) 600 mg EVERY 12 HOURS ORAL 01/17/20 16:00 01/26/20 23:59 01/22/20 20:51 Metoprolol Tartrate (Lopressor) 25 mg EVERY 12 HOURS ORAL 01/13/20 21:00 04/12/20 20:59 01/22/20 08:10 Mycophenolate Mofetil (Cellcept) 1,000 mg TWICE A DAY ORAL 01/13/20 18:00 04/12/20 17:59 01/22/20 17:16 Nitroglycerin (Ntg) 0.4 mg Q5M PRN SL Prn Chest Pain 01/13/20 14:30 02/12/20 14:29 Ondansetron HCl (Zofran) 4 mg Q6H PRN IVP Nausea & Vomiting 01/13/20 14:30 02/12/20 14:29 Pantoprazole (Protonix) 40 mg BID ORAL 01/15/20 18:00 02/13/20 08:59 01/22/20 17:16 Tacrolimus (Prograf) 1 mg EVERY 12 HOURS ORAL 01/13/20 21:00 04/12/20 20:59 01/22/20 20:50 Laboratory Tests 01/23/20 06:15: White Blood Count 6.1, Red Blood Count 3.35L, Hemoglobin 11.3L, Hematocrit 35.6L , Mean Corpuscular Volume 106H, Mean Corpuscular Hemoglobin 33.8H, Mean Corpuscular Hemoglobin Concent 31.8L, Red Cell Distribution Width 13.5, Platelet Count 239, Mean Platelet Volume 5.4L, Neutrophils (%) (Auto) 78.8H, Lymphocytes (%) (Auto) 13.3L, Monocytes (%) (Auto) 5.6, Eosinophils (%) (Auto) 1.5, Basophils (%) (Auto) 0.8, Sodium Level 136, Potassium Level 3.6, Chloride Level 104, Carbon Dioxide Level 19L, Anion Gap 13, Blood Urea Nitrogen 27H, Creatinine 1.6H, Estimat Glomerular Filtration Rate 43.5, Glucose Level 101, Calcium Level 8.9 Height (Feet): 5 Height (Inches): 5.00 Weight (Pounds): 85 General Appearance: no apparent distress Cardiovascular: normal rate Respiratory/Chest: decreased breath sounds Abdomen: soft Objective No change Marvin Martinez MD Jan 23, 2020 08:50
--- NOTE | 2020-01-23 09:06 | Pulmonology Progress Note ---
Subjective ROS Limited/Unobtainable: No Interval Events: S/p CT chest/biopsy Constitutional: Reports: no symptoms HEENT: Repors: no symptoms Respiratory: Reports: no symptoms Cardiovascular: Reports: no symptoms Gastrointestinal/Abdominal: Reports: no symptoms Allergies: Coded Allergies: No Known Allergies (Unverified , 01/13/20) All Systems: reviewed and negative except above Objective Last 24 Hour Vital Signs Date Time Temp Pulse Resp B/P (MAP) Pulse Ox O2 Delivery O2 Flow Rate FiO2 01/23/20 04:00 97.8 74 19 142/82 (102) 96 01/23/20 00:00 96.9 63 19 133/73 (93) 100 01/22/20 21:00 83 110/73 01/22/20 21:00 Room Air 01/22/20 20:00 97.2 83 19 110/73 (85) 100 01/22/20 16:00 97.5 63 18 121/71 (88) 98 01/22/20 12:00 97.2 69 18 126/68 (87) 98 Intake and Output 01/22/20 01/23/20 19:00 07:00 Intake Total 400 ml 500 ml Output Total 100 ml 600 ml Balance 300 ml -100 ml Intake Oral 400 ml 500 ml Output Urine Total 100 ml 600 ml Bladder Scan Volume Amount <10 ml # Voids 4 General Appearance: no acute distress HEENT: normocephalic Respiratory: chest wall non-tender, lungs clear Cardiovascular: normal peripheral pulses, normal rate Abdomen: normal bowel sounds Laboratory Tests 01/23/20 06:15: White Blood Count 6.1, Red Blood Count 3.35L, Hemoglobin 11.3L, Hematocrit 35.6L , Mean Corpuscular Volume 106H, Mean Corpuscular Hemoglobin 33.8H, Mean Corpuscular Hemoglobin Concent 31.8L, Red Cell Distribution Width 13.5, Platelet Count 239, Mean Platelet Volume 5.4L, Neutrophils (%) (Auto) 78.8H, Lymphocytes (%) (Auto) 13.3L, Monocytes (%) (Auto) 5.6, Eosinophils (%) (Auto) 1.5, Basophils (%) (Auto) 0.8, Sodium Level 136, Potassium Level 3.6, Chloride Level 104, Carbon Dioxide Level 19L, Anion Gap 13, Blood Urea Nitrogen 27H, Creatinine 1.6H, Estimat Glomerular Filtration Rate 43.5, Glucose Level 101, Calcium Level 8.9 Current Medications Medications (Trade) Dose Ordered Sig/Quynh Route PRN Reason Start Time Stop Time Status Last Admin Dose Admin Acetaminophen (Tylenol) 650 mg Q4H PRN ORAL Mild Pain (Pain Scale 1-3) 01/13/20 14:30 02/12/20 14:29 Aspirin (ASA) 81 mg DAILY ORAL 01/14/20 09:00 02/28/20 08:59 01/22/20 08:10 Cefepime HCl 1 gm/ Dextrose 55 ml @ 110 mls/hr Q24H IVPB 01/17/20 18:00 01/24/20 17:59 01/22/20 17:18 Dextrose (Dextrose 50%) 25 ml Q30M PRN IV Hypoglycemia 01/13/20 14:30 04/12/20 14:29 Dextrose (Dextrose 50%) 50 ml Q30M PRN IV Hypoglycemia 01/13/20 14:30 04/12/20 14:29 Docusate Sodium (Colace) 100 mg EVERY 12 HOURS ORAL 01/13/20 21:00 02/12/20 20:59 01/22/20 20:50 Heparin Sodium (Porcine) (Heparin 5000 units/ml) 5,000 units EVERY 12 HOURS SUBQ 01/13/20 21:00 02/27/20 20:59 01/22/20 20:52 Linezolid (Zyvox) 600 mg EVERY 12 HOURS ORAL 01/17/20 16:00 01/26/20 23:59 01/22/20 20:51 Metoprolol Tartrate (Lopressor) 25 mg EVERY 12 HOURS ORAL 01/13/20 21:00 04/12/20 20:59 01/22/20 08:10 Mycophenolate Mofetil (Cellcept) 1,000 mg TWICE A DAY ORAL 01/13/20 18:00 04/12/20 17:59 01/22/20 17:16 Nitroglycerin (Ntg) 0.4 mg Q5M PRN SL Prn Chest Pain 01/13/20 14:30 02/12/20 14:29 Ondansetron HCl (Zofran) 4 mg Q6H PRN IVP Nausea & Vomiting 01/13/20 14:30 02/12/20 14:29 Pantoprazole (Protonix) 40 mg BID ORAL 01/15/20 18:00 02/13/20 08:59 01/22/20 17:16 Tacrolimus (Prograf) 1 mg EVERY 12 HOURS ORAL 01/13/20 21:00 04/12/20 20:59 01/22/20 20:50 Assessment/Plan Assessment/Plan IMPRESSION: 1. Bilateral cavitary pulmonary nodules. 2. History of liver transplant, on immunosuppressives. 3. CAD. DISCUSSION: Discussed with Dr. Cruz. S/p CT-guided lung biopsy. May need bronchoscopy if CT biopsy is non-diagnostic OK to dc home/SNF . Await cultures and serology. I will follow. Reinier Leo Omar Syed MD Jan 23, 2020 09:06
[2020-01-23] MEDS: Mycophenolate 250mg cap ORAL SCH ×2 (10:23→17:47)
[2020-01-23] MEDS: Aspirin Baby 81mg ORAL SCH (10:24)
[2020-01-23] MEDS: Docusate 100mg cap ORAL SCH ×2 (10:24→21:05)
[2020-01-23] MEDS: Heparin 5000 units/ml inj SUBQ SCH ×2 (10:40→21:08)
--- NOTE | 2020-01-23 10:42 | Cardiac Electrophysiology PN ---
Assessment/Plan Assessment/Plan 1. Troponin elevation. All levels are low level and similar at 0.4 due to renal failure The patient does not have any chest pain. EKG does not show any acute ST-T wave abnormalities. Continue aspirin, beta-awa, and low-dose statin. Echo Nl EF 55% Stress test showed "Partially fixed partially reversible anteroseptal perfusion defect, likely infarct with femi-infarct ischemia". Treat medically specially no chest pain and renal failure and cardiac cath put him at risk of HD 2. Status post liver transplant. Already on Prograf and CellCept. 3. Generalized weakness. 4. Elevated white count of 12,000. 5. Hypokalemia. Potassium of 3. 6. Chronic kidney disease with BUN of 47 and creatinine of 2.0. 7. Bilateral cavitary pulmonary nodules. S/P CT-guided lung biopsy. Results pending. 3rd AFB pending. FU Dr Liz LIN RN and Dr Cruz Subjective Subjective No CP or SOB EF 55%. Stress test showed "Partially fixed partially reversible anteroseptal perfusion defect, likely infarct with femi-infarct ischemia S/P Lung biopsy. Results pending. 3rd AFB pending Objective Last 24 Hour Vital Signs Date Time Temp Pulse Resp B/P (MAP) Pulse Ox O2 Delivery O2 Flow Rate FiO2 01/23/20 10:25 68 138/80 01/23/20 04:00 97.8 74 19 142/82 (102) 96 01/23/20 00:00 96.9 63 19 133/73 (93) 100 01/22/20 21:00 83 110/73 01/22/20 21:00 Room Air 01/22/20 20:00 97.2 83 19 110/73 (85) 100 01/22/20 16:00 97.5 63 18 121/71 (88) 98 01/22/20 12:00 97.2 69 18 126/68 (87) 98 Intake and Output 01/22/20 01/23/20 19:00 07:00 Intake Total 400 ml 500 ml Output Total 100 ml 600 ml Balance 300 ml -100 ml Intake Oral 400 ml 500 ml Output Urine Total 100 ml 600 ml Bladder Scan Volume Amount <10 ml # Voids 4 Laboratory Tests Test 01/23/20 06:15 White Blood Count 6.1 K/UL (4.8-10.8) Red Blood Count 3.35 M/UL (4.70-6.10) L Hemoglobin 11.3 G/DL (14.2-18.0) L Hematocrit 35.6 % (42.0-52.0) L Mean Corpuscular Volume 106 FL (80-99) H Mean Corpuscular Hemoglobin 33.8 PG (27.0-31.0) H Mean Corpuscular Hemoglobin Concent 31.8 G/DL (32.0-36.0) L Red Cell Distribution Width 13.5 % (11.6-14.8) Platelet Count 239 K/UL (150-450) Mean Platelet Volume 5.4 FL (6.5-10.1) L Neutrophils (%) (Auto) 78.8 % (45.0-75.0) H Lymphocytes (%) (Auto) 13.3 % (20.0-45.0) L Monocytes (%) (Auto) 5.6 % (1.0-10.0) Eosinophils (%) (Auto) 1.5 % (0.0-3.0) Basophils (%) (Auto) 0.8 % (0.0-2.0) Sodium Level 136 MMOL/L (136-145) Potassium Level 3.6 MMOL/L (3.5-5.1) Chloride Level 104 MMOL/L (98-107) Carbon Dioxide Level 19 MMOL/L (21-32) L Anion Gap 13 mmol/L (5-15) Blood Urea Nitrogen 27 mg/dL (7-18) H Creatinine 1.6 MG/DL (0.55-1.30) H Estimat Glomerular Filtration Rate 43.5 mL/min (>60) Glucose Level 101 MG/DL (74-106) Calcium Level 8.9 MG/DL (8.5-10.1) Objective HEAD AND NECK: Showed no JVD. LUNGS: Clear. CARDIOVASCULAR: Shows regular S1 and S2 with no gallop. ABDOMEN: Soft and nontender and scar of liver surgery in the right upper abdomen for liver transplant. EXTREMITIES: No pitting edema. Greg Villanueva MD Jan 23, 2020 10:42
[2020-01-23 12:00] VITALS: BP 137/67
--- NOTE | 2020-01-23 13:47 | Infectious Diseases Prog Note ---
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 Main differential considerations are infectious inflammatory lesions such as septic emboli, tuberculosis, other mycobacterial infections; noninfectious processes such as rheumatoid, granulomatosis with polyangiitis; metastatic carcinoma, most likely squamous cell carcinoma, gastrointestinal adenocarcinoma, transitional cell bladder carcinoma. Mild hyperinflation. Single right upper lobe bulla, Postsurgical changes of the liver suggests prior liver transplant. Correlate with surgical history -CXR: Bilateral lung nodules. These are worrisome for metastatic deposits. Septic emboli also a possibility. Correlate with clinical history and findings. Mild hyperinflation, likely COPD. -2d echo: no vegetations -HIV ab screen neg, rapid COVID PCR, urine legionella ag, M. 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 Bilateral renal cysts. Negative for hydronephrosis. Liver transplant (at [facility]) 2005 on prograf and cellcept HTN COPD ?recent NSTEMI Plan: -Cont empiric ZYvox, Cefepime #/ -patient will need treatment for Pulmonary histoplasmosis but in view that it has interaction with liver transplant drug Prograf and needs close monitoring of levels and adjustment of Prograf dose, patient will be better served at a transplant center. Patient had his transplant in [facility]. I discussed with Dr Cruz and Michell from director of casework department to initiate request for transfer -await final path- fungal and AFB stains -01/21 SP Azithromycin #6 -f/u cx -Monitor CBC/C MP, temperatures -airborne isolation: AFB sp cx x3, MTB PCR -f/u histo ag urine, cocci, CrAg, sp cx -May need bronch if not able to expectorate sputum - if bacteremic, may need LORENA -f/u biopsy results Thank you for consulting [facility]. Will continue to follow along with you. Discussed with RN, Dr Cruz, pathologist, director of casework department and lab staff. Subjective Allergies: Coded Allergies: No Known Allergies (Unverified , 01/13/20) afebrile afb pending transfer to [facility] request initiate Objective Last 24 Hour Vital Signs Date Time Temp Pulse Resp B/P (MAP) Pulse Ox O2 Delivery O2 Flow Rate FiO2 01/23/20 10:25 68 138/80 01/23/20 09:00 Room Air 01/23/20 08:00 98.4 70 19 130/78 (95) 95 01/23/20 04:00 97.8 74 19 142/82 (102) 96 01/23/20 00:00 96.9 63 19 133/73 (93) 100 01/22/20 21:00 83 110/73 01/22/20 21:00 Room Air 01/22/20 20:00 97.2 83 19 110/73 (85) 100 01/22/20 16:00 97.5 63 18 121/71 (88) 98 Height (Feet): 5 Height (Inches): 5.00 Weight (Pounds): 85 General Appearance: WD/WN Lines, tubes and drains: peripheral HEENT: normocephalic, atraumatic Neck: non-tender Respiratory/Chest: lungs clear Cardiovascular/Chest: normal peripheral pulses Abdomen: non tender Laboratory Tests Test 01/23/20 06:15 White Blood Count 6.1 K/UL (4.8-10.8) Red Blood Count 3.35 M/UL (4.70-6.10) L Hemoglobin 11.3 G/DL (14.2-18.0) L Hematocrit 35.6 % (42.0-52.0) L Mean Corpuscular Volume 106 FL (80-99) H Mean Corpuscular Hemoglobin 33.8 PG (27.0-31.0) H Mean Corpuscular Hemoglobin Concent 31.8 G/DL (32.0-36.0) L Red Cell Distribution Width 13.5 % (11.6-14.8) Platelet Count 239 K/UL (150-450) Mean Platelet Volume 5.4 FL (6.5-10.1) L Neutrophils (%) (Auto) 78.8 % (45.0-75.0) H Lymphocytes (%) (Auto) 13.3 % (20.0-45.0) L Monocytes (%) (Auto) 5.6 % (1.0-10.0) Eosinophils (%) (Auto) 1.5 % (0.0-3.0) Basophils (%) (Auto) 0.8 % (0.0-2.0) Sodium Level 136 MMOL/L (136-145) Potassium Level 3.6 MMOL/L (3.5-5.1) Chloride Level 104 MMOL/L (98-107) Carbon Dioxide Level 19 MMOL/L (21-32) L Anion Gap 13 mmol/L (5-15) Blood Urea Nitrogen 27 mg/dL (7-18) H Creatinine 1.6 MG/DL (0.55-1.30) H Estimat Glomerular Filtration Rate 43.5 mL/min (>60) Glucose Level 101 MG/DL (74-106) Calcium Level 8.9 MG/DL (8.5-10.1) Current Medications Medications (Trade) Dose Ordered Sig/Quynh Route PRN Reason Start Time Stop Time Status Last Admin Dose Admin Acetaminophen (Tylenol) 650 mg Q4H PRN ORAL Mild Pain (Pain Scale 1-3) 01/13/20 14:30 02/12/20 14:29 Aspirin (ASA) 81 mg DAILY ORAL 01/14/20 09:00 02/28/20 08:59 01/23/20 10:24 Cefepime HCl 1 gm/ Dextrose 55 ml @ 110 mls/hr Q24H IVPB 01/17/20 18:00 01/24/20 17:59 01/22/20 17:18 Dextrose (Dextrose 50%) 25 ml Q30M PRN IV Hypoglycemia 01/13/20 14:30 04/12/20 14:29 Dextrose (Dextrose 50%) 50 ml Q30M PRN IV Hypoglycemia 01/13/20 14:30 04/12/20 14:29 Docusate Sodium (Colace) 100 mg EVERY 12 HOURS ORAL 01/13/20 21:00 02/12/20 20:59 01/23/20 10:24 Heparin Sodium (Porcine) (Heparin 5000 units/ml) 5,000 units EVERY 12 HOURS SUBQ 01/13/20 21:00 02/27/20 20:59 01/23/20 10:40 Linezolid (Zyvox) 600 mg EVERY 12 HOURS ORAL 01/17/20 16:00 01/26/20 23:59 01/23/20 10:24 Metoprolol Tartrate (Lopressor) 25 mg EVERY 12 HOURS ORAL 01/13/20 21:00 04/12/20 20:59 01/23/20 10:25 Mycophenolate Mofetil (Cellcept) 1,000 mg TWICE A DAY ORAL 01/13/20 18:00 04/12/20 17:59 01/23/20 10:23 Nitroglycerin (Ntg) 0.4 mg Q5M PRN SL Prn Chest Pain 01/13/20 14:30 02/12/20 14:29 Ondansetron HCl (Zofran) 4 mg Q6H PRN IVP Nausea & Vomiting 01/13/20 14:30 02/12/20 14:29 Pantoprazole (Protonix) 40 mg BID ORAL 01/15/20 18:00 02/13/20 08:59 01/23/20 10:24 Tacrolimus (Prograf) 1 mg EVERY 12 HOURS ORAL 01/13/20 21:00 04/12/20 20:59 01/23/20 10:24 Alie Hernandes M.D. Jan 23, 2020 13:47
--- NOTE | 2020-01-23 14:18 | NUR ---
ORACLE ENGINEER NOTE CALL MADE TO [facility] [phone]. S/W PATIENTS PLANT OPERATOR CONTROL ROOM OPERATOR LUCIAN AND INFORMED OF RECOMMENDATION FOR TRANSFER FOR TX OF HISTOPLASMOSIS. PER LUCIAN, DR YAP WILL CONTACT DR SIDDIQI TO DISCUSS THIS CASE. DR SIDDIQI AWARE TO ANTICIPATE CALL FROM [facility].
--- NOTE | 2020-01-23 14:37 | NUR ---
COMPOUND MACHINE OPERATOR NOTE CALL RECEIVED FROM LUCIAN PATIENT LATIN DANCE INSTRUCTOR AT [facility] [phone] TO REPORT THAT [facility] GI TRANSPLANT DEPT WILL BE ACCEPTING PATIENT FOR ADMISSION UNDER C/O DR SALCIDO. [facility] INTAKE DEPT WILL FOLLOW UP WITH 4E NURSING STATION WITH UPDATES ON TRANSFER.
--- NOTE | 2020-01-23 15:14 | General Progress Note ---
Subjective Date patient seen: Jan 23, 2020 Time patient seen: 15:00 ROS Limited/Unobtainable: No Allergies: Coded Allergies: No Known Allergies (Unverified , 01/13/20) All Systems: reviewed and negative except above Subjective Feels the same today, denies chest pain or shortness of breath. Good PO intake and good sleep. Objective Last 24 Hour Vital Signs Date Time Temp Pulse Resp B/P (MAP) Pulse Ox O2 Delivery O2 Flow Rate FiO2 01/23/20 10:25 68 138/80 01/23/20 09:00 Room Air 01/23/20 08:00 98.4 70 19 130/78 (95) 95 01/23/20 04:00 97.8 74 19 142/82 (102) 96 01/23/20 00:00 96.9 63 19 133/73 (93) 100 01/22/20 21:00 83 110/73 01/22/20 21:00 Room Air 01/22/20 20:00 97.2 83 19 110/73 (85) 100 01/22/20 16:00 97.5 63 18 121/71 (88) 98 Intake and Output 01/22/20 01/23/20 19:00 07:00 Intake Total 400 ml 500 ml Output Total 100 ml 600 ml Balance 300 ml -100 ml Intake Oral 400 ml 500 ml Output Urine Total 100 ml 600 ml Bladder Scan Volume Amount <10 ml # Voids 4 Laboratory Tests 01/23/20 06:15: White Blood Count 6.1, Red Blood Count 3.35L, Hemoglobin 11.3L, Hematocrit 35.6L , Mean Corpuscular Volume 106H, Mean Corpuscular Hemoglobin 33.8H, Mean Corpuscular Hemoglobin Concent 31.8L, Red Cell Distribution Width 13.5, Platelet Count 239, Mean Platelet Volume 5.4L, Neutrophils (%) (Auto) 78.8H, Lymphocytes (%) (Auto) 13.3L, Monocytes (%) (Auto) 5.6, Eosinophils (%) (Auto) 1.5, Baso phils (%) (Auto) 0.8, Sodium Level 136, Potassium Level 3.6, Chloride Level 104, Carbon Dioxide Level 19L, Anion Gap 13, Blood Urea Nitrogen 27H, Creatinine 1.6H , Estimat Glomerular Filtration Rate 43.5, Glucose Level 101, Calcium Level 8.9 Height (Feet): 5 Height (Inches): 5.00 Weight (Pounds): 85 General Appearance: WD/WN EENT: PERRL/EOMI Neck: non-tender Cardiovascular: normal rate Respiratory/Chest: chest wall non-tender, lungs clear Abdomen: non tender, other - abdominal surgical scar 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 Initially, resting images obtained using IV administration 10.8 millicuries 99M technetium Myoview. Subsequently, patient underwent lexiscan stress testing. See cardiology report for details. During Lexiscan infusion, IV administration 31.4 mCi 99 M technetium Myoview. SPECT and planar images obtained. SPECT images gated to 8 phases of the cardiac cycle were also obtained, and reformatted into cine images for evaluation of ejection fraction. Comparison: none Findings: Per cardiology report, patient experienced no symptoms during infusion. Per cardiology report, resting EKG demonstrates normal sinus rhythm with left axis deviation. No ST changes during infusion. . Imaging demonstrates a post stress perfusion defect in the anteroseptal wall which is slightly smaller on the resting images. Calculated post stress ejection fraction 47%. There is slightly decreased wall motion in the septum Impression: Nonischemic clinical response to pharmacologic stress, per cardiology report Nonischemic electrocardiographic response to pharmacologic stress, per cardiology report Partially fixed partially reversible anteroseptal perfusion defect, likely infarct with femi-infarct ischemia Calculated post stress ejection fraction 47% Procedure: CT Chest no Contrast Clinical Indication: Cough, evaluation of abnormalities on recent chest radiograph Technique: Spiral acquisitions obtained through the chest. No IV contrast utilized, reason not stated. Multiplanar reconstructions generated. Total dose length product 116 mGycm. CTDIvol(s) 2 mGy. Dose reduction achieved using automated exposure control Comparison: none Findings: Multiple masses are seen in the left upper lobe. The largest of these is complex in shape, abuts the anterior mediastinum and anterior chest wall, measures 4.5 x 3.2 cm orthogonal axial dimensions, by 4.6 cm craniocaudad. This demonstrates multiple central cavities, and extends posteromedially along the bronchovascular bundle. At least 5 other lesions are seen in the left upper lobe, largest of which contain central cavities. No left lower lobe lesions are demonstrated. A 12 mm mass is seen in the right upper lobe, and several subcentimeter lesions are noted. An irregular 3.3 x 1.9 cm mass is seen in the right lower lobe, and at least one other is seen at the right lung base. No definite infiltrates. There is equivocally trace pleural fluid on the left. There is generalized mild hyperinflation, and a bulla is seen in the anteromedial right upper lobe. Azygos lobe and fissure are incidentally noted. The heart size is normal. There is no pericardial effusion. No mediastinal or hilar mass or adenopathy. The ascending thoracic aorta is mildly ectatic but not aneurysmal. There is mild edema of the mediastinal fat. The thyroid is unremarkable. No axillary or chest wall mass or adenopathy demonstrated. Numerous surgical clips are seen in the right upper quadrant. Pattern of the clips suggests liver transplant. The stomach is mildly distended with food. The bones are unremarkable. Impression: Multiple bilateral pulmonary masses/nodules the largest of these demonstrate central cavitation. Main differential considerations are infectious inflammatory lesions such as septic emboli, tuberculosis, other mycobacterial infections; noninfectious processes such as rheumatoid, granulomatosis with polyangiitis; metastatic carcinoma, most likely squamous cell carcinoma, gastrointestinal adenocarcinoma, transitional cell bladder carcinoma Mild hyperinflation. Single right upper lobe bulla Postsurgical changes of the liver suggests prior liver transplant. Correlate with surgical history The CT scanner at [facility] is accredited by the [employer] and the scans are performed using protocols designed to limit radiation exposure to as low as reasonably achievable to attain images of sufficient resolution adequate for diagnostic evaluation. Assessment/Plan Status: stable Assessment/Plan: 64 y/o M admitted to the Hospital with: # History of liver transplant at [facility] Resume prograft 1 MG BID and cellcept 1000 MG BID UNABLE TO MONITOR PROGRAF LEVEL AT THIS HOSPITAL # Abnormal CXR with MULTIPLE NODULES. Patient is Ex- smoker. No hypoxia noted at this time. CT CHEST WITH Multiple bilateral pulmonary masses/nodules the largest of these demonstrate central cavitation. Main differential considerations are infectious inflammatory lesions such as septic emboli, tuberculosis, other mycobacterial infections; noninfectious processes such as rheumatoid, granulomatosis with polyangiitis; metastatic carcinoma, most likely squamous cell carcinoma, gastrointestinal adenocarcinoma, transitional cell bladder carcinoma Pulmonary consultation and infectious disease consultation with Dr. Hill and Greta tumor markers, PSA, AFP, CEA Per Dr. Hernandes empiric ZYvox, Cefepime and Azithromycin started 01/17/20 DAY 7 -f/u cx -Monitor CBC/C MP, temperatures -airborne isolation: AFB sp cx x3, MTB PCR -COVID PCR, histo, blasto, cocci, CrAg, legionella ag urine, sp cx HISTOPLASMA 1:16 POSITIVE PATIENT WILL BENEFIT FROM ITRACONAZOLE TREATMENT WHICH INTERACTS WITH PROGRAF BEING USED FOR LIVER TRANSPLANT. HE WILL REQUIRE A HIGHER LEVEL OF CARE, IDEALLY, [facility] WHERE HIS TRANSPLANT WAS DONE. AWAITING CALL FROM DR. SALCIDO FROM THE GI TRANSPLANT SERVICE AT [facility] TO DISCUSS THE CASE. IR CT GUIDED LUNG BIOPSY 01/19 Follow up pathology. PENDING. # Generalized weakness Etiology include failure to thrive, vs poor nutritional status vs underlying cardiac etiology based on history of recent HI 2 months ago vs underlying infection vs malignancy. Weight loss 6 lbs in the past month # Moderate protein caloric malnutrition. RD support and monitoring. # Elevated troponin Serial troponin noted to be stable Telemetry with some bigeminy noted and is stable TTE with normal EF Cardiology consulted Dr. Villanueva. Stress test Nuclear without active ischemia noted. Old infarct area noted. No intervention recommended at this time. Lipid panel reviewed. Asa 81 mg daily # CKD stage 3 Trend creatinine Monitor renal function # Hypokalemia Replete and monitor Dr. Cintron renal consultation appreciated. # Hypomagnesemia Replete and monitor # Generalized weakness PT evaluation for baseline recommends SNF for short term rehab. NEEDS HIGHER LEVEL OF CARE, TRANSPLANT CENTER AND ID MANAGEMENT. DVT ppx with Enoxaparin GI ppx with PPI FULL CODE Piyush Cruz MD Jan 23, 2020 15:14
[2020-01-23 16:00] VITALS: BP 133/62
[2020-01-23] MEDS: Cefepime HCl 1 GM in D5W 55 ML IVPB SCH (17:46)
--- NOTE | 2020-01-23 19:30 | NUR ---
NURSE NOTES: Received report from Daniel HANSEN. Pt. is awake, alert and verbally responsive. Breathing even and unlabored. Denies any pain at this time. On continued isolation and observed at all times. With bed in it's lowest position, with alarm on and locked.Will continue to monitor.
--- NOTE | 2020-01-23 19:41 | NUR ---
HAND-OFF: Report given to LEYDI.
[2020-01-23 20:00] VITALS: BP 123/73
[2020-01-24] VITALS: BP 119/68
--- NOTE | 2020-01-24 02:42 | NUR ---
NURSE NOTES: All due meds given. Slept @ long intervals. Kept warm and comfortable @ all times. On continued isolation and observed at all times. Able to void freely. Denies any pain. Will continue with plan of care.
[2020-01-24 04:00] VITALS: BP 122/71
--- NOTE | 2020-01-24 04:45 | NUR ---
NURSE NOTES: Collected 3rd specimen for AFB and brought down to lab.
[2020-01-24 06:01] LABS: BASOPHILS % (AUTO) 0.8 % (0.0-2.0); EOSINOPHILS % (AUTO) 1.2 % (0.0-3.0); HEMATOCRIT 31.2 % (42.0-52.0); LYMPHOCYTES % (AUTO) 12.5 % (20.0-45.0); MEAN CORPUSCULAR VOLUME 105 FL (80-99); MONOCYTES % (AUTO) 6.5 % (1.0-10.0); PLATELET COUNT 195 K/UL (150-450); RED BLOOD COUNT 2.96 M/UL (4.70-6.10); RED CELL DISTRIBUTION WIDTH 13.3 % (11.6-14.8); WHITE BLOOD COUNT 5.3 K/UL (4.8-10.8)
[2020-01-24 06:54] LABS: ALBUMIN 2.2 G/DL (3.4-5.0); ALBUMIN/GLOBULIN RATIO 0.7 (1.0-2.7); BILIRUBIN,TOTAL 0.8 MG/DL (0.2-1.0); CALCIUM 8.5 MG/DL (8.5-10.1); CREATININE 1.5 MG/DL (0.55-1.30); POTASSIUM 3.8 MMOL/L (3.5-5.1)
--- NOTE | 2020-01-24 07:32 | NUR ---
NURSE HAND-OFF: Important Events on Shift:pending afb result of the 3rd Patient Status: Diet: Pending Orders: Pending Results/Labs: Pending MD notification: Latest Vital Signs: Temperature 97.7 , Pulse 76 , B/P 122 /71 , Respiratory Rate 18 , O2 SAT 99 , Room Air, O2 Flow Rate . Vital Sign Comment: Latest Padron Fall Score: 35 Fall Risk: Medium Risk Safety Measures: Call light Within Reach, Bed Alarm Zone 1, Side Rails Side Rails x2, Bed position Low and Locked. Fall Precautions: Yellow Socks Yellow Gown Door Sign Patient Fall Education Report given to Daniel HANSEN.
[2020-01-24 08:00] VITALS: BP 151/92
--- NOTE | 2020-01-24 08:03 | NUR ---
NURSE NOTES:pt is sitting up in the bed eating breakfast. denies any pain and discomfort. no episodes of coughing and SOB noted. no acute distress noted at this time. call light is within reach.
--- NOTE | 2020-01-24 09:01 | Nephrology Progress Note ---
Assessment/Plan Problem List: (1) Hypokalemia (2) Renal failure (ARF), acute on chronic (3) Elevated troponin (4) Anemia Assessment Persistent hypokalemia, etiology unclear. No report of diarrhea. Renal failure with serum creatinine of 1.7, most likely chronic Elevated troponin Anemia Hypoalbuminemia Status post liver transplant. On Prograf and CellCept Leukocytosis COPD EjFx 55% Plan January 23: Serum creatinine down to 1.5 stable from renal standpoint to view continue per consultants January 22: Serum creatinine down to 1.6. Stable from renal standpoint of view. Continue per consultants. January 21: Serum creatinine up to 1.7. Continue per consultants. Continue to monitor renal parameters. January 20: No blood drawn today. Continue per consultants. Check labs tomorrow. January 19: Labs reviewed. Magnesium replaced. Other electrolyte abnormalities addressed. Serum creatinine down to 1.5. January 18: Labs reviewed. Low potassium replaced. Continue to monitor electrolytes and renal parameters. Serum creatinine 1.6. January 17: Renal parameters stable. Continue per current management. Work-up of bilateral cavitary pulmonary nodules in process January 16: Serum creatinine lowering from 2 on admission to 1.[address] scan of the chest noted. Will discuss with Dr. Cruz regarding the pulmonary evaluation. Continue current management. Previously: Potassium supplement p.o. and IV Urine spot sodium Urine spot potassium Kidney ultrasound, pending 2D echocardiogram EjFx 55% Monitor renal parameters Will order CT of the chest with no contrast Chest x-ray impression: Bilateral lung nodules. These are worrisome for metastatic deposits. Septic emboli also a possibility. Mild hyperinflation, likely COPD. Subjective ROS Limited/Unobtainable: No Constitutional: Reports: malaise Objective Objective Last 24 Hour Vital Signs Date Time Temp Pulse Resp B/P (MAP) Pulse Ox O2 Delivery O2 Flow Rate FiO2 01/24/20 04:00 97.7 76 18 122/71 (88) 99 01/24/20 00:00 98.2 75 16 119/68 (85) 98 01/23/20 21:00 Room Air 01/23/20 21:00 77 123/73 01/23/20 20:00 97.7 77 18 123/73 (90) 100 01/23/20 16:00 98.0 68 18 133/62 (85) 98 01/23/20 12:00 98.2 64 18 137/67 (90) 96 01/23/20 10:25 68 138/80 01/23/20 09:00 Room Air Intake and Output 01/23/20 01/24/20 19:00 07:00 Intake Total 480 ml 600 ml Output Total 400 ml 450 ml Balance 80 ml 150 ml Intake Oral 480 ml 600 ml Output Urine Total 400 ml 450 ml Bladder Scan Volume Amount <10 ml # Voids 3 3 Current Medications Medications (Trade) Dose Ordered Sig/Quynh Route PRN Reason Start Time Stop Time Status Last Admin Dose Admin Acetaminophen (Tylenol) 650 mg Q4H PRN ORAL Mild Pain (Pain Scale 1-3) 01/13/20 14:30 02/12/20 14:29 Aspirin (ASA) 81 mg DAILY ORAL 01/14/20 09:00 02/28/20 08:59 01/23/20 10:24 Cefepime HCl 1 gm/ Dextrose 55 ml @ 110 mls/hr Q24H IVPB 01/17/20 18:00 01/24/20 17:59 01/23/20 17:46 Dextrose (Dextrose 50%) 25 ml Q30M PRN IV Hypoglycemia 01/13/20 14:30 04/12/20 14:29 Dextrose (Dextrose 50%) 50 ml Q30M PRN IV Hypoglycemia 01/13/20 14:30 04/12/20 14:29 Docusate Sodium (Colace) 100 mg EVERY 12 HOURS ORAL 01/13/20 21:00 02/12/20 20:59 01/23/20 21:05 Heparin Sodium (Porcine) (Heparin 5000 units/ml) 5,000 units EVERY 12 HOURS SUBQ 01/13/20 21:00 02/27/20 20:59 01/23/20 21:08 Linezolid (Zyvox) 600 mg EVERY 12 HOURS ORAL 01/17/20 16:00 01/26/20 23:59 01/23/20 21:06 Metoprolol Tartrate (Lopressor) 25 mg EVERY 12 HOURS ORAL 01/13/20 21:00 04/12/20 20:59 01/23/20 21:00 Mycophenolate Mofetil (Cellcept) 1,000 mg TWICE A DAY ORAL 01/13/20 18:00 04/12/20 17:59 01/23/20 17:47 Nitroglycerin (Ntg) 0.4 mg Q5M PRN SL Prn Chest Pain 01/13/20 14:30 02/12/20 14:29 Ondansetron HCl (Zofran) 4 mg Q6H PRN IVP Nausea & Vomiting 01/13/20 14:30 02/12/20 14:29 Pantoprazole (Protonix) 40 mg BID ORAL 01/15/20 18:00 02/13/20 08:59 01/23/20 17:47 Tacrolimus (Prograf) 1 mg EVERY 12 HOURS ORAL 01/13/20 21:00 04/12/20 20:59 01/23/20 21:06 Laboratory Tests 01/24/20 05:30: White Blood Count 5.3, Red Blood Count 2.96L, Hemoglobin 10.0L, Hematocrit 31.2L , Mean Corpuscular Volume 105H, Mean Corpuscular Hemoglobin 33.9H, Mean Corpuscular Hemoglobin Concent 32.2, Red Cell Distribution Width 13.3, Platelet Count 195, Mean Platelet Volume 5.6L, Neutrophils (%) (Auto) 79.0H, Lymphocytes (%) (Auto) 12.5L, Monocytes (%) (Auto) 6.5, Eosinophils (%) (Auto) 1.2, Basophils (%) (Auto) 0.8, Sodium Level 137, Potassium Level 3.8, Chloride Level 107, Carbon Dioxide Level 21, Anion Gap 9, Blood Urea Nitrogen 30H, Creatinine 1.5H, Estimat Glomerular Filtration Rate 46.8, Glucose Level 108H, Calcium Level 8.5, Total Bilirubin 0.8, Aspartate Amino Transf (AST/SGOT) 74H, Alanine Aminotransferase (ALT/SGPT) 64, Alkaline Phosphatase 501H, Total Protein 5.4L, Albumin 2.2L, Globulin 3.2, Albumin/Globulin Ratio 0.7L Height (Feet): 5 Height (Inches): 5.00 Weight (Pounds): 85 General Appearance: no apparent distress Respiratory/Chest: decreased breath sounds Abdomen: soft Objective No change Marvin Martinez MD Jan 24, 2020 09:01
--- NOTE | 2020-01-24 09:38 | Pulmonology Progress Note ---
Subjective ROS Limited/Unobtainable: No Interval Events: S/p CT chest/biopsy Constitutional: Reports: no symptoms HEENT: Repors: no symptoms Respiratory: Reports: no symptoms Cardiovascular: Reports: no symptoms Gastrointestinal/Abdominal: Reports: no symptoms Allergies: Coded Allergies: No Known Allergies (Unverified , 01/13/20) All Systems: reviewed and negative except above Objective Last 24 Hour Vital Signs Date Time Temp Pulse Resp B/P (MAP) Pulse Ox O2 Delivery O2 Flow Rate FiO2 01/24/20 08:00 98.1 94 18 151/92 (111) 100 01/24/20 04:00 97.7 76 18 122/71 (88) 99 01/24/20 00:00 98.2 75 16 119/68 (85) 98 01/23/20 21:00 Room Air 01/23/20 21:00 77 123/73 01/23/20 20:00 97.7 77 18 123/73 (90) 100 01/23/20 16:00 98.0 68 18 133/62 (85) 98 01/23/20 12:00 98.2 64 18 137/67 (90) 96 01/23/20 10:25 68 138/80 Intake and Output 01/23/20 01/24/20 19:00 07:00 Intake Total 480 ml 600 ml Output Total 400 ml 450 ml Balance 80 ml 150 ml Intake Oral 480 ml 600 ml Output Urine Total 400 ml 450 ml Bladder Scan Volume Amount <10 ml # Voids 3 3 General Appearance: no acute distress HEENT: normocephalic Respiratory: chest wall non-tender, lungs clear Cardiovascular: normal peripheral pulses, normal rate Abdomen: normal bowel sounds Microbiology Date/Time Source Procedure Growth Status 01/22/20 11:30 Sputum AFB Specimen Processing Tissue - Final Resulted 01/22/20 11:30 Sputum Acid Fast Bacilli Smear - Final Resulted 01/22/20 11:30 Sputum Acid Fast Bacilli Culture Pending Resulted 01/21/20 21:00 Sputum AFB Specimen Processing Tissue - Final Resulted 01/21/20 21:00 Sputum Acid Fast Bacilli Smear - Final Resulted 01/21/20 21:00 Sputum Acid Fast Bacilli Culture Pending Resulted Laboratory Tests 01/24/20 05:30: White Blood Count 5.3, Red Blood Count 2.96L, Hemoglobin 10.0L, Hematocrit 31.2L , Mean Corpuscular Volume 105H, Mean Corpuscular Hemoglobin 33.9H, Mean Corpuscular Hemoglobin Concent 32.2, Red Cell Distribution Width 13.3, Platelet Count 195, Mean Platelet Volume 5.6L, Neutrophils (%) (Auto) 79.0H, Lymphocytes (%) (Auto) 12.5L, Monocytes (%) (Auto) 6.5, Eosinophils (%) (Auto) 1.2, Basophils (%) (Auto) 0.8, Sodium Level 137, Potassium Level 3.8, Chloride Level 107, Carbon Dioxide Level 21, Anion Gap 9, Blood Urea Nitrogen 30H, Creatinine 1.5H, Estimat Glomerular Filtration Rate 46.8, Glucose Level 108H, Calcium Level 8.5, Total Bilirubin 0.8, Aspartate Amino Transf (AST/SGOT) 74H, Alanine Aminotransferase (ALT/SGPT) 64, Alkaline Phosphatase 501H, Total Protein 5.4L, Albumin 2.2L, Globulin 3.2, Albumin/Globulin Ratio 0.7L Current Medications Medications (Trade) Dose Ordered Sig/Quynh Route PRN Reason Start Time Stop Time Status Last Admin Dose Admin Acetaminophen (Tylenol) 650 mg Q4H PRN ORAL Mild Pain (Pain Scale 1-3) 01/13/20 14:30 02/12/20 14:29 Aspirin (ASA) 81 mg DAILY ORAL 01/14/20 09:00 02/28/20 08:59 01/23/20 10:24 Cefepime HCl 1 gm/ Dextrose 55 ml @ 110 mls/hr Q24H IVPB 01/17/20 18:00 01/24/20 17:59 01/23/20 17:46 Dextrose (Dextrose 50%) 25 ml Q30M PRN IV Hypoglycemia 01/13/20 14:30 04/12/20 14:29 Dextrose (Dextrose 50%) 50 ml Q30M PRN IV Hypoglycemia 01/13/20 14:30 04/12/20 14:29 Docusate Sodium (Colace) 100 mg EVERY 12 HOURS ORAL 01/13/20 21:00 02/12/20 20:59 01/23/20 21:05 Heparin Sodium (Porcine) (Heparin 5000 units/ml) 5,000 units EVERY 12 HOURS SUBQ 01/13/20 21:00 02/27/20 20:59 01/23/20 21:08 Linezolid (Zyvox) 600 mg EVERY 12 HOURS ORAL 01/17/20 16:00 01/26/20 23:59 01/23/20 21:06 Metoprolol Tartrate (Lopressor) 25 mg EVERY 12 HOURS ORAL 01/13/20 21:00 04/12/20 20:59 01/23/20 21:00 Mycophenolate Mofetil (Cellcept) 1,000 mg TWICE A DAY ORAL 01/13/20 18:00 04/12/20 17:59 01/23/20 17:47 Nitroglycerin (Ntg) 0.4 mg Q5M PRN SL Prn Chest Pain 01/13/20 14:30 02/12/20 14:29 Ondansetron HCl (Zofran) 4 mg Q6H PRN IVP Nausea & Vomiting 01/13/20 14:30 02/12/20 14:29 Pantoprazole (Protonix) 40 mg BID ORAL 01/15/20 18:00 02/13/20 08:59 01/23/20 17:47 Tacrolimus (Prograf) 1 mg EVERY 12 HOURS ORAL 01/13/20 21:00 04/12/20 20:59 01/23/20 21:06 Assessment/Plan Assessment/Plan IMPRESSION: 1. Bilateral cavitary pulmonary nodules. 2. History of liver transplant, on immunosuppressives. 3. CAD. DISCUSSION: Discussed with Dr. Cruz. S/p CT-guided lung biopsy. May need bronchoscopy if CT biopsy is non-diagnostic OK to dc home/SNF . Await cultures and serology. I will follow. Reinier Leo Omar Syed MD Jan 24, 2020 09:38
[2020-01-24] MEDS: Docusate 100mg cap ORAL SCH ×2 (09:43→21:20)
[2020-01-24] MEDS: Aspirin Baby 81mg ORAL SCH (09:43)
[2020-01-24] MEDS: Mycophenolate 250mg cap ORAL SCH ×2 (09:43→18:15)
[2020-01-24] MEDS: Heparin 5000 units/ml inj SUBQ SCH ×2 (09:45→21:22)
--- NOTE | 2020-01-24 10:36 | NUR ---
RD ASSESSMENT & RECOMMENDATIONS SEE CARE ACTIVITY FOR COMPLETE ASSESSMENT DAILY ESTIMATED NEEDS: Needs based on Underweight/ 45.5kg 30-35 kcals/kg 3396-2608 total kcals 1-1.5 g protein/kg 46-68 g total protein 25-30 mL/kg 4807-3231 total fluid mLs NUTRITION DIAGNOSIS: Increased kcal/prot needs R/T underweight status w/ suspected wt loss as evidenced by pt @ 70% IBW w/ low BMI per guidelines, wt loss of 6lbs (possibly >5.7%, significant) in the past month per MD. CURRENT DIET:RENAL PO DIET RECOMMENDATIONS: LOW NA/ texture as tolerated + Ensure Enlive BID w/ meals ADDITIONAL RECOMMENDATIONS: * Daily standing wt as able * Rec liberalized diet of LOW NA as above- renal diet unncessary creat improving (2.0 -> 1.5), many episodes of low K, phos, mag * MVI x 1 as supplement * Snacks BID in b/w meals * Ensure BID w/ meals (350kcal/20g prot each)- Nepro BID added for now until diet changed
--- NOTE | 2020-01-24 10:37 | NUR ---
DOUBLE NEEDLE OPERATOR NOTE CALL MADE TO [facility] [phone]. MESSAGE LEFT REQUESTING CALL BACK. Addendum: 01/24/20 at 1057 by ANAND SIDDIQI LVN CALL MADE TO [facility] [phone]. S/W JB WHO INFORMED THAT FINANCIAL CLEARANCE CURRENTLY PENDING AND 3RD AFB RESULT NEEDED FOR ADMISSION.
--- NOTE | 2020-01-24 11:00 | Urology Progress Note ---
Assessment/Plan Status: stable Assessment/Plan: 1. Elevated serum PSA. 2. BPH. 3. Mild lower urinary tract symptoms. 4. Rule out neurogenic bladder. 5. Renal insufficiency, acute on chronic. 6. Proteinuria. 7. Renal cyst. monitor clinically consider adding flomax prostate MRI and/or biopsy at some point on abx as ordered lung mets, s/p bx, f/u on path monitor renal fxn Subjective Allergies: Coded Allergies: No Known Allergies (Unverified , 01/13/20) Subjective all noted, feels fair voiding s/p lung bx 01/19 Objective Last 24 Hour Vital Signs Date Time Temp Pulse Resp B/P (MAP) Pulse Ox O2 Delivery O2 Flow Rate FiO2 01/24/20 09:42 94 151/92 01/24/20 08:00 98.1 94 18 151/92 (111) 100 01/24/20 04:00 97.7 76 18 122/71 (88) 99 01/24/20 00:00 98.2 75 16 119/68 (85) 98 01/23/20 21:00 Room Air 01/23/20 21:00 77 123/73 01/23/20 20:00 97.7 77 18 123/73 (90) 100 01/23/20 16:00 98.0 68 18 133/62 (85) 98 01/23/20 12:00 98.2 64 18 137/67 (90) 96 Intake and Output 01/23/20 01/24/20 19:00 07:00 Intake Total 480 ml 600 ml Output Total 400 ml 450 ml Balance 80 ml 150 ml Intake Oral 480 ml 600 ml Output Urine Total 400 ml 450 ml Bladder Scan Volume Amount <10 ml # Voids 3 3 Microbiology Date/Time Source Procedure Growth Status 01/22/20 11:30 Sputum AFB Specimen Processing Tissue - Final Resulted 01/22/20 11:30 Sputum Acid Fast Bacilli Smear - Final Resulted 01/22/20 11:30 Sputum Acid Fast Bacilli Culture Pending Resulted 01/18/20 07:30 Blood Blood Culture - Final NO GROWTH AFTER 5 DAYS Complete Current Medications Medications (Trade) Dose Ordered Sig/Quynh Route PRN Reason Start Time Stop Time Status Last Admin Dose Admin Acetaminophen (Tylenol) 650 mg Q4H PRN ORAL Mild Pain (Pain Scale 1-3) 01/13/20 14:30 02/12/20 14:29 Aspirin (ASA) 81 mg DAILY ORAL 01/14/20 09:00 02/28/20 08:59 01/24/20 09:43 Cefepime HCl 1 gm/ Dextrose 55 ml @ 110 mls/hr Q24H IVPB 01/17/20 18:00 01/24/20 17:59 01/23/20 17:46 Dextrose (Dextrose 50%) 25 ml Q30M PRN IV Hypoglycemia 01/13/20 14:30 04/12/20 14:29 Dextrose (Dextrose 50%) 50 ml Q30M PRN IV Hypoglycemia 01/13/20 14:30 04/12/20 14:29 Docusate Sodium (Colace) 100 mg EVERY 12 HOURS ORAL 01/13/20 21:00 02/12/20 20:59 01/24/20 09:43 Heparin Sodium (Porcine) (Heparin 5000 units/ml) 5,000 units EVERY 12 HOURS SUBQ 01/13/20 21:00 02/27/20 20:59 01/24/20 09:45 Linezolid (Zyvox) 600 mg EVERY 12 HOURS ORAL 01/17/20 16:00 01/26/20 23:59 01/23/20 21:06 Metoprolol Tartrate (Lopressor) 25 mg EVERY 12 HOURS ORAL 01/13/20 21:00 04/12/20 20:59 01/24/20 09:42 Mycophenolate Mofetil (Cellcept) 1,000 mg TWICE A DAY ORAL 01/13/20 18:00 04/12/20 17:59 01/24/20 09:43 Nitroglycerin (Ntg) 0.4 mg Q5M PRN SL Prn Chest Pain 01/13/20 14:30 02/12/20 14:29 Ondansetron HCl (Zofran) 4 mg Q6H PRN IVP Nausea & Vomiting 01/13/20 14:30 02/12/20 14:29 Pantoprazole (Protonix) 40 mg BID ORAL 01/15/20 18:00 02/13/20 08:59 01/24/20 09:42 Tacrolimus (Prograf) 1 mg EVERY 12 HOURS ORAL 01/13/20 21:00 04/12/20 20:59 01/24/20 09:43 Laboratory Tests 01/24/20 05:30: White Blood Count 5.3, Red Blood Count 2.96L, Hemoglobin 10.0L, Hematocrit 31.2L , Mean Corpuscular Volume 105H, Mean Corpuscular Hemoglobin 33.9H, Mean Corpuscular Hemoglobin Concent 32.2, Red Cell Distribution Width 13.3, Platelet Count 195, Mean Platelet Volume 5.6L, Neutrophils (%) (Auto) 79.0H, Lymphocytes (%) (Auto) 12.5L, Monocytes (%) (Auto) 6.5, Eosinophils (%) (Auto) 1.2, Basophils (%) (Auto) 0.8, Sodium Level 137, Potassium Level 3.8, Chloride Level 107, Carbon Dioxide Level 21, Anion Gap 9, Blood Urea Nitrogen 30H, Creatinine 1.5H, Estimat Glomerular Filtration Rate 46.8, Glucose Level 108H, Calcium Level 8.5, Total Bilirubin 0.8, Aspartate Amino Transf (AST/SGOT) 74H, Alanine Aminotransferase (ALT/SGPT) 64, Alkaline Phosphatase 501H, Total Protein 5.4L, Albumin 2.2L, Globulin 3.2, Albumin/Globulin Ratio 0.7L Height (Feet): 5 Height (Inches): 5.00 Weight (Pounds): 85 Objective exam stable Corona Hernandez MD Jan 24, 2020 11:00
[2020-01-24 12:00] VITALS: BP 131/87
--- NOTE | 2020-01-24 12:17 | Infectious Diseases Prog Note ---
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 Oorganizing PNA with necrotizing abscess like inflammation. Fungal and AFB stains were neg -CT chest wo: Multiple bilateral pulmonary masses/nodules the largest of these demonstrate central cavitation. Main differential considerations are infectious inflammatory lesions such as septic emboli, tuberculosis, other mycobacterial infections; noninfectious processes such as rheumatoid, granulomatosis with polyangiitis; metastatic carcinoma, most likely squamous cell carcinoma, gastrointestinal adenocarcinoma, transitional cell bladder carcinoma. Mild hyperinflation. Single right upper lobe bulla, Postsurgical blair nges of the liver suggests prior liver transplant. Correlate with surgical history -CXR: Bilateral lung nodules. These are worrisome for metastatic deposits. Septic emboli also a possibility. Correlate with clinical history and findings. Mild hyperinflation, likely COPD. -2d echo: no vegetations -HIV ab screen neg, rapid COVID PCR, urine legionella ag, M. 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 Bilateral renal cysts. Negative for hydronephrosis. 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 Patient had his transplant in [facility]. I discussed with Dr Cruz and Michell from child support case officer to initiate request for transfer -await final path- fungal and AFB stains -01/21 SP Azithromycin #6 -f/u cx -Monitor CBC/C MP, temperatures -airborne isolation: AFB sp cx x3, MTB PCR -f/u histo ag urine, cocci, CrAg, sp cx -May need bronch if not able to expectorate sputum - if bacteremic, may need LORENA -f/u biopsy results Thank you for consulting [facility]. Will continue to follow along with you. Discussed with RN, Dr Cruz, pathologist, and lab staff. Subjective Allergies: Coded Allergies: No Known Allergies (Unverified , 01/13/20) afebrile afb smear neg x2 no leukocytosis transfer to [facility] request initiate Objective Last 24 Hour Vital Signs Date Time Temp Pulse Resp B/P (MAP) Pulse Ox O2 Delivery O2 Flow Rate FiO2 01/24/20 12:00 98.8 89 18 131/87 (102) 99 01/24/20 09:42 94 151/92 01/24/20 09:00 Room Air 01/24/20 08:00 98.1 94 18 151/92 (111) 100 01/24/20 04:00 97.7 76 18 122/71 (88) 99 01/24/20 00:00 98.2 75 16 119/68 (85) 98 01/23/20 21:00 Room Air 01/23/20 21:00 77 123/73 01/23/20 20:00 97.7 77 18 123/73 (90) 100 01/23/20 16:00 98.0 68 18 133/62 (85) 98 Height (Feet): 5 Height (Inches): 5.00 Weight (Pounds): 85 General Appearance: WD/WN Lines, tubes and drains: peripheral HEENT: normocephalic, atraumatic Neck: non-tender Respiratory/Chest: lungs clear Cardiovascular/Chest: normal peripheral pulses Abdomen: non tender Microbiology Date/Time Source Procedure Growth Status 01/22/20 11:30 Sputum AFB Specimen Processing Tissue - Final Resulted 01/22/20 11:30 Sputum Acid Fast Bacilli Smear - Final Resulted 01/22/20 11:30 Sputum Acid Fast Bacilli Culture Pending Resulted 01/21/20 21:00 Sputum AFB Specimen Processing Tissue - Final Resulted 01/21/20 21:00 Sputum Acid Fast Bacilli Smear - Final Resulted 01/21/20 21:00 Sputum Acid Fast Bacilli Culture Pending Resulted Laboratory Tests Test 01/24/20 05:30 White Blood Count 5.3 K/UL (4.8-10.8) Red Blood Count 2.96 M/UL (4.70-6.10) L Hemoglobin 10.0 G/DL (14.2-18.0) L Hematocrit 31.2 % (42.0-52.0) L Mean Corpuscular Volume 105 FL (80-99) H Mean Corpuscular Hemoglobin 33.9 PG (27.0-31.0) H Mean Corpuscular Hemoglobin Concent 32.2 G/DL (32.0-36.0) Red Cell Distribution Width 13.3 % (11.6-14.8) Platelet Count 195 K/UL (150-450) Mean Platelet Volume 5.6 FL (6.5-10.1) L Neutrophils (%) (Auto) 79.0 % (45.0-75.0) H Lymphocytes (%) (Auto) 12.5 % (20.0-45.0) L Monocytes (%) (Auto) 6.5 % (1.0-10.0) Eosinophils (%) (Auto) 1.2 % (0.0-3.0) Basophils (%) (Auto) 0.8 % (0.0-2.0) Sodium Level 137 MMOL/L (136-145) Potassium Level 3.8 MMOL/L (3.5-5.1) Chloride Level 107 MMOL/L (98-107) Carbon Dioxide Level 21 MMOL/L (21-32) Anion Gap 9 mmol/L (5-15) Blood Urea Nitrogen 30 mg/dL (7-18) H Creatinine 1.5 MG/DL (0.55-1.30) H Estimat Glomerular Filtration Rate 46.8 mL/min (>60) Glucose Level 108 MG/DL (74-106) H Calcium Level 8.5 MG/DL (8.5-10.1) Total Bilirubin 0.8 MG/DL (0.2-1.0) Aspartate Amino Transf (AST/SGOT) 74 U/L (15-37) H Alanine Aminotransferase (ALT/SGPT) 64 U/L (12-78) Alkaline Phosphatase 501 U/L (46-116) H Total Protein 5.4 G/DL (6.4-8.2) L Albumin 2.2 G/DL (3.4-5.0) L Globulin 3.2 g/dL Albumin/Globulin Ratio 0.7 (1.0-2.7) L Current Medications Medications (Trade) Dose Ordered Sig/Quynh Route PRN Reason Start Time Stop Time Status Last Admin Dose Admin Acetaminophen (Tylenol) 650 mg Q4H PRN ORAL Mild Pain (Pain Scale 1-3) 01/13/20 14:30 02/12/20 14:29 Aspirin (ASA) 81 mg DAILY ORAL 01/14/20 09:00 02/28/20 08:59 01/24/20 09:43 Cefepime HCl 1 gm/ Dextrose 55 ml @ 110 mls/hr Q24H IVPB 01/17/20 18:00 01/24/20 17:59 01/23/20 17:46 Dextrose (Dextrose 50%) 25 ml Q30M PRN IV Hypoglycemia 01/13/20 14:30 04/12/20 14:29 Dextrose (Dextrose 50%) 50 ml Q30M PRN IV Hypoglycemia 01/13/20 14:30 04/12/20 14:29 Docusate Sodium (Colace) 100 mg EVERY 12 HOURS ORAL 01/13/20 21:00 02/12/20 20:59 01/24/20 09:43 Heparin Sodium (Porcine) (Heparin 5000 units/ml) 5,000 units EVERY 12 HOURS SUBQ 01/13/20 21:00 02/27/20 20:59 01/24/20 09:45 Linezolid (Zyvox) 600 mg EVERY 12 HOURS ORAL 01/17/20 16:00 01/26/20 23:59 01/24/20 12:14 Metoprolol Tartrate (Lopressor) 25 mg EVERY 12 HOURS ORAL 01/13/20 21:00 04/12/20 20:59 01/24/20 09:42 Mycophenolate Mofetil (Cellcept) 1,000 mg TWICE A DAY ORAL 01/13/20 18:00 04/12/20 17:59 01/24/20 09:43 Nitroglycerin (Ntg) 0.4 mg Q5M PRN SL Prn Chest Pain 01/13/20 14:30 02/12/20 14:29 Ondansetron HCl (Zofran) 4 mg Q6H PRN IVP Nausea & Vomiting 01/13/20 14:30 02/12/20 14:29 Pantoprazole (Protonix) 40 mg BID ORAL 01/15/20 18:00 02/13/20 08:59 01/24/20 09:42 Tacrolimus (Prograf) 1 mg EVERY 12 HOURS ORAL 01/13/20 21:00 04/12/20 20:59 01/24/20 09:43 Alie Hernandes M.D. Jan 24, 2020 12:17
--- NOTE | 2020-01-24 12:38 | General Progress Note ---
Subjective Date patient seen: Jan 24, 2020 Time patient seen: 13:00 ROS Limited/Unobtainable: No Allergies: Coded Allergies: No Known Allergies (Unverified , 01/13/20) Subjective Feels the same today, denies chest pain or shortness of breath. Good PO intake and good sleep. Objective Last 24 Hour Vital Signs Date Time Temp Pulse Resp B/P (MAP) Pulse Ox O2 Delivery O2 Flow Rate FiO2 01/24/20 12:00 98.8 89 18 131/87 (102) 99 01/24/20 09:42 94 151/92 01/24/20 09:00 Room Air 01/24/20 08:00 98.1 94 18 151/92 (111) 100 01/24/20 04:00 97.7 76 18 122/71 (88) 99 01/24/20 00:00 98.2 75 16 119/68 (85) 98 01/23/20 21:00 Room Air 01/23/20 21:00 77 123/73 01/23/20 20:00 97.7 77 18 123/73 (90) 100 01/23/20 16:00 98.0 68 18 133/62 (85) 98 Intake and Output 01/23/20 01/24/20 19:00 07:00 Intake Total 480 ml 600 ml Output Total 400 ml 450 ml Balance 80 ml 150 ml Intake Oral 480 ml 600 ml Output Urine Total 400 ml 450 ml Bladder Scan Volume Amount <10 ml # Voids 3 3 Laboratory Tests 01/24/20 05:30: White Blood Count 5.3, Red Blood Count 2.96L, Hemoglobin 10.0L, Hematocrit 31.2L , Mean Corpuscular Volume 105H, Mean Corpuscular Hemoglobin 33.9H, Mean Corpuscular Hemoglobin Concent 32.2, Red Cell Distribution Width 13.3, Platelet Count 195, Mean Platelet Volume 5.6L, Neutrophils (%) (Auto) 79.0H, Lymphocytes (%) (Auto) 12.5L, Monocytes (%) (Auto) 6.5, Eosinophils (%) (Auto) 1.2, Basophils (%) (Auto) 0.8, Sodium Level 137, Potassium Level 3.8, Chloride Level 107, Carbon Dioxide Level 21, Anion Gap 9, Blood Urea Nitrogen 30H, Creatinine 1.5H, Estimat Glomerular Filtration Rate 46.8, Glucose Level 108H, Calcium Level 8.5, Total Bilirubin 0.8, Aspartate Amino Transf (AST/SGOT) 74H, Alanine Aminotransferase (ALT/SGPT) 64, Alkaline Phosphatase 501H, Total Protein 5.4L, Albumin 2.2L, Globulin 3.2, Albumin/Globulin Ratio 0.7L Height (Feet): 5 Height (Inches): 5.00 Weight (Pounds): 85 General Appearance: WD/WN EENT: PERRL/EOMI Neck: non-tender Cardiovascular: normal rate Respiratory/Chest: lungs clear Abdomen: non tender Neurologic: thermodynamicist II-XII grossly normal Skin: normal pigmentation Objective Procedure: NM Myocard Perf w/ Eject Frac Indications: Chest pain, elevated troponin Technique: Single day single isotope protocol utilized. Initially, resting images obtained using IV administration 10.8 millicuries 99M technetium Myoview. Subsequently, patient underwent lexiscan stress testing. See cardiology report for details. During Lexiscan infusion, IV administration 31.4 mCi 99 M technetium Myoview. SPECT and planar images obtained. SPECT images gated to 8 phases of the cardiac cycle were also obtained, and reformatted into cine images for evaluation of ejection fraction. Comparison: none Findings: Per cardiology report, patient experienced no symptoms during infusion. Per cardiology report, resting EKG demonstrates normal sinus rhythm with left axis deviation. No ST changes during infusion. . Imaging demonstrates a post stress perfusion defect in the anteroseptal wall which is slightly smaller on the resting images. Calculated post stress ejection fraction 47%. There is slightly decreased wall motion in the septum Impression: Nonischemic clinical response to pharmacologic stress, per cardiology report Nonischemic electrocardiographic response to pharmacologic stress, per cardiology report Partially fixed partially reversible anteroseptal perfusion defect, likely infarct with femi-infarct ischemia Calculated post stress ejection fraction 47% Procedure: CT Chest no Contrast Clinical Indication: Cough, evaluation of abnormalities on recent chest radiograph Technique: Spiral acquisitions obtained through the chest. No IV contrast utilized, reason not stated. Multiplanar reconstructions generated. Total dose length product 116 mGycm. CTDIvol(s) 2 mGy. Dose reduction achieved using automated exposure control Comparison: none Findings: Multiple masses are seen in the left upper lobe. The largest of these is complex in shape, abuts the anterior mediastinum and anterior chest wall, measures 4.5 x 3.2 cm orthogonal axial dimensions, by 4.6 cm craniocaudad. This demonstrates multiple central cavities, and extends posteromedially along the bronchovascular bundle. At least 5 other lesions are seen in the left upper lobe, largest of which contain central cavities. No left lower lobe lesions are demonstrated. A 12 mm mass is seen in the right upper lobe, and several subcentimeter lesions are noted. An irregular 3.3 x 1.9 cm mass is seen in the right lower lobe, and at least one other is seen at the right lung base. No definite infiltrates. There is equivocally trace pleural fluid on the left. There is generalized mild hyperinflation, and a bulla is seen in the anteromedial right upper lobe. Azygos lobe and fissure are incidentally noted. The heart size is normal. There is no pericardial effusion. No mediastinal or hilar mass or adenopathy. The ascending thoracic aorta is mildly ectatic but not aneurysmal. There is mild edema of the mediastinal fat. The thyroid is unremarkable. No axillary or chest wall mass or adenopathy demonstrated. Numerous surgical clips are seen in the right upper quadrant. Pattern of the clips suggests liver transplant. The stomach is mildly distended with food. The bones are unremarkable. Impression: Multiple bilateral pulmonary masses/nodules the largest of these demonstrate central cavitation. Main differential considerations are infectious inflammatory lesions such as septic emboli, tuberculosis, other mycobacterial infections; noninfectious processes such as rheumatoid, granulomatosis with polyangiitis; metastatic carcinoma, most likely squamous cell carcinoma, gastrointestinal adenocarcinoma, transitional cell bladder carcinoma Mild hyperinflation. Single right upper lobe bulla Postsurgical changes of the liver suggests prior liver transplant. Correlate with surgical history The CT scanner at [facility] is accredited by the [employer] and the scans are performed using protocols designed to limit radiation exposure to as low as reasonably achievable to attain images of sufficient resolution adequate for diagnostic evaluation. Assessment/Plan Status: stable Assessment/Plan: 64 y/o M admitted to the Hospital with: # History of liver transplant at [facility] Resume prograft 1 MG BID and cellcept 1000 MG BID UNABLE TO MONITOR PROGRAF LEVEL AT THIS HOSPITAL # Abnormal CXR with MULTIPLE NODULES. Patient is Ex- smoker. No hypoxia noted at this time. CT CHEST WITH Multiple bilateral pulmonary masses/nodules the largest of these demonstrate central cavitation. Main differential considerations are infectious inflammatory lesions such as septic emboli, tuberculosis, other mycobacterial infections; noninfectious processes such as rheumatoid, granulomatosis with polyangiitis; metastatic carcinoma, most likely squamous cell carcinoma, gastrointestinal adenocarcinoma, transitional cell bladder carcinoma Pulmonary consultation and infectious disease consultation with Dr. Hill and Greta Per Dr. Hernandes empiric ZYvox, Cefepime and Azithromycin started 01/17/20 DAY 8 -f/u cx -Monitor CBC/C MP, temperatures -airborne isolation: AFB sp cx x3 ( Third sample collected last night, pending result ) , MTB PCR -COVID PCR, histo, blasto, cocci, CrAg, legionella ag urine, sp cx HISTOPLASMA 1:16 POSITIVE PATIENT WILL BENEFIT FROM ITRACONAZOLE TREATMENT WHICH INTERACTS WITH PROGRAF BEING USED FOR LIVER TRANSPLANT. HE WILL REQUIRE A HIGHER LEVEL OF CARE, IDEALLY, [facility] WHERE HIS TRANSPLANT WAS DONE. AWAITING CALL FROM DR. SALCIDO FROM THE GI TRANSPLANT SERVICE AT [facility] TO DISCUSS THE CASE. updated Michell, [employer] Conveyor Operator today and reported that [facility] is waiting on financial clearance and third AFB result prior to accepting the transfer. IR CT GUIDED LUNG BIOPSY 01/19 Follow up pathology. Verbal report: organizing pneumonia with necrotizing like inflammation. Fungal stains pending and NO GRANULOMAS. # Generalized weakness Etiology include failure to thrive, vs poor nutritional status vs underlying cardiac etiology based on history of recent NH 2 months ago vs underlying infection vs malignancy. Weight loss 6 lbs in the past month # Moderate protein caloric malnutrition. RD support and monitoring. # Elevated troponin Serial troponin noted to be stable Telemetry with some bigeminy noted and is stable TTE with normal EF Cardiology consulted Dr. Villanueva. Stress test Nuclear without active ischemia noted. Old infarct area noted. No intervention recommended at this time. Lipid panel reviewed. Asa 81 mg daily # CKD stage 3 Trend creatinine Monitor renal function # Hypokalemia Replete and monitor and Dr. Cintron renal consultation appreciated. # Hypomagnesemia Replete and monitor # Generalized weakness PT evaluation for baseline recommends SNF for short term rehab. NEEDS HIGHER LEVEL OF CARE, TRANSPLANT CENTER AND ID MANAGEMENT. DVT ppx with Enoxaparin GI ppx with PPI FULL CODE Piyush Cruz MD Jan 24, 2020 12:38
[2020-01-24] MEDS: metroNIDAZOLE 500mg tab ORAL SCH ×2 (13:21→21:20)
--- NOTE | 2020-01-24 13:25 | Cardiac Electrophysiology PN ---
Assessment/Plan Assessment/Plan 1. Troponin elevation. All levels are low level and similar at 0.4 due to renal failure The patient does not have any chest pain. EKG does not show any acute ST-T wave abnormalities. Continue aspirin, beta-awa, and low-dose statin. Echo Nl EF 55% Stress test showed "Partially fixed partially reversible anteroseptal perfusion defect, likely infarct with femi-infarct ischemia". Treat medically specially no chest pain and renal failure and cardiac cath put him at risk of HD 2. Status post liver transplant. Already on Prograf and CellCept. 3. Generalized weakness. 4. Elevated white count of 12,000. 5. Hypokalemia. Potassium of 3. 6. Chronic kidney disease with BUN of 47 and creatinine of 2.0. 7. Bilateral cavitary pulmonary nodules. S/P CT-guided lung biopsy. 3rd AFB pending. FU Dr Liz LIN RN and Dr Cruz Subjective Subjective No CP or SOB EF 55%. Stress test showed "Partially fixed partially reversible anteroseptal perfusion defect, likely infarct with femi-infarct ischemia S/P Lung biopsy. 3rd AFB results pending Objective Last 24 Hour Vital Signs Date Time Temp Pulse Resp B/P (MAP) Pulse Ox O2 Delivery O2 Flow Rate FiO2 01/24/20 12:00 98.8 89 18 131/87 (102) 99 01/24/20 09:42 94 151/92 01/24/20 09:00 Room Air 01/24/20 08:00 98.1 94 18 151/92 (111) 100 01/24/20 04:00 97.7 76 18 122/71 (88) 99 01/24/20 00:00 98.2 75 16 119/68 (85) 98 01/23/20 21:00 Room Air 01/23/20 21:00 77 123/73 01/23/20 20:00 97.7 77 18 123/73 (90) 100 01/23/20 16:00 98.0 68 18 133/62 (85) 98 Intake and Output 01/23/20 01/24/20 19:00 07:00 Intake Total 480 ml 600 ml Output Total 400 ml 450 ml Balance 80 ml 150 ml Intake Oral 480 ml 600 ml Output Urine Total 400 ml 450 ml Bladder Scan Volume Amount <10 ml # Voids 3 3 Laboratory Tests Test 11/13/20 05:30 White Blood Count 5.3 K/UL (4.8-10.8) Red Blood Count 2.96 M/UL (4.70-6.10) L Hemoglobin 10.0 G/DL (14.2-18.0) L Hematocrit 31.2 % (42.0-52.0) L Mean Corpuscular Volume 105 FL (80-99) H Mean Corpuscular Hemoglobin 33.9 PG (27.0-31.0) H Mean Corpuscular Hemoglobin Concent 32.2 G/DL (32.0-36.0) Red Cell Distribution Width 13.3 % (11.6-14.8) Platelet Count 195 K/UL (150-450) Mean Platelet Volume 5.6 FL (6.5-10.1) L Neutrophils (%) (Auto) 79.0 % (45.0-75.0) H Lymphocytes (%) (Auto) 12.5 % (20.0-45.0) L Monocytes (%) (Auto) 6.5 % (1.0-10.0) Eosinophils (%) (Auto) 1.2 % (0.0-3.0) Basophils (%) (Auto) 0.8 % (0.0-2.0) Sodium Level 137 MMOL/L (136-145) Potassium Level 3.8 MMOL/L (3.5-5.1) Chloride Level 107 MMOL/L (98-107) Carbon Dioxide Level 21 MMOL/L (21-32) Anion Gap 9 mmol/L (5-15) Blood Urea Nitrogen 30 mg/dL (7-18) H Creatinine 1.5 MG/DL (0.55-1.30) H Estimat Glomerular Filtration Rate 46.8 mL/min (>60) Glucose Level 108 MG/DL (74-106) H Calcium Level 8.5 MG/DL (8.5-10.1) Total Bilirubin 0.8 MG/DL (0.2-1.0) Aspartate Amino Transf (AST/SGOT) 74 U/L (15-37) H Alanine Aminotransferase (ALT/SGPT) 64 U/L (12-78) Alkaline Phosphatase 501 U/L (46-116) H Total Protein 5.4 G/DL (6.4-8.2) L Albumin 2.2 G/DL (3.4-5.0) L Globulin 3.2 g/dL Albumin/Globulin Ratio 0.7 (1.0-2.7) L Microbiology Date/Time Source Procedure Growth Status 01/22/20 11:30 Sputum AFB Specimen Processing Tissue - Final Resulted 01/22/20 11:30 Sputum Acid Fast Bacilli Smear - Final Resulted 01/22/20 11:30 Sputum Acid Fast Bacilli Culture Pending Resulted 01/21/20 21:00 Sputum AFB Specimen Processing Tissue - Final Resulted 01/21/20 21:00 Sputum Acid Fast Bacilli Smear - Final Resulted 01/21/20 21:00 Sputum Acid Fast Bacilli Culture Pending Resulted Objective HEAD AND NECK: Showed no JVD. LUNGS: Clear. CARDIOVASCULAR: Shows regular S1 and S2 with no gallop. ABDOMEN: Soft and nontender and scar of liver surgery in the right upper abdomen for liver transplant. EXTREMITIES: No pitting edema. Greg Villaneuva MD Jan 24, 2020 13:25
--- NOTE | 2020-01-24 14:30 | NUR ---
CASE MANAGEMENT:REVIEW SI;NSTEMI. COPD. EFFIE LUNG NODULES CT(+) MULTIPLE MASSES IN [place]. H/O LIVER TRANSPLANT. PULMONARY HISTOPLASMOSIS 98.8 94 18 151/92 98% ON RA H/H 10.0/33.9 BUN 30 CR1.5 AST 74 ALP 501 ALB 2.2 IS;FLAGYL PO Q8 CEFEPIME IV Q24 ZYVOX PO Q12 PROTONIX PO BID ASA PO QD PROGRAF PO Q12 HEPARIN SUBQ Q12 CELLCEPT PO BID MED SURG STATUS DCP;FROM HOME PLAN; TRANSFER TO [facility] D/T HX LIVER TRANSPLANT TREATMENT FOR HISTOPLASMOSIS NEEDS TO BE MONITORED BY TRANSPLANT TEAM ACCEPTANCE TO [facility] PENDING FINANCIAL CLEARANCE
[2020-01-24 16:00] VITALS: BP 131/76
--- NOTE | 2020-01-24 19:34 | NUR ---
HAND-OFF: Report given to ARTEMIO.
--- NOTE | 2020-01-24 19:48 | NUR ---
NURSE NOTES: Received patient in bed, awake, alert, oriented x4, speaks Urdu and Thai, able to make his needs known, IV site is clean dry and intact. Call light is within reach, bed is lowered, locked, alarm is on, will continue to monitor for comfort and safety.
[2020-01-24 20:00] VITALS: BP 125/71
[2020-01-25] VITALS: BP 134/83
[2020-01-25 04:00] VITALS: BP 124/74
[2020-01-25] MEDS: metroNIDAZOLE 500mg tab ORAL SCH ×3 (06:11→22:24)
--- NOTE | 2020-01-25 07:37 | NUR ---
NURSE HAND-OFF: Important Events on Shift:none to report Patient Status: full code Diet:renal Pending Orders: Pending Results/Labs: Pending MD notification: Latest Vital Signs: Temperature 98.4 , Pulse 76 , B/P 124 /74 , Respiratory Rate 16 , O2 SAT 100 , Room Air, O2 Flow Rate . Vital Sign Comment: Latest Padron Fall Score: 35 Fall Risk: Medium Risk Safety Measures: Call light Within Reach, Bed Alarm Zone 1, Side Rails Side Rails x2, Bed position Low and Locked. Fall Precautions: Yellow Socks Yellow Gown Door Sign Patient Fall Education Report given to Yvonne HANSEN
--- NOTE | 2020-01-25 07:43 | NUR ---
NURSE NOTES: Received report from JADE Lowery. Patient on airborne precaution. Patient observed to be asleep, currently on room air, no c/o any pain or discomfort. IV site located on LFA 24, inplace and intact line running well. Bed placed on lowest and locked, call light placed within reach and will continue to monitor for any changes.
[2020-01-25 08:00] VITALS: BP 115/78
[2020-01-25 08:08] LABS: BASOPHILS % (AUTO) 0.8 % (0.0-2.0); EOSINOPHILS % (AUTO) 1.7 % (0.0-3.0); HEMATOCRIT 27.9 % (42.0-52.0); LYMPHOCYTES % (AUTO) 7.1 % (20.0-45.0); MEAN CORPUSCULAR VOLUME 105 FL (80-99); MONOCYTES % (AUTO) 5.8 % (1.0-10.0); NEUTROPHILS % (AUTO) 84.6 % (45.0-75.0); PLATELET COUNT 159 K/UL (150-450); RED BLOOD COUNT 2.65 M/UL (4.70-6.10); RED CELL DISTRIBUTION WIDTH 14.2 % (11.6-14.8); WHITE BLOOD COUNT 4.8 K/UL (4.8-10.8)
[2020-01-25] MEDS: Aspirin Baby 81mg ORAL SCH (09:05)
[2020-01-25] MEDS: Docusate 100mg cap ORAL SCH ×2 (09:05→20:39)
[2020-01-25] MEDS: Heparin 5000 units/ml inj SUBQ SCH ×2 (09:07→20:41)
[2020-01-25] MEDS: Mycophenolate 250mg cap ORAL SCH ×2 (09:08→17:00)
[2020-01-25 09:16] LABS: CALCIUM 8.8 MG/DL (8.5-10.1); CREATININE 1.5 MG/DL (0.55-1.30); POTASSIUM 3.5 MMOL/L (3.5-5.1)
--- NOTE | 2020-01-25 10:36 | Urology Progress Note ---
Assessment/Plan Status: stable Assessment/Plan: 1. Elevated serum PSA. 2. BPH. 3. Mild lower urinary tract symptoms. 4. Rule out neurogenic bladder. 5. Renal insufficiency, acute on chronic. 6. Proteinuria. 7. Renal cyst. monitor clinically consider adding flomax prostate MRI and/or biopsy at some point on abx as ordered lung mets, s/p bx, f/u on path monitor renal fxn poss transfer to [facility] d/w Dr. Hill Subjective Allergies: Coded Allergies: No Known Allergies (Unverified , 01/13/20) Subjective all noted, feels fair voiding s/p lung bx 01/19 Objective Last 24 Hour Vital Signs Date Time Temp Pulse Resp B/P (MAP) Pulse Ox O2 Delivery O2 Flow Rate FiO2 01/25/20 09:05 85 115/78 01/25/20 09:00 Room Air 01/25/20 08:00 97.0 85 18 115/78 (90) 99 85 01/25/20 04:00 98.4 76 16 124/74 (91) 100 01/25/20 00:00 98.8 80 16 134/83 (100) 99 01/24/20 21:41 Room Air 01/24/20 21:20 78 135/74 01/24/20 20:00 98.2 86 16 125/71 (89) 96 86 01/24/20 16:00 98.1 73 19 131/76 (94) 98 01/24/20 12:00 98.8 89 18 131/87 (102) 99 Intake and Output 01/24/20 01/25/20 19:00 07:00 Intake Total 600 ml Output Total 12 ml Balance 588 ml Other 600 ml Post Void Residual 12 ml Bladder Scan Volume Amount 11-30 ml # Voids 2 Microbiology Date/Time Source Procedure Growth Status 01/22/20 11:30 Sputum AFB Specimen Processing Tissue - Final Resulted 01/22/20 11:30 Sputum Acid Fast Bacilli Smear - Final Resulted 01/22/20 11:30 Sputum Acid Fast Bacilli Culture Pending Resulted 01/18/20 07:30 Blood Blood Culture - Final NO GROWTH AFTER 5 DAYS Complete Current Medications Medications (Trade) Dose Ordered Sig/Quynh Route PRN Reason Start Time Stop Time Status Last Admin Dose Admin Acetaminophen (Tylenol) 650 mg Q4H PRN ORAL Mild Pain (Pain Scale 1-3) 01/13/20 14:30 02/12/20 14:29 Aspirin (ASA) 81 mg DAILY ORAL 01/14/20 09:00 02/28/20 08:59 01/25/20 09:05 Dextrose (Dextrose 50%) 25 ml Q30M PRN IV Hypoglycemia 01/13/20 14:30 04/12/20 14:29 Dextrose (Dextrose 50%) 50 ml Q30M PRN IV Hypoglycemia 01/13/20 14:30 04/12/20 14:29 Docusate Sodium (Colace) 100 mg EVERY 12 HOURS ORAL 01/13/20 21:00 02/12/20 20:59 01/25/20 09:05 Heparin Sodium (Porcine) (Heparin 5000 units/ml) 5,000 units EVERY 12 HOURS SUBQ 01/13/20 21:00 02/27/20 20:59 01/25/20 09:07 Linezolid (Zyvox) 600 mg EVERY 12 HOURS ORAL 01/17/20 16:00 01/26/20 23:59 01/25/20 09:05 Metoprolol Tartrate (Lopressor) 25 mg EVERY 12 HOURS ORAL 01/13/20 21:00 04/12/20 20:59 01/25/20 09:05 Metronidazole (Flagyl) 500 mg Q8HR ORAL 01/24/20 14:00 01/31/20 13:59 01/25/20 06:11 Mycophenolate Mofetil (Cellcept) 1,000 mg TWICE A DAY ORAL 01/13/20 18:00 04/12/20 17:59 01/25/20 09:08 Nitroglycerin (Ntg) 0.4 mg Q5M PRN SL Prn Chest Pain 01/13/20 14:30 02/12/20 14:29 Ondansetron HCl (Zofran) 4 mg Q6H PRN IVP Nausea & Vomiting 01/13/20 14:30 02/12/20 14:29 Pantoprazole (Protonix) 40 mg BID ORAL 01/15/20 18:00 02/13/20 08:59 01/25/20 09:05 Tacrolimus (Prograf) 1 mg EVERY 12 HOURS ORAL 01/13/20 21:00 04/12/20 20:59 01/25/20 09:05 Laboratory Tests 01/25/20 07:20: White Blood Count 4.8, Red Blood Count 2.65L, Hemoglobin 9.0L, Hematocrit 27.9L, Mean Corpuscular Volume 105H, Mean Corpuscular Hemoglobin 34.1H, Mean Corpuscular Hemoglobin Concent 32.4, Red Cell Distribution Width 14.2, Platelet Count 159, Mean Platelet Volume 5.9L, Neutrophils (%) (Auto) 84.6H, Lymphocytes (%) (Auto) 7.1L, Monocytes (%) (Auto) 5.8, Eosinophils (%) (Auto) 1.7, Basophils (%) (Auto) 0.8, Sodium Level 136, Potassium Level 3.5, Chloride Level 105, Carbon Dioxide Level 19L, Anion Gap 12, Blood Urea Nitrogen 35H, Creatinine 1.5H , Estimat Glomerular Filtration Rate 46.8, Glucose Level 134H, Calcium Level 8.8 Height (Feet): 5 Height (Inches): 5.00 Weight (Pounds): 85 Objective exam stable Corona Hernandez MD Jan 25, 2020 10:36
[2020-01-25] MEDS: Cefepime HCl 1 GM in D5W 55 ML IVPB SCH (11:39)
--- NOTE | 2020-01-25 11:58 | Pulmonology Progress Note ---
Subjective ROS Limited/Unobtainable: No Interval Events: S/p CT chest/biopsy Constitutional: Reports: no symptoms HEENT: Repors: no symptoms Respiratory: Reports: no symptoms Cardiovascular: Reports: no symptoms Gastrointestinal/Abdominal: Reports: no symptoms Allergies: Coded Allergies: No Known Allergies (Unverified , 01/13/20) All Systems: reviewed and negative except above Objective Last 24 Hour Vital Signs Date Time Temp Pulse Resp B/P (MAP) Pulse Ox O2 Delivery O2 Flow Rate FiO2 01/25/20 09:05 85 115/78 01/25/20 09:00 Room Air 01/25/20 08:00 97.0 85 18 115/78 (90) 99 85 01/25/20 04:00 98.4 76 16 124/74 (91) 100 01/25/20 00:00 98.8 80 16 134/83 (100) 99 01/24/20 21:41 Room Air 01/24/20 21:20 78 135/74 01/24/20 20:00 98.2 86 16 125/71 (89) 96 86 01/24/20 16:00 98.1 73 19 131/76 (94) 98 01/24/20 12:00 98.8 89 18 131/87 (102) 99 Intake and Output 01/24/20 01/25/20 19:00 07:00 Intake Total 600 ml Output Total 12 ml Balance 588 ml Other 600 ml Post Void Residual 12 ml Bladder Scan Volume Amount 11-30 ml # Voids 2 General Appearance: no acute distress HEENT: normocephalic Respiratory: chest wall non-tender, lungs clear Cardiovascular: normal peripheral pulses, normal rate Abdomen: normal bowel sounds Laboratory Tests 01/25/20 07:20: White Blood Count 4.8, Red Blood Count 2.65L, Hemoglobin 9.0L, Hematocrit 27.9L, Mean Corpuscular Volume 105H, Mean Corpuscular Hemoglobin 34.1H, Mean Corpuscular Hemoglobin Concent 32.4, Red Cell Distribution Width 14.2, Platelet Count 159, Mean Platelet Volume 5.9L, Neutrophils (%) (Auto) 84.6H, Lymphocytes (%) (Auto) 7.1L, Monocytes (%) (Auto) 5.8, Eosinophils (%) (Auto) 1.7, Basophils (%) (Auto) 0.8, Sodium Level 136, Potassium Level 3.5, Chloride Level 105, Carbon Dioxide Level 19L, Anion Gap 12, Blood Urea Nitrogen 35H, Creatinine 1.5H , Estimat Glomerular Filtration Rate 46.8, Glucose Level 134H, Calcium Level 8.8 Current Medications Medications (Trade) Dose Ordered Sig/Quynh Route PRN Reason Start Time Stop Time Status Last Admin Dose Admin Acetaminophen (Tylenol) 650 mg Q4H PRN ORAL Mild Pain (Pain Scale 1-3) 01/13/20 14:30 02/12/20 14:29 Aspirin (ASA) 81 mg DAILY ORAL 01/14/20 09:00 02/28/20 08:59 01/25/20 09:05 Cefepime HCl 1 gm/ Dextrose 55 ml @ 110 mls/hr Q24H IVPB 01/25/20 12:00 02/01/20 11:59 01/25/20 11:39 Dextrose (Dextrose 50%) 25 ml Q30M PRN IV Hypoglycemia 01/13/20 14:30 04/12/20 14:29 Dextrose (Dextrose 50%) 50 ml Q30M PRN IV Hypoglycemia 01/13/20 14:30 04/12/20 14:29 Docusate Sodium (Colace) 100 mg EVERY 12 HOURS ORAL 01/13/20 21:00 02/12/20 20:59 01/25/20 09:05 Heparin Sodium (Porcine) (Heparin 5000 units/ml) 5,000 units EVERY 12 HOURS SUBQ 01/13/20 21:00 02/27/20 20:59 01/25/20 09:07 Linezolid (Zyvox) 600 mg EVERY 12 HOURS ORAL 01/25/20 21:00 01/30/20 20:59 Metoprolol Tartrate (Lopressor) 25 mg EVERY 12 HOURS ORAL 01/13/20 21:00 04/12/20 20:59 01/25/20 09:05 Metronidazole (Flagyl) 500 mg Q8HR ORAL 01/24/20 14:00 01/31/20 13:59 01/25/20 06:11 Mycophenolate Mofetil (Cellcept) 1,000 mg TWICE A DAY ORAL 01/13/20 18:00 04/12/20 17:59 01/25/20 09:08 Nitroglycerin (Ntg) 0.4 mg Q5M PRN SL Prn Chest Pain 01/13/20 14:30 02/12/20 14:29 Ondansetron HCl (Zofran) 4 mg Q6H PRN IVP Nausea & Vomiting 01/13/20 14:30 02/12/20 14:29 Pantoprazole (Protonix) 40 mg BID ORAL 01/15/20 18:00 02/13/20 08:59 01/25/20 09:05 Tacrolimus (Prograf) 1 mg EVERY 12 HOURS ORAL 01/13/20 21:00 04/12/20 20:59 01/25/20 09:05 Assessment/Plan Assessment/Plan IMPRESSION: 1. Bilateral cavitary pulmonary nodules. 2. History of liver transplant, on immunosuppressives. 3. CAD. DISCUSSION: Discussed with Dr. Cruz. S/p CT-guided lung biopsy. May need bronchoscopy if CT biopsy is non-diagnostic OK to dc home/SNF Discussed with Dr. Cruz . Await cultures and serology. I will follow. Reinier Leo Omar Syed MD Jan 25, 2020 11:58
[2020-01-25 12:00] VITALS: BP 121/76
--- NOTE | 2020-01-25 12:25 | General Progress Note ---
Subjective Date patient seen: Jan 25, 2020 ROS Limited/Unobtainable: No Allergies: Coded Allergies: No Known Allergies (Unverified , 01/13/20) All Systems: reviewed and negative except above Subjective Feels anxious about leaving the Hospital, denies chest pain or shortness of breath. Good PO intake and good sleep. Objective Last 24 Hour Vital Signs Date Time Temp Pulse Resp B/P (MAP) Pulse Ox O2 Delivery O2 Flow Rate FiO2 01/25/20 09:05 85 115/78 01/25/20 09:00 Room Air 01/25/20 08:00 97.0 85 18 115/78 (90) 99 85 01/25/20 04:00 98.4 76 16 124/74 (91) 100 01/25/20 00:00 98.8 80 16 134/83 (100) 99 01/24/20 21:41 Room Air 01/24/20 21:20 78 135/74 01/24/20 20:00 98.2 86 16 125/71 (89) 96 86 01/24/20 16:00 98.1 73 19 131/76 (94) 98 Intake and Output 01/24/20 01/25/20 19:00 07:00 Intake Total 600 ml Output Total 12 ml Balance 588 ml Other 600 ml Post Void Residual 12 ml Bladder Scan Volume Amount 11-30 ml # Voids 2 Laboratory Tests 01/25/20 07:20: White Blood Count 4.8, Red Blood Count 2.65L, Hemoglobin 9.0L, Hematocrit 27.9L, Mean Corpuscular Volume 105H, Mean Corpuscular Hemoglobin 34.1H, Mean Corpuscular Hemoglobin Concent 32.4, Red Cell Distribution Width 14.2, Platelet Count 159, Mean Platelet Volume 5.9L, Neutrophils (%) (Auto) 84.6H, Lymphocytes (%) (Auto) 7.1L, Monocytes (%) (Auto) 5.8, Eosinophils (%) (Auto) 1.7, Basophils (%) (Auto) 0.8, Sodium Level 136, Potassium Level 3.5, Chloride Level 105, Carbon Dioxide Level 19L, Anion Gap 12, Blood Urea Nitrogen 35H, Creatinine 1.5H , Estimat Glomerular Filtration Rate 46.8, Glucose Level 134H, Calcium Level 8.8 Height (Feet): 5 Height (Inches): 5.00 Weight (Pounds): 85 General Appearance: WD/WN EENT: PERRL/EOMI Neck: normal alignment Cardiovascular: normal rate Respiratory/Chest: lungs clear Abdomen: non tender Edema: trace edema Neurologic: suture winder hand II-XII grossly normal Objective Procedure: NM Myocard Perf w/ Eject Fra Indications: Chest pain, elevated troponin Technique: Single day single isotope protocol utilized. Initially, resting images obtained using IV administration 10.8 millicuries 99M technetium Myoview. Subsequently, patient underwent lexiscan stress testing. See cardiology report for details. During Lexiscan infusion, IV administration 31.4 mCi 99 M technetium Myoview. SPECT and planar images obtained. SPECT images gated to 8 phases of the cardiac cycle were also obtained, and reformatted into cine images for evaluation of ejection fraction. Comparison: none Findings: Per cardiology report, patient experienced no symptoms during infusion. Per cardiology report, resting EKG demonstrates normal sinus rhythm with left axis deviation. No ST changes during infusion. . Imaging demonstrates a post stress perfusion defect in the anteroseptal wall which is slightly smaller on the resting images. Calculated post stress ejection fraction 47%. There is slightly decreased wall motion in the septum Impression: Nonischemic clinical response to pharmacologic stress, per cardiology report Nonischemic electrocardiographic response to pharmacologic stress, per cardiology report Partially fixed partially reversible anteroseptal perfusion defect, likely infarct with femi-infarct ischemia Calculated post stress ejection fraction 47% Procedure: CT Chest no Contrast Clinical Indication: Cough, evaluation of abnormalities on recent chest radiograph Technique: Spiral acquisitions obtained through the chest. No IV contrast utilized, reason not stated. Multiplanar reconstructions generated. Total dose length product 116 mGycm. CTDIvol(s) 2 mGy. Dose reduction achieved using automated exposure control Comparison: none Findings: Multiple masses are seen in the left upper lobe. The largest of these is complex in shape, abuts the anterior mediastinum and anterior chest wall, measures 4.5 x 3.2 cm orthogonal axial dimensions, by 4.6 cm craniocaudad. This demonstrates multiple central cavities, and extends posteromedially along the bronchovascular bundle. At least 5 other lesions are seen in the left upper lobe, largest of which contain central cavities. No left lower lobe lesions are demonstrated. A 12 mm mass is seen in the right upper lobe, and several subcentimeter lesions are noted. An irregular 3.3 x 1.9 cm mass is seen in the right lower lobe, and at least one other is seen at the right lung base. No definite infiltrates. There is equivocally trace pleural fluid on the left. There is generalized mild hyperinflation, and a bulla is seen in the anteromedial right upper lobe. Azygos lobe and fissure are incidentally noted. The heart size is normal. There is no pericardial effusion. No mediastinal or hilar mass or adenopathy. The ascending thoracic aorta is mildly ectatic but not aneurysmal. There is mild edema of the mediastinal fat. The thyroid is unremarkable. No axillary or chest wall mass or adenopathy demonstrated. Numerous surgical clips are seen in the right upper quadrant. Pattern of the clips suggests liver transplant. The stomach is mildly distended with food. The bones are unremarkable. Impression: Multiple bilateral pulmonary masses/nodules the largest of these demonstrate central cavitation. Main differential considerations are infectious inflammatory lesions such as septic emboli, tuberculosis, other mycobacterial infections; noninfectious processes such as rheumatoid, granulomatosis with polyangiitis; metastatic carcinoma, most likely squamous cell carcinoma, gastrointestinal adenocarcinoma, transitional cell bladder carcinoma Mild hyperinflation. Single right upper lobe bulla Postsurgical changes of the liver suggests prior liver transplant. Correlate with surgical history The CT scanner at [facility] is accredited by the [employer] and the scans are performed using protocols designed to limit radiation exposure to as low as reasonably achievable to attain images of sufficient resolution adequate for diagnostic evaluation. Assessment/Plan Status: stable Assessment/Plan: 64 y/o M admitted to the Hospital with: # History of liver transplant at [facility] Resume prograft 1 MG BID and cellcept 1000 MG BID UNABLE TO MONITOR PROGRAF LEVEL AT THIS HOSPITAL # Abnormal CXR with MULTIPLE NODULES. Patient is Ex- smoker. No hypoxia noted at this time. CT CHEST WITH Multiple bilateral pulmonary masses/nodules the largest of these demonstrate central cavitation. Main differential considerations are infectious inflammatory lesions such as septic emboli, tuberculosis, other mycobacterial infections; noninfectious processes such as rheumatoid, granulomatosis with polyangiitis; metastatic carcinoma, most likely squamous cell carcinoma, gastrointestinal adenocarcinoma, transitional cell bladder carcinoma Pulmonary consultation and infectious disease consultation with Dr. Hill and Greta Per Dr. Hernandes empiric ZYvox, Cefepime and Azithromycin started 01/17/20 DAY 8 -f/u cx -Monitor CBC/C MP, temperatures -airborne isolation: AFB sp cx x3 NEGATIVE, MTB PCR PENDING. 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 HE WILL REQUIRE A HIGHER LEVEL OF CARE, IDEALLY, [facility] WHERE HIS TRANSPLANT WAS DONE. AWAITING CALL FROM DR. SALCIDO FROM THE GI TRANSPLANT SERVICE AT [facility] TO DISCUSS THE CASE. updated Michell, Test Inspection Engineer and reported that [facility] is waiting on financial clearance PRIOR TO TRANSFER. IR CT GUIDED LUNG BIOPSY 01/19 Follow up pathology. Verbal report: organizing pneumonia with necrotizing like inflammation. Fungal stains pending and NO GRANULOMAS. # Generalized weakness Etiology include failure to thrive, vs poor nutritional status vs underlying cardiac etiology based on history of recent OK 2 months ago vs underlying infection vs malignancy. Weight loss 6 lbs in the past month # Moderate protein caloric malnutrition. RD support and monitoring. # Elevated troponin Serial troponin noted to be stable Telemetry with some bigeminy noted and is stable TTE with normal EF Cardiology consulted Dr. Villanueva. Stress test Nuclear without active ischemia noted. Old infarct area noted. No intervention recommended at this time. Lipid panel reviewed. Asa 81 mg daily # CKD stage 3 Trend creatinine Monitor renal function # Hypokalemia Replete and monitor and Dr. Cintron renal consultation appreciated. # Hypomagnesemia Replete and monitor # Generalized weakness PT evaluation for baseline recommends SNF for short term rehab. NEEDS HIGHER LEVEL OF CARE, TRANSPLANT CENTER AND ID MANAGEMENT. DVT ppx with Enoxaparin GI ppx with PPI FULL CODE Piyush Cruz MD Jan 25, 2020 12:25
--- NOTE | 2020-01-25 12:58 | Nephrology Progress Note ---
Assessment/Plan Problem List: (1) Hypokalemia (2) Renal failure (ARF), acute on chronic (3) Elevated troponin (4) Anemia Assessment Persistent hypokalemia, etiology unclear. No report of diarrhea. Renal failure with serum creatinine of 1.7, most likely chronic Elevated troponin Anemia Hypoalbuminemia Status post liver transplant. On Prograf and CellCept Leukocytosis COPD EjFx 55% Plan January 24: Serum creatinine stable. Continue disease January 23: Serum creatinine down to 1.5 stable from renal standpoint to view continue per consultants January 22: Serum creatinine down to 1.6. Stable from renal standpoint of view. Continue per consultants. January 21: Serum creatinine up to 1.7. Continue per consultants. Continue to monitor renal parameters. January 20: No blood drawn today. Continue per consultants. Check labs tomorrow. January 19: Labs reviewed. Magnesium replaced. Other electrolyte abnormalities addressed. Serum creatinine down to 1.5. January 18: Labs reviewed. Low potassium replaced. Continue to monitor electrolytes and renal parameters. Serum creatinine 1.6. January 17: Renal parameters stable. Continue per current management. Work-up of bilateral cavitary pulmonary nodules in process January 16: Serum creatinine lowering from 2 on admission to 1.[address] scan of the chest noted. Will discuss with Dr. Cruz regarding the pulmonary evaluation. Continue current management. Previously: Potassium supplement p.o. and IV Urine spot sodium Urine spot potassium Kidney ultrasound, pending 2D echocardiogram EjFx 55% Monitor renal parameters Will order CT of the chest with no contrast Chest x-ray impression: Bilateral lung nodules. These are worrisome for metastatic deposits. Septic emboli also a possibility. Mild hyperinflation, likely COPD. Subjective ROS Limited/Unobtainable: No Constitutional: Reports: malaise Objective Objective Last 24 Hour Vital Signs Date Time Temp Pulse Resp B/P (MAP) Pulse Ox O2 Delivery O2 Flow Rate FiO2 01/25/20 09:05 85 115/78 01/25/20 09:00 Room Air 01/25/20 08:00 97.0 85 18 115/78 (90) 99 85 01/25/20 04:00 98.4 76 16 124/74 (91) 100 01/25/20 00:00 98.8 80 16 134/83 (100) 99 01/24/20 21:41 Room Air 01/24/20 21:20 78 135/74 01/24/20 20:00 98.2 86 16 125/71 (89) 96 86 01/24/20 16:00 98.1 73 19 131/76 (94) 98 Intake and Output 01/24/20 01/25/20 19:00 07:00 Intake Total 600 ml Output Total 12 ml Balance 588 ml Other 600 ml Post Void Residual 12 ml Bladder Scan Volume Amount 11-30 ml # Voids 2 Current Medications Medications (Trade) Dose Ordered Sig/Quynh Route PRN Reason Start Time Stop Time Status Last Admin Dose Admin Acetaminophen (Tylenol) 650 mg Q4H PRN ORAL Mild Pain (Pain Scale 1-3) 01/13/20 14:30 02/12/20 14:29 Aspirin (ASA) 81 mg DAILY ORAL 01/14/20 09:00 02/28/20 08:59 01/25/20 09:05 Cefepime HCl 1 gm/ Dextrose 55 ml @ 110 mls/hr Q24H IVPB 01/25/20 12:00 02/01/20 11:59 01/25/20 11:39 Dextrose (Dextrose 50%) 25 ml Q30M PRN IV Hypoglycemia 01/13/20 14:30 04/12/20 14:29 Dextrose (Dextrose 50%) 50 ml Q30M PRN IV Hypoglycemia 01/13/20 14:30 04/12/20 14:29 Docusate Sodium (Colace) 100 mg EVERY 12 HOURS ORAL 01/13/20 21:00 02/12/20 20:59 01/25/20 09:05 Heparin Sodium (Porcine) (Heparin 5000 units/ml) 5,000 units EVERY 12 HOURS SUBQ 01/13/20 21:00 02/27/20 20:59 01/25/20 09:07 Linezolid (Zyvox) 600 mg EVERY 12 HOURS ORAL 01/25/20 21:00 01/30/20 20:59 Metoprolol Tartrate (Lopressor) 25 mg EVERY 12 HOURS ORAL 01/13/20 21:00 04/12/20 20:59 01/25/20 09:05 Metronidazole (Flagyl) 500 mg Q8HR ORAL 01/24/20 14:00 01/31/20 13:59 01/25/20 06:11 Mycophenolate Mofetil (Cellcept) 1,000 mg TWICE A DAY ORAL 01/13/20 18:00 04/12/20 17:59 01/25/20 09:08 Nitroglycerin (Ntg) 0.4 mg Q5M PRN SL Prn Chest Pain 01/13/20 14:30 02/12/20 14:29 Ondansetron HCl (Zofran) 4 mg Q6H PRN IVP Nausea & Vomiting 01/13/20 14:30 02/12/20 14:29 Pantoprazole (Protonix) 40 mg BID ORAL 01/15/20 18:00 02/13/20 08:59 01/25/20 09:05 Tacrolimus (Prograf) 1 mg EVERY 12 HOURS ORAL 01/13/20 21:00 04/12/20 20:59 01/25/20 09:05 Laboratory Tests 01/25/20 07:20: White Blood Count 4.8, Red Blood Count 2.65L, Hemoglobin 9.0L, Hematocrit 27.9L, Mean Corpuscular Volume 105H, Mean Corpuscular Hemoglobin 34.1H, Mean Corpuscular Hemoglobin Concent 32.4, Red Cell Distribution Width 14.2, Platelet Count 159, Mean Platelet Volume 5.9L, Neutrophils (%) (Auto) 84.6H, Lymphocytes (%) (Auto) 7.1L, Monocytes (%) (Auto) 5.8, Eosinophils (%) (Auto) 1.7, Basophils (%) (Auto) 0.8, Sodium Level 136, Potassium Level 3.5, Chloride Level 105, Carbon Dioxide Level 19L, Anion Gap 12, Blood Urea Nitrogen 35H, Creatinine 1.5H , Estimat Glomerular Filtration Rate 46.8, Glucose Level 134H, Calcium Level 8.8 Height (Feet): 5 Height (Inches): 5.00 Weight (Pounds): 85 General Appearance: no apparent distress Cardiovascular: normal rate Respiratory/Chest: decreased breath sounds Abdomen: soft Objective No change Marvin Martinez MD Jan 25, 2020 12:58
--- NOTE | 2020-01-25 13:24 | Infectious Diseases Prog Note ---
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 Oorganizing PNA with necrotizing abscess like inflammation. Fungal and AFB stains were neg -CT chest wo: Multiple bilateral pulmonary masses/nodules the largest of these demonstrate central cavitation. Main differential considerations are infectious inflammatory lesions such as septic emboli, tuberculosis, other mycobacterial infections; noninfectious processes such as rheumatoid, granulomatosis with polyangiitis; metastatic carcinoma, most likely squamous cell carcinoma, gastrointestinal adenocarcinoma, transitional cell bladder carcinoma. Mild hyperinflation. Single right upper lobe bulla, Postsurgical blair nges of the liver suggests prior liver transplant. Correlate with surgical history -CXR: Bilateral lung nodules. These are worrisome for metastatic deposits. Septic emboli also a possibility. Correlate with clinical history and findings. Mild hyperinflation, likely COPD. -2d echo: no vegetations -HIV ab screen neg, rapid COVID PCR, urine legionella ag, M. 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 Bilateral renal cysts. Negative for hydronephrosis. 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 Patient had his transplant in [facility]. I discussed with Dr Cruz and Michell from lining caser to initiate request for transfer -await final path- fungal and AFB stains -01/21 SP Azithromycin #6 -f/u cx -Monitor CBC/C MP, temperatures -airborne isolation: AFB sp cx x3, MTB PCR -f/u histo ag urine, cocci, CrAg, sp cx -May need bronch if not able to expectorate sputum - if bacteremic, may need LORENA -f/u biopsy results -await 3rd AFB sputum before transfer to [facility] - Histo H/M band ( immunodiffusion) , Thank you for consulting [facility]. Will continue to follow along with you. Discussed with RN, Dr Cruz, pathologist, and lab staff. Subjective Allergies: Coded Allergies: No Known Allergies (Unverified , 01/13/20) afebrile no acute event await 3rd AFB sputum before transfer to [facility] Objective Last 24 Hour Vital Signs Date Time Temp Pulse Resp B/P (MAP) Pulse Ox O2 Delivery O2 Flow Rate FiO2 01/25/20 12:00 97.4 89 18 121/76 (91) 99 01/25/20 09:05 85 115/78 01/25/20 09:00 Room Air 01/25/20 08:00 97.0 85 18 115/78 (90) 99 85 01/25/20 04:00 98.4 76 16 124/74 (91) 100 01/25/20 00:00 98.8 80 16 134/83 (100) 99 01/24/20 21:41 Room Air 01/24/20 21:20 78 135/74 01/24/20 20:00 98.2 86 16 125/71 (89) 96 86 01/24/20 16:00 98.1 73 19 131/76 (94) 98 Height (Feet): 5 Height (Inches): 5.00 Weight (Pounds): 85 HEENT: atraumatic Respiratory/Chest: normal breath sounds Cardiovascular: normal rate Abdomen: soft, non tender Laboratory Tests Test 01/25/20 07:20 White Blood Count 4.8 K/UL (4.8-10.8) Red Blood Count 2.65 M/UL (4.70-6.10) L Hemoglobin 9.0 G/DL (14.2-18.0) L Hematocrit 27.9 % (42.0-52.0) L Mean Corpuscular Volume 105 FL (80-99) H Mean Corpuscular Hemoglobin 34.1 PG (27.0-31.0) H Mean Corpuscular Hemoglobin Concent 32.4 G/DL (32.0-36.0) Red Cell Distribution Width 14.2 % (11.6-14.8) Platelet Count 159 K/UL (150-450) Mean Platelet Volume 5.9 FL (6.5-10.1) L Neutrophils (%) (Auto) 84.6 % (45.0-75.0) H Lymphocytes (%) (Auto) 7.1 % (20.0-45.0) L Monocytes (%) (Auto) 5.8 % (1.0-10.0) Eosinophils (%) (Auto) 1.7 % (0.0-3.0) Basophils (%) (Auto) 0.8 % (0.0-2.0) Sodium Level 136 MMOL/L (136-145) Potassium Level 3.5 MMOL/L (3.5-5.1) Chloride Level 105 MMOL/L (98-107) Carbon Dioxide Level 19 MMOL/L (21-32) L Anion Gap 12 mmol/L (5-15) Blood Urea Nitrogen 35 mg/dL (7-18) H Creatinine 1.5 MG/DL (0.55-1.30) H Estimat Glomerular Filtration Rate 46.8 mL/min (>60) Glucose Level 134 MG/DL (74-106) H Calcium Level 8.8 MG/DL (8.5-10.1) Current Medications Medications (Trade) Dose Ordered Sig/Quynh Route PRN Reason Start Time Stop Time Status Last Admin Dose Admin Acetaminophen (Tylenol) 650 mg Q4H PRN ORAL Mild Pain (Pain Scale 1-3) 01/13/20 14:30 02/12/20 14:29 Aspirin (ASA) 81 mg DAILY ORAL 01/14/20 09:00 02/28/20 08:59 01/25/20 09:05 Cefepime HCl 1 gm/ Dextrose 55 ml @ 110 mls/hr Q24H IVPB 01/25/20 12:00 02/01/20 11:59 01/25/20 11:39 Dextrose (Dextrose 50%) 25 ml Q30M PRN IV Hypoglycemia 01/13/20 14:30 04/12/20 14:29 Dextrose (Dextrose 50%) 50 ml Q30M PRN IV Hypoglycemia 01/13/20 14:30 04/12/20 14:29 Docusate Sodium (Colace) 100 mg EVERY 12 HOURS ORAL 01/13/20 21:00 02/12/20 20:59 01/25/20 09:05 Heparin Sodium (Porcine) (Heparin 5000 units/ml) 5,000 units EVERY 12 HOURS SUBQ 01/13/20 21:00 02/27/20 20:59 01/25/20 09:07 Linezolid (Zyvox) 600 mg EVERY 12 HOURS ORAL 01/25/20 21:00 01/30/20 20:59 Metoprolol Tartrate (Lopressor) 25 mg EVERY 12 HOURS ORAL 01/13/20 21:00 04/12/20 20:59 01/25/20 09:05 Metronidazole (Flagyl) 500 mg Q8HR ORAL 01/24/20 14:00 01/31/20 13:59 01/25/20 13:02 Mycophenolate Mofetil (Cellcept) 1,000 mg TWICE A DAY ORAL 01/13/20 18:00 04/12/20 17:59 01/25/20 09:08 Nitroglycerin (Ntg) 0.4 mg Q5M PRN SL Prn Chest Pain 01/13/20 14:30 02/12/20 14:29 Ondansetron HCl (Zofran) 4 mg Q6H PRN IVP Nausea & Vomiting 01/13/20 14:30 02/12/20 14:29 Pantoprazole (Protonix) 40 mg BID ORAL 01/15/20 18:00 02/13/20 08:59 01/25/20 09:05 Tacrolimus (Prograf) 1 mg EVERY 12 HOURS ORAL 01/13/20 21:00 04/12/20 20:59 01/25/20 09:05 Devon Mills MD Jan 25, 2020 13:24
--- NOTE | 2020-01-25 13:58 | Cardiac Electrophysiology PN ---
Assessment/Plan Assessment/Plan 1. Troponin elevation. All levels are low level and similar at 0.4 due to renal failure The patient does not have any chest pain. EKG does not show any acute ST-T wave abnormalities. Continue aspirin, beta-awa, and low-dose statin. Echo Nl EF 55% Stress test showed no significant ischemia. Treat medically as no chest pain and renal failure and cardiac cath put him at risk of HD 2. Status post liver transplant. Already on Prograf and CellCept. 3. Generalized weakness. 4. Elevated white count of 12,000. 5. Hypokalemia. Potassium of 3. 6. Chronic kidney disease with BUN of 47 and creatinine of 2.0. 7. Bilateral cavitary pulmonary nodules. S/P CT-guided lung biopsy. 3rd AFB pending. FU Dr Liz LIN RN and Dr Cruz Subjective Subjective No CP or SOB EF 55%. Stress test showed no significant ischemia S/P Lung biopsy. 3rd AFB results pending. Awaiting transfer to higher level of care Objective Last 24 Hour Vital Signs Date Time Temp Pulse Resp B/P (MAP) Pulse Ox O2 Delivery O2 Flow Rate FiO2 01/25/20 12:00 97.4 89 18 121/76 (91) 99 01/25/20 09:05 85 115/78 01/25/20 09:00 Room Air 01/25/20 08:00 97.0 85 18 115/78 (90) 99 85 01/25/20 04:00 98.4 76 16 124/74 (91) 100 01/25/20 00:00 98.8 80 16 134/83 (100) 99 01/24/20 21:41 Room Air 01/24/20 21:20 78 135/74 01/24/20 20:00 98.2 86 16 125/71 (89) 96 86 01/24/20 16:00 98.1 73 19 131/76 (94) 98 Intake and Output 01/24/20 01/25/20 19:00 07:00 Intake Total 600 ml Output Total 12 ml Balance 588 ml Other 600 ml Post Void Residual 12 ml Bladder Scan Volume Amount 11-30 ml # Voids 2 Laboratory Tests Test 01/25/20 07:20 White Blood Count 4.8 K/UL (4.8-10.8) Red Blood Count 2.65 M/UL (4.70-6.10) L Hemoglobin 9.0 G/DL (14.2-18.0) L Hematocrit 27.9 % (42.0-52.0) L Mean Corpuscular Volume 105 FL (80-99) H Mean Corpuscular Hemoglobin 34.1 PG (27.0-31.0) H Mean Corpuscular Hemoglobin Concent 32.4 G/DL (32.0-36.0) Red Cell Distribution Width 14.2 % (11.6-14.8) Platelet Count 159 K/UL (150-450) Mean Platelet Volume 5.9 FL (6.5-10.1) L Neutrophils (%) (Auto) 84.6 % (45.0-75.0) H Lymphocytes (%) (Auto) 7.1 % (20.0-45.0) L Monocytes (%) (Auto) 5.8 % (1.0-10.0) Eosinophils (%) (Auto) 1.7 % (0.0-3.0) Basophils (%) (Auto) 0.8 % (0.0-2.0) Sodium Level 136 MMOL/L (136-145) Potassium Level 3.5 MMOL/L (3.5-5.1) Chloride Level 105 MMOL/L (98-107) Carbon Dioxide Level 19 MMOL/L (21-32) L Anion Gap 12 mmol/L (5-15) Blood Urea Nitrogen 35 mg/dL (7-18) H Creatinine 1.5 MG/DL (0.55-1.30) H Estimat Glomerular Filtration Rate 46.8 mL/min (>60) Glucose Level 134 MG/DL (74-106) H Calcium Level 8.8 MG/DL (8.5-10.1) Objective HEAD AND NECK: Showed no JVD. LUNGS: Clear. CARDIOVASCULAR: Shows regular S1 and S2 with no gallop. ABDOMEN: Soft and nontender and scar of liver surgery in the right upper abdomen for liver transplant. EXTREMITIES: No pitting edema. Greg Villanueva MD Jan 25, 2020 13:58
[2020-01-25 16:00] VITALS: BP 98/61
--- NOTE | 2020-01-25 19:00 | NUR ---
NURSE NOTES: Received report from Yvonne RN. Pt. is in bed asleep, breathing even and unlabored. Responsive to verbal stimuli. Denies any pain at this time. With bed in it's lowest position, with alarm on and locked. With call light within reach. Will continue with plan of care.
--- NOTE | 2020-01-25 19:26 | NUR ---
NURSE HAND-OFF: Important Events on Shift:IV ATB Patient Status: stable Diet: renal Pending Orders: n/a Pending Results/Labs:n/a Pending MD notification:n/a Latest Vital Signs: Temperature 98.2 , Pulse 69 , B/P 98 /61 , Respiratory Rate 18 , O2 SAT 100 , Room Air, O2 Flow Rate . Vital Sign Comment: stable Latest Padron Fall Score: 35 Fall Risk: Medium Risk Safety Measures: Call light Within Reach, Bed Alarm Zone 1, Side Rails Side Rails x2, Bed position Low and Locked. Fall Precautions: Yellow Socks Yellow Gown Door Sign Patient Fall Education Report given to JADE Lagunas.
[2020-01-25 20:00] VITALS: BP 103/65
[2020-01-26] VITALS: BP 106/60
--- NOTE | 2020-01-26 03:24 | NUR ---
NURSE NOTES: All meds given. On continued isolation and observed at all times. Vitals stable. No cough, no fever noted. Slept @ long intervals. Kept warm and comfortable @ all times.On atb therapy of Flagyl and Linezolid, without a/ r noted.Voiding freely. Able to ambulate with steady gait. Will continue with plan of care.
[2020-01-26 04:00] VITALS: BP 120/85
[2020-01-26] MEDS: metroNIDAZOLE 500mg tab ORAL SCH ×3 (05:38→22:03)
[2020-01-26 08:00] VITALS: BP 126/73
--- NOTE | 2020-01-26 08:00 | NUR ---
NURSE NOTES: Received pt in bed awake, alert, no complain of pain or discomfort. In room air, no respiratory distress noted. LAC PIV in place. Bed locked, in lowest position possible, on bed alarm. Side rails up x2. Call light within reach. Will continue monitoring pt and following up with plan of care.
[2020-01-26] MEDS: Heparin 5000 units/ml inj SUBQ SCH (09:00)
--- NOTE | 2020-01-26 09:00 | Urology Progress Note ---
Assessment/Plan Status: stable Assessment/Plan: 1. Elevated serum PSA. 2. BPH. 3. Mild lower urinary tract symptoms. 4. Rule out neurogenic bladder. 5. Renal insufficiency, acute on chronic. 6. Proteinuria. 7. Renal cyst. monitor clinically consider adding flomax prostate MRI and/or biopsy at some point on abx as ordered lung mets, s/p bx, f/u on path monitor renal fxn poss transfer to [facility] d/w Dr. Hill Subjective Allergies: Coded Allergies: No Known Allergies (Unverified , 01/13/20) Subjective all noted, feels fair voiding s/p lung bx 01/19 Objective Last 24 Hour Vital Signs Date Time Temp Pulse Resp B/P (MAP) Pulse Ox O2 Delivery O2 Flow Rate FiO2 01/26/20 04:00 97.0 76 20 120/85 (97) 99 01/26/20 00:00 97.5 77 16 106/60 (75) 100 01/25/20 20:39 76 122/73 01/25/20 20:00 97.1 83 18 103/65 (78) 100 01/25/20 18:00 Room Air 01/25/20 16:00 98.2 69 18 98/61 (73) 100 69 01/25/20 12:00 97.4 89 18 121/76 (91) 99 01/25/20 09:05 85 115/78 Intake and Output 01/25/20 01/26/20 19:00 07:00 Intake Total 840 ml 400 ml Output Total 225 ml Balance 615 ml 400 ml Intake Oral 840 ml 400 ml Output Urine Total 200 ml Post Void Residual 25 ml Bladder Scan Volume Amount 11-30 ml # Voids 1 4 Microbiology Date/Time Source Procedure Growth Status 01/22/20 11:30 Sputum AFB Specimen Processing Tissue - Final Resulted 01/22/20 11:30 Sputum Acid Fast Bacilli Smear - Final Resulted 01/22/20 11:30 Sputum Acid Fast Bacilli Culture Pending Resulted 01/18/20 07:30 Blood Blood Culture - Final NO GROWTH AFTER 5 DAYS Complete Current Medications Medications (Trade) Dose Ordered Sig/Quynh Route PRN Reason Start Time Stop Time Status Last Admin Dose Admin Acetaminophen (Tylenol) 650 mg Q4H PRN ORAL Mild Pain (Pain Scale 1-3) 01/13/20 14:30 02/12/20 14:29 Aspirin (ASA) 81 mg DAILY ORAL 01/14/20 09:00 02/28/20 08:59 01/25/20 09:05 Cefepime HCl 1 gm/ Dextrose 55 ml @ 110 mls/hr Q24H IVPB 01/25/20 12:00 02/01/20 11:59 01/25/20 11:39 Dextrose (Dextrose 50%) 25 ml Q30M PRN IV Hypoglycemia 01/13/20 14:30 04/12/20 14:29 Dextrose (Dextrose 50%) 50 ml Q30M PRN IV Hypoglycemia 01/13/20 14:30 04/12/20 14:29 Docusate Sodium (Colace) 100 mg EVERY 12 HOURS ORAL 01/13/20 21:00 02/12/20 20:59 01/25/20 20:39 Heparin Sodium (Porcine) (Heparin 5000 units/ml) 5,000 units EVERY 12 HOURS SUBQ 01/13/20 21:00 02/27/20 20:59 01/25/20 20:41 Linezolid (Zyvox) 600 mg EVERY 12 HOURS ORAL 01/25/20 21:00 01/30/20 20:59 01/25/20 20:39 Metoprolol Tartrate (Lopressor) 25 mg EVERY 12 HOURS ORAL 01/13/20 21:00 04/12/20 20:59 01/25/20 20:39 Metronidazole (Flagyl) 500 mg Q8HR ORAL 01/24/20 14:00 01/31/20 13:59 01/26/20 05:38 Mycophenolate Mofetil (Cellcept) 1,000 mg TWICE A DAY ORAL 01/13/20 18:00 04/12/20 17:59 01/25/20 17:00 Nitroglycerin (Ntg) 0.4 mg Q5M PRN SL Prn Chest Pain 01/13/20 14:30 02/12/20 14:29 Ondansetron HCl (Zofran) 4 mg Q6H PRN IVP Nausea & Vomiting 01/13/20 14:30 02/12/20 14:29 Pantoprazole (Protonix) 40 mg BID ORAL 01/15/20 18:00 02/13/20 08:59 01/25/20 17:00 Tacrolimus (Prograf) 1 mg EVERY 12 HOURS ORAL 01/13/20 21:00 04/12/20 20:59 01/25/20 20:39 Laboratory Tests 01/25/20 13:59: Histoplasma Antigen [Pending] Height (Feet): 5 Height (Inches): 5.00 Weight (Pounds): 85 Objective exam stable Corona Hernandez MD Jan 26, 2020 09:00
[2020-01-26] MEDS: Aspirin Baby 81mg ORAL SCH (10:27)
[2020-01-26] MEDS: Mycophenolate 250mg cap ORAL SCH ×2 (10:28→17:16)
[2020-01-26] MEDS: Docusate 100mg cap ORAL SCH ×2 (10:28→20:45)
--- NOTE | 2020-01-26 10:30 | NUR ---
NURSE NOTES: not administered heparin as pt has RFA skin tear with bleeding. Optifoam in place.
--- NOTE | 2020-01-26 10:32 | Pulmonology Progress Note ---
Subjective ROS Limited/Unobtainable: No Interval Events: None new reported. Constitutional: Reports: no symptoms HEENT: Repors: no symptoms Respiratory: Reports: no symptoms Cardiovascular: Reports: no symptoms Gastrointestinal/Abdominal: Reports: no symptoms Allergies: Coded Allergies: No Known Allergies (Unverified , 01/13/20) All Systems: reviewed and negative except above Objective Last 24 Hour Vital Signs Date Time Temp Pulse Resp B/P (MAP) Pulse Ox O2 Delivery O2 Flow Rate FiO2 01/26/20 08:00 97.2 77 18 126/73 (90) 100 01/26/20 04:00 97.0 76 20 120/85 (97) 99 01/26/20 00:00 97.5 77 16 106/60 (75) 100 01/25/20 20:39 76 122/73 01/25/20 20:00 97.1 83 18 103/65 (78) 100 01/25/20 18:00 Room Air 01/25/20 16:00 98.2 69 18 98/61 (73) 100 69 01/25/20 12:00 97.4 89 18 121/76 (91) 99 Intake and Output 0 01/25/20 01/26/20 19:00 07:00 Intake Total 840 ml 400 ml Output Total 225 ml Balance 615 ml 400 ml Intake Oral 840 ml 400 ml Output Urine Total 200 ml Post Void Residual 25 ml Bladder Scan Volume Amount 11-30 ml # Voids 1 4 General Appearance: no acute distress HEENT: normocephalic Respiratory: chest wall non-tender, lungs clear Cardiovascular: normal peripheral pulses, normal rate Abdomen: normal bowel sounds Laboratory Tests 01/25/20 13:59: Histoplasma Antigen [Pending] Current Medications Medications (Trade) Dose Ordered Sig/Quynh Route PRN Reason Start Time Stop Time Status Last Admin Dose Admin Acetaminophen (Tylenol) 650 mg Q4H PRN ORAL Mild Pain (Pain Scale 1-3) 01/13/20 14:30 02/12/20 14:29 Aspirin (ASA) 81 mg DAILY ORAL 01/14/20 09:00 02/28/20 08:59 01/25/20 09:05 Cefepime HCl 1 gm/ Dextrose 55 ml @ 110 mls/hr Q24H IVPB 01/25/20 12:00 02/01/20 11:59 01/25/20 11:39 Dextrose (Dextrose 50%) 25 ml Q30M PRN IV Hypoglycemia 01/13/20 14:30 04/12/20 14:29 Dextrose (Dextrose 50%) 50 ml Q30M PRN IV Hypoglycemia 01/13/20 14:30 04/12/20 14:29 Docusate Sodium (Colace) 100 mg EVERY 12 HOURS ORAL 01/13/20 21:00 02/12/20 20:59 01/25/20 20:39 Heparin Sodium (Porcine) (Heparin 5000 units/ml) 5,000 units EVERY 12 HOURS SUBQ 01/13/20 21:00 02/27/20 20:59 01/25/20 20:41 Linezolid (Zyvox) 600 mg EVERY 12 HOURS ORAL 01/25/20 21:00 01/30/20 20:59 01/25/20 20:39 Metoprolol Tartrate (Lopressor) 25 mg EVERY 12 HOURS ORAL 01/13/20 21:00 04/12/20 20:59 01/25/20 20:39 Metronidazole (Flagyl) 500 mg Q8HR ORAL 01/24/20 14:00 01/31/20 13:59 01/26/20 05:38 Mycophenolate Mofetil (Cellcept) 1,000 mg TWICE A DAY ORAL 01/13/20 18:00 04/12/20 17:59 01/25/20 17:00 Nitroglycerin (Ntg) 0.4 mg Q5M PRN SL Prn Chest Pain 01/13/20 14:30 02/12/20 14:29 Ondansetron HCl (Zofran) 4 mg Q6H PRN IVP Nausea & Vomiting 01/13/20 14:30 02/12/20 14:29 Pantoprazole (Protonix) 40 mg BID ORAL 01/15/20 18:00 02/13/20 08:59 01/25/20 17:00 Tacrolimus (Prograf) 1 mg EVERY 12 HOURS ORAL 01/13/20 21:00 04/12/20 20:59 01/25/20 20:39 Assessment/Plan Assessment/Plan IMPRESSION: 1. Bilateral cavitary pulmonary nodules. 2. History of liver transplant, on immunosuppressives. 3. CAD. DISCUSSION: Discussed with Dr. Cruz. S/p CT-guided lung biopsy. May need bronchoscopy if CT biopsy is non-diagnostic Pathology report still pending. OK to dc home/SNF Discussed with Dr. Cruz . Await cultures and serology. I will follow. Reinier Leo Omar Syed MD Jan 26, 2020 10:32
--- NOTE | 2020-01-26 11:11 | General Progress Note ---
Subjective Date patient seen: Jan 26, 2020 Time patient seen: 10:00 ROS Limited/Unobtainable: Yes Allergies: Coded Allergies: No Known Allergies (Unverified , 01/13/20) All Systems: reviewed and negative except above Subjective Feels anxious about leaving the Hospital, denies chest pain or shortness of breath. Good PO intake and good sleep. Objective Last 24 Hour Vital Signs Date Time Temp Pulse Resp B/P (MAP) Pulse Ox O2 Delivery O2 Flow Rate FiO2 01/26/20 10:27 77 126/73 01/26/20 08:00 97.2 77 18 126/73 (90) 100 01/26/20 04:00 97.0 76 20 120/85 (97) 99 01/26/20 00:00 97.5 77 16 106/60 (75) 100 01/25/20 20:39 76 122/73 01/25/20 20:00 97.1 83 18 103/65 (78) 100 01/25/20 18:00 Room Air 01/25/20 16:00 98.2 69 18 98/61 (73) 100 69 01/25/20 12:00 97.4 89 18 121/76 (91) 99 Intake and Output 01/25/20 01/26/20 19:00 07:00 Intake Total 840 ml 400 ml Output Total 225 ml Balance 615 ml 400 ml Intake Oral 840 ml 400 ml Output Urine Total 200 ml Post Void Residual 25 ml Bladder Scan Volume Amount 11-30 ml # Voids 1 4 Laboratory Tests 01/25/20 13:59: Histoplasma Antigen [Pending] Height (Feet): 5 Height (Inches): 5.00 Weight (Pounds): 85 General Appearance: WD/WN EENT: PERRL/EOMI Neck: non-tender Cardiovascular: normal rate Respiratory/Chest: lungs clear Abdomen: soft Neurologic: personal injury legal assistant II-XII grossly normal Objective Procedure: NM Myocard Perf w/ Eject Frac Indications: Chest pain, elevated troponin Technique: Single day single isotope protocol utilized. Initially, resting images obtained using IV administration 10.8 millicuries 99M technetium Myoview. Subsequently, patient underwent lexiscan stress testing. See cardiology report for details. During Lexiscan infusion, IV administration 31.4 mCi 99 M technetium Myoview. SPECT and planar images obtained. SPECT images gated to 8 phases of the cardiac cycle were also obtained, and reformatted into cine images for evaluation of ejection fraction. Comparison: none Findings: Per cardiology report, patient experienced no symptoms during infusion. Per cardiology report, resting EKG demonstrates normal sinus rhythm with left axis deviation. No ST changes during infusion. . Imaging demonstrates a post stress perfusion defect in the anteroseptal wall which is slightly smaller on the resting images. Calculated post stress ejection fraction 47%. There is slightly de creased wall motion in the septum Impression: Nonischemic clinical response to pharmacologic stress, per cardiology report Nonischemic electrocardiographic response to pharmacologic stress, per cardiology report Partially fixed partially reversible anteroseptal perfusion defect, likely infarct with femi-infarct ischemia Calculated post stress ejection fraction 47% Procedure: CT Chest no Contrast Clinical Indication: Cough, evaluation of abnormalities on recent chest radiog raph Technique: Spiral acquisitions obtained through the chest. No IV contrast utilized, reason not stated. Multiplanar reconstructions generated. Total dose length product 116 mGycm. CTDIvol(s) 2 mGy. Dose reduction achieved using automated exposure control Comparison: none Findings: Multiple masses are seen in the left upper lobe. The largest of these is complex in shape, abuts the anterior mediastinum and anterior chest wall, measures 4.5 x 3.2 cm orthogonal axial dimensions, by 4.6 cm craniocaudad. This demonstrates multiple central cavities, and extends posteromedially along the bronchovascular bundle. At least 5 other lesions are seen in the left upper lobe, largest of which contain central cavities. No left lower lobe lesions are demonstrated. A 12 mm mass is seen in the right upper lobe, and several subcentimeter lesions are noted. An irregular 3.3 x 1.9 cm mass is seen in the right lower lobe, and at least one other is seen at the right lung base. No definite infiltrates. There is equivocally trace pleural fluid on the left. There is generalized mild hyperinflation, and a bulla is seen in the anteromedial right upper lobe. Azygos lobe and fissure are incidentally noted. The heart size is normal. There is no pericardial effusion. No mediastinal or hilar mass or adenopathy. The ascending thoracic aorta is mildly ectatic but not aneurysmal. There is mild edema of the mediastinal fat. The thyroid is unremarkable. No axillary or chest wall mass or adenopathy demonstrated. Numerous surgical clips are seen in the right upper quadrant. Pattern of the clips suggests liver transplant. The stomach is mildly distended with food. The bones are unremarkable. Impression: Multiple bilateral pulmonary masses/nodules the largest of these demonstrate central cavitation. Main differential considerations are infectious inflammatory lesions such as septic emboli, tuberculosis, other mycobacterial infections; noninfectious processes such as rheumatoid, granulomatosis with polyangiitis; metastatic carcinoma, most likely squamous cell carcinoma, gastrointestinal adenocarcinoma, transitional cell bladder carcinoma Mild hyperinflation. Single right upper lobe bulla Postsurgical changes of the liver suggests prior liver transplant. Correlate with surgical history The CT scanner at [facility] is accredited by the [employer] and the scans are performed using protocols designed to limit radiation exposure to as low as reasonably achievable to attain images of sufficient resolution adequate for diagnostic evaluation. Assessment/Plan Status: stable Assessment/Plan: 64 y/o M admitted to the Hospital with: # History of liver transplant at [facility] Resume prograft 1 MG BID and cellcept 1000 MG BID UNABLE TO MONITOR PROGRAF LEVEL AT THIS HOSPITAL # Abnormal CXR with MULTIPLE NODULES. Patient is Ex- smoker. No hypoxia noted at this time. CT CHEST WITH Multiple bilateral pulmonary masses/nodules the largest of these demonstrate central cavitation. Main differential considerations are infectious inflammatory lesions such as septic emboli, tuberculosis, other mycobacterial infections; noninfectious processes such as rheumatoid, granulomatosis with polyangiitis; metastatic carcinoma, most likely squamous cell carcinoma, gastrointestinal adenocarcinoma, transitional cell bladder carcinoma Pulmonary consultation and infectious disease consultation with Dr. Hill and Greta Per Dr. Hernandes empiric ZYvox, Cefepime and Azithromycin started 01/17/20 DAY 9 - FLAGYL DAY 3 -f/u cx -Monitor CBC/C MP, temperatures -airborne isolation: AFB sp cx x3 ( 2 samples NEGATIVE and Third one is PENDING REPORT ) MTB PCR PENDING. 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 HE WILL REQUIRE A HIGHER LEVEL OF CARE, IDEALLY, [facility] WHERE HIS TRANSPLANT WAS DONE. AWAITING CALL FROM DR. SALCIDO FROM THE GI TRANSPLANT SERVICE AT [facility] TO DISCUSS THE CASE. updated Michell, Specification Writer and reported that [facility] is waiting on financial clearance PRIOR TO TRANSFER. IR CT GUIDED LUNG BIOPSY 01/19 Follow up pathology. Verbal report: organizing pneumonia with necrotizing like inflammation. Fungal stains pending and NO GRANULOMAS. # Generalized weakness Etiology include failure to thrive, vs poor nutritional status vs underlying cardiac etiology based on history of recent DE 2 months ago vs underlying infection vs malignancy. Weight loss 6 lbs in the past month # Moderate protein caloric malnutrition. RD support and monitoring. # Elevated troponin Serial troponin noted to be stable Telemetry with some bigeminy noted and is stable TTE with normal EF Cardiology consulted Dr. Villanueva. Stress test Nuclear without active ischemia noted. Old infarct area noted. No intervention recommended at this time. Lipid panel reviewed. Asa 81 mg daily # CKD stage 3 Trend creatinine Monitor renal function # Hypokalemia Replete and monitor and Dr. Cintron renal consultation appreciated. # Hypomagnesemia Replete and monitor # Generalized weakness PT evaluation for baseline recommends SNF for short term rehab. NEEDS HIGHER LEVEL OF CARE, TRANSPLANT CENTER AND ID MANAGEMENT. DVT ppx with Enoxaparin GI ppx with PPI FULL CODE Piyush Cruz MD Jan 26, 2020 11:11
[2020-01-26 12:00] VITALS: BP 98/60
[2020-01-26] MEDS: Cefepime HCl 1 GM in D5W 55 ML IVPB SCH (13:15)
--- NOTE | 2020-01-26 14:43 | Nephrology Progress Note ---
Assessment/Plan Problem List: (1) Hypokalemia (2) Renal failure (ARF), acute on chronic (3) Elevated troponin (4) Anemia Assessment Persistent hypokalemia, etiology unclear. No report of diarrhea. Renal failure with serum creatinine of 1.7, most likely chronic Elevated troponin Anemia Hypoalbuminemia Status post liver transplant. On Prograf and CellCept Leukocytosis COPD EjFx 55% Plan January 25: Stable from renal standpoint of view. Will check blood chemistries tomorrow. January 24: Serum creatinine stable. Continue disease January 23: Serum creatinine down to 1.5 stable from renal standpoint to view continue per consultants January 22: Serum creatinine down to 1.6. Stable from renal standpoint of view. Continue per consultants. January 21: Serum creatinine up to 1.7. Continue per consultants. Continue to monitor renal parameters. January 20: No blood drawn today. Continue per consultants. Check labs tomorrow. January 19: Labs reviewed. Magnesium replaced. Other electrolyte abnormalities addressed. Serum creatinine down to 1.5. January 18: Labs reviewed. Low potassium replaced. Continue to monitor electrolytes and renal parameters. Serum creatinine 1.6. January 17: Renal parameters stable. Continue per current management. Work-up of bilateral cavitary pulmonary nodules in process January 16: Serum creatinine lowering from 2 on admission to 1.[address] scan of the chest noted. Will discuss with Dr. Cruz regarding the pulmonary evaluation. Continue current management. Previously: Potassium supplement p.o. and IV Urine spot sodium Urine spot potassium Kidney ultrasound, pending 2D echocardiogram EjFx 55% Monitor renal parameters Will order CT of the chest with no contrast Chest x-ray impression: Bilateral lung nodules. These are worrisome for metastatic deposits. Septic emboli also a possibility. Mild hyperinflation, likely COPD. Subjective ROS Limited/Unobtainable: No Objective Objective Last 24 Hour Vital Signs Date Time Temp Pulse Resp B/P (MAP) Pulse Ox O2 Delivery O2 Flow Rate FiO2 01/26/20 12:00 96.6 75 18 98/60 (73) 98 01/26/20 10:27 77 126/73 01/26/20 09:00 Room Air 01/26/20 08:00 97.2 77 18 126/73 (90) 100 01/26/20 04:00 97.0 76 20 120/85 (97) 99 01/26/20 00:00 97.5 77 16 106/60 (75) 100 01/25/20 20:39 76 122/73 01/25/20 20:00 97.1 83 18 103/65 (78) 100 01/25/20 18:00 Room Air 01/25/20 16:00 98.2 69 18 98/61 (73) 100 69 Intake and Output 01/25/20 01/26/20 18:59 06:59 Intake Total 840 ml 400 ml Output Total 225 ml Balance 615 ml 400 ml Intake Oral 840 ml 400 ml Output Urine Total 200 ml Post Void Residual 25 ml Bladder Scan Volume Amount 11-30 ml # Voids 1 4 No labs done today Height (Feet): 5 Height (Inches): 5.00 Weight (Pounds): 85 General Appearance: no apparent distress Objective No change Marvin aMrtinez MD Jan 26, 2020 14:43
[2020-01-26 16:00] VITALS: BP 97/58
--- NOTE | 2020-01-26 17:24 | Cardiac Electrophysiology PN ---
Assessment/Plan Assessment/Plan 1. Troponin elevation. All levels are low level and similar at 0.4 due to renal failure The patient does not have any chest pain. EKG does not show any acute ST-T wave abnormalities. Continue aspirin, beta-awa, and low-dose statin. Echo Nl EF 55% Stress test showed no significant ischemia. Treat medically as no chest pain and renal failure and cardiac cath put him at risk of HD 2. Status post liver transplant.On Prograf and CellCept. 3. Generalized weakness. 4. Elevated white count of 12,000. 5. Hypokalemia. Potassium of 3. 6. Chronic kidney disease with BUN of 47 and creatinine of 2.0. 7. Bilateral cavitary pulmonary nodules. S/P CT-guided lung biopsy. 3rd AFB pending. FU Dr Liz LIN RN and Dr Cruz Subjective Subjective No CP or SOB EF 55%. Stress test showed no significant ischemia S/P Lung biopsy. 3rd AFB results pending. Awaiting transfer to higher level of care Objective Last 24 Hour Vital Signs Date Time Temp Pulse Resp B/P (MAP) Pulse Ox O2 Delivery O2 Flow Rate FiO2 01/26/20 16:00 96.4 67 18 97/58 (71) 100 01/26/20 12:00 96.6 75 18 98/60 (73) 98 01/26/20 10:27 77 126/73 01/26/20 09:00 Room Air 01/26/20 08:00 97.2 77 18 126/73 (90) 100 01/26/20 04:00 97.0 76 20 120/85 (97) 99 01/26/20 00:00 97.5 77 16 106/60 (75) 100 01/25/20 20:39 76 122/73 01/25/20 20:00 97.1 83 18 103/65 (78) 100 01/25/20 18:00 Room Air Intake and Output 01/25/20 01/26/20 19:00 07:00 Intake Total 840 ml 400 ml Output Total 225 ml Balance 615 ml 400 ml Intake Oral 840 ml 400 ml Output Urine Total 200 ml Post Void Residual 25 ml Bladder Scan Volume Amount 11-30 ml # Voids 1 4 Objective HEAD AND NECK: Showed no JVD. LUNGS: Clear. CARDIOVASCULAR: Shows regular S1 and S2 with no gallop. ABDOMEN: Soft and nontender and scar of liver surgery in the right upper abdomen for liver transplant. EXTREMITIES: No pitting edema. Greg Villanueva MD Jan 26, 2020 17:24
--- NOTE | 2020-01-26 19:08 | NUR ---
NURSE HAND-OFF: Important Events on Shift:[] Patient Status: [stable] Diet: [renal] Pending Orders: [cbc, bmp] Pending Results/Labs:[] Pending MD notification:[] Latest Vital Signs: Temperature 96.4 , Pulse 67 , B/P 97 /58 , Respiratory Rate 18 , O2 SAT 100 , Room Air, O2 Flow Rate . Vital Sign Comment: [] Latest Padron Fall Score: 35 Fall Risk: Medium Risk Safety Measures: Call light Within Reach, Bed Alarm Zone 1, Side Rails Side Rails x2, Bed position Low and Locked. Fall Precautions: Yellow Socks Yellow Gown Door Sign Patient Fall Education Report given to [JADE Trejo].
[2020-01-26 20:00] VITALS: BP 122/85
--- NOTE | 2020-01-26 20:04 | NUR ---
NURSE NOTES: Called Dr. Cruz and referred pt.'s scattered ecchymosis on john. upper extremities and skin tear. Pt. is ambulatory inside room, uses the restroom @ most times.Plt. is 159. ordered to stop Heparin and he will come see pt. in AM. Orders taken and carried out.
--- NOTE | 2020-01-26 23:31 | NUR ---
Received report from Marivel HANSEN. Pt. is in bed,awake, alert and verbally responsive. Breathing even and unlabored. No sob noted. Denies any pain. All due meds given. On continued airborne isolation, observed at all times. Slept @ short intervals. Able to use bathroom,voiding freely; ambulatory and with steady gait. No cough no fever noted. Will continue to monitor.
[2020-01-27] VITALS (7 sets, daily range): BP systolic 98–116; BP diastolic 61–71
[2020-01-27] MEDS: metroNIDAZOLE 500mg tab ORAL SCH ×3 (05:29→22:14)
--- NOTE | 2020-01-27 07:26 | NUR ---
NURSE HAND-OFF: Important Events on Shift:[]contniue on airborne isolation Patient Status: [] Diet: []renal Pending Orders: []cbc, bmp Pending Results/Labs:[] Pending MD notification:[] Latest Vital Signs: Temperature 98.0 , Pulse 85 , B/P 112 /71 , Respiratory Rate 18 , O2 SAT 96 , Room Air, O2 Flow Rate . Vital Sign Comment: [] Latest Padron Fall Score: 35 Fall Risk: Medium Risk Safety Measures: Call light Within Reach, Bed Alarm Zone 1, Side Rails Side Rails x2, Bed position Low and Locked. Fall Precautions: Yellow Socks Yellow Gown Door Sign Patient Fall Education Report given to [].Marivel HANSEN
--- NOTE | 2020-01-27 07:33 | Urology Progress Note ---
Assessment/Plan Status: stable Assessment/Plan: 1. Elevated serum PSA. 2. BPH. 3. Mild lower urinary tract symptoms. 4. Rule out neurogenic bladder. 5. Renal insufficiency, acute on chronic. 6. Proteinuria. 7. Renal cyst. monitor clinically consider adding flomax prostate MRI and/or biopsy at some point on abx as ordered lung mets, s/p bx, f/u on path monitor renal fxn poss transfer to [facility] Subjective Allergies: Coded Allergies: No Known Allergies (Unverified , 01/13/20) Subjective all noted, feels fair voiding s/p lung bx 01/19 Objective Last 24 Hour Vital Signs Date Time Temp Pulse Resp B/P (MAP) Pulse Ox O2 Delivery O2 Flow Rate FiO2 01/27/20 04:00 98.0 85 18 112/71 (85) 96 01/27/20 00:00 97.3 78 17 103/68 (80) 98 01/26/20 21:00 Room Air 01/26/20 20:46 78 122/76 01/26/20 20:00 98.2 76 18 122/85 (97) 98 01/26/20 16:00 96.4 67 18 97/58 (71) 100 01/26/20 12:00 96.6 75 18 98/60 (73) 98 01/26/20 10:27 77 126/73 01/26/20 09:00 Room Air 01/26/20 08:00 97.2 77 18 126/73 (90) 100 Intake and Output 01/26/20 01/27/20 19:00 07:00 Intake Total 1015 ml 500 ml Output Total 263 ml Balance 752 ml 500 ml Intake Oral 960 ml 500 ml IV Total 55 ml Output Urine Total 200 ml Post Void Residual 63 ml Bladder Scan Volume Amount 51-75 ml # Voids 1 4 Microbiology Date/Time Source Procedure Growth Status 01/24/20 05:00 Sputum Acid Fast Bacilli Smear - Final Resulted 01/24/20 05:00 Sputum Acid Fast Bacilli Culture Pending Resulted 01/18/20 07:30 Blood Blood Culture - Final NO GROWTH AFTER 5 DAYS Complete Current Medications Medications (Trade) Dose Ordered Sig/Quynh Route PRN Reason Start Time Stop Time Status Last Admin Dose Admin Acetaminophen (Tylenol) 650 mg Q4H PRN ORAL Mild Pain (Pain Scale 1-3) 01/13/20 14:30 02/12/20 14:29 Aspirin (ASA) 81 mg DAILY ORAL 01/14/20 09:00 02/28/20 08:59 01/26/20 10:27 Cefepime HCl 1 gm/ Dextrose 55 ml @ 110 mls/hr Q24H IVPB 01/25/20 12:00 02/01/20 11:59 01/26/20 13:15 Dextrose (Dextrose 50%) 25 ml Q30M PRN IV Hypoglycemia 01/13/20 14:30 04/12/20 14:29 Dextrose (Dextrose 50%) 50 ml Q30M PRN IV Hypoglycemia 01/13/20 14:30 04/12/20 14:29 Docusate Sodium (Colace) 100 mg EVERY 12 HOURS ORAL 01/13/20 21:00 02/12/20 20:59 01/26/20 20:45 Linezolid (Zyvox) 600 mg EVERY 12 HOURS ORAL 01/25/20 21:00 01/30/20 20:59 01/26/20 20:45 Metoprolol Tartrate (Lopressor) 25 mg EVERY 12 HOURS ORAL 01/13/20 21:00 04/12/20 20:59 01/26/20 20:46 Metronidazole (Flagyl) 500 mg Q8HR ORAL 01/24/20 14:00 01/31/20 13:59 01/27/20 05:29 Mycophenolate Mofetil (Cellcept) 1,000 mg TWICE A DAY ORAL 01/13/20 18:00 04/12/20 17:59 01/26/20 17:16 Nitroglycerin (Ntg) 0.4 mg Q5M PRN SL Prn Chest Pain 01/13/20 14:30 02/12/20 14:29 Ondansetron HCl (Zofran) 4 mg Q6H PRN IVP Nausea & Vomiting 01/13/20 14:30 02/12/20 14:29 Pantoprazole (Protonix) 40 mg BID ORAL 01/15/20 18:00 02/13/20 08:59 01/26/20 17:16 Tacrolimus (Prograf) 1 mg EVERY 12 HOURS ORAL 01/13/20 21:00 04/12/20 20:59 01/26/20 20:45 Height (Feet): 5 Height (Inches): 5.00 Weight (Pounds): 85 Objective exam stable Corona Hernandez MD Jan 27, 2020 07:33
--- NOTE | 2020-01-27 08:31 | Infectious Diseases Prog Note ---
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 Oorganizing PNA with necrotizing abscess like inflammation. Fungal and AFB stains were neg -CT chest wo: Multiple bilateral pulmonary masses/nodules the largest of these demonstrate central cavitation. Main differential considerations are infectious inflammatory lesions such as septic emboli, tuberculosis, other mycobacterial infections; noninfectious processes such as rheumatoid, granulomatosis with polyangiitis; metastatic carcinoma, most likely squamous cell carcinoma, gastrointestinal adenocarcinoma, transitional cell bladder carcinoma. Mild hyperinflation. Single right upper lobe bulla, Postsurgical changes of the liver suggests prior liver transplant. Correlate with surgical history -CXR: Bilateral lung nodules. These are worrisome for metastatic deposits. Septic emboli also a possibility. Correlate with clinical history and findings. Mild hyperinflation, likely COPD. -2d echo: no vegetations -HIV ab screen neg, rapid COVID PCR, urine legionella ag, M. 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 Bilateral renal cysts. Negative for hydronephrosis. 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 Patient had his transplant in [facility]. D/w Dr Cruz and Michell from case loader operator to initiate request for transfer -await final path- fungal and AFB stains 01/21 SP Azithromycin #6 -f/u cx -Monitor CBC/C MP, temperatures -airborne isolation: AFB sp cx x3, MTB PCR -f/u histo ag urine, Cocci Ab/CF -May need bronch if not able to expectorate sputum -f/u biopsy results -Histo H/M band (immunodiffusion) D/w RN Thank you for consulting [facility]. Will continue to follow along with you. Subjective Allergies: Coded Allergies: No Known Allergies (Unverified , 01/13/20) NAD, sitting on side of bed AF Labs reviewed Wants to know when he'll be transferred to [facility] Objective Last 24 Hour Vital Signs Date Time Temp Pulse Resp B/P (MAP) Pulse Ox O2 Delivery O2 Flow Rate FiO2 01/27/20 04:00 98.0 85 18 112/71 (85) 96 01/27/20 00:00 97.3 78 17 103/68 (80) 98 01/26/20 21:00 Room Air 01/26/20 20:46 78 122/76 01/26/20 20:00 98.2 76 18 122/85 (97) 98 01/26/20 16:00 96.4 67 18 97/58 (71) 100 01/26/20 12:00 96.6 75 18 98/60 (73) 98 01/26/20 10:27 77 126/73 01/26/20 09:00 Room Air Height (Feet): 5 Height (Inches): 5.00 Weight (Pounds): 85 Gen: NAD HEENT: NCAT, EOMI, PERRL CV: RRR Pulm: CTAB Abd: Soft, NTND Ext: Thin Neuro: Awake, alert, interactive Current Medications Medications (Trade) Dose Ordered Sig/Quynh Route PRN Reason Start Time Stop Time Status Last Admin Dose Admin Acetaminophen (Tylenol) 650 mg Q4H PRN ORAL Mild Pain (Pain Scale 1-3) 01/13/20 14:30 02/12/20 14:29 Aspirin (ASA) 81 mg DAILY ORAL 01/14/20 09:00 02/28/20 08:59 01/26/20 10:27 Cefepime HCl 1 gm/ Dextrose 55 ml @ 110 mls/hr Q24H IVPB 01/25/20 12:00 02/01/20 11:59 01/26/20 13:15 Dextrose (Dextrose 50%) 25 ml Q30M PRN IV Hypoglycemia 01/13/20 14:30 04/12/20 14:29 Dextrose (Dextrose 50%) 50 ml Q30M PRN IV Hypoglycemia 01/13/20 14:30 04/12/20 14:29 Docusate Sodium (Colace) 100 mg EVERY 12 HOURS ORAL 01/13/20 21:00 02/12/20 20:59 01/26/20 20:45 Linezolid (Zyvox) 600 mg EVERY 12 HOURS ORAL 01/25/20 21:00 01/30/20 20:59 01/26/20 20:45 Metoprolol Tartrate (Lopressor) 25 mg EVERY 12 HOURS ORAL 01/13/20 21:00 04/12/20 20:59 01/26/20 20:46 Metronidazole (Flagyl) 500 mg Q8HR ORAL 01/24/20 14:00 01/31/20 13:59 01/27/20 05:29 Mycophenolate Mofetil (Cellcept) 1,000 mg TWICE A DAY ORAL 01/13/20 18:00 04/12/20 17:59 01/26/20 17:16 Nitroglycerin (Ntg) 0.4 mg Q5M PRN SL Prn Chest Pain 01/13/20 14:30 02/12/20 14:29 Ondansetron HCl (Zofran) 4 mg Q6H PRN IVP Nausea & Vomiting 01/13/20 14:30 02/12/20 14:29 Pantoprazole (Protonix) 40 mg BID ORAL 01/15/20 18:00 02/13/20 08:59 01/26/20 17:16 Tacrolimus (Prograf) 1 mg EVERY 12 HOURS ORAL 01/13/20 21:00 04/12/20 20:59 01/26/20 20:45 Lachelle Avalos M.D. Jan 27, 2020 08:31
[2020-01-27 09:15] LABS: HEMATOCRIT 23.1 % (42.0-52.0); HEMOGLOBIN 7.3 G/DL (14.2-18.0); MEAN CORPUSCULAR VOLUME 107 FL (80-99); PLATELET COUNT 116 K/UL (150-450); RED BLOOD COUNT 2.16 M/UL (4.70-6.10); RED CELL DISTRIBUTION WIDTH 13.9 % (11.6-14.8); WHITE BLOOD COUNT 3.8 K/UL (4.8-10.8)
[2020-01-27 09:48] LABS: CALCIUM 8.6 MG/DL (8.5-10.1); CREATININE 1.7 MG/DL (0.55-1.30); POTASSIUM 3.4 MMOL/L (3.5-5.1)
[2020-01-27] MEDS: Mycophenolate 250mg cap ORAL SCH (10:38)
[2020-01-27] MEDS: Docusate 100mg cap ORAL SCH ×2 (10:38→20:33)
[2020-01-27] MEDS: Aspirin Baby 81mg ORAL SCH (10:39)
--- NOTE | 2020-01-27 10:43 | Pulmonology Progress Note ---
Subjective ROS Limited/Unobtainable: No Interval Events: None new reported. Constitutional: Reports: no symptoms HEENT: Repors: no symptoms Respiratory: Reports: no symptoms Cardiovascular: Reports: no symptoms Gastrointestinal/Abdominal: Reports: no symptoms Allergies: Coded Allergies: No Known Allergies (Unverified , 01/13/20) All Systems: reviewed and negative except above Objective Last 24 Hour Vital Signs Date Time Temp Pulse Resp B/P (MAP) Pulse Ox O2 Delivery O2 Flow Rate FiO2 01/27/20 08:00 97.2 75 18 107/69 (82) 100 01/27/20 04:00 98.0 85 18 112/71 (85) 96 01/27/20 00:00 97.3 78 17 103/68 (80) 98 01/26/20 21:00 Room Air 01/26/20 20:46 78 122/76 01/26/20 20:00 98.2 76 18 122/85 (97) 98 01/26/20 16:00 96.4 67 18 97/58 (71) 100 01/26/20 12:00 96.6 75 18 98/60 (73) 98 Intake and Output 01/26/20 01/27/20 19:00 07:00 Intake Total 1015 ml 500 ml Output Total 263 ml Balance 752 ml 500 ml Intake Oral 960 ml 500 ml IV Total 55 ml Output Urine Total 200 ml Post Void Residual 63 ml Bladder Scan Volume Amount 51-75 ml # Voids 1 4 General Appearance: no acute distress HEENT: normocephalic Respiratory: chest wall non-tender, lungs clear Cardiovascular: normal peripheral pulses, normal rate Abdomen: normal bowel sounds Laboratory Tests 01/27/20 08:39: White Blood Count 3.8L, Red Blood Count 2.16L, Hemoglobin 7.3L, Hematocrit 23.1L , Mean Corpuscular Volume 107H, Mean Corpuscular Hemoglobin 33.8H, Mean Corpuscular Hemoglobin Concent 31.7L, Red Cell Distribution Width 13.9, Platelet Count 116L, Mean Platelet Volume 5.7L, Neutrophils (%) (Auto) , Lymphocytes (%) (Auto) , Monocytes (%) (Auto) , Eosinophils (%) (Auto) , Basophils (%) (Auto) , Differential Total Cells Counted 100, Neutrophils % (Manual) 86H, Lymphocytes % (Manual) 12L, Monocytes % (Manual) 1, Eosinophils % (Manual) 1, Basophils % (Manual) 0, Band Neutrophils 0, Platelet Estimate DecreasedL, Platelet Morphology Normal, Macrocytosis 1+, Sodium Level 138, Potassium Level 3.4L, Chloride Level 109H, Carbon Dioxide Level 19L, Anion Gap 10, Blood Urea Nitrogen 48H, Creatinine 1.7H, Estimat Glomerular Filtration Rate 40.5, Glucose Level 160H, Calcium Level 8.6 Current Medications Medications (Trade) Dose Ordered Sig/Quynh Route PRN Reason Start Time Stop Time Status Last Admin Dose Admin Acetaminophen (Tylenol) 650 mg Q4H PRN ORAL Mild Pain (Pain Scale 1-3) 01/13/20 14:30 02/12/20 14:29 Aspirin (ASA) 81 mg DAILY ORAL 01/14/20 09:00 02/28/20 08:59 01/27/20 10:39 Cefepime HCl 1 gm/ Dextrose 55 ml @ 110 mls/hr Q24H IVPB 01/25/20 12:00 02/01/20 11:59 01/26/20 13:15 Dextrose (Dextrose 50%) 25 ml Q30M PRN IV Hypoglycemia 01/13/20 14:30 04/12/20 14:29 Dextrose (Dextrose 50%) 50 ml Q30M PRN IV Hypoglycemia 01/13/20 14:30 04/12/20 14:29 Docusate Sodium (Colace) 100 mg EVERY 12 HOURS ORAL 01/13/20 21:00 02/12/20 20:59 01/27/20 10:38 Linezolid (Zyvox) 600 mg EVERY 12 HOURS ORAL 01/25/20 21:00 01/30/20 20:59 01/27/20 10:38 Metoprolol Tartrate (Lopressor) 25 mg EVERY 12 HOURS ORAL 01/13/20 21:00 04/12/20 20:59 01/26/20 20:46 Metronidazole (Flagyl) 500 mg Q8HR ORAL 01/24/20 14:00 01/31/20 13:59 01/27/20 05:29 Mycophenolate Mofetil (Cellcept) 1,000 mg TWICE A DAY ORAL 01/13/20 18:00 04/12/20 17:59 01/27/20 10:38 Nitroglycerin (Ntg) 0.4 mg Q5M PRN SL Prn Chest Pain 01/13/20 14:30 02/12/20 14:29 Ondansetron HCl (Zofran) 4 mg Q6H PRN IVP Nausea & Vomiting 01/13/20 14:30 02/12/20 14:29 Pantoprazole (Protonix) 40 mg BID ORAL 01/15/20 18:00 02/13/20 08:59 01/27/20 10:39 Tacrolimus (Prograf) 1 mg EVERY 12 HOURS ORAL 01/13/20 21:00 04/12/20 20:59 01/27/20 10:39 Assessment/Plan Assessment/Plan IMPRESSION: 1. Bilateral cavitary pulmonary nodules. 2. History of liver transplant, on immunosuppressives. 3. CAD. DISCUSSION: Discussed with Dr. Cruz. S/p CT-guided lung biopsy. May need bronchoscopy if CT biopsy is non-diagnostic Pathology report still pending. OK to dc home/SNF Discussed with Dr. Cruz . Await cultures and serology. I will follow. Reinier Leo Omar Syed MD Jan 27, 2020 10:43
--- NOTE | 2020-01-27 11:40 | Cardiac Electrophysiology PN ---
Assessment/Plan Assessment/Plan 1. Troponin elevation. All levels are low level and similar at 0.4 due to renal failure The patient does not have any chest pain. EKG does not show any acute ST-T wave abnormalities. Continue aspirin, beta-awa, and low-dose statin. Echo Nl EF 55% Stress test showed no significant ischemia. Treat medically as no chest pain and renal failure and cardiac cath put him at risk of HD 2. Status post liver transplant.On Prograf and CellCept. 3. Generalized weakness. 4. Elevated white count of 12,000. 5. Hypokalemia. Potassium of 3. 6. Chronic kidney disease with BUN of 47 and creatinine of 2.0. 7. Bilateral cavitary pulmonary nodules. S/P CT-guided lung biopsy. FU Dr Liz LIN RN and Dr Cruz Subjective Subjective No CP or SOB EF 55%. Stress test showed no significant ischemia S/P Lung biopsy. Awaiting transfer to higher level of care Objective Last 24 Hour Vital Signs Date Time Temp Pulse Resp B/P (MAP) Pulse Ox O2 Delivery O2 Flow Rate FiO2 01/27/20 09:00 75 107/69 01/27/20 08:00 97.2 75 18 107/69 (82) 100 01/27/20 04:00 98.0 85 18 112/71 (85) 96 01/27/20 00:00 97.3 78 17 103/68 (80) 98 01/26/20 21:00 Room Air 01/26/20 20:46 78 122/76 01/26/20 20:00 98.2 76 18 122/85 (97) 98 01/26/20 16:00 96.4 67 18 97/58 (71) 100 01/26/20 12:00 96.6 75 18 98/60 (73) 98 Intake and Output 01/26/20 01/27/20 19:00 07:00 Intake Total 1015 ml 500 ml Output Total 263 ml Balance 752 ml 500 ml Intake Oral 960 ml 500 ml IV Total 55 ml Output Urine Total 200 ml Post Void Residual 63 ml Bladder Scan Volume Amount 51-75 ml # Voids 1 4 Laboratory Tests Test 01/27/20 08:39 White Blood Count 3.8 K/UL (4.8-10.8) L Red Blood Count 2.16 M/UL (4.70-6.10) L Hemoglobin 7.3 G/DL (14.2-18.0) L Hematocrit 23.1 % (42.0-52.0) L Mean Corpuscular Volume 107 FL (80-99) H Mean Corpuscular Hemoglobin 33.8 PG (27.0-31.0) H Mean Corpuscular Hemoglobin Concent 31.7 G/DL (32.0-36.0) L Red Cell Distribution Width 13.9 % (11.6-14.8) Platelet Count 116 K/UL (150-450) L Mean Platelet Volume 5.7 FL (6.5-10.1) L Neutrophils (%) (Auto) % (45.0-75.0) Lymphocytes (%) (Auto) % (20.0-45.0) Monocytes (%) (Auto) % (1.0-10.0) Eosinophils (%) (Auto) % (0.0-3.0) Basophils (%) (Auto) % (0.0-2.0) Differential Total Cells Counted 100 Neutrophils % (Manual) 86 % (45-75) H Lymphocytes % (Manual) 12 % (20-45) L Monocytes % (Manual) 1 % (1-10) Eosinophils % (Manual) 1 % (0-3) Basophils % (Manual) 0 % (0-2) Band Neutrophils 0 % (0-8) Platelet Estimate Decreased L Platelet Morphology Normal Macrocytosis 1+ Sodium Level 138 MMOL/L (136-145) Potassium Level 3.4 MMOL/L (3.5-5.1) L Chloride Level 109 MMOL/L (98-107) H Carbon Dioxide Level 19 MMOL/L (21-32) L Anion Gap 10 mmol/L (5-15) Blood Urea Nitrogen 48 mg/dL (7-18) H Creatinine 1.7 MG/DL (0.55-1.30) H Estimat Glomerular Filtration Rate 40.5 mL/min (>60) Glucose Level 160 MG/DL (74-106) H Calcium Level 8.6 MG/DL (8.5-10.1) Objective HEAD AND NECK: Showed no JVD. LUNGS: Clear. CARDIOVASCULAR: Shows regular S1 and S2 with no gallop. ABDOMEN: Soft and nontender and scar of liver surgery in the right upper abdomen for liver transplant. EXTREMITIES: No pitting edema. Greg Villanueva MD Jan 27, 2020 11:40
[2020-01-27] MEDS: Cefepime HCl 1 GM in D5W 55 ML IVPB SCH (11:52)
--- NOTE | 2020-01-27 11:54 | NUR ---
MSWS NOTE CALL RECEIVED FROM JB AT [facility] [phone]. PER JB, TRANSFER CENTER OBTAINED FINANCIAL CLEARANCE THIS MORNING. REQUESTED FOR THIRD AFB RESULT AND UPDATED PROGRESS NOTES TO BE FAXED TO [phone]. PER JB, SHE WILL FOLLOW UP WITH CM ON BED STATUS FOR TRANSFER.
--- NOTE | 2020-01-27 13:27 | Nephrology Progress Note ---
Assessment/Plan Problem List: (1) Hypokalemia (2) Renal failure (ARF), acute on chronic (3) Elevated troponin (4) Anemia Assessment Persistent hypokalemia, etiology unclear. No report of diarrhea. Renal failure with serum creatinine of 1.7, most likely chronic Elevated troponin Anemia Hypoalbuminemia Status post liver transplant. On Prograf and CellCept Leukocytosis COPD EjFx 55% Plan January 26: Creatinine up to 1.7 and hemoglobin lower. Will give 1 L of half- normal saline IV fluid. Monitor renal parameters and hemoglobin. Continue per consultants January 25: Stable from renal standpoint of view. Will check blood chemistries tomorrow. January 24: Serum creatinine stable. Continue disease January 23: Serum creatinine down to 1.5 stable from renal standpoint to view continue per consultants January 22: Serum creatinine down to 1.6. Stable from renal standpoint of view. Continue per consultants. January 21: Serum creatinine up to 1.7. Continue per consultants. Continue to monitor renal parameters. January 20: No blood drawn today. Continue per consultants. Check labs tomorrow. January 19: Labs reviewed. Magnesium replaced. Other electrolyte abnormalities addressed. Serum creatinine down to 1.5. January 18: Labs reviewed. Low potassium replaced. Continue to monitor electrolytes and renal parameters. Serum creatinine 1.6. January 17: Renal parameters stable. Continue per current management. Work-up of bilateral cavitary pulmonary nodules in process January 16: Serum creatinine lowering from 2 on admission to 1.[address] scan of the chest noted. Will discuss with Dr. Cruz regarding the pulmonary evaluation. Continue current management. Previously: Potassium supplement p.o. and IV Urine spot sodium Urine spot potassium Kidney ultrasound, pending 2D echocardiogram EjFx 55% Monitor renal parameters Will order CT of the chest with no contrast Chest x-ray impression: Bilateral lung nodules. These are worrisome for metastatic deposits. Septic emboli also a possibility. Mild hyperinflation, likely COPD. Subjective ROS Limited/Unobtainable: No Constitutional: Reports: malaise Objective Objective Last 24 Hour Vital Signs Date Time Temp Pulse Resp B/P (MAP) Pulse Ox O2 Delivery O2 Flow Rate FiO2 01/27/20 09:00 75 107/69 01/27/20 08:00 97.2 75 18 107/69 (82) 100 01/27/20 04:00 98.0 85 18 112/71 (85) 96 01/27/20 00:00 97.3 78 17 103/68 (80) 98 01/26/20 21:00 Room Air 01/26/20 20:46 78 122/76 01/26/20 20:00 98.2 76 18 122/85 (97) 98 01/26/20 16:00 96.4 67 18 97/58 (71) 100 Intake and Output 01/26/20 01/27/20 19:00 07:00 Intake Total 1015 ml 500 ml Output Total 263 ml Balance 752 ml 500 ml Intake Oral 960 ml 500 ml IV Total 55 ml Output Urine Total 200 ml Post Void Residual 63 ml Bladder Scan Volume Amount 51-75 ml # Voids 1 4 Current Medications Medications (Trade) Dose Ordered Sig/Quynh Route PRN Reason Start Time Stop Time Status Last Admin Dose Admin Acetaminophen (Tylenol) 650 mg Q4H PRN ORAL Mild Pain (Pain Scale 1-3) 01/13/20 14:30 02/12/20 14:29 Aspirin (ASA) 81 mg DAILY ORAL 01/14/20 09:00 02/28/20 08:59 01/27/20 10:39 Cefepime HCl 1 gm/ Dextrose 55 ml @ 110 mls/hr Q24H IVPB 01/25/20 12:00 02/01/20 11:59 01/27/20 11:52 Dextrose (Dextrose 50%) 25 ml Q30M PRN IV Hypoglycemia 01/13/20 14:30 04/12/20 14:29 Dextrose (Dextrose 50%) 50 ml Q30M PRN IV Hypoglycemia 01/13/20 14:30 04/12/20 14:29 Docusate Sodium (Colace) 100 mg EVERY 12 HOURS ORAL 01/13/20 21:00 02/12/20 20:59 01/27/20 10:38 Linezolid (Zyvox) 600 mg EVERY 12 HOURS ORAL 01/25/20 21:00 01/30/20 20:59 01/27/20 10:38 Metoprolol Tartrate (Lopressor) 25 mg EVERY 12 HOURS ORAL 01/13/20 21:00 04/12/20 20:59 01/26/20 20:46 Metronidazole (Flagyl) 500 mg Q8HR ORAL 01/24/20 14:00 11/20/20 13:59 01/27/20 05:29 Mycophenolate Mofetil (Cellcept) 1,000 mg TWICE A DAY ORAL 01/13/20 18:00 04/12/20 17:59 01/27/20 10:38 Nitroglycerin (Ntg) 0.4 mg Q5M PRN SL Prn Chest Pain 01/13/20 14:30 02/12/20 14:29 Ondansetron HCl (Zofran) 4 mg Q6H PRN IVP Nausea & Vomiting 01/13/20 14:30 02/12/20 14:29 Pantoprazole (Protonix) 40 mg BID ORAL 01/15/20 18:00 02/13/20 08:59 01/27/20 10:39 Tacrolimus (Prograf) 1 mg EVERY 12 HOURS ORAL 01/13/20 21:00 04/12/20 20:59 01/27/20 10:39 Laboratory Tests 01/27/20 08:39: White Blood Count 3.8L, Red Blood Count 2.16L, Hemoglobin 7.3L, Hematocrit 23.1L , Mean Corpuscular Volume 107H, Mean Corpuscular Hemoglobin 33.8H, Mean Corpuscular Hemoglobin Concent 31.7L, Red Cell Distribution Width 13.9, Platelet Count 116L, Mean Platelet Volume 5.7L, Neutrophils (%) (Auto) , Lymphocytes (%) (Auto) , Monocytes (%) (Auto) , Eosinophils (%) (Auto) , Basophils (%) (Auto) , Differential Total Cells Counted 100, Neutrophils % (Manual) 86H, Lymphocytes % (Manual) 12L, Monocytes % (Manual) 1, Eosinophils % (Manual) 1, Basophils % (Manual) 0, Band Neutrophils 0, Platelet Estimate DecreasedL, Platelet Morphology Normal, Macrocytosis 1+, Sodium Level 138, Potassium Level 3.4L, Chloride Level 109H, Carbon Dioxide Level 19L, Anion Gap 10, Blood Urea Nitrogen 48H, Creatinine 1.7H, Estimat Glomerular Filtration Rate 40.5, Glucose Level 160H, Calcium Level 8.6 Height (Feet): 5 Height (Inches): 5.00 Weight (Pounds): 85 General Appearance: no apparent distress Cardiovascular: normal rate Respiratory/Chest: decreased breath sounds Abdomen: soft Objective No change Fouladian,Marvin MD Jan 27, 2020 13:27
[2020-01-27] MEDS ORDERED: CELLCEPT250 MG ORAL (13:41)
[2020-01-27] MEDS ORDERED: ASPIRIN81 MG ORAL (13:41)
[2020-01-27] MEDS ORDERED: FLAGYL500 MG ORAL (13:41)
[2020-01-27] MEDS ORDERED: COLACE100 MG ORAL (13:41)
[2020-01-27] MEDS ORDERED: LOPRESSOR25 M1 ORAL (13:41)
[2020-01-27] MEDS ORDERED: CEFEPIME 11 GM/50 ML IV (13:41)
[2020-01-27] MEDS ORDERED: ZYVOX600 MG ORAL (13:41)
[2020-01-27] MEDS ORDERED: TACROLIMUS1 MG ORAL (13:41)
--- NOTE | 2020-01-27 13:43 | Discharge Instructions ---
Discharge Instructions Discharge Instructions Follow up with: [facility] infectious disease and GI transplant service for histoplasmosis treatme Resume Normal Activity?: Yes Activity: as tolerated Special Instructions [facility] medical evaluation needed for treatment of Histoplasmosis For Congestive Heart Failure Reminder Report to your physician any weight gain of 5 pounds or more in one week. Piyush Cruz MD Jan 27, 2020 13:43
--- NOTE | 2020-01-27 13:49 | Discharge Summary ---
Discharge Summary Hospital Course Date of Admission Jan 13, 2020 at 14:08 Date of Discharge 01/27/20 Admitting Diagnosis NSTEMI HPI Lamont Ansari is a 64 year old male who was admitted on Jan 13, 2020 at 14:08 for Non-ST segment elevation myocardial infarction Consultations Cardiology Dr. Villanueva Pulmonary Dr. Hill Nephrology Dr. Hal Hernandes Procedures CT guided lung biopsy Hospital Course 64 y/o M admitted to the Hospital with prior history of liver transplant at [facility] more than 10 years ago, who is chronically on Prograf and Cellcept. He was admitted with chest discomfort and found to have NSTEMI. During the medical work up, abnormal CXR was followed with CT chest [facility] [place] revealed multiple nodules: # History of liver transplant at [facility] prograft 1 MG BID and cellcept 1000 MG BID UNABLE TO MONITOR PROGRAF LEVEL AT THIS HOSPITAL # Abnormal CXR with MULTIPLE NODULES. Patient is Ex- smoker. No hypoxia noted at this time. CT CHEST WITH Multiple bilateral pulmonary masses/nodules the largest of these demonstrate central cavitation. Main differential considerations are infectious inflammatory lesions such as septic emboli, tuberculosis, other mycobacterial infections; noninfectious processes such as rheumatoid, granulomatosis with polyangiitis; metastatic carcinoma, most likely squamous cell carcinoma, gastrointestinal adenocarcinoma, transitional cell bladder carcinoma Pulmonary consultation and infectious disease consultation with Dr. Hill and Greta Per Dr. Hernandes empiric ZYvox, Cefepime and Azithromycin started 01/17/20 DAY 10 - FLAGYL DAY 4 -f/u cx -Monitor CBC/C MP, temperatures -airborne isolation: AFB sp cx x3 ( 2 tissue samples NEGATIVE and Third one is from sputum and NEGATIVE) MTB PCR PENDING. 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 HE WILL REQUIRE A HIGHER LEVEL OF CARE, IDEALLY, [facility] WHERE HIS TRANSPLANT WAS DONE. ISOLATION AIRBORNE WILL BE CONTINUED UNTIL HIGHER LEVEL OF CARE DETERMINES NEXT STEPS IN THE MANAGEMENT. IR CT GUIDED LUNG BIOPSY 01/19 Follow up pathology. organizing pneumonia with necrotizing like inflammation. Fungal stains negative and NO GRANULOMAS. # Generalized weakness Etiology include failure to thrive, vs poor nutritional status vs underlying cardiac etiology based on history of recent KS 2 months ago vs underlying infection vs malignancy. Weight loss 6 lbs in the past month # Moderate protein caloric malnutrition. RD support and monitoring. # Elevated troponin Serial troponin noted to be stable Telemetry with some bigeminy noted and is stable TTE with normal EF Cardiology consulted Dr. Villanueva. Stress test Nuclear without active ischemia noted. Old infarct area noted. No intervention recommended at this time. Lipid panel reviewed. Asa 81 mg daily # CKD stage 3 Trend creatinine Monitor renal function # Hypokalemia Replete and monitor and Dr. Cintron renal consultation appreciated. # Hypomagnesemia Replete and monitor # Generalized weakness PT evaluation for baseline recommends SNF for short term rehab. NEEDS HIGHER LEVEL OF CARE, TRANSPLANT CENTER AND ID MANAGEMENT. DVT ppx with Enoxaparin GI ppx with PPI FULL CODE Discharge Medications New Medications: Aspirin* (Aspirin*) 81 Mg Tab.chew 81 MG ORAL DAILY for 30 Days, #30 TAB Cefepime Hcl/Dextrose, Iso-Osm (Cefepime 1 Gm Injection) 1 Gm/50 Ml Froz.piggy 1 GM IV DAILY PRN for 10 Days, BAG 0 Refills Docusate Sodium* (Colace*) 100 Mg Capsule 100 MG ORAL EVERY 12 HOURS for 30 Days, #60 CAP Linezolid* (Zyvox*) 600 Mg Tablet 600 MG ORAL EVERY 12 HOURS for 14 Days, #30 TAB Metoprolol Tartrate (Metoprolol Tartrate) 25 Mg Tablet 25 MG ORAL EVERY 12 HOURS for 60 Days, #30 TAB Metronidazole* (Flagyl*) 500 Mg Tablet 500 MG ORAL Q8HR for 14 Days, #60 TAB Mycophenolate Mofetil (Cellcept) 250 Mg Capsule 1000 MG ORAL TWICE A DAY for 30 Days, #60 CAP Tacrolimus (Tacrolimus) 1 Mg Capsule 1 MG ORAL EVERY 12 HOURS for 30 Days, #90 CAP Continued Medications: Tacrolimus (Tacrolimus) 1 Mg Capsule 1 MG PO TID for TRANSPLANT, CAP Ursodiol (Ursodiol*) 300 Mg Capsule 300 MG ORAL THREE TIMES A DAY for liver, #30 CAP 0 Refills Discontinued Medications: [Liver Transplan] () for FOR LIVER TRANPLANT Megestrol Acetate (Megestrol Acetate) 400 Mg/10 Ml Oral.susp 400 MG PO DAILY for unk, ML Discharge Condition Upon Discharge: stable Discharge Vital Signs Last Vital Signs Date Time Temp Pulse Resp B/P (MAP) Pulse Ox O2 Delivery O2 Flow Rate FiO2 01/27/20 09:00 75 107/69 01/27/20 09:00 Room Air 01/27/20 08:00 97.2 18 100 Discharge Disposition Patient was discharged to [facility] Discharge Diagnoses: (1) Histoplasma capsulatum infection (2) Elevated troponin (3) Anemia (4) Renal failure (ARF), acute on chronic (5) Hypokalemia (6) NSTEMI (non-ST elevated myocardial infarction) (7) Shortness of breath at rest Discharge Instructions Discharge Instructions Follow up with: [facility] infectious disease and GI transplant service for histoplasmosis treatme Activity: as tolerated Piyush Cruz MD Jan 27, 2020 13:49
[2020-01-27 16:52] LABS: HEMATOCRIT 23.8 % (42.0-52.0); HEMOGLOBIN 7.7 G/DL (14.2-18.0); MEAN CORPUSCULAR VOLUME 104 FL (80-99); PLATELET COUNT 131 K/UL (150-450); RED CELL DISTRIBUTION WIDTH 14.3 % (11.6-14.8); WHITE BLOOD COUNT 3.5 K/UL (4.8-10.8)
--- NOTE | 2020-01-27 17:18 | NUR ---
DISCHARGE PLANNING CALL RECEIVED FROM JB AT [facility] [place] TO REPORT BED AVAILABILITY AND ACCEPTANCE FOR TRANSFER. REQUESTS FOR PATIENT TO ARRIVE AT [phone] VIA AMBULANCE. REQUESTS FOR CHART TO BE COPIED WITH IMAGING RESULTS ON DISC AND PROVIDED WITH PATIENT AT TIME OF TRANSFER. RN BROOKE AND ANJALI CORDERO INFORMED. PATIENT TO TRANSFER TO [facility] [place] [address] [facility] [id number] ~ FOR REPORT [facility] 6[facility] BLS AMBULANCE TRANSPORTATION SCHEDULED WITH [facility] WITH ETA @ 1730 PER ANTONY PRATT CALLED AND S/W PATIENTS SON SHARRON BERMUDEZ [phone] AND INFORMED OF TRANSFER. PTS SON AGREES WITH TRANSFER.
--- NOTE | 2020-01-27 18:47 | NUR ---
NURSE NOTES: called [facility], report given to RN Everton Evans., whop asked nurse to leave IV access in place, as pt is to receive atb IVPB.
--- NOTE | 2020-01-27 19:00 | NUR ---
NURSE NOTES: patient is being prepared for discharge, transfer to [facility]. Patient signed off belongings list and has all his belongings ready to go. Notified son Alberto of patient's impending transfer. Patient will keep PIV left forearm due to continue receiving of IVPB atb, JADE Toscano from [facility] aware. In stable VS, no complaint of pain or discomfort. Taken pic, done change of dressing of sacral area, no redness observe. Report given to JADE Trejo.
--- NOTE | 2020-01-27 19:05 | NUR ---
NURSE NOTES: Received report from Marivel HANSEN. Pt. is awake, alert and in bed, verbally responsive; oriented x 4. Breathing even and unlabored, no sob noted. Denies any pain at this time. On airborne isolation, observed at all times. Pt. is awaiting transportation for discharge. Will follow up.
--- NOTE | 2020-01-27 19:31 | NUR ---
NURSE HAND-OFF: Important Events on Shift:[will be tx to [facility], report given to JADE Toscano from facility] Patient Status: [stable] Diet: [renal] Pending Orders: [] Pending Results/Labs:[] Pending MD notification:[] Latest Vital Signs: Temperature 98.1 , Pulse 81 , B/P 100 /66 , Respiratory Rate 18 , O2 SAT 100 , Room Air, O2 Flow Rate . Vital Sign Comment: [] Latest Padron Fall Score: 35 Fall Risk: Medium Risk Safety Measures: Call light Within Reach, Bed Alarm Zone 1, Side Rails Side Rails x2, Bed position Low and Locked. Fall Precautions: Yellow Socks Yellow Gown Door Sign Patient Fall Education Report given to [JADE Trejo].
[2020-01-27] MEDS ORDERED: Mycophenolate 250mg cap ORAL SCH (21:00)
--- NOTE | 2020-01-27 21:45 | NUR ---
NURSE NOTES: All due meds given. Vital signs stable. [facility] ambulance came to [place] pt. Pt. is alert and oriented x4. Able to ambulate. Report given. Pt. left via ambulance and in stable condition. All belongings given. Pt. provided with mask.
== END 2020-01-27 21:45 | disposition short-term general hospital (02) | DRG 177 ==
LOC: EMR 14:03 → 2W 14:08 → EDBEDREQ 14:47 → 2E 15:45 → 4E 01-17 18:53
PROC: 0BBL3ZX Excision of Left Lung, Percutaneous Approach, Diagnostic (ICD-10-PCS; principal; 2020-01-13)
DX: B39.0 Acute pulmonary histoplasmosis capsulati (principal); I21.4 Non-ST elevation (NSTEMI) myocardial infarction; E44.0 Moderate protein-calorie malnutrition; Z94.4 Liver transplant status; N17.9 Acute kidney failure, unspecified; Z68.1 Body mass index [BMI] 19.9 or less, adult; I12.9 Hypertensive chronic kidney disease with stage 1 through stage 4 chronic kidney disease, or unspecified chronic kidney disease; E87.6 Hypokalemia; E83.42 Hypomagnesemia; N18.30 Chronic kidney disease, stage 3 unspecified; I25.2 Old myocardial infarction; Z87.891 Personal history of nicotine dependence; J44.9 Chronic obstructive pulmonary disease, unspecified; N28.1 Cyst of kidney, acquired; I25.10 Atherosclerotic heart disease of native coronary artery without angina pectoris; R53.1 Weakness; N40.1 Benign prostatic hyperplasia with lower urinary tract symptoms
CPT/HCPCS: 32405; 36415; 71045; 71250; 76770; 78452; 80048; 80053; 80061; 81003; 82105; 82164; 82248; 82378; 82550; 82553; 82607; 82728; 82746; 82977; 83036; 83540; 83550; 83605; 83735; 83880; 84100; 84133; 84153; 84154; 84300; 84439; 84443; 84484; 84550; 85007; 85025; 85610; 85651; 85730; 86021; 86039; 86140; 86171; 86225; 86580; 86612; 86635; 86703; 86738; 87040; 87116; 87385; 87449; 87556; 93005; 93017; 93306; 99285; J2785; J8499; U0002